=== PATIENT | female | born 1965 | race Caucasian/White ===

== ENCOUNTER 2016-07-25 08:54 | Inpatient (IN) | payer SELFPAY ==
[~2016-07-25] VITALS: Ht 167.6 cm; Wt 59.9 kg
--- NOTE | 2016-07-25 09:41 | PHYS DOC ---
Past Medical History Past Medical History: High Cholesterol, Hypertension, Hypothyroid, Renal Disease, Stroke (LLE weakness) Past Surgical History: , Other Additional Past Surgical Histo: L- CARPAL TUNNEL, L SHOULDER, LOWER BACK Alcohol Use: None Drug Use: None Adult General Chief Complaint Chief Complaint: OTHER COMPLAINTS [facility] HPI Patient is a 50 year old female who presents at request of Dr. Hartmann, nephrology, for abnormal renal function. She follows with chronic kidney disease. She states she has been taking Lasix for whole-body swelling for the past 6 weeks, and her swelling continues to get worse. She had a phone call for abnormal labs last night; she does not know exactly what the labs were other than renal function. She denies dyspnea, orthopnea, cough, fever or chills, nausea or vomiting, diarrhea, dysuria. Still making urine. No prior dialysis. Review of Systems Review of Systems Constitutional: Denies fever or chills [] Eyes: Denies change in visual acuity, redness, or eye pain [] HENT: Denies nasal congestion or sore throat [] Respiratory: Denies cough or shortness of breath [] Cardiovascular: No additional information not addressed in HPI [] GI: Denies abdominal pain, nausea, vomiting, bloody stools or diarrhea [] : Denies dysuria or hematuria [] Musculoskeletal: Denies back pain or joint pain [] Integument: Denies rash or skin lesions [] Neurologic: Denies headache, focal weakness or sensory changes [] Endocrine: Denies polyuria or polydipsia [] Allergies Allergies Allergies Coded Allergies Type Severity Reaction Last Updated Verified Sulfa (Sulfonamide Antibiotics) Allergy Intermediate 07/25/16 Yes bupropion Allergy Intermediate 07/25/16 Yes meperidine Allergy Intermediate 07/25/16 Yes Physical Exam Physical Exam Constitutional: Well developed, well nourished, no acute distress, non-toxic appearance. [] HENT: Normocephalic, atraumatic, bilateral external ears normal, oropharynx moist, nose normal. [] Eyes: PERRLA, EOMI. [] Neck: Normal range of motion, supple. [] Cardiovascular:Heart rate regular rhythm [] Lungs & Thorax: Bilateral breath sounds clear to auscultation [] Abdomen: Bowel sounds normal, soft, no tenderness. [] Skin: Warm, dry, no erythema, no rash. [] Back: No tenderness, no CVA tenderness. [] Extremities: No tenderness, ROM intact, bilateral 2+ upper and lower extremity edema. [] Neurologic: Alert and oriented X 3, normal motor function, normal sensory function, no focal deficits noted. [] Psychologic: Affect normal, judgement normal, mood normal. [] Current Patient Data Vital Signs Vital Signs Date Time Temp Pulse Resp B/P (MAP) Pulse Ox O2 Delivery O2 Flow Rate FiO2 07/25/16 09:00 97.9 75 20 195/98 (130) 99 Room Air 97.9 Lab Values Laboratory Tests Test 07/25/16 09:45 07/25/16 10:05 White Blood Count 6.2 x10^3/uL (4.0-11.0) Red Blood Count 3.40 x10^6/uL (3.50-5.40) L Hemoglobin 10.4 g/dL (12.0-15.5) L Hematocrit 29.1 % (36.0-47.0) L Mean Corpuscular Volume 86 fL (79-100) Mean Corpuscular Hemoglobin 31 pg (25-35) Mean Corpuscular Hemoglobin Concent 36 g/dL (31-37) Red Cell Distribution Width 13.9 % (11.5-14.5) Platelet Count 300 x10^3/uL (140-400) Neutrophils (%) (Auto) 66 % (31-73) Lymphocytes (%) (Auto) 21 % (24-48) L Monocytes (%) (Auto) 9 % (0-9) Eosinophils (%) (Auto) 3 % (0-3) Basophils (%) (Auto) 1 % (0-3) Neutrophils # (Auto) 4.1 x10^3uL (1.8-7.7) Lymphocytes # (Auto) 1.3 x10^3/uL (1.0-4.8) Monocytes # (Auto) 0.5 x10^3/uL (0.0-1.1) Eosinophils # (Auto) 0.2 x10^3/uL (0.0-0.7) Basophils # (Auto) 0.0 x10^3/uL (0.0-0.2) Sodium Level 145 mmol/L (136-145) Potassium Level 3.4 mmol/L (3.5-5.1) L Chloride Level 110 mmol/L (98-107) H Carbon Dioxide Level 23 mmol/L (21-32) Anion Gap 12 (6-14) Blood Urea Nitrogen 52 mg/dL (7-20) H Creatinine 2.9 mg/dL (0.6-1.0) H Estimated GFR (Cockcroft-Gault) 17.2 BUN/Creatinine Ratio 18 (6-20) Glucose Level 73 mg/dL (70-99) Calcium Level 8.2 mg/dL (8.5-10.1) L Total Bilirubin 0.3 mg/dL (0.2-1.0) Aspartate Amino Transferase (AST) 27 U/L (15-37) Alanine Aminotransferase (ALT) 17 U/L (14-59) Alkaline Phosphatase 62 U/L (46-116) Total Protein 5.6 g/dL (6.4-8.2) L Albumin 2.0 g/dL (3.4-5.0) L Albumin/Globulin Ratio 0.6 (1.0-1.7) L Glucose (Fingerstick) 53 mg/dL (70-99) L Laboratory Tests 07/25/16 09:45 Laboratory Tests 07/25/16 09:45 Course & Med Decision Making Course & Med Decision Making Pertinent Labs and Imaging studies reviewed. (See chart for details) Has renal failure with unknown baseline, but has whole-body edema failing outpatient diuresis. Discussed case with Dr. Okeefe, nephrology, who recommends admission for further workup and no immediate intervention. Discussed case with Dr. Da Silva, who will admit. Dragon Disclaimer Dragon Disclaimer This electronic medical record was generated, in whole or in part, using a voice recognition dictation system. Departure Departure Impression: Primary Impression: Acute on chronic renal failure Additional Impression: Edema Disposition: ADMITTED INPATIENT Condition: STABLE Problem Qualifiers Primary Impression: Acute on chronic renal failure Acute renal failure type: unspecified Chronic kidney disease stage: unspecified stage Qualified Codes: N17.9 - Acute kidney failure, unspecified; N18.9 - Chronic kidney disease, unspecified Additional Impression: Edema Edema type: generalized Qualified Codes: R60.1 - Generalized edema Margarita BUTLER MD July 25, 2016 09:41
[2016-07-25 10:01] LABS: CALCIUM 8.2 mg/dL (8.5-10.1); CREATININE 2.9 mg/dL (0.6-1.0); GFR 17.2; POTASSIUM 3.4 mmol/L (3.5-5.1)
[2016-07-25 10:07] LABS: ALBUMIN/GLOBULIN RATIO 0.6 (1.0-1.7); BASO % 1 % (0-3); EOS % 3 % (0-3); HEMATOCRIT 29.1 % (36.0-47.0); HEMOGLOBIN 10.4 g/dL (12.0-15.5); LYMPH # 1.3 x10^3/uL (1.0-4.8); LYMPH % 21 % (24-48); MEAN CORPUSCULAR HEMOGLOBIN 31 pg (25-35); MEAN CORPUSCULAR HGB CONC 36 g/dL (31-37); MEAN CORPUSCULAR VOLUME 86 fL (79-100); MONO % 9 % (0-9); NEUT % 66 % (31-73); PLATELET COUNT 300 x10^3/uL (140-400); RED CELL DISTRIBUTION WIDTH 13.9 % (11.5-14.5); TOTAL BILIRUBIN 0.3 mg/dL (0.2-1.0); TOTAL PROTEIN 5.6 g/dL (6.4-8.2); WHITE BLOOD COUNT 6.2 x10^3/uL (4.0-11.0)
[2016-07-25] MEDS ORDERED: ONDANSETRON PF 4 MG/2 ML VIAL. IV PRN (10:30)
[2016-07-25] MEDS ORDERED: ACETAMINOPHEN 325 MG TABLET. PO PRN (10:30)
--- NOTE | 2016-07-25 11:08 | ACF ---
Admission Forms Criteria RENAL FAILURE, CHRONIC Clinical Indications for Admission to Inpatient Care (Place 'X' for any and all applicable criteria): Admission is indicated for ANY ONE of the following (1)(2)(3)(4)(5): [X]I. Inpatient admission required rather than observation care (Use Renal Failure, Chronic: Observation Care Criteria as appropriate) because of ANY ONE of the following: [ ]a) Volume overload or uremic symptoms (eg, clinically significant pulmonary edema, hypertension, pericarditis, acidosis) too severe for, or not responsive (eg, for over 24 hours) to emergency department or observation care dialysis or treatment regimen (11) [ ]b) Hemodynamic instability that is severe or persistent [ ]c) Respiratory distress that is severe or persistent (11) [ ]d) Clinically significant electrolyte abnormality that requires inpatient care (eg,hyperkalemia with severe ECG findings)[B] [ ]e) Supplement O2 or respiratory therapy for over 24hrs that is performable only in acute inpatient setting [ ]f) Continuous IV infusion of anticoagulation, platelet inhibitor, vasoactive, or Antiarrhythmic medication (15), [ ]g) Pulmonary artery catheter monitoring [ ]h) Temporary pacemaker placement [ ]i) Emergent pericardiocentesis [X]j) Other condition, treatment or monitoring requiring inpatient admission [ ]II. Unexplained syncope [A] [ ]III. Recurrent seizures [ ]IV. Severe infections not treatable in outpatient setting (eg, peritonitis)(9 ) [ ]V. Cardiac arrhythmias of immediate concern [ ]. Encephalopathy [ ]VII.Bleeding abnormalities (eg, platelet dysfunction) with active (eg, gastrointestinal) bleeding Extended stay beyond goal length of stay may be needed for (3)(4)(35)(36): [ ]a) Continuing uremic complications [ ]b) Comorbidities or complications The original [employer] content created by [employer] has been revised. The portions of the content which have been revised are identified through the use of italic text or in bold, and [employer] has neither reviewed nor approved the modified material. All other unmodified content is copyright [employer]. Please see references footnoted in the original [employer] edition 2016 Admission Criteria Met?: Yes ANNAMARIE REYES July 25, 2016 11:08
[2016-07-25] MEDS ORDERED: RANI150C PO (11:40)
[2016-07-25] MEDS ORDERED: CLOP75TA PO (11:40)
[2016-07-25] MEDS ORDERED: CHOL10003 PO (11:40)
[2016-07-25] MEDS ORDERED: AMLO1TAB6 PO (11:41)
[2016-07-25] MEDS ORDERED: FURO-68 PO (11:41)
[2016-07-25] MEDS ORDERED: CLON0.1T PO (11:41)
[2016-07-25] MEDS ORDERED: PANT40TA3 PO (11:41)
[2016-07-25 11:42] VITALS: BP 154/95
[2016-07-25] MEDS: FUROSEMIDE 40 MG/4 ML VIAL. IVP SCH (13:52)
[2016-07-25] MEDS ORDERED: FUROSEMIDE 40 MG TABLET. PO SCH (14:00)
[2016-07-25 14:38] VITALS: BP 143/83
[2016-07-25] MEDS ORDERED: INSU100I13 SQ (15:16)
[2016-07-25] MEDS ORDERED: INSU100I17 SQ (15:16)
[2016-07-25] MEDS ORDERED: DEXTROSE 50% 25 GM / 50ML DISP.SYRIN. IV PRN (15:30)
--- NOTE | 2016-07-25 16:37 | HP ---
ADMIT DATE: 07/25/2016 CHIEF COMPLAINT: Elevated creatinine. HISTORY OF PRESENT ILLNESS: The patient is a pleasant 50-year-old female who has chronic renal insufficiency. She is also edematous. Her rehab tech, Dr. Hartmann, said she needed to come to the hospital for evaluation to consider the possibility of ____ dialysis. I have discussed the case with the ER physician. We are going to admit the patient and consult Nephrology. PAST MEDICAL HISTORY: Chronic renal insufficiency, hyperlipidemia, hypertension, hypothyroidism, , left carpal tunnel surgery, left shoulder surgery, lower back surgery, and stroke with left lower extremity weakness. ALLERGIES: None. FAMILY HISTORY: Hypertension. SOCIAL HISTORY: She does not drink, smoke, or take drugs. MEDICATIONS: Reviewed. Please refer to the MRAD. REVIEW OF SYSTEMS: GENERAL: The patient complains of severe edema. SKIN: No bruising, hair changes, or rashes. EYES: No blurred, double, or loss of vision. NOSE AND THROAT: No history of nosebleeds, hoarseness, or sore throat. HEART: No history of palpitations, chest pain, or shortness of breath on exertion. LUNGS: Denies cough, hemoptysis, wheezing, or shortness of breath. GASTROINTESTINAL: Denies changes in appetite, nausea, vomiting, diarrhea, or constipation. GENITOURINARY: No history of frequency, urgency, hesitancy, or nocturia. NEUROLOGIC: Denies history of numbness, tingling, tremor, or weakness. PSYCHIATRIC: No history of panic, anxiety, or depression. ENDOCRINE: No history of heat or cold intolerance, polyuria, or polydipsia. EXTREMITIES: Denies muscle weakness, joint pain, pain on walking, or stiffness. PHYSICAL EXAMINATION: VITAL SIGNS: Temperature afebrile, pulse 68, respirations 18, and blood pressure 117/92. GENERAL: She is alert, cooperative, and pleasant. HEART: Normal S1, S2. LUNGS: Clear with slight crackles. ABDOMEN: Soft. There is some ascites. EXTREMITIES: She has 2 to 3+ edema. SKIN: No rashes, but she has got some excoriations on her face. She states she picks at it sometimes. ENDOCRINE: No thyromegaly. LYMPHATICS: No cervical nodes. HEMATOPOIETIC: No bruising. LABORATORY DATA: Potassium is 3.4, sodium is 145, creatinine 2.9, glucose 73, and BUN 32. ASSESSMENT AND PLAN: Acute on chronic renal failure with severe edema and hypokalemia. The patient has been admitted. We will replace her potassium. Consult Nephrology. Suspect she might need dialysis. Continued her home medicines, frequent labs, PT, and OT. PROGNOSIS: Guarded. ANGEL JONES DO DR: LINDA/sunitha JOB#: [id number] / [id number]
[2016-07-25] MEDS: INSULIN ASPART 300 UNITS/3 ML INSULN.PEN SQ SCH (16:51)
--- NOTE | 2016-07-25 17:13 | HP ---
ADMIT DATE: 07/25/2016 CHIEF COMPLAINT: Abdominal pain. HISTORY OF PRESENT ILLNESS: The patient is a pleasant middle-aged white female who presents with abdominal pain. She rates it 7/10. She has associated nausea. It has been occurring off and on for a few months. She thinks she has gallstones; in fact, there was an imaging done back a few months ago that she was told may have had gallstones. I have discussed the case with the ER physician. We are going to admit the patient and consult GI and General Surgery. PAST MEDICAL HISTORY: Hyperlipidemia, possible gallstones, hypertension, hypothyroidism, renal disease, previous stroke, C-sections, left carpal tunnel, left shoulder surgery, low back surgery. ALLERGIES: SULFA, BUPROPION, AND MEPERIDINE. FAMILY HISTORY: Coronary artery disease. SOCIAL HISTORY: She does not drink or take drugs. She does smoke. 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 MEDICATIONS: Reviewed, please refer to the MRAD. REVIEW OF SYSTEMS: GENERAL: No history of weight change, weakness or fevers. SKIN: No bruising, hair changes or rashes. EYES: No blurred, double or loss of vision. NOSE AND THROAT: No history of nosebleeds, hoarseness or sore throat. HEART: No history of palpitations, chest pain or shortness of breath on exertion. LUNGS: Denies cough, hemoptysis, wheezing or shortness of breath. GASTROINTESTINAL: The patient complains of abdominal pain. GENITOURINARY: No history of frequency, urgency, hesitancy or nocturia. NEUROLOGIC: Denies history of numbness, tingling, tremor or weakness. PSYCHIATRIC: No history of panic, anxiety or depression. ENDOCRINE: No history of heat or cold intolerance, polyuria or polydipsia. EXTREMITIES: Denies muscle weakness, joint pain, pain on walking or stiffness. PHYSICAL EXAMINATION: VITAL SIGNS: Temperature afebrile, pulse 68, respirations 18, blood pressure 117/62. GENERAL: She is alert, cooperative. HEART: Normal S1, S2. LUNGS: Clear. ABDOMEN: Soft. Decreased bowel sounds, tender in the epigastrium. EXTREMITIES: No edema. SKIN: No rashes. PSYCHIATRIC: She is stable. VASCULAR: Good capillary refill. ENDOCRINE: No thyromegaly. LYMPHATICS: No cervical nodes. HEMATOPOIETIC: No bruising. LABORATORY DATA: White count , hemoglobin 10, platelets 300. Electrolytes: Sodium 145, potassium 3.4, chloride 110, bicarbonate 23, BUN 52, creatinine . ANGEL JONES DO DR: LINDA/sunitha JOB#: [id number] / [id number]
[2016-07-25 19:00] VITALS: BP 148/86
[2016-07-25] MEDS: cloNIDine HCL 0.1 MG TABLET PO SCH (20:25)
[2016-07-25] MEDS: ATORVASTATIN CALCIUM 40 MG TABLET. PO SCH (20:26)
[2016-07-25] MEDS: INSULIN DETEMIR 300 UNITS/3 ML INSULN.PEN. SQ SCH (21:40)
[2016-07-25 23:06] VITALS: BP 119/64
[2016-07-26] VITALS (11 sets, daily range): BP systolic 114–165; BP diastolic 59–86
[2016-07-26 05:10] LABS: ALBUMIN 1.6 g/dL (3.4-5.0); CALCIUM 7.7 mg/dL (8.5-10.1); GFR 16.5; PHOSPHORUS 4.5 mg/dL (2.6-4.7); POTASSIUM 3.5 mmol/L (3.5-5.1)
[2016-07-26] MEDS: CHOLECALCIFEROL (VITAMIN D3) 1,000 UNIT TABLET PO SCH (08:30)
[2016-07-26] MEDS: PANTOPRAZOLE 40 MG TABLET.DR. PO SCH (08:30)
[2016-07-26] MEDS: CLOPIDOGREL BISULFATE 75 MG TABLET PO SCH (08:30)
[2016-07-26] MEDS: amLODIPine BESYLATE 10 MG TABLET PO SCH (08:31)
[2016-07-26] MEDS: cloNIDine HCL 0.1 MG TABLET PO SCH (08:31)
[2016-07-26] MEDS: FAMOTIDINE 20 MG TABLET. PO SCH (08:31)
[2016-07-26] MEDS: FUROSEMIDE 40 MG/4 ML VIAL. IVP SCH ×2 (08:32→14:44)
[2016-07-26] MEDS: INSULIN ASPART 300 UNITS/3 ML INSULN.PEN SQ SCH ×4 (08:43→17:12)
--- NOTE | 2016-07-26 12:12 | PDOC2 ---
CONSULT Date of Consult Date of Consult DATE: 07/26/16 TIME: 12:02 Reason for Consult Reason for Consult: RENAL FAILURE Referring Physician Referring Physician: KAREN Identification/Chief Complaint Chief Complaint SWELLING Source Source: Chart review, Patient History of Present Illness Reason for Visit: THIS IS A 50 YR OLD ADMITTED WITH SWELLING ALL OVER. SHE HAS HAS PROGRESSIVE ANASARCA RECENTLY. HX NOTABLE FOR DM AND SEVERE NEPHROTIC RANGE PROTEINURIA. SHE IS NOTED TO HAVE ABOUT 12GM A DAY PROTEINURIA. SHE IS ALSO HYPERTENSIVE AND HAS HAD PROGRESSIVE CKD OVER THE COURSE OF THIS YEAR. HER CR WAS ABOUT 2.1 IN MAY THIS YEAR WITH A CRCL OF 26CC/MIN. CURRENTLY CR IS 3.0 AND WE CANNOT ADEQUATELY DIURESE HER AND SHE APPARENTLY HAS NOT TOLERATED AN NATALIIA-I IN THE PAST Past Medical History Cardiovascular: HTN, Hyperlipidemia CENTRAL NERVOUS SYSTEM: CVA Renal/: Chronic renal failure, Other (PROTEINURIA) Endocrine: Diabetes Past Surgical History Past Surgical History LEFT CARPAL TUNNEL RELEASE, LEFT SHOULDER, LOW BACK SURGERY Past Surgical History: Family History Family History: Diabetes, Hypertension Social History No ALCOHOL: none Drugs: None Current Problem List Problem List Problems Medical Problems: (1) Acute on chronic renal failure Status: Acute (2) Edema Status: Acute Current Medications Current Medications Current Medications Ondansetron HCl (Zofran) 4 mg PRN Q8HRS PRN IV NAUSEA/VOMITING; Start 07/25/16 at 10:30; Stop 07/26/16 at 10:29; Status DC Acetaminophen (Tylenol) 650 mg PRN Q4HRS PRN PO FEVER; Start 07/25/16 at 10:30 ; Stop 07/26/16 at 10:29; Status DC Vitamin D (Vitamin D3) 1,000 unit DAILY PO Last administered on 07/26/16 08:30 ; Start 07/26/16 at 09:00 Clonidine HCl (Catapres) 0.1 mg BID PO Last administered on 07/26/16 08:31; Start 07/25/16 at 21:00 Clopidogrel Bisulfate (Plavix) 75 mg DAILYWBKFT PO Last administered on 08:30; Start 07/26/16 at 08:00 Furosemide (Lasix) 40 mg BID92 PO ; Start 07/25/16 at 14:00; Stop 07/25/16 at 14 :00; Status DC Pantoprazole Sodium (Protonix) 40 mg DAILYAC PO Last administered on 07/26/16 08:30; Start 07/26/16 at 07:30 Amlodipine Besylate (Norvasc) 10 mg DAILY PO Last administered on 07/26/16 08: 31; Start 07/26/16 at 09:00 Famotidine (Pepcid) 20 mg DAILY PO Last administered on 07/26/16 08:31; Start 07/26/16 at 09:00 Atorvastatin Calcium (Lipitor) 40 mg QHS PO ; Start 07/25/16 at 21:00 Furosemide (Lasix) 40 mg BID92 IVP Last administered on 07/26/16 08:32; Start 07/25/16 at 14:00 Insulin Detemir (Levemir) 8 units QHS SQ Last administered on 07/25/16 21:40; Start 07/25/16 at 21:00 Insulin Aspart (NovoLOG) 0-7 UNITS TIDWMEALS SQ Last administered on 07/26/16 08:43; Start 07/25/16 at 17:00 Dextrose (Dextrose 50%-Water Syringe) 12.5 gm PRN Q15MIN PRN IV SEE COMMENTS; Start 07/25/16 at 15:30 Active Scripts Active Reported Novolog Flexpen (Insulin Aspart) 100 Unit/1 Ml Insuln.pen 5 Unit SQ TIDAC Lantus Solostar (Insulin Glargine,Hum.rec.anlog) 100 Unit/1 Ml Insuln.pen 8 Unit SQ QHS Clonidine Hcl 0.1 Mg Tablet 0.1 Mg PO BID Lasix (Furosemide) 40 Mg Tablet 40 Mg PO BID Caduet 10 Mg-40 Mg Tablet (Amlodipine/Atorvastatin) 1 Each Tablet 1 Each PO DAILY Protonix (Pantoprazole Sodium) 40 Mg Tablet.dr 1 Tab PO DAILY Clopidogrel (Clopidogrel Bisulfate) 75 Mg Tablet 1 Tab PO DAILY Ranitidine Hcl 150 Mg Capsule 150 Mg PO DAILY Vitamin D3 (Cholecalciferol (Vitamin D3)) 1,000 Unit Tablet 1 Tab PO DAILY Allergies Allergies: Coded Allergies: Sulfa (Sulfonamide Antibiotics) (Verified Allergy, Intermediate, 07/25/16) bupropion (Verified Allergy, Intermediate, 07/25/16) meperidine (Verified Allergy, Intermediate, 5/24/17) ROS General: YES: Fatigue, Malaise, Appetite PSYCHOLOGICAL ROS: YES: Depression Eyes: Yes Decreased vision HEENT: YES: Heacaches Respiratory: YES: Cough, Shortness of breath Cardiovascular: yes Edema Gastrointestinal: Yes Constipation Genitourinary: YES Other (NOCTURIA) Neurological: Yes Weakness Physical Exam General: Alert, Oriented X3, Cooperative, No acute distress HEENT: Atraumatic, PERRLA Lungs: Clear to auscultation Heart: Regular rate, Normal S2, No murmurs Abdomen: Normal bowel sounds, No tenderness Extremities: No clubbing, Other (3+ EDEMA) Neuro: Normal speech, Other (L LE WEAKNESS AFTER CVA-NEEDS A WALKER) Psych/Mental Status: Mood NL MUSCULOSKELETAL: No deformity, No swelling Vitals VITALS Vital Signs Date Time Temp Pulse Resp B/P (MAP) Pulse Ox O2 Delivery O2 Flow Rate FiO2 07/26/16 11:00 99.5 73 22 115/63 (80) 98 Room Air 99.5 Labs Labs Laboratory Tests Test 07/25/16 09:45 07/25/16 10:05 07/25/16 11:00 07/25/16 11:26 White Blood Count 6.2 x10^3/uL (4.0-11.0) Red Blood Count 3.40 x10^6/uL (3.50-5.40) Hemoglobin 10.4 g/dL (12.0-15.5) Hematocrit 29.1 % (36.0-47.0) Mean Corpuscular Volume 86 fL (79-100) Mean Corpuscular Hemoglobin 31 pg (25-35) Mean Corpuscular Hemoglobin Concent 36 g/dL (31-37) Red Cell Distribution Width 13.9 % (11.5-14.5) Platelet Count 300 x10^3/uL (140-400) Neutrophils (%) (Auto) 66 % (31-73) Lymphocytes (%) (Auto) 21 % (24-48) Monocytes (%) (Auto) 9 % (0-9) Eosinophils (%) (Auto) 3 % (0-3) Basophils (%) (Auto) 1 % (0-3) Neutrophils # (Auto) 4.1 x10^3uL (1.8-7.7) Lymphocytes # (Auto) 1.3 x10^3/uL (1.0-4.8) Monocytes # (Auto) 0.5 x10^3/uL (0.0-1.1) Eosinophils # (Auto) 0.2 x10^3/uL (0.0-0.7) Basophils # (Auto) 0.0 x10^3/uL (0.0-0.2) Sodium Level 145 mmol/L (136-145) Potassium Level 3.4 mmol/L (3.5-5.1) Chloride Level 110 mmol/L (98-107) Carbon Dioxide Level 23 mmol/L (21-32) Anion Gap 12 (6-14) Blood Urea Nitrogen 52 mg/dL (7-20) Creatinine 2.9 mg/dL (0.6-1.0) Estimated GFR (Cockcroft-Gault) 17.2 BUN/Creatinine Ratio 18 (6-20) Glucose Level 73 mg/dL (70-99) Calcium Level 8.2 mg/dL (8.5-10.1) Total Bilirubin 0.3 mg/dL (0.2-1.0) Aspartate Amino Transf (AST/SGOT) 27 U/L (15-37) Alanine Aminotransferase (ALT/SGPT) 17 U/L (14-59) Alkaline Phosphatase 62 U/L (46-116) Total Protein 5.6 g/dL (6.4-8.2) Albumin 2.0 g/dL (3.4-5.0) Albumin/Globulin Ratio 0.6 (1.0-1.7) Glucose (Fingerstick) 53 mg/dL (70-99) 65 mg/dL (70-99) Urine Creatinine 24 Hour 61.9 mg/dL (Not Estab.) Urine Creatinine mg/24 hr 669 mg/24 hr (800-1800) Test 07/25/16 16:42 07/25/16 20:48 07/26/16 04:15 07/26/16 10:47 Glucose (Fingerstick) 160 mg/dL (70-99) 216 mg/dL (70-99) 160 mg/dL (70-99) Sodium Level 144 mmol/L (136-145) Potassium Level 3.5 mmol/L (3.5-5.1) Chloride Level 111 mmol/L (98-107) Carbon Dioxide Level 25 mmol/L (21-32) Anion Gap 8 (6-14) Blood Urea Nitrogen 52 mg/dL (7-20) Creatinine 3.0 mg/dL (0.6-1.0) Estimated GFR (Cockcroft-Gault) 16.5 Glucose Level 215 mg/dL (70-99) Calcium Level 7.7 mg/dL (8.5-10.1) Phosphorus Level 4.5 mg/dL (2.6-4.7) FK-[id number]-Type Natriuretic Peptide 1972 pg/mL (0-124) Albumin 1.6 g/dL (3.4-5.0) Laboratory Tests Test 07/25/16 16:42 07/25/16 20:48 07/26/16 04:15 07/26/16 10:47 Glucose (Fingerstick) 160 mg/dL (70-99) 216 mg/dL (70-99) 160 mg/dL (70-99) Sodium Level 144 mmol/L (136-145) Potassium Level 3.5 mmol/L (3.5-5.1) Chloride Level 111 mmol/L (98-107) Carbon Dioxide Level 25 mmol/L (21-32) Anion Gap 8 (6-14) Blood Urea Nitrogen 52 mg/dL (7-20) Creatinine 3.0 mg/dL (0.6-1.0) Estimated GFR (Cockcroft-Gault) 16.5 Glucose Level 215 mg/dL (70-99) Calcium Level 7.7 mg/dL (8.5-10.1) Phosphorus Level 4.5 mg/dL (2.6-4.7) MH-Yml-F-Type Natriuretic Peptide 1972 pg/mL (0-124) Albumin 1.6 g/dL (3.4-5.0) Assessment/Plan Assessment/Plan IMP ANASARCA NEW ESRD WITH PROGRESSION IN THE LAST SEVERAL MONTHS CRCL WAS 25 WITH CR OF 2.0 IN MAY-CURRENT CR IS 3.0 SEVERE NEPHROTIC SYNDROME WITH NEARLY 12 GM PER/DAY DM II HTN ANEMIA HYPOALBUMINEMIA PLAN WILL START HD WILL HAVE IR PLACE TUNNELED HD CATHETER HAVE ASKED SW TO SET UP OP HD HAD LONG D/W PT ABOUT PD AND HD OPTIONS AND SHE MAY BE INTERESTED IN PD AT LATER DATE IV LASIX FOR NOW ALSO START NATALIIA-I STOP CLONIDINE TIM MCGRATH MD July 26, 2016 12:11
[2016-07-26] MEDS: LISINOPRIL 20 MG TABLET PO SCH (13:00)
--- NOTE | 2016-07-26 13:13 | PDOC ---
PROGRESS NOTES Chief Complaint Chief Complaint ANASARCA ESRD with ckd 3-4 baseline Cr 2 DM II HTN ANEMIA HYPOALBUMINEMIA 2/2 ESRD plan: fu with renal on lasix 40mg iv bid HD set up today cont home meds, on lisinopril. dc clonidine as per renal on levemir 8u qhs, add aspart 5u tid, SSI dvt ppx History of Present Illness History of Present Illness decent urine output bl upper and lower ext severe edema, anasarca, distended abd moderate Vitals Vitals Vital Signs Date Time Temp Pulse Resp B/P (MAP) Pulse Ox O2 Delivery O2 Flow Rate FiO2 07/26/16 11:00 99.5 73 22 115/63 (80) 98 Room Air 99.5 Physical Exam General: Alert, Oriented X3, Cooperative, No acute distress Heart: Regular rate, Normal S2, No murmurs Abdomen: Normal bowel sounds, No tenderness, Other (moderate distended abd) Extremities: No clubbing, Other (bl ext 3+ pitting EDEMA) Labs LABS Laboratory Tests Test 07/25/16 16:42 07/25/16 20:48 07/26/16 04:15 07/26/16 10:47 Glucose (Fingerstick) 160 mg/dL (70-99) 216 mg/dL (70-99) 160 mg/dL (70-99) Sodium Level 144 mmol/L (136-145) Potassium Level 3.5 mmol/L (3.5-5.1) Chloride Level 111 mmol/L (98-107) Carbon Dioxide Level 25 mmol/L (21-32) Anion Gap 8 (6-14) Blood Urea Nitrogen 52 mg/dL (7-20) Creatinine 3.0 mg/dL (0.6-1.0) Estimated GFR (Cockcroft-Gault) 16.5 Glucose Level 215 mg/dL (70-99) Calcium Level 7.7 mg/dL (8.5-10.1) Phosphorus Level 4.5 mg/dL (2.6-4.7) CU-Pis-E-Type Natriuretic Peptide 1972 pg/mL (0-124) Albumin 1.6 g/dL (3.4-5.0) Review of Systems Review of Systems no fever, chills, sob or chest pain Assessment and Plan Assessmemt and Plan Problems Medical Problems: (1) Acute on chronic renal failure Status: Acute (2) Edema Status: Acute Problems: Comment Review of Relevant I have reviewed the following items ruiz (where applicable) has been applied. Labs Laboratory Tests Test 07/25/16 09:45 07/25/16 10:05 07/25/16 11:00 07/25/16 11:26 White Blood Count 6.2 x10^3/uL (4.0-11.0) Red Blood Count 3.40 x10^6/uL (3.50-5.40) Hemoglobin 10.4 g/dL (12.0-15.5) Hematocrit 29.1 % (36.0-47.0) Mean Corpuscular Volume 86 fL (79-100) Mean Corpuscular Hemoglobin 31 pg (25-35) Mean Corpuscular Hemoglobin Concent 36 g/dL (31-37) Red Cell Distribution Width 13.9 % (11.5-14.5) Platelet Count 300 x10^3/uL (140-400) Neutrophils (%) (Auto) 66 % (31-73) Lymphocytes (%) (Auto) 21 % (24-48) Monocytes (%) (Auto) 9 % (0-9) Eosinophils (%) (Auto) 3 % (0-3) Basophils (%) (Auto) 1 % (0-3) Neutrophils # (Auto) 4.1 x10^3uL (1.8-7.7) Lymphocytes # (Auto) 1.3 x10^3/uL (1.0-4.8) Monocytes # (Auto) 0.5 x10^3/uL (0.0-1.1) Eosinophils # (Auto) 0.2 x10^3/uL (0.0-0.7) Basophils # (Auto) 0.0 x10^3/uL (0.0-0.2) Sodium Level 145 mmol/L (136-145) Potassium Level 3.4 mmol/L (3.5-5.1) Chloride Level 110 mmol/L (98-107) Carbon Dioxide Level 23 mmol/L (21-32) Anion Gap 12 (6-14) Blood Urea Nitrogen 52 mg/dL (7-20) Creatinine 2.9 mg/dL (0.6-1.0) Estimated GFR (Cockcroft-Gault) 17.2 BUN/Creatinine Ratio 18 (6-20) Glucose Level 73 mg/dL (70-99) Calcium Level 8.2 mg/dL (8.5-10.1) Total Bilirubin 0.3 mg/dL (0.2-1.0) Aspartate Amino Transf (AST/SGOT) 27 U/L (15-37) Alanine Aminotransferase (ALT/SGPT) 17 U/L (14-59) Alkaline Phosphatase 62 U/L (46-116) Total Protein 5.6 g/dL (6.4-8.2) Albumin 2.0 g/dL (3.4-5.0) Albumin/Globulin Ratio 0.6 (1.0-1.7) Glucose (Fingerstick) 53 mg/dL (70-99) 65 mg/dL (70-99) Urine Creatinine 24 Hour 61.9 mg/dL (Not Estab.) Urine Creatinine mg/24 hr 669 mg/24 hr (800-1800) Test 07/25/16 16:42 07/25/16 20:48 07/26/16 04:15 07/26/16 10:47 Glucose (Fingerstick) 160 mg/dL (70-99) 216 mg/dL (70-99) 160 mg/dL (70-99) Sodium Level 144 mmol/L (136-145) Potassium Level 3.5 mmol/L (3.5-5.1) Chloride Level 111 mmol/L (98-107) Carbon Dioxide Level 25 mmol/L (21-32) Anion Gap 8 (6-14) Blood Urea Nitrogen 52 mg/dL (7-20) Creatinine 3.0 mg/dL (0.6-1.0) Estimated GFR (Cockcroft-Gault) 16.5 Glucose Level 215 mg/dL (70-99) Calcium Level 7.7 mg/dL (8.5-10.1) Phosphorus Level 4.5 mg/dL (2.6-4.7) LR-Tut-M-Type Natriuretic Peptide 1972 pg/mL (0-124) Albumin 1.6 g/dL (3.4-5.0) Laboratory Tests Test 07/25/16 16:42 07/25/16 20:48 07/26/16 04:15 07/26/16 10:47 Glucose (Fingerstick) 160 mg/dL (70-99) 216 mg/dL (70-99) 160 mg/dL (70-99) Sodium Level 144 mmol/L (136-145) Potassium Level 3.5 mmol/L (3.5-5.1) Chloride Level 111 mmol/L (98-107) Carbon Dioxide Level 25 mmol/L (21-32) Anion Gap 8 (6-14) Blood Urea Nitrogen 52 mg/dL (7-20) Creatinine 3.0 mg/dL (0.6-1.0) Estimated GFR (Cockcroft-Gault) 16.5 Glucose Level 215 mg/dL (70-99) Calcium Level 7.7 mg/dL (8.5-10.1) Phosphorus Level 4.5 mg/dL (2.6-4.7) RY-Odf-T-Type Natriuretic Peptide 1972 pg/mL (0-124) Albumin 1.6 g/dL (3.4-5.0) Medications Current Medications Ondansetron HCl (Zofran) 4 mg PRN Q8HRS PRN IV NAUSEA/VOMITING; Start 07/25/16 at 10:30; Stop 07/26/16 at 10:29; Status DC Acetaminophen (Tylenol) 650 mg PRN Q4HRS PRN PO FEVER; Start 07/25/16 at 10:30 ; Stop 07/26/16 at 10:29; Status DC Vitamin D (Vitamin D3) 1,000 unit DAILY PO Last administered on 07/26/16 08:30 ; Start 07/26/16 at 09:00 Clonidine HCl (Catapres) 0.1 mg BID PO Last administered on 07/26/16 08:31; Start 07/25/16 at 21:00; Stop 07/26/16 at 12:13; Status DC Clopidogrel Bisulfate (Plavix) 75 mg DAILYWBKFT PO Last administered on 08:30; Start 07/26/16 at 08:00 Furosemide (Lasix) 40 mg BID92 PO ; Start 07/25/16 at 14:00; Stop 07/25/16 at 14 :00; Status DC Pantoprazole Sodium (Protonix) 40 mg DAILYAC PO Last administered on 07/26/16 08:30; Start 07/26/16 at 07:30 Amlodipine Besylate (Norvasc) 10 mg DAILY PO Last administered on 07/26/16 08: 31; Start 07/26/16 at 09:00 Famotidine (Pepcid) 20 mg DAILY PO Last administered on 07/26/16 08:31; Start 07/26/16 at 09:00 Atorvastatin Calcium (Lipitor) 40 mg QHS PO ; Start 07/25/16 at 21:00 Furosemide (Lasix) 40 mg BID92 IVP Last administered on 07/26/16 08:32; Start 07/25/16 at 14:00 Insulin Detemir (Levemir) 8 units QHS SQ Last administered on 07/25/16 21:40; Start 07/25/16 at 21:00 Insulin Aspart (NovoLOG) 0-7 UNITS TIDWMEALS SQ Last administered on 07/26/16 08:43; Start 07/25/16 at 17:00 Dextrose (Dextrose 50%-Water Syringe) 12.5 gm PRN Q15MIN PRN IV SEE COMMENTS; Start 07/25/16 at 15:30 Lisinopril (Prinivil) 20 mg DAILY PO ; Start 07/26/16 at 13:00 Active Scripts Active Reported Novolog Flexpen (Insulin Aspart) 100 Unit/1 Ml Insuln.pen 5 Unit SQ TIDAC Lantus Solostar (Insulin Glargine,Hum.rec.anlog) 100 Unit/1 Ml Insuln.pen 8 Unit SQ QHS Clonidine Hcl 0.1 Mg Tablet 0.1 Mg PO BID Lasix (Furosemide) 40 Mg Tablet 40 Mg PO BID Caduet 10 Mg-40 Mg Tablet (Amlodipine/Atorvastatin) 1 Each Tablet 1 Each PO DAILY Protonix (Pantoprazole Sodium) 40 Mg Tablet.dr 1 Tab PO DAILY Clopidogrel (Clopidogrel Bisulfate) 75 Mg Tablet 1 Tab PO DAILY Ranitidine Hcl 150 Mg Capsule 150 Mg PO DAILY Vitamin D3 (Cholecalciferol (Vitamin D3)) 1,000 Unit Tablet 1 Tab PO DAILY Vitals/I & O Vital Sign - Last 24 Hours 07/25/16 07/25/16 07/25/16 07/25/16 14:38 19:00 20:00 20:25 Temp 97.5 97.9 97.5 97.9 Pulse 76 76 79 Resp 16 18 B/P (MAP) 143/83 (103) 148/86 (106) 148/87 Pulse Ox 96 97 O2 Delivery Room Air Room Air Room Air 07/25/16 07/26/16 07/26/16 07/26/16 23:06 02:39 07:00 08:31 Temp 98.2 99.5 98.2 99.5 Pulse 79 73 73 Resp 18 20 B/P (MAP) 119/64 (82) 165/83 (110) 165/83 Pulse Ox 95 98 O2 Delivery Room Air Room Air Room Air 07/26/16 07/26/16 08:31 11:00 Temp 99.5 99.5 Pulse 73 73 Resp 22 B/P (MAP) 165/83 115/63 (80) Pulse Ox 98 O2 Delivery Room Air Intake and Output 07/25/16 07/25/16 07/26/16 15:00 23:00 07:00 Intake Total 240 ml 120 ml Output Total 300 ml Balance 240 ml -180 ml KARYNA NAGEL MD July 26, 2016 13:13
[2016-07-26] MEDS ORDERED: DOCUSATE SODIUM 100 MG CAPSULE. PO PRN (13:15)
[2016-07-26] MEDS ORDERED: MORPHINE SULFATE 2 MG/ML DISP.SYRIN. IV PRN (13:15)
[2016-07-26] MEDS: HEPARIN PF for SUB-Q USE 5,000 UNIT/0.5 ML VIAL. SQ SCH ×2 (14:00→20:25)
[2016-07-26 14:33] LABS: ALBUMIN 1.8 g/dL (3.4-5.0); DIRECT BILIRUBIN 0.1 mg/dL (0.0-0.2); TOTAL BILIRUBIN 0.3 mg/dL (0.2-1.0); TOTAL PROTEIN 4.6 g/dL (6.4-8.2)
[2016-07-26] MEDS ORDERED: LIDOCAINE 1%/EPI 1:100,000 20 ML VIAL. ONE (15:25)
[2016-07-26] MEDS ORDERED: HEPARIN for IV BOLUS 10,000 UNIT/10 ML VIAL. ONE (15:25)
[2016-07-26] MEDS ORDERED: fentaNYL PF VIAL 250 MCG/5 ML VIAL ONE (15:38)
[2016-07-26] MEDS ORDERED: MIDAZOLAM HCL/PF 5 MG/5 ML VIAL. ONE (15:38)
[2016-07-26] MEDS ORDERED: GELATIN SPONGE SIZE 12-7MM SPONGE. ONE (16:07)
[2016-07-26] MEDS ORDERED: HEPARIN for IV BOLUS 10,000 UNIT/10 ML VIAL. IV ONE (16:15)
[2016-07-26] MEDS ORDERED: LIDOCAINE 1%/EPI 1:100,000 20 ML VIAL. IJ ONE (16:15)
[2016-07-26] MEDS ORDERED: fentaNYL PF VIAL 250 MCG/5 ML VIAL IV ONE (16:15)
[2016-07-26] MEDS ORDERED: MIDAZOLAM HCL/PF 5 MG/5 ML VIAL. IV ONE (16:15)
--- NOTE | 2016-07-26 16:18 | PDOC ---
MODERATE SEDATION ASSESSMENT RISKS/ALTERNATIVES Risks/Alternatives Risks and alternatives of this type of sedation and procedure discussed with: RISK/ALTERNATIVES: Patient H & P ON CHART H & P H & P on chart and reviewed for co-morbid conditions and appropriate labs. H&P ON CHART: Yes STATUS PREG STATUS ASSESSED: Yes MEDS/ALLERGIES REVIEWED Meds/Allergies Reviewed Medications and Allergies including time and route of recently administered narcotics and sedatives. MEDS/ALLERGIES REVIEWED: Yes ASA RATING ASA RATING: II AIRWAY ASSESSMENT Airway Assessment Airway patency, oral function limitations, presence of caps, crowns, dentures, partials, and ability to extend neck assessed. AIRWAY ASSESSMENT: Yes MALLAMPATI SCORE MALLAMPATI SCORE: II PRE-SEDATION ASSESSMENT PRE-SEDATION ASSESSMENT: Yes ARNOL JONES MD July 26, 2016 16:18
--- NOTE | 2016-07-26 16:23 | PDOC ---
Exam Soil Engineer Soil Engineer Levi Software Verification Engineer Software Verification Engineer Tavon Rust Pre-Procedure Diagnosis Pre-Procedure Diagnosis 50 YO diabetic hypertensive female with acute on chronic kidney disease. Now with nephrotic syndrome, hypoalbuminemia, and anasarca. Needs HD. Tunneled HDC insertion requested by Renal. Post-Procedure Diagnosis Post-Procedure Diagnosis Same Procedure Performed Procedure Performed Sono/fluoro guided tunneled HDC insertion Type of Anesthesia Type of Anesthesia Local + Mod sedation Estimated Blood Loss EBL: Minimal Drain/Tubes Drains/Tubes Rt IJ 15.5F 24cm DuraMax tunneled HDC Condition of Patient Condition of Patient Stable. No apparent complication. Disposition Disposition From IR return to [facility]. F/u with HIMS and Renal. OK to use tunneled HDC. Full report to follow. ARNOL JONES MD July 26, 2016 16:23
[2016-07-26] MEDS: ATORVASTATIN CALCIUM 40 MG TABLET. PO SCH (20:11)
[2016-07-26] MEDS: traMADol 50 MG TABLET PO PRN (20:12)
[2016-07-26] MEDS: INSULIN DETEMIR 300 UNITS/3 ML INSULN.PEN. SQ SCH (20:25)
[2016-07-26 23:11] LABS: HEP B SURFACE ABDY Reactive (.)
[2016-07-27 05:56] LABS: RED BLOOD COUNT 2.99 x10^6/uL (3.50-5.40); RED CELL DISTRIBUTION WIDTH 14.2 % (11.5-14.5); WHITE BLOOD COUNT 6.6 x10^3/uL (4.0-11.0)
[2016-07-27] MEDS: HEPARIN PF for SUB-Q USE 5,000 UNIT/0.5 ML VIAL. SQ SCH ×3 (05:59→21:03)
[2016-07-27 06:15] LABS: CALCIUM 7.7 mg/dL (8.5-10.1); CREATININE 3.4 mg/dL (0.6-1.0); GFR 14.3; POTASSIUM 3.8 mmol/L (3.5-5.1)
--- NOTE | 2016-07-27 06:52 | RAD ---
Ultrasound and fluoro guided placement of right IJ tunneled hemodialysis catheter Indication: 50-year-old hypertensive diabetic female with acute on chronic renal failure, nephrotic syndrome, hypoalbuminemia, and anasarca. Hemodialysis is needed. Tunneled dialysis catheter insertion has been requested by renal. Fluoro time: 0.3 minutes Kerma-Area Product: 1 Gycm2 Moderate sedation: 27 minutes moderate sedation was provided utilizing a total of 2.5 mg Versed and 125 mcg fentanyl, IV. The patient was appropriately monitored by a qualified independent observer throughout the time of moderate sedation. Antibiotic: A single dose of Ancef was administered within 1 hour of the procedure start time. Sterility: All elements of maximal sterile barrier technique, hand hygiene, skin preparation, and, if ultrasound was used, sterile ultrasound technique were followed. Consent: The procedure was explained in its entirety to the patient and/or the patient's designated guest service representative by a member of the treatment team. This included a discussion of risks and benefits and commonly accepted alternatives to the procedure, as well as expected consequences of no treatment at all. Discussion of risks included, but was not limited to, those that are most frequent and those that are rare, but possibly severe or life-threatening, as well as the possibility of unforeseen complications. Procedure: Informed consent was obtained from the patient. She was placed supine on the angiography table. Preliminary ultrasound examination of right neck revealed wide patency of right internal jugular vein, which was documented with a hard copy ultrasound image. Right neck and upper chest were then prepped and draped in the usual sterile fashion, utilizing all elements of maximal sterile barrier technique, as described above. Moderate sedation was provided with IV Versed and Fentanyl. 1 gram Ancef was given IV, prophylactically. Using aseptic technique and local anesthesia, a small skin incision was made lateral to right internal jugular vein, just above clavicle. Using aseptic technique, local anesthesia, and direct ultrasound guidance, a micropuncture needle was successfully introduced into right internal jugular vein. The micropuncture needle was then exchanged over a microguidewire for a micropuncture sheath, through which an Amplatz wire was advanced into IVC, under fluoroscopic control. A second small skin incision was then made along upper anterior aspect of right chest. A subcutaneous tunnel was then fashioned between the right chest and supraclavicular incisions. A 15.5 F 24 cm Dura Max dialysis catheter was pulled through the subcutaneous tunnel from inferior to superior, utilizing the tunneling device provided. The right IJ venostomy tract was then sequentially dilated and the 15.5 Stateless dialysis catheter was easily advanced centrally through a 16 Stateless peel-away sheath, and was positioned with its tip at the level of upper right atrium utilizing fluoroscopic guidance. This catheter was demonstrated to flush and aspirate normally, was packed, and was secured at the right chest exit site utilizing 2-0 Prolene and sterile dressing. The small supraclavicular incision was closed with 4-0 Vicryl, Steri-Strips, and sterile dressing. Patient tolerated the procedure well without apparent complication. Satisfactory position of the dialysis catheter was confirmed with a single fluoroscopic spot image. Impression: Successful, uneventful ultrasound and fluoro guided placement of right IJ 15.5 F 24 cm Dura Max tunneled hemodialysis catheter, as described.
[2016-07-27 07:00] VITALS: BP 167/94
[2016-07-27] MEDS ORDERED: LEVO200T PO (07:49)
[2016-07-27] MEDS: INSULIN ASPART 300 UNITS/3 ML INSULN.PEN SQ SCH ×6 (08:00→17:00)
[2016-07-27] MEDS: CLOPIDOGREL BISULFATE 75 MG TABLET PO SCH (08:52)
[2016-07-27] MEDS: CHOLECALCIFEROL (VITAMIN D3) 1,000 UNIT TABLET PO SCH (08:52)
[2016-07-27] MEDS: FAMOTIDINE 20 MG TABLET. PO SCH (08:52)
[2016-07-27] MEDS: amLODIPine BESYLATE 10 MG TABLET PO SCH (08:53)
[2016-07-27] MEDS: FUROSEMIDE 40 MG/4 ML VIAL. IVP SCH ×2 (08:54→17:03)
[2016-07-27] MEDS: LISINOPRIL 20 MG TABLET PO SCH (08:54)
[2016-07-27] MEDS: PANTOPRAZOLE 40 MG TABLET.DR. PO SCH (08:54)
[2016-07-27 10:51] VITALS: BP 160/93
--- NOTE | 2016-07-27 11:46 | PDOC ---
Renal-Progress Notes Subjective Notes Notes FEELING OK History of Present Illness Hx of present illness STABLE Vitals Vitals Vital Signs Date Time Temp Pulse Resp B/P (MAP) Pulse Ox O2 Delivery O2 Flow Rate FiO2 07/27/16 10:51 97.7 84 18 160/93 (115) 97 Room Air 97.7 Weight Weight [ ] I.O. Intake and Output Intake and Output 07/27/16 06:59 Intake Total 1700 ml Output Total 400 ml Balance 1300 ml Intake Oral 1700 ml Output Urine Total 400 ml # Voids 4 Labs Labs Laboratory Tests Test 07/26/16 14:10 07/26/16 16:49 07/26/16 20:12 07/27/16 05:25 Prothrombin Time 13.0 SEC (11.7-14.0) Prothromb Time International Ratio 1.0 (0.8-1.1) Total Bilirubin 0.3 mg/dL (0.2-1.0) Direct Bilirubin 0.1 mg/dL (0.0-0.2) Aspartate Amino Transf (AST/SGOT) 22 U/L (15-37) Alanine Aminotransferase (ALT/SGPT) 16 U/L (14-59) Alkaline Phosphatase 58 U/L (46-116) Total Protein 4.6 g/dL (6.4-8.2) Albumin 1.8 g/dL (3.4-5.0) Hepatitis B Surface Antigen Negative (Negative) Hepatitis B Surface Antibody Reactive (.) Hepatitis B Core Total Antibody Negative (Negative) Hepatitis B Core IgM Antibody Negative (Negative) Glucose (Fingerstick) 229 mg/dL (70-99) 238 mg/dL (70-99) White Blood Count 6.6 x10^3/uL (4.0-11.0) Red Blood Count 2.99 x10^6/uL (3.50-5.40) Hemoglobin 9.0 g/dL (12.0-15.5) Hematocrit 26.0 % (36.0-47.0) Mean Corpuscular Volume 87 fL (79-100) Mean Corpuscular Hemoglobin 30 pg (25-35) Mean Corpuscular Hemoglobin Concent 35 g/dL (31-37) Red Cell Distribution Width 14.2 % (11.5-14.5) Platelet Count 247 x10^3/uL (140-400) Sodium Level 144 mmol/L (136-145) Potassium Level 3.8 mmol/L (3.5-5.1) Chloride Level 110 mmol/L (98-107) Carbon Dioxide Level 25 mmol/L (21-32) Anion Gap 9 (6-14) Blood Urea Nitrogen 57 mg/dL (7-20) Creatinine 3.4 mg/dL (0.6-1.0) Estimated GFR (Cockcroft-Gault) 14.3 Glucose Level 118 mg/dL (70-99) Calcium Level 7.7 mg/dL (8.5-10.1) Test 07/27/16 07:06 07/27/16 10:02 Glucose (Fingerstick) 138 mg/dL (70-99) 219 mg/dL (70-99) Review of Systems Constitutional: yes: weakness, alert, oriented Ears/Nose/Throat: Yes: no symptom reported Pulmonary: Yes dyspnea Cardiovascular: Yes edema Gastrointestional: Yes: constipation Genitourinary: Yes: other (NOCTURIA) Musculoskeletal: Yes: muscle stiffness Skin: Yes no symptom reported Endocrine: Yes: no symptom reported Physical Exam General Appearance: no apparent distress Skin: warm Respiratory: bilateral CTA Heart: S1S2 Abdomen: soft, bowel sounds present Extremities: pulses present, edema Neurology: alert, oriented Assessment Assessment IMP NEPHROTIC RANGE PROTEINURIA DM II HTN ANASARCA PLAN INCREASE NATALIIA-I HD TODAY UF ABOUT 2 LITERS SW SETTING UP OP HD PT WANTS TO DO PD WILL HAVE PD NURSE EDUCATE PT OP START ARANESP CONT LASIX CHECK PO4-MAY NEED BINDERS TIM MCGRATH MD July 27, 2016 11:46
--- NOTE | 2016-07-27 12:25 | PDOC ---
PROGRESS NOTES Chief Complaint Chief Complaint ANASARCA ESRD with ckd 3-4 baseline Cr 2 NEW HD DM II HTN ANEMIA HYPOALBUMINEMIA 2/2 ESRD History of Present Illness History of Present Illness decent urine output bl upper and lower ext severe edema, anasarca, distended abd moderate - stable but no signif improvment Crea 3 plus No SOA, feels like breast swelling has improved from taking out fluid Out pt HD temporarily set up with [facility] But pt will stay over the holiday weekend since due HD today and lacy - and given holidays K ok PLAn: Renal panel lacy Elevate legs Replace K prn - do judiciously since renal failure pt Still on IV lasix BID 40 mgs NEW HD patient Vitals Vitals Vital Signs Date Time Temp Pulse Resp B/P (MAP) Pulse Ox O2 Delivery O2 Flow Rate FiO2 07/27/16 10:51 97.7 84 18 160/93 (115) 97 Room Air 97.7 Physical Exam General: Alert, Oriented X3, Cooperative, No acute distress Heart: Regular rate, Normal S2, No murmurs Abdomen: Normal bowel sounds, No tenderness, Other (moderate distended abd) Extremities: No clubbing, Other (bl ext 3+ pitting EDEMA) Labs LABS Laboratory Tests Test 07/26/16 14:10 07/26/16 16:49 07/26/16 20:12 07/27/16 05:25 Prothrombin Time 13.0 SEC (11.7-14.0) Prothromb Time International Ratio 1.0 (0.8-1.1) Total Bilirubin 0.3 mg/dL (0.2-1.0) Direct Bilirubin 0.1 mg/dL (0.0-0.2) Aspartate Amino Transf (AST/SGOT) 22 U/L (15-37) Alanine Aminotransferase (ALT/SGPT) 16 U/L (14-59) Alkaline Phosphatase 58 U/L (46-116) Total Protein 4.6 g/dL (6.4-8.2) Albumin 1.8 g/dL (3.4-5.0) Hepatitis B Surface Antigen Negative (Negative) Hepatitis B Surface Antibody Reactive (.) Hepatitis B Core Total Antibody Negative (Negative) Hepatitis B Core IgM Antibody Negative (Negative) Glucose (Fingerstick) 229 mg/dL (70-99) 238 mg/dL (70-99) White Blood Count 6.6 x10^3/uL (4.0-11.0) Red Blood Count 2.99 x10^6/uL (3.50-5.40) Hemoglobin 9.0 g/dL (12.0-15.5) Hematocrit 26.0 % (36.0-47.0) Mean Corpuscular Volume 87 fL (79-100) Mean Corpuscular Hemoglobin 30 pg (25-35) Mean Corpuscular Hemoglobin Concent 35 g/dL (31-37) Red Cell Distribution Width 14.2 % (11.5-14.5) Platelet Count 247 x10^3/uL (140-400) Sodium Level 144 mmol/L (136-145) Potassium Level 3.8 mmol/L (3.5-5.1) Chloride Level 110 mmol/L (98-107) Carbon Dioxide Level 25 mmol/L (21-32) Anion Gap 9 (6-14) Blood Urea Nitrogen 57 mg/dL (7-20) Creatinine 3.4 mg/dL (0.6-1.0) Estimated GFR (Cockcroft-Gault) 14.3 Glucose Level 118 mg/dL (70-99) Calcium Level 7.7 mg/dL (8.5-10.1) Test 07/27/16 07:06 07/27/16 10:02 Glucose (Fingerstick) 138 mg/dL (70-99) 219 mg/dL (70-99) Review of Systems Review of Systems no soa, legs swelling, no cp, n,v,d Assessment and Plan Assessmemt and Plan Problems Medical Problems: (1) Acute on chronic renal failure Status: Acute (2) Edema Status: Acute Problems: Comment Review of Relevant I have reviewed the following items ruiz (where applicable) has been applied. Labs Laboratory Tests Test 07/25/16 16:42 07/25/16 20:48 07/26/16 04:15 07/26/16 10:47 Glucose (Fingerstick) 160 mg/dL (70-99) 216 mg/dL (70-99) 160 mg/dL (70-99) Sodium Level 144 mmol/L (136-145) Potassium Level 3.5 mmol/L (3.5-5.1) Chloride Level 111 mmol/L (98-107) Carbon Dioxide Level 25 mmol/L (21-32) Anion Gap 8 (6-14) Blood Urea Nitrogen 52 mg/dL (7-20) Creatinine 3.0 mg/dL (0.6-1.0) Estimated GFR (Cockcroft-Gault) 16.5 Glucose Level 215 mg/dL (70-99) Calcium Level 7.7 mg/dL (8.5-10.1) Phosphorus Level 4.5 mg/dL (2.6-4.7) AR-Hqs-I-Type Natriuretic Peptide 1972 pg/mL (0-124) Albumin 1.6 g/dL (3.4-5.0) Test 07/26/16 14:10 07/26/16 16:49 07/26/16 20:12 07/27/16 05:25 Prothrombin Time 13.0 SEC (11.7-14.0) Prothromb Time International Ratio 1.0 (0.8-1.1) Total Bilirubin 0.3 mg/dL (0.2-1.0) Direct Bilirubin 0.1 mg/dL (0.0-0.2) Aspartate Amino Transf (AST/SGOT) 22 U/L (15-37) Alanine Aminotransferase (ALT/SGPT) 16 U/L (14-59) Alkaline Phosphatase 58 U/L (46-116) Total Protein 4.6 g/dL (6.4-8.2) Albumin 1.8 g/dL (3.4-5.0) Hepatitis B Surface Antigen Negative (Negative) Hepatitis B Surface Antibody Reactive (.) Hepatitis B Core Total Antibody Negative (Negative) Hepatitis B Core IgM Antibody Negative (Negative) Glucose (Fingerstick) 229 mg/dL (70-99) 238 mg/dL (70-99) White Blood Count 6.6 x10^3/uL (4.0-11.0) Red Blood Count 2.99 x10^6/uL (3.50-5.40) Hemoglobin 9.0 g/dL (12.0-15.5) Hematocrit 26.0 % (36.0-47.0) Mean Corpuscular Volume 87 fL (79-100) Mean Corpuscular Hemoglobin 30 pg (25-35) Mean Corpuscular Hemoglobin Concent 35 g/dL (31-37) Red Cell Distribution Width 14.2 % (11.5-14.5) Platelet Count 247 x10^3/uL (140-400) Sodium Level 144 mmol/L (136-145) Potassium Level 3.8 mmol/L (3.5-5.1) Chloride Level 110 mmol/L (98-107) Carbon Dioxide Level 25 mmol/L (21-32) Anion Gap 9 (6-14) Blood Urea Nitrogen 57 mg/dL (7-20) Creatinine 3.4 mg/dL (0.6-1.0) Estimated GFR (Cockcroft-Gault) 14.3 Glucose Level 118 mg/dL (70-99) Calcium Level 7.7 mg/dL (8.5-10.1) Test 07/27/16 07:06 07/27/16 10:02 Glucose (Fingerstick) 138 mg/dL (70-99) 219 mg/dL (70-99) Laboratory Tests Test 07/26/16 14:10 07/26/16 16:49 07/26/16 20:12 07/27/16 05:25 Prothrombin Time 13.0 SEC (11.7-14.0) Prothromb Time International Ratio 1.0 (0.8-1.1) Total Bilirubin 0.3 mg/dL (0.2-1.0) Direct Bilirubin 0.1 mg/dL (0.0-0.2) Aspartate Amino Transf (AST/SGOT) 22 U/L (15-37) Alanine Aminotransferase (ALT/SGPT) 16 U/L (14-59) Alkaline Phosphatase 58 U/L (46-116) Total Protein 4.6 g/dL (6.4-8.2) Albumin 1.8 g/dL (3.4-5.0) Hepatitis B Surface Antigen Negative (Negative) Hepatitis B Surface Antibody Reactive (.) Hepatitis B Core Total Antibody Negative (Negative) Hepatitis B Core IgM Antibody Negative (Negative) Glucose (Fingerstick) 229 mg/dL (70-99) 238 mg/dL (70-99) White Blood Count 6.6 x10^3/uL (4.0-11.0) Red Blood Count 2.99 x10^6/uL (3.50-5.40) Hemoglobin 9.0 g/dL (12.0-15.5) Hematocrit 26.0 % (36.0-47.0) Mean Corpuscular Volume 87 fL (79-100) Mean Corpuscular Hemoglobin 30 pg (25-35) Mean Corpuscular Hemoglobin Concent 35 g/dL (31-37) Red Cell Distribution Width 14.2 % (11.5-14.5) Platelet Count 247 x10^3/uL (140-400) Sodium Level 144 mmol/L (136-145) Potassium Level 3.8 mmol/L (3.5-5.1) Chloride Level 110 mmol/L (98-107) Carbon Dioxide Level 25 mmol/L (21-32) Anion Gap 9 (6-14) Blood Urea Nitrogen 57 mg/dL (7-20) Creatinine 3.4 mg/dL (0.6-1.0) Estimated GFR (Cockcroft-Gault) 14.3 Glucose Level 118 mg/dL (70-99) Calcium Level 7.7 mg/dL (8.5-10.1) Test 07/27/16 07:06 07/27/16 10:02 Glucose (Fingerstick) 138 mg/dL (70-99) 219 mg/dL (70-99) Medications Current Medications Ondansetron HCl (Zofran) 4 mg PRN Q8HRS PRN IV NAUSEA/VOMITING; Start 07/25/16 at 10:30; Stop 07/26/16 at 10:29; Status DC Acetaminophen (Tylenol) 650 mg PRN Q4HRS PRN PO FEVER; Start 07/25/16 at 10:30 ; Stop 07/26/16 at 10:29; Status DC Vitamin D (Vitamin D3) 1,000 unit DAILY PO Last administered on 07/27/16 08:52 ; Start 07/26/16 at 09:00 Clonidine HCl (Catapres) 0.1 mg BID PO Last administered on 07/26/16 08:31; Start 07/25/16 at 21:00; Stop 07/26/16 at 12:13; Status DC Clopidogrel Bisulfate (Plavix) 75 mg DAILYWBKFT PO Last administered on 08:52; Start 07/26/16 at 08:00 Furosemide (Lasix) 40 mg BID92 PO ; Start 07/25/16 at 14:00; Stop 07/25/16 at 14 :00; Status DC Pantoprazole Sodium (Protonix) 40 mg DAILYAC PO Last administered on 07/27/16 08:54; Start 07/26/16 at 07:30 Amlodipine Besylate (Norvasc) 10 mg DAILY PO Last administered on 07/27/16 08: 53; Start 07/26/16 at 09:00 Famotidine (Pepcid) 20 mg DAILY PO Last administered on 07/27/16 08:52; Start 07/26/16 at 09:00 Atorvastatin Calcium (Lipitor) 40 mg QHS PO Last administered on 07/26/16 20: 11; Start 07/25/16 at 21:00 Furosemide (Lasix) 40 mg BID92 IVP Last administered on 07/27/16 08:54; Start 07/25/16 at 14:00 Insulin Detemir (Levemir) 8 units QHS SQ Last administered on 07/26/16 20:25; Start 07/25/16 at 21:00 Insulin Aspart (NovoLOG) 0-7 UNITS TIDWMEALS SQ Last administered on 07/26/16 17:12; Start 07/25/16 at 17:00 Dextrose (Dextrose 50%-Water Syringe) 12.5 gm PRN Q15MIN PRN IV SEE COMMENTS; Start 07/25/16 at 15:30 Lisinopril (Prinivil) 20 mg DAILY PO Last administered on 07/27/16 08:54; Start 07/26/16 at 13:00 Acetaminophen (Tylenol) 650 mg PRN Q6HRS PRN PO FEVER; Start 07/26/16 at 13:15 Ondansetron HCl (Zofran) 4 mg PRN Q6HRS PRN IV NAUSEA/VOMITING; Start 07/26/16 at 13:15 Morphine Sulfate 2 mg PRN Q2HR PRN IV PAIN; Start 07/26/16 at 13:15 Tramadol HCl (Ultram) 50 mg PRN Q6HRS PRN PO PAIN Last administered on 20:12; Start 07/26/16 at 13:15 Hydralazine HCl (Apresoline) 10 mg PRN Q4HRS PRN IVP ELEVATED BP, SEE COMMENTS ; Start 07/26/16 at 13:15 Docusate Sodium (Colace) 100 mg PRN DAILY PRN PO CONSTIPATION; Start 07/26/16 at 13:15 Insulin Aspart (NovoLOG) 5 units TIDAC SQ Last administered on 07/27/16 09:03 ; Start 07/26/16 at 16:30 Heparin Sodium (Porcine) (Heparin Sq) 5,000 unit Q8HRS SQ ; Start 07/26/16 at 14 :00 Heparin Sodium (Porcine) (Heparin Sodium) 10,000 unit STK-MED ONCE .ROUTE ; Start 07/26/16 at 15:25; Stop 07/26/16 at 15:26; Status DC Lidocaine/ Epinephrine (Xylocaine 1%-Epi 1:100,000) 20 ml STK-MED ONCE .ROUTE ; Start 07/26/16 at 15:25; Stop 07/26/16 at 15:26; Status DC Heparin Sodium/ Sodium Chloride 500 ml @ As Directed STK-MED ONCE .ROUTE ; Start 07/26/16 at 15:25; Stop 07/26/16 at 15:26; Status DC Midazolam HCl (Versed) 5 mg STK-MED ONCE .ROUTE ; Start 07/26/16 at 15:38; Stop 07/26/16 at 15:39; Status DC Fentanyl Citrate (Fentanyl 5ml Vial) 250 mcg STK-MED ONCE .ROUTE ; Start at 15:38; Stop 07/26/16 at 15:39; Status DC Cefazolin Sodium 50 ml @ As Directed STK-MED ONCE IV ; Start 07/26/16 at 15:39; Stop 07/26/16 at 15:40; Status DC Gelatin (Gelfoam Size 12-7mm) 1 each STK-MED ONCE .ROUTE ; Start 07/26/16 at 16 :07; Stop 07/26/16 at 16:08; Status DC Heparin Sodium/ Sodium Chloride 1,000 unit 1X ONCE IART Last administered on 16:13; Start 07/26/16 at 16:15; Stop 07/26/16 at 16:16; Status DC Midazolam HCl (Versed) 5 mg 1X ONCE IV Last administered on 07/26/16 16:13; Start 07/26/16 at 16:15; Stop 07/26/16 at 16:16; Status DC Fentanyl Citrate (Fentanyl 5ml Vial) 125 mcg 1X ONCE IV Last administered on 16:14; Start 07/26/16 at 16:15; Stop 07/26/16 at 16:16; Status DC Heparin Sodium (Porcine) (Heparin Sodium) 4,000 unit 1X ONCE IV Last administered on 07/26/16 16:15; Start 07/26/16 at 16:15; Stop 07/26/16 at 16:16 ; Status DC Lidocaine/ Epinephrine (Xylocaine 1%-Epi 1:100,000) 9 ml 1X ONCE IJ Last administered on 07/26/16 16:13; Start 07/26/16 at 16:15; Stop 07/26/16 at 16:16 ; Status DC Darbepoetin Antonio (Aranesp) 60 mcg WEEKLYHS SQ ; Start 07/27/16 at 21:00 Active Scripts Active Reported Synthroid (Levothyroxine Sodium) 200 Mcg Tablet 1 Tab PO DAILY Novolog Flexpen (Insulin Aspart) 100 Unit/1 Ml Insuln.pen 5 Unit SQ TIDAC Lantus Solostar (Insulin Glargine,Hum.rec.anlog) 100 Unit/1 Ml Insuln.pen 8 Unit SQ QHS Clonidine Hcl 0.1 Mg Tablet 0.1 Mg PO BID Lasix (Furosemide) 40 Mg Tablet 40 Mg PO BID Caduet 10 Mg-40 Mg Tablet (Amlodipine/Atorvastatin) 1 Each Tablet 1 Each PO DAILY Protonix (Pantoprazole Sodium) 40 Mg Tablet.dr 1 Tab PO DAILY Clopidogrel (Clopidogrel Bisulfate) 75 Mg Tablet 1 Tab PO DAILY Ranitidine Hcl 150 Mg Capsule 150 Mg PO DAILY Vitamin D3 (Cholecalciferol (Vitamin D3)) 1,000 Unit Tablet 1 Tab PO DAILY Vitals/I & O Vital Sign - Last 24 Hours 07/26/16 07/26/16 07/26/16 07/26/16 15:00 16:14 16:45 17:00 Temp 97.8 97.9 97.8 97.9 Pulse 80 77 70 Resp 22 16 22 20 B/P (MAP) 148/80 (102) 121/59 (79) 122/77 (92) Pulse Ox 98 97 98 97 O2 Delivery Room Air Room Air Room Air 07/26/16 07/26/16 07/26/16 07/26/16 17:15 17:30 18:00 18:23 Temp 98.4 98.4 Pulse 72 66 78 60 Resp 20 20 20 18 B/P (MAP) 120/60 (80) 117/78 (91) 120/68 (85) 114/76 (89) Pulse Ox 97 96 96 97 O2 Delivery Room Air Room Air 07/26/16 07/26/16 07/26/16 07/26/16 19:00 20:00 20:12 22:59 Temp 98.0 98.4 98.0 98.4 Pulse 72 77 Resp 18 17 B/P (MAP) 136/77 (96) 124/86 (99) Pulse Ox 92 93 O2 Delivery Room Air Room Air Room Air Room Air 07/27/16 07/27/16 07/27/16 07/27/16 07:00 08:53 08:54 10:51 Temp 97.7 97.7 97.7 97.7 Pulse 81 81 81 84 Resp 18 18 B/P (MAP) 167/94 (118) 167/94 167/94 160/93 (115) Pulse Ox 95 97 O2 Delivery Room Air Room Air Intake and Output 07/26/16 07/26/16 07/27/16 15:00 23:00 07:00 Intake Total 600 ml 600 ml 500 ml Output Total 400 ml Balance 200 ml 600 ml 500 ml SARAH CABRERA MD July 27, 2016 12:25
[2016-07-27] MEDS ORDERED: 0.9 % SODIUM CHLORIDE 10 ML DISP.SYRIN. IV PRN ×2 (13:45)
[2016-07-27] MEDS ORDERED: DIALYSIS PATIENT. MC PRN (13:45)
[2016-07-27] MEDS ORDERED: IV NORMAL SALINE 1000ML BAG 1,000 ML IV PRN ×2 (13:45)
[2016-07-27] MEDS: ACETAMINOPHEN 325 MG TABLET. PO PRN (17:01)
[2016-07-27 19:59] VITALS: BP 160/83
[2016-07-27] MEDS: ATORVASTATIN CALCIUM 40 MG TABLET. PO SCH (20:46)
[2016-07-27] MEDS: traMADol 50 MG TABLET PO PRN (20:47)
[2016-07-27] MEDS: DARBEPOETIN ALFA 60 MCG/0.3 ML DISP.SYRIN. SQ SCH (20:47)
[2016-07-27] MEDS: INSULIN DETEMIR 300 UNITS/3 ML INSULN.PEN. SQ SCH (21:02)
[2016-07-27 23:59] VITALS: BP 158/76
[2016-07-28 03:59] VITALS: BP 152/94
[2016-07-28] MEDS: HEPARIN PF for SUB-Q USE 5,000 UNIT/0.5 ML VIAL. SQ SCH ×3 (06:42→21:37)
[2016-07-28 07:50] VITALS: BP 167/100
[2016-07-28] MEDS: PANTOPRAZOLE 40 MG TABLET.DR. PO SCH (08:05)
[2016-07-28] MEDS: CLOPIDOGREL BISULFATE 75 MG TABLET PO SCH (08:05)
[2016-07-28] MEDS: INSULIN ASPART 300 UNITS/3 ML INSULN.PEN SQ SCH ×6 (08:13→16:50)
[2016-07-28] MEDS: LISINOPRIL 20 MG TABLET PO SCH ×2 (09:06→20:46)
[2016-07-28] MEDS: CHOLECALCIFEROL (VITAMIN D3) 1,000 UNIT TABLET PO SCH (09:06)
[2016-07-28] MEDS: FAMOTIDINE 20 MG TABLET. PO SCH (09:06)
[2016-07-28] MEDS: FUROSEMIDE 40 MG/4 ML VIAL. IVP SCH ×2 (09:06→14:30)
[2016-07-28] MEDS: amLODIPine BESYLATE 10 MG TABLET PO SCH (09:07)
[2016-07-28] MEDS: LEVOTHYROXINE 100 MCG TABLET PO SCH (10:51)
[2016-07-28 11:05] VITALS: BP 133/84
--- NOTE | 2016-07-28 13:24 | PDOC ---
PROGRESS NOTES Chief Complaint Chief Complaint ANASARCA ESRD with ckd 3-4 baseline Cr 2 NEW HD DM II HTN normacytic ANEMIA 2/2 ESRD HYPOALBUMINEMIA 2/2 ESRD plan: new onset HD, waiting for SW to have HD set up cont HD daily , today is 2nd day fu with renal on amlodipine , lisinopril for HTN, increase lisinopril to 40mg since still high bp decrease aspart to 3u tid, levemir 8u qhs, ssi dvt ppx History of Present Illness History of Present Illness decent urine output bl upper and lower ext severe edema, anasarca, distended abd moderate - stable but no signif improvment Crea 3 plus No SOA, feels like breast swelling has improved from taking out fluid Out pt HD temporarily set up with [facility] But pt will stay over the holiday weekend since due HD today and lacy - and given holidays K ok Vitals Vitals Vital Signs Date Time Temp Pulse Resp B/P (MAP) Pulse Ox O2 Delivery O2 Flow Rate FiO2 07/28/16 11:05 99.1 94 16 133/84 (100) 96 Room Air 99.1 Physical Exam General: Alert, Oriented X3, Cooperative, No acute distress Heart: Regular rate, Normal S2, No murmurs Abdomen: Normal bowel sounds, No tenderness, Other (moderate distended abd) Extremities: No clubbing, Other (bl ext 3+ pitting EDEMA) Labs LABS Laboratory Tests Test 07/27/16 16:55 07/27/16 20:52 07/28/16 08:12 07/28/16 11:19 Glucose (Fingerstick) 69 mg/dL (70-99) 201 mg/dL (70-99) 159 mg/dL (70-99) 264 mg/dL (70-99) Review of Systems Review of Systems no fever, chills, sob or chest pain Assessment and Plan Assessmemt and Plan Problems Medical Problems: (1) Acute on chronic renal failure Status: Acute (2) Edema Status: Acute Problems: Comment Review of Relevant I have reviewed the following items ruiz (where applicable) has been applied. Labs Laboratory Tests Test 07/26/16 14:10 07/26/16 16:49 07/26/16 20:12 07/27/16 05:25 Prothrombin Time 13.0 SEC (11.7-14.0) Prothromb Time International Ratio 1.0 (0.8-1.1) Total Bilirubin 0.3 mg/dL (0.2-1.0) Direct Bilirubin 0.1 mg/dL (0.0-0.2) Aspartate Amino Transf (AST/SGOT) 22 U/L (15-37) Alanine Aminotransferase (ALT/SGPT) 16 U/L (14-59) Alkaline Phosphatase 58 U/L (46-116) Total Protein 4.6 g/dL (6.4-8.2) Albumin 1.8 g/dL (3.4-5.0) Hepatitis B Surface Antigen Negative (Negative) Hepatitis B Surface Antibody Reactive (.) Hepatitis B Core Total Antibody Negative (Negative) Hepatitis B Core IgM Antibody Negative (Negative) Glucose (Fingerstick) 229 mg/dL (70-99) 238 mg/dL (70-99) White Blood Count 6.6 x10^3/uL (4.0-11.0) Red Blood Count 2.99 x10^6/uL (3.50-5.40) Hemoglobin 9.0 g/dL (12.0-15.5) Hematocrit 26.0 % (36.0-47.0) Mean Corpuscular Volume 87 fL (79-100) Mean Corpuscular Hemoglobin 30 pg (25-35) Mean Corpuscular Hemoglobin Concent 35 g/dL (31-37) Red Cell Distribution Width 14.2 % (11.5-14.5) Platelet Count 247 x10^3/uL (140-400) Sodium Level 144 mmol/L (136-145) Potassium Level 3.8 mmol/L (3.5-5.1) Chloride Level 110 mmol/L (98-107) Carbon Dioxide Level 25 mmol/L (21-32) Anion Gap 9 (6-14) Blood Urea Nitrogen 57 mg/dL (7-20) Creatinine 3.4 mg/dL (0.6-1.0) Estimated GFR (Cockcroft-Gault) 14.3 Glucose Level 118 mg/dL (70-99) Calcium Level 7.7 mg/dL (8.5-10.1) Test 07/27/16 07:06 07/27/16 10:02 07/27/16 16:55 07/27/16 20:52 Glucose (Fingerstick) 138 mg/dL (70-99) 219 mg/dL (70-99) 69 mg/dL (70-99) 201 mg/dL (70-99) Test 07/28/16 08:12 07/28/16 11:19 Glucose (Fingerstick) 159 mg/dL (70-99) 264 mg/dL (70-99) Laboratory Tests Test 07/27/16 16:55 07/27/16 20:52 07/28/16 08:12 07/28/16 11:19 Glucose (Fingerstick) 69 mg/dL (70-99) 201 mg/dL (70-99) 159 mg/dL (70-99) 264 mg/dL (70-99) Medications Current Medications Ondansetron HCl (Zofran) 4 mg PRN Q8HRS PRN IV NAUSEA/VOMITING; Start 07/25/16 at 10:30; Stop 07/26/16 at 10:29; Status DC Acetaminophen (Tylenol) 650 mg PRN Q4HRS PRN PO FEVER; Start 07/25/16 at 10:30 ; Stop 07/26/16 at 10:29; Status DC Vitamin D (Vitamin D3) 1,000 unit DAILY PO Last administered on 07/28/16 09:06 ; Start 07/26/16 at 09:00 Clonidine HCl (Catapres) 0.1 mg BID PO Last administered on 07/26/16 08:31; Start 07/25/16 at 21:00; Stop 07/26/16 at 12:13; Status DC Clopidogrel Bisulfate (Plavix) 75 mg DAILYWBKFT PO Last administered on 08:05; Start 07/26/16 at 08:00 Furosemide (Lasix) 40 mg BID92 PO ; Start 07/25/16 at 14:00; Stop 07/25/16 at 14 :00; Status DC Pantoprazole Sodium (Protonix) 40 mg DAILYAC PO Last administered on 07/28/16 08:05; Start 07/26/16 at 07:30 Amlodipine Besylate (Norvasc) 10 mg DAILY PO Last administered on 07/28/16 09: 07; Start 07/26/16 at 09:00 Famotidine (Pepcid) 20 mg DAILY PO Last administered on 07/28/16 09:06; Start 07/26/16 at 09:00 Atorvastatin Calcium (Lipitor) 40 mg QHS PO Last administered on 07/27/16 20: 46; Start 07/25/16 at 21:00 Furosemide (Lasix) 40 mg BID92 IVP Last administered on 07/28/16 09:06; Start 07/25/16 at 14:00 Insulin Detemir (Levemir) 8 units QHS SQ Last administered on 07/27/16 21:02; Start 07/25/16 at 21:00 Insulin Aspart (NovoLOG) 0-7 UNITS TIDWMEALS SQ Last administered on 07/28/16 11:58; Start 07/25/16 at 17:00 Dextrose (Dextrose 50%-Water Syringe) 12.5 gm PRN Q15MIN PRN IV SEE COMMENTS; Start 07/25/16 at 15:30 Lisinopril (Prinivil) 20 mg DAILY PO Last administered on 07/28/16 09:06; Start 07/26/16 at 13:00; Stop 07/28/16 at 10:13; Status DC Acetaminophen (Tylenol) 650 mg PRN Q6HRS PRN PO FEVER Last administered on 07/27 17:01; Start 07/26/16 at 13:15 Ondansetron HCl (Zofran) 4 mg PRN Q6HRS PRN IV NAUSEA/VOMITING; Start 07/26/16 at 13:15 Morphine Sulfate 2 mg PRN Q2HR PRN IV PAIN; Start 07/26/16 at 13:15 Tramadol HCl (Ultram) 50 mg PRN Q6HRS PRN PO PAIN Last administered on 20:47; Start 07/26/16 at 13:15 Hydralazine HCl (Apresoline) 10 mg PRN Q4HRS PRN IVP ELEVATED BP, SEE COMMENTS ; Start 07/26/16 at 13:15 Docusate Sodium (Colace) 100 mg PRN DAILY PRN PO CONSTIPATION; Start 07/26/16 at 13:15 Insulin Aspart (NovoLOG) 5 units TIDAC SQ Last administered on 07/27/16 12:46 ; Start 07/26/16 at 16:30; Stop 07/28/16 at 10:13; Status DC Heparin Sodium (Porcine) (Heparin Sq) 5,000 unit Q8HRS SQ Last administered on 07/28/16 06:42; Start 07/26/16 at 14:00 Heparin Sodium (Porcine) (Heparin Sodium) 10,000 unit STK-MED ONCE .ROUTE ; Start 07/26/16 at 15:25; Stop 07/26/16 at 15:26; Status DC Lidocaine/ Epinephrine (Xylocaine 1%-Epi 1:100,000) 20 ml STK-MED ONCE .ROUTE ; Start 07/26/16 at 15:25; Stop 07/26/16 at 15:26; Status DC Heparin Sodium/ Sodium Chloride 500 ml @ As Directed STK-MED ONCE .ROUTE ; Start 07/26/16 at 15:25; Stop 07/26/16 at 15:26; Status DC Midazolam HCl (Versed) 5 mg STK-MED ONCE .ROUTE ; Start 07/26/16 at 15:38; Stop 07/26/16 at 15:39; Status DC Fentanyl Citrate (Fentanyl 5ml Vial) 250 mcg STK-MED ONCE .ROUTE ; Start at 15:38; Stop 07/26/16 at 15:39; Status DC Cefazolin Sodium 50 ml @ As Directed STK-MED ONCE IV ; Start 07/26/16 at 15:39; Stop 07/26/16 at 15:40; Status DC Gelatin (Gelfoam Size 12-7mm) 1 each STK-MED ONCE .ROUTE ; Start 07/26/16 at 16 :07; Stop 07/26/16 at 16:08; Status DC Heparin Sodium/ Sodium Chloride 1,000 unit 1X ONCE IART Last administered on 16:13; Start 07/26/16 at 16:15; Stop 07/26/16 at 16:16; Status DC Midazolam HCl (Versed) 5 mg 1X ONCE IV Last administered on 07/26/16 16:13; Start 07/26/16 at 16:15; Stop 07/26/16 at 16:16; Status DC Fentanyl Citrate (Fentanyl 5ml Vial) 125 mcg 1X ONCE IV Last administered on 16:14; Start 07/26/16 at 16:15; Stop 07/26/16 at 16:16; Status DC Heparin Sodium (Porcine) (Heparin Sodium) 4,000 unit 1X ONCE IV Last administered on 07/26/16 16:15; Start 07/26/16 at 16:15; Stop 07/26/16 at 16:16 ; Status DC Lidocaine/ Epinephrine (Xylocaine 1%-Epi 1:100,000) 9 ml 1X ONCE IJ Last administered on 07/26/16 16:13; Start 07/26/16 at 16:15; Stop 07/26/16 at 16:16 ; Status DC Darbepoetin Antonio (Aranesp) 60 mcg WEEKLYHS SQ Last administered on 07/27/16 20 :47; Start 07/27/16 at 21:00 Sodium Chloride 1,000 ml @ 1,000 mls/hr Q1H PRN IV hypotension; Start 07/27/16 at 13:45; Stop 07/27/16 at 19:44; Status DC Sodium Chloride (Normal Saline Flush) 10 ml 1X PRN PRN IV AP catheter pack; Start 07/27/16 at 13:45; Stop 07/27/16 at 19:00; Status DC Sodium Chloride (Normal Saline Flush) 10 ml 1X PRN PRN IV [employer] catheter pack; Start 07/27/16 at 13:45; Stop 07/27/16 at 19:00; Status DC Sodium Chloride 1,000 ml @ 400 mls/hr Q2H30M PRN IV PATENCY; Start 07/27/16 at 13:45; Stop 07/27/16 at 20:00; Status DC Info (PHARMACY MONITORING -- do not chart) 1 each PRN DAILY PRN MC SEE COMMENTS ; Start 07/27/16 at 13:45 Insulin Aspart (NovoLOG) 3 units TIDAC SQ Last administered on 07/28/16 11:59 ; Start 07/28/16 at 11:30 Lisinopril (Prinivil) 40 mg DAILY PO ; Start 07/29/16 at 09:00 Levothyroxine Sodium (Synthroid) 200 mcg DAILY07 PO Last administered on 10:51; Start 07/28/16 at 10:30 Active Scripts Active Reported Synthroid (Levothyroxine Sodium) 200 Mcg Tablet 1 Tab PO DAILY Novolog Flexpen (Insulin Aspart) 100 Unit/1 Ml Insuln.pen 5 Unit SQ TIDAC Lantus Solostar (Insulin Glargine,Hum.rec.anlog) 100 Unit/1 Ml Insuln.pen 8 Unit SQ QHS Clonidine Hcl 0.1 Mg Tablet 0.1 Mg PO BID Lasix (Furosemide) 40 Mg Tablet 40 Mg PO BID [place] 10 Mg-40 Mg Tablet (Amlodipine/Atorvastatin) 1 Each Tablet 1 Each PO DAILY Protonix (Pantoprazole Sodium) 40 Mg Tablet.dr 1 Tab PO DAILY Clopidogrel (Clopidogrel Bisulfate) 75 Mg Tablet 1 Tab PO DAILY Ranitidine Hcl 150 Mg Capsule 150 Mg PO DAILY Vitamin D3 (Cholecalciferol (Vitamin D3)) 1,000 Unit Tablet 1 Tab PO DAILY Vitals/I & O Vital Sign - Last 24 Hours 07/27/16 07/27/16 07/27/16 07/28/16 19:59 20:47 23:59 03:59 Temp 98.2 98.4 98.7 98.2 98.4 98.7 Pulse 83 81 92 Resp 18 18 18 B/P (MAP) 160/83 (108) 158/76 (103) 152/94 (113) Pulse Ox 96 95 96 O2 Delivery Room Air Room Air Room Air Room Air 07/28/16 07/28/16 07/28/16 07/28/16 07:50 07:50 09:06 09:07 Temp 98.7 98.7 Pulse 96 96 96 Resp 20 B/P (MAP) 167/100 (122) 167/100 167/100 Pulse Ox 96 O2 Delivery Room Air Room Air 07/28/16 11:05 Temp 99.1 99.1 Pulse 94 Resp 16 B/P (MAP) 133/84 (100) Pulse Ox 96 O2 Delivery Room Air Intake and Output 07/27/16 07/27/16 07/28/16 15:00 23:00 07:00 Intake Total 500 ml 1200 ml Balance 500 ml 1200 ml KARYNA NAGEL MD July 28, 2016 13:24
[2016-07-28 14:12] LABS: CALCIUM 7.8 mg/dL (8.5-10.1); CREATININE 2.3 mg/dL (0.6-1.0); GFR 22.4; MAGNESIUM 1.7 mg/dL (1.8-2.4); PHOSPHORUS 3.4 mg/dL (2.6-4.7); POTASSIUM 3.3 mmol/L (3.5-5.1)
--- NOTE | 2016-07-28 14:13 | PDOC ---
SUBJECTIVE ROS ESRD doign and feeling well today OBJECTIVE Vital Signs Vital Signs Date Time Temp Pulse Resp B/P (MAP) Pulse Ox O2 Delivery O2 Flow Rate FiO2 07/28/16 11:05 99.1 94 16 133/84 (100) 96 Room Air 99.1 I & 0 Intake and Output 07/28/16 07:00 Intake Total 1700 ml Balance 1700 ml Intake Oral 1700 ml # Voids 4 # Bowel Movements 1 PHYSICAL EXAM Physical Exam General Appearance: Awake: Alert Oriented x 3 Neck: No JVD or JVP Chest: CTA Tan Heart: S1 S2 Abdomen - Soft NTND Extremities - +2 Edema DIAGNOSIS/ASSESSMENT Assessment & Plan ESRD: Dialysis as below F 180 NR 3.0 Hrs 3 K 2.5 Ca 140 Na 35 HC03 Qb 350 + Qd 500+ Heparin 0 Units Uf 3 Kgs or to dry weight as tolerated May give 25-50 gms of 25% Albumin if needed to maintain Hemodynamic stability Treatment plan reviewed and discussed with sfdc solution architect Orderes subject to change pending todays labs May skip HD today and do early lacy am Problems: COMMENT/RELEVANT DATA Meds Current Medications Medications (Trade) Dose Ordered Sig/Harper Start Time Stop Time Status Last Admin Dose Admin Acetaminophen (Tylenol) 650 mg PRN Q6HRS PRN 07/26/16 13:15 07/27/16 17:01 650 MG Amlodipine Besylate (Norvasc) 10 mg DAILY 07/26/16 09:00 07/28/16 09:07 10 MG Atorvastatin Calcium (Lipitor) 40 mg QHS 07/25/16 21:00 07/27/16 20:46 40 MG Cefazolin Sodium 50 ml @ As Directed STK-MED ONCE 07/26/16 15:39 07/26/16 15:40 DC Clonidine HCl (Catapres) 0.1 mg BID 07/25/16 21:00 07/26/16 12:13 DC 07/26/16 08:31 0.1 MG Clopidogrel Bisulfate (Plavix) 75 mg DAILYWBKFT 07/26/16 08:00 07/28/16 08:05 75 MG Darbepoetin Antonio (Aranesp) 60 mcg WEEKLYHS 07/27/16 21:00 07/27/16 20:47 60 MCG Dextrose (Dextrose 50%-Water Syringe) 12.5 gm PRN Q15MIN PRN 07/25/16 15:30 Docusate Sodium (Colace) 100 mg PRN DAILY PRN 07/26/16 13:15 Famotidine (Pepcid) 20 mg DAILY 07/26/16 09:00 07/28/16 09:06 20 MG Fentanyl Citrate (Fentanyl 5ml Vial) 125 mcg 1X ONCE 07/26/16 16:15 07/26/16 16:16 DC 07/26/16 16:14 125 MCG Furosemide (Lasix) 40 mg BID92 07/25/16 14:00 07/28/16 09:06 40 MG Gelatin (Gelfoam Size 12-7mm) 1 each STK-MED ONCE 07/26/16 16:07 07/26/16 16:08 DC Heparin Sodium (Porcine) (Heparin Sodium) 4,000 unit 1X ONCE 07/26/16 16:15 07/26/16 16:16 DC 07/26/16 16:15 4,000 UNIT Heparin Sodium (Porcine) (Heparin Sq) 5,000 unit Q8HRS 07/26/16 14:00 07/28/16 06:42 5,000 UNIT Heparin Sodium/ Sodium Chloride 1,000 unit 1X ONCE 07/26/16 16:15 07/26/16 16:16 DC 07/26/16 16:13 1,000 UNIT Hydralazine HCl (Apresoline) 10 mg PRN Q4HRS PRN 07/26/16 13:15 Info (PHARMACY MONITORING -- do not chart) 1 each PRN DAILY PRN 07/27/16 13:45 Insulin Aspart (NovoLOG) 3 units TIDAC 07/28/16 11:30 07/28/16 11:59 3 UNITS Insulin Detemir (Levemir) 8 units QHS 07/25/16 21:00 07/27/16 21:02 8 UNITS Levothyroxine Sodium (Synthroid) 200 mcg DAILY07 07/28/16 10:30 07/28/16 10:51 200 MCG Lidocaine/ Epinephrine (Xylocaine 1%-Epi 1:100,000) 9 ml 1X ONCE 07/26/16 16:15 07/26/16 16:16 DC 07/26/16 16:13 9 ML Lisinopril (Prinivil) 40 mg DAILY 07/29/16 09:00 Midazolam HCl (Versed) 5 mg 1X ONCE 07/26/16 16:15 07/26/16 16:16 DC 07/26/16 16:13 3.5 MG Morphine Sulfate 2 mg PRN Q2HR PRN 07/26/16 13:15 Ondansetron HCl (Zofran) 4 mg PRN Q6HRS PRN 07/26/16 13:15 Pantoprazole Sodium (Protonix) 40 mg DAILYAC 07/26/16 07:30 07/28/16 08:05 40 MG Sodium Chloride 1,000 ml @ 400 mls/hr Q2H30M PRN 07/27/16 13:45 07/27/16 20:00 DC Sodium Chloride (Normal Saline Flush) 10 ml 1X PRN PRN 07/27/16 13:45 07/27/16 19:00 DC Tramadol HCl (Ultram) 50 mg PRN Q6HRS PRN 07/26/16 13:15 07/27/16 20:47 50 MG Vitamin D (Vitamin D3) 1,000 unit DAILY 07/26/16 09:00 07/28/16 09:06 1,000 UNIT Lab Laboratory Tests Test 07/27/16 16:55 07/27/16 20:52 07/28/16 08:12 07/28/16 11:19 Glucose (Fingerstick) 69 mg/dL (70-99) 201 mg/dL (70-99) 159 mg/dL (70-99) 264 mg/dL (70-99) SPARKLE HAMMER MD July 28, 2016 14:13
[2016-07-28 15:00] VITALS: BP 186/98
[2016-07-28 19:00] VITALS: BP 166/92
[2016-07-28] MEDS: ATORVASTATIN CALCIUM 40 MG TABLET. PO SCH (20:45)
[2016-07-28] MEDS: INSULIN DETEMIR 300 UNITS/3 ML INSULN.PEN. SQ SCH (21:38)
[2016-07-28] MEDS ORDERED: IV NORMAL SALINE 1000ML BAG 250 ML IV PRN (22:23)
[2016-07-28] MEDS ORDERED: NORMAL SALINE IV PRN (22:23)
[2016-07-28] MEDS ORDERED: 0.9 % SODIUM CHLORIDE 10 ML DISP.SYRIN. IV PRN ×2 (22:30)
[2016-07-28] MEDS ORDERED: ALBUMIN HUMAN 25% 200 ML IV PRN (22:30)
[2016-07-28] MEDS ORDERED: DIALYSIS PATIENT. MC PRN (22:30)
[2016-07-28] MEDS: ONDANSETRON PF 4 MG/2 ML VIAL. IV PRN (23:55)
[2016-07-29] VITALS (7 sets, daily range): BP systolic 140–171; BP diastolic 77–92
[2016-07-29] MEDS: LEVOTHYROXINE 100 MCG TABLET PO SCH (05:45)
[2016-07-29] MEDS: HEPARIN PF for SUB-Q USE 5,000 UNIT/0.5 ML VIAL. SQ SCH ×3 (05:47→21:17)
[2016-07-29] MEDS: INSULIN ASPART 300 UNITS/3 ML INSULN.PEN SQ SCH ×6 (07:27→16:35)
[2016-07-29] MEDS: PANTOPRAZOLE 40 MG TABLET.DR. PO SCH (07:31)
[2016-07-29] MEDS: CLOPIDOGREL BISULFATE 75 MG TABLET PO SCH (07:31)
[2016-07-29] MEDS: traMADol 50 MG TABLET PO PRN (07:34)
[2016-07-29] MEDS: FUROSEMIDE 40 MG/4 ML VIAL. IVP SCH ×2 (08:56→13:22)
[2016-07-29] MEDS: amLODIPine BESYLATE 5 MG TABLET PO SCH (08:57)
[2016-07-29] MEDS: CHOLECALCIFEROL (VITAMIN D3) 1,000 UNIT TABLET PO SCH (08:57)
[2016-07-29] MEDS: LISINOPRIL 20 MG TABLET PO SCH ×2 (08:57→21:03)
[2016-07-29] MEDS: FAMOTIDINE 20 MG TABLET. PO SCH (08:57)
[2016-07-29] MEDS ORDERED: LISINOPRIL 20 MG TABLET PO SCH (09:00)
[2016-07-29 12:22] LABS: ALBUMIN 1.9 g/dL (3.4-5.0); ALBUMIN/GLOBULIN RATIO 0.6 (1.0-1.7); CREATININE 2.1 mg/dL (0.6-1.0); GFR 24.9; MAGNESIUM 1.6 mg/dL (1.8-2.4); POTASSIUM 3.8 mmol/L (3.5-5.1); TOTAL BILIRUBIN 0.3 mg/dL (0.2-1.0); TOTAL PROTEIN 4.9 g/dL (6.4-8.2)
[2016-07-29] MEDS ORDERED: MAGNESIUM SULFATE 2GM 50 ML IV ONE (13:00)
--- NOTE | 2016-07-29 13:11 | PDOC ---
PROGRESS NOTES Chief Complaint Chief Complaint ANASARCA ESRD with ckd 3-4 baseline Cr 2 NEW HD DM II HTN normacytic ANEMIA 2/2 ESRD hypomagnesemia HYPOALBUMINEMIA 2/2 ESRD plan: new onset HD, waiting for SW to have HD set up cont HD daily x2 so far fu with renal on amlodipine , lisinopril for HTN, increase lisinopril to 40mg since still high bp decrease aspart to 3u tid, levemir 8u qhs, ssi replete Mag dvt ppx History of Present Illness History of Present Illness decent urine output bl upper and lower ext severe edema, anasarca, distended abd moderate - stable but no signif improvment Crea 3 plus down to 2s now with HD No SOA, feels like breast swelling has improved from taking out fluid Out pt HD temporarily set up with [facility] But pt will stay over the holiday weekend since due HD today and lacy - and given holidays K ok, Mag low Vitals Vitals Vital Signs Date Time Temp Pulse Resp B/P (MAP) Pulse Ox O2 Delivery O2 Flow Rate FiO2 07/29/16 08:57 66 163/84 07/29/16 08:34 18 96 Room Air 07/29/16 07:00 97.4 97.4 Physical Exam General: Alert, Oriented X3, Cooperative, No acute distress Heart: Regular rate, Normal S2, No murmurs Abdomen: Normal bowel sounds, No tenderness, Other (moderate distended abd) Extremities: No clubbing, Other (bl ext 3+ pitting EDEMA) Labs LABS Laboratory Tests Test 07/28/16 13:45 07/28/16 15:28 07/28/16 16:00 07/28/16 21:05 Sodium Level 140 mmol/L (136-145) Potassium Level 3.3 mmol/L (3.5-5.1) Chloride Level 104 mmol/L (98-107) Carbon Dioxide Level 28 mmol/L (21-32) Anion Gap 8 (6-14) Blood Urea Nitrogen 30 mg/dL (7-20) Creatinine 2.3 mg/dL (0.6-1.0) Estimated GFR (Cockcroft-Gault) 22.4 Glucose Level 235 mg/dL (70-99) Calcium Level 7.8 mg/dL (8.5-10.1) Phosphorus Level 3.4 mg/dL (2.6-4.7) Magnesium Level 1.7 mg/dL (1.8-2.4) Glucose (Fingerstick) 196 mg/dL (70-99) 195 mg/dL (70-99) 184 mg/dL (70-99) Test 07/29/16 11:16 07/29/16 11:55 Glucose (Fingerstick) 162 mg/dL (70-99) Sodium Level 142 mmol/L (136-145) Potassium Level 3.8 mmol/L (3.5-5.1) Chloride Level 104 mmol/L (98-107) Carbon Dioxide Level 29 mmol/L (21-32) Anion Gap 9 (6-14) Blood Urea Nitrogen 22 mg/dL (7-20) Creatinine 2.1 mg/dL (0.6-1.0) Estimated GFR (Cockcroft-Gault) 24.9 BUN/Creatinine Ratio 10 (6-20) Glucose Level 185 mg/dL (70-99) Calcium Level 8.0 mg/dL (8.5-10.1) Magnesium Level 1.6 mg/dL (1.8-2.4) Total Bilirubin 0.3 mg/dL (0.2-1.0) Aspartate Amino Transf (AST/SGOT) 22 U/L (15-37) Alanine Aminotransferase (ALT/SGPT) 12 U/L (14-59) Alkaline Phosphatase 61 U/L (46-116) Total Protein 4.9 g/dL (6.4-8.2) Albumin 1.9 g/dL (3.4-5.0) Albumin/Globulin Ratio 0.6 (1.0-1.7) Review of Systems Review of Systems no fever, chills, sob or chest pain Assessment and Plan Assessmemt and Plan Problems Medical Problems: (1) Acute on chronic renal failure Status: Acute (2) Edema Status: Acute Problems: Comment Review of Relevant I have reviewed the following items ruiz (where applicable) has been applied. Labs Laboratory Tests Test 07/27/16 16:55 07/27/16 20:52 07/28/16 08:12 07/28/16 11:19 Glucose (Fingerstick) 69 mg/dL (70-99) 201 mg/dL (70-99) 159 mg/dL (70-99) 264 mg/dL (70-99) Test 07/28/16 13:45 07/28/16 15:28 07/28/16 16:00 07/28/16 21:05 Sodium Level 140 mmol/L (136-145) Potassium Level 3.3 mmol/L (3.5-5.1) Chloride Level 104 mmol/L (98-107) Carbon Dioxide Level 28 mmol/L (21-32) Anion Gap 8 (6-14) Blood Urea Nitrogen 30 mg/dL (7-20) Creatinine 2.3 mg/dL (0.6-1.0) Estimated GFR (Cockcroft-Gault) 22.4 Glucose Level 235 mg/dL (70-99) Calcium Level 7.8 mg/dL (8.5-10.1) Phosphorus Level 3.4 mg/dL (2.6-4.7) Magnesium Level 1.7 mg/dL (1.8-2.4) Glucose (Fingerstick) 196 mg/dL (70-99) 195 mg/dL (70-99) 184 mg/dL (70-99) Test 07/29/16 11:16 07/29/16 11:55 Glucose (Fingerstick) 162 mg/dL (70-99) Sodium Level 142 mmol/L (136-145) Potassium Level 3.8 mmol/L (3.5-5.1) Chloride Level 104 mmol/L (98-107) Carbon Dioxide Level 29 mmol/L (21-32) Anion Gap 9 (6-14) Blood Urea Nitrogen 22 mg/dL (7-20) Creatinine 2.1 mg/dL (0.6-1.0) Estimated GFR (Cockcroft-Gault) 24.9 BUN/Creatinine Ratio 10 (6-20) Glucose Level 185 mg/dL (70-99) Calcium Level 8.0 mg/dL (8.5-10.1) Magnesium Level 1.6 mg/dL (1.8-2.4) Total Bilirubin 0.3 mg/dL (0.2-1.0) Aspartate Amino Transf (AST/SGOT) 22 U/L (15-37) Alanine Aminotransferase (ALT/SGPT) 12 U/L (14-59) Alkaline Phosphatase 61 U/L (46-116) Total Protein 4.9 g/dL (6.4-8.2) Albumin 1.9 g/dL (3.4-5.0) Albumin/Globulin Ratio 0.6 (1.0-1.7) Laboratory Tests Test 07/28/16 13:45 07/28/16 15:28 07/28/16 16:00 07/28/16 21:05 Sodium Level 140 mmol/L (136-145) Potassium Level 3.3 mmol/L (3.5-5.1) Chloride Level 104 mmol/L (98-107) Carbon Dioxide Level 28 mmol/L (21-32) Anion Gap 8 (6-14) Blood Urea Nitrogen 30 mg/dL (7-20) Creatinine 2.3 mg/dL (0.6-1.0) Estimated GFR (Cockcroft-Gault) 22.4 Glucose Level 235 mg/dL (70-99) Calcium Level 7.8 mg/dL (8.5-10.1) Phosphorus Level 3.4 mg/dL (2.6-4.7) Magnesium Level 1.7 mg/dL (1.8-2.4) Glucose (Fingerstick) 196 mg/dL (70-99) 195 mg/dL (70-99) 184 mg/dL (70-99) Test 07/29/16 11:16 07/29/16 11:55 Glucose (Fingerstick) 162 mg/dL (70-99) Sodium Level 142 mmol/L (136-145) Potassium Level 3.8 mmol/L (3.5-5.1) Chloride Level 104 mmol/L (98-107) Carbon Dioxide Level 29 mmol/L (21-32) Anion Gap 9 (6-14) Blood Urea Nitrogen 22 mg/dL (7-20) Creatinine 2.1 mg/dL (0.6-1.0) Estimated GFR (Cockcroft-Gault) 24.9 BUN/Creatinine Ratio 10 (6-20) Glucose Level 185 mg/dL (70-99) Calcium Level 8.0 mg/dL (8.5-10.1) Magnesium Level 1.6 mg/dL (1.8-2.4) Total Bilirubin 0.3 mg/dL (0.2-1.0) Aspartate Amino Transf (AST/SGOT) 22 U/L (15-37) Alanine Aminotransferase (ALT/SGPT) 12 U/L (14-59) Alkaline Phosphatase 61 U/L (46-116) Total Protein 4.9 g/dL (6.4-8.2) Albumin 1.9 g/dL (3.4-5.0) Albumin/Globulin Ratio 0.6 (1.0-1.7) Medications Current Medications Ondansetron HCl (Zofran) 4 mg PRN Q8HRS PRN IV NAUSEA/VOMITING; Start 07/25/16 at 10:30; Stop 07/26/16 at 10:29; Status DC Acetaminophen (Tylenol) 650 mg PRN Q4HRS PRN PO FEVER; Start 07/25/16 at 10:30 ; Stop 07/26/16 at 10:29; Status DC Vitamin D (Vitamin D3) 1,000 unit DAILY PO Last administered on 07/29/16 08:57 ; Start 07/26/16 at 09:00 Clonidine HCl (Catapres) 0.1 mg BID PO Last administered on 07/26/16 08:31; Start 07/25/16 at 21:00; Stop 07/26/16 at 12:13; Status DC Clopidogrel Bisulfate (Plavix) 75 mg DAILYWBKFT PO Last administered on 07:31; Start 07/26/16 at 08:00 Furosemide (Lasix) 40 mg BID92 PO ; Start 07/25/16 at 14:00; Stop 07/25/16 at 14 :00; Status DC Pantoprazole Sodium (Protonix) 40 mg DAILYAC PO Last administered on 07/29/16 07:31; Start 07/26/16 at 07:30 Amlodipine Besylate (Norvasc) 10 mg DAILY PO Last administered on 07/28/16 09: 07; Start 07/26/16 at 09:00; Stop 07/28/16 at 14:15; Status DC Famotidine (Pepcid) 20 mg DAILY PO Last administered on 07/29/16 08:57; Start 07/26/16 at 09:00 Atorvastatin Calcium (Lipitor) 40 mg QHS PO Last administered on 07/28/16 20: 45; Start 07/25/16 at 21:00 Furosemide (Lasix) 40 mg BID92 IVP Last administered on 07/29/16 08:56; Start 07/25/16 at 14:00 Insulin Detemir (Levemir) 8 units QHS SQ Last administered on 07/28/16 21:38; Start 07/25/16 at 21:00 Insulin Aspart (NovoLOG) 0-7 UNITS TIDWMEALS SQ Last administered on 07/29/16 11:33; Start 07/25/16 at 17:00 Dextrose (Dextrose 50%-Water Syringe) 12.5 gm PRN Q15MIN PRN IV SEE COMMENTS; Start 07/25/16 at 15:30 Lisinopril (Prinivil) 20 mg DAILY PO Last administered on 07/28/16 09:06; Start 07/26/16 at 13:00; Stop 07/28/16 at 10:13; Status DC Acetaminophen (Tylenol) 650 mg PRN Q6HRS PRN PO FEVER Last administered on 07/27 17:01; Start 07/26/16 at 13:15 Ondansetron HCl (Zofran) 4 mg PRN Q6HRS PRN IV NAUSEA/VOMITING Last administered on 07/28/16 23:55; Start 07/26/16 at 13:15 Morphine Sulfate 2 mg PRN Q2HR PRN IV PAIN; Start 07/26/16 at 13:15 Tramadol HCl (Ultram) 50 mg PRN Q6HRS PRN PO PAIN Last administered on 07:34; Start 07/26/16 at 13:15 Hydralazine HCl (Apresoline) 10 mg PRN Q4HRS PRN IVP ELEVATED BP, SEE COMMENTS ; Start 07/26/16 at 13:15 Docusate Sodium (Colace) 100 mg PRN DAILY PRN PO CONSTIPATION; Start 07/26/16 at 13:15 Insulin Aspart (NovoLOG) 5 units TIDAC SQ Last administered on 07/27/16 12:46 ; Start 07/26/16 at 16:30; Stop 07/28/16 at 10:13; Status DC Heparin Sodium (Porcine) (Heparin Sq) 5,000 unit Q8HRS SQ Last administered on 07/29/16 05:47; Start 07/26/16 at 14:00 Heparin Sodium (Porcine) (Heparin Sodium) 10,000 unit STK-MED ONCE .ROUTE ; Start 07/26/16 at 15:25; Stop 07/26/16 at 15:26; Status DC Lidocaine/ Epinephrine (Xylocaine 1%-Epi 1:100,000) 20 ml STK-MED ONCE .ROUTE ; Start 07/26/16 at 15:25; Stop 07/26/16 at 15:26; Status DC Heparin Sodium/ Sodium Chloride 500 ml @ As Directed STK-MED ONCE .ROUTE ; Start 07/26/16 at 15:25; Stop 07/26/16 at 15:26; Status DC Midazolam HCl (Versed) 5 mg STK-MED ONCE .ROUTE ; Start 07/26/16 at 15:38; Stop 07/26/16 at 15:39; Status DC Fentanyl Citrate (Fentanyl 5ml Vial) 250 mcg STK-MED ONCE .ROUTE ; Start at 15:38; Stop 07/26/16 at 15:39; Status DC Cefazolin Sodium 50 ml @ As Directed STK-MED ONCE IV ; Start 07/26/16 at 15:39; Stop 07/26/16 at 15:40; Status DC Gelatin (Gelfoam Size 12-7mm) 1 each STK-MED ONCE .ROUTE ; Start 07/26/16 at 16 :07; Stop 07/26/16 at 16:08; Status DC Heparin Sodium/ Sodium Chloride 1,000 unit 1X ONCE IART Last administered on 16:13; Start 07/26/16 at 16:15; Stop 07/26/16 at 16:16; Status DC Midazolam HCl (Versed) 5 mg 1X ONCE IV Last administered on 07/26/16 16:13; Start 07/26/16 at 16:15; Stop 07/26/16 at 16:16; Status DC Fentanyl Citrate (Fentanyl 5ml Vial) 125 mcg 1X ONCE IV Last administered on 16:14; Start 07/26/16 at 16:15; Stop 07/26/16 at 16:16; Status DC Heparin Sodium (Porcine) (Heparin Sodium) 4,000 unit 1X ONCE IV Last administered on 07/26/16 16:15; Start 07/26/16 at 16:15; Stop 07/26/16 at 16:16 ; Status DC Lidocaine/ Epinephrine (Xylocaine 1%-Epi 1:100,000) 9 ml 1X ONCE IJ Last administered on 07/26/16 16:13; Start 07/26/16 at 16:15; Stop 07/26/16 at 16:16 ; Status DC Darbepoetin Antonio (Aranesp) 60 mcg WEEKLYHS SQ Last administered on 07/27/16 20 :47; Start 07/27/16 at 21:00 Sodium Chloride 1,000 ml @ 1,000 mls/hr Q1H PRN IV hypotension; Start 07/27/16 at 13:45; Stop 07/27/16 at 19:44; Status DC Sodium Chloride (Normal Saline Flush) 10 ml 1X PRN PRN IV AP catheter pack; Start 07/27/16 at 13:45; Stop 07/27/16 at 19:00; Status DC Sodium Chloride (Normal Saline Flush) 10 ml 1X PRN PRN IV PULP COOKER catheter pack; Start 07/27/16 at 13:45; Stop 07/27/16 at 19:00; Status DC Sodium Chloride 1,000 ml @ 400 mls/hr Q2H30M PRN IV PATENCY; Start 07/27/16 at 13:45; Stop 07/27/16 at 20:00; Status DC Info (PHARMACY MONITORING -- do not chart) 1 each PRN DAILY PRN MC SEE COMMENTS ; Start 07/27/16 at 13:45 Insulin Aspart (NovoLOG) 3 units TIDAC SQ Last administered on 07/29/16 11:33 ; Start 07/28/16 at 11:30 Lisinopril (Prinivil) 40 mg DAILY PO ; Start 07/29/16 at 09:00; Stop 07/29/16 at 09:00; Status DC Levothyroxine Sodium (Synthroid) 200 mcg DAILY07 PO Last administered on 05:45; Start 07/28/16 at 10:30 Amlodipine Besylate (Norvasc) 5 mg DAILY PO Last administered on 07/29/16 08: 57; Start 07/29/16 at 09:00 Lisinopril (Prinivil) 40 mg BID PO Last administered on 07/29/16 08:57; Start 07/28/16 at 21:00 Sodium Chloride 250 ml @ 250 mls/hr Q1H PRN IV hypotension; Start 07/28/16 at 22:23; Stop 07/29/16 at 04:22; Status DC Albumin Human 200 ml @ 200 mls/hr 1X PRN PRN IV Hypotension; Start 07/28/16 at 22:30; Stop 07/29/16 at 04:29; Status DC Sodium Chloride (Normal Saline Flush) 10 ml 1X PRN PRN IV AP catheter pack; Start 07/28/16 at 22:30; Stop 07/29/16 at 22:29 Sodium Chloride (Normal Saline Flush) 10 ml 1X PRN PRN IV PULP COOKER catheter pack; Start 07/28/16 at 22:30; Stop 07/29/16 at 22:29 Sodium Chloride 200 ml @ 400 mls/hr Q30M PRN IV PATENCY; Start 07/28/16 at 22: 23; Stop 07/29/16 at 10:22; Status DC Info (PHARMACY MONITORING -- do not chart) 1 each PRN DAILY PRN MC SEE COMMENTS ; Start 07/28/16 at 22:30 Magnesium Sulfate/ Dextrose 50 ml @ 25 mls/hr 1X ONCE IV ; Start 07/29/16 at 13 :00; Stop 07/29/16 at 14:59 Active Scripts Active Reported Synthroid (Levothyroxine Sodium) 200 Mcg Tablet 1 Tab PO DAILY Novolog Flexpen (Insulin Aspart) 100 Unit/1 Ml Insuln.pen 5 Unit SQ TIDAC Lantus Solostar (Insulin Glargine,Hum.rec.anlog) 100 Unit/1 Ml Insuln.pen 8 Unit SQ QHS Clonidine Hcl 0.1 Mg Tablet 0.1 Mg PO BID Lasix (Furosemide) 40 Mg Tablet 40 Mg PO BID [place] 10 Mg-40 Mg Tablet (Amlodipine/Atorvastatin) 1 Each Tablet 1 Each PO DAILY Protonix (Pantoprazole Sodium) 40 Mg Tablet.dr 1 Tab PO DAILY Clopidogrel (Clopidogrel Bisulfate) 75 Mg Tablet 1 Tab PO DAILY Ranitidine Hcl 150 Mg Capsule 150 Mg PO DAILY Vitamin D3 (Cholecalciferol (Vitamin D3)) 1,000 Unit Tablet 1 Tab PO DAILY Vitals/I & O Vital Sign - Last 24 Hours 07/28/16 07/28/16 07/28/16 07/29/16 15:00 19:00 20:46 00:29 Temp 99.0 98.7 98.1 99.0 98.7 98.1 Pulse 96 83 83 81 Resp 16 18 B/P (MAP) 186/98 (127) 166/92 (116) 166/97 171/89 (116) Pulse Ox 96 97 O2 Delivery Room Air 07/29/16 07/29/16 07/29/16 07/29/16 03:00 07:00 07:34 07:35 Temp 98.8 97.4 98.8 97.4 Pulse 80 66 Resp 16 20 18 B/P (MAP) 150/85 (106) 163/84 (110) Pulse Ox 96 97 96 O2 Delivery Room Air Room Air Room Air 07/29/16 07/29/16 07/29/16 08:34 08:57 08:57 Pulse 66 66 Resp 18 B/P (MAP) 163/84 163/84 Pulse Ox 96 O2 Delivery Room Air Intake and Output 07/28/16 07/28/16 07/29/16 15:00 23:00 07:00 Intake Total 650 ml 100 ml Balance 650 ml 100 ml KARYNA NAGEL MD July 29, 2016 13:11
[2016-07-29] MEDS: ATORVASTATIN CALCIUM 40 MG TABLET. PO SCH (21:02)
[2016-07-29] MEDS: INSULIN DETEMIR 300 UNITS/3 ML INSULN.PEN. SQ SCH (21:17)
[2016-07-30 05:20] LABS: BASO % 1 % (0-3); EOS % 5 % (0-3); HEMATOCRIT 25.5 % (36.0-47.0); HEMOGLOBIN 9.3 g/dL (12.0-15.5); LYMPH # 1.4 x10^3/uL (1.0-4.8); LYMPH % 26 % (24-48); MEAN CORPUSCULAR HEMOGLOBIN 31 pg (25-35); MEAN CORPUSCULAR HGB CONC 36 g/dL (31-37); MEAN CORPUSCULAR VOLUME 85 fL (79-100); MONO % 9 % (0-9); NEUT % 60 % (31-73); PLATELET COUNT 237 x10^3/uL (140-400); WHITE BLOOD COUNT 5.3 x10^3/uL (4.0-11.0)
[2016-07-30 05:45] LABS: CALCIUM 8.1 mg/dL (8.5-10.1); CREATININE 2.6 mg/dL (0.6-1.0); GFR 19.5; POTASSIUM 3.2 mmol/L (3.5-5.1)
[2016-07-30] MEDS: LEVOTHYROXINE 100 MCG TABLET PO SCH (06:22)
[2016-07-30] MEDS: HEPARIN PF for SUB-Q USE 5,000 UNIT/0.5 ML VIAL. SQ SCH ×3 (06:31→22:20)
[2016-07-30 07:00] VITALS: BP 178/101
[2016-07-30] MEDS: INSULIN ASPART 300 UNITS/3 ML INSULN.PEN SQ SCH ×6 (07:30→17:36)
[2016-07-30] MEDS ORDERED: IV NORMAL SALINE 1000ML BAG 1,000 ML IV PRN ×2 (07:58)
[2016-07-30] MEDS ORDERED: DIALYSIS PATIENT. MC PRN (08:00)
[2016-07-30] MEDS ORDERED: 0.9 % SODIUM CHLORIDE 10 ML DISP.SYRIN. IV PRN ×2 (08:00)
--- NOTE | 2016-07-30 09:28 | PDOC ---
Dialysis Progress Note Dialysis Note Dialysis Note Seen on Hemodialysis, tolerating treatment Well Vitals on Hemodialysis: 173/104 89 afeb General Appearance: Awake: Alert Oriented x 3 Neck: No JVD or JVP Chest: CTA Tan Heart: S1 S2 Abdomen - Soft NTND Extremities - + Edema ESRD: Dialysis as below F 180 NR 3.0 Hrs 4 K 2.5 Ca 140 Na 35 HC03 Qb 350 + Qd 500+ Heparin 0 Units Uf 3 Kgs or to dry weight as tolerated [ ] Transfuse [ ] Units PRCBC's on HD May give 25-50 gms of 25% Albumin if needed to maintain Hemodynamic stability Treatment plan reviewed and discussed with packaging assembler [ ] Vitals Vital Signs Vital Signs Date Time Temp Pulse Resp B/P (MAP) Pulse Ox O2 Delivery O2 Flow Rate FiO2 07/30/16 07:00 97.7 89 18 178/101 (126) 98 Room Air 97.7 Labs Last Labs Laboratory Tests Test 07/28/16 11:19 07/28/16 13:45 07/28/16 15:28 07/28/16 16:00 Glucose (Fingerstick) 264 mg/dL (70-99) 196 mg/dL (70-99) 195 mg/dL (70-99) Sodium Level 140 mmol/L (136-145) Potassium Level 3.3 mmol/L (3.5-5.1) Chloride Level 104 mmol/L (98-107) Carbon Dioxide Level 28 mmol/L (21-32) Anion Gap 8 (6-14) Blood Urea Nitrogen 30 mg/dL (7-20) Creatinine 2.3 mg/dL (0.6-1.0) Estimated GFR (Cockcroft-Gault) 22.4 Glucose Level 235 mg/dL (70-99) Calcium Level 7.8 mg/dL (8.5-10.1) Phosphorus Level 3.4 mg/dL (2.6-4.7) Magnesium Level 1.7 mg/dL (1.8-2.4) Test 07/28/16 21:05 07/29/16 07:20 07/29/16 11:16 07/29/16 11:55 Glucose (Fingerstick) 184 mg/dL (70-99) 132 mg/dL (70-99) 162 mg/dL (70-99) Sodium Level 142 mmol/L (136-145) Potassium Level 3.8 mmol/L (3.5-5.1) Chloride Level 104 mmol/L (98-107) Carbon Dioxide Level 29 mmol/L (21-32) Anion Gap 9 (6-14) Blood Urea Nitrogen 22 mg/dL (7-20) Creatinine 2.1 mg/dL (0.6-1.0) Estimated GFR (Cockcroft-Gault) 24.9 BUN/Creatinine Ratio 10 (6-20) Glucose Level 185 mg/dL (70-99) Calcium Level 8.0 mg/dL (8.5-10.1) Magnesium Level 1.6 mg/dL (1.8-2.4) Total Bilirubin 0.3 mg/dL (0.2-1.0) Aspartate Amino Transf (AST/SGOT) 22 U/L (15-37) Alanine Aminotransferase (ALT/SGPT) 12 U/L (14-59) Alkaline Phosphatase 61 U/L (46-116) Total Protein 4.9 g/dL (6.4-8.2) Albumin 1.9 g/dL (3.4-5.0) Albumin/Globulin Ratio 0.6 (1.0-1.7) Test 07/29/16 15:57 07/29/16 20:30 07/30/16 03:54 07/30/16 07:17 Glucose (Fingerstick) 179 mg/dL (70-99) 202 mg/dL (70-99) 183 mg/dL (70-99) White Blood Count 5.3 x10^3/uL (4.0-11.0) Red Blood Count 3.00 x10^6/uL (3.50-5.40) Hemoglobin 9.3 g/dL (12.0-15.5) Hematocrit 25.5 % (36.0-47.0) Mean Corpuscular Volume 85 fL (79-100) Mean Corpuscular Hemoglobin 31 pg (25-35) Mean Corpuscular Hemoglobin Concent 36 g/dL (31-37) Red Cell Distribution Width 14.0 % (11.5-14.5) Platelet Count 237 x10^3/uL (140-400) Neutrophils (%) (Auto) 60 % (31-73) Lymphocytes (%) (Auto) 26 % (24-48) Monocytes (%) (Auto) 9 % (0-9) Eosinophils (%) (Auto) 5 % (0-3) Basophils (%) (Auto) 1 % (0-3) Neutrophils # (Auto) 3.2 x10^3uL (1.8-7.7) Lymphocytes # (Auto) 1.4 x10^3/uL (1.0-4.8) Monocytes # (Auto) 0.5 x10^3/uL (0.0-1.1) Eosinophils # (Auto) 0.2 x10^3/uL (0.0-0.7) Basophils # (Auto) 0.0 x10^3/uL (0.0-0.2) Sodium Level 142 mmol/L (136-145) Potassium Level 3.2 mmol/L (3.5-5.1) Chloride Level 105 mmol/L (98-107) Carbon Dioxide Level 30 mmol/L (21-32) Anion Gap 7 (6-14) Blood Urea Nitrogen 28 mg/dL (7-20) Creatinine 2.6 mg/dL (0.6-1.0) Estimated GFR (Cockcroft-Gault) 19.5 Glucose Level 151 mg/dL (70-99) Calcium Level 8.1 mg/dL (8.5-10.1) Test 07/30/16 09:13 Glucose (Fingerstick) 190 mg/dL (70-99) Laboratory Tests Test 07/29/16 11:16 07/29/16 11:55 07/29/16 15:57 07/29/16 20:30 Glucose (Fingerstick) 162 mg/dL (70-99) 179 mg/dL (70-99) 202 mg/dL (70-99) Sodium Level 142 mmol/L (136-145) Potassium Level 3.8 mmol/L (3.5-5.1) Chloride Level 104 mmol/L (98-107) Carbon Dioxide Level 29 mmol/L (21-32) Anion Gap 9 (6-14) Blood Urea Nitrogen 22 mg/dL (7-20) Creatinine 2.1 mg/dL (0.6-1.0) Estimated GFR (Cockcroft-Gault) 24.9 BUN/Creatinine Ratio 10 (6-20) Glucose Level 185 mg/dL (70-99) Calcium Level 8.0 mg/dL (8.5-10.1) Magnesium Level 1.6 mg/dL (1.8-2.4) Total Bilirubin 0.3 mg/dL (0.2-1.0) Aspartate Amino Transf (AST/SGOT) 22 U/L (15-37) Alanine Aminotransferase (ALT/SGPT) 12 U/L (14-59) Alkaline Phosphatase 61 U/L (46-116) Total Protein 4.9 g/dL (6.4-8.2) Albumin 1.9 g/dL (3.4-5.0) Albumin/Globulin Ratio 0.6 (1.0-1.7) Test 07/30/16 03:54 07/30/16 07:17 07/30/16 09:13 White Blood Count 5.3 x10^3/uL (4.0-11.0) Red Blood Count 3.00 x10^6/uL (3.50-5.40) Hemoglobin 9.3 g/dL (12.0-15.5) Hematocrit 25.5 % (36.0-47.0) Mean Corpuscular Volume 85 fL (79-100) Mean Corpuscular Hemoglobin 31 pg (25-35) Mean Corpuscular Hemoglobin Concent 36 g/dL (31-37) Red Cell Distribution Width 14.0 % (11.5-14.5) Platelet Count 237 x10^3/uL (140-400) Neutrophils (%) (Auto) 60 % (31-73) Lymphocytes (%) (Auto) 26 % (24-48) Monocytes (%) (Auto) 9 % (0-9) Eosinophils (%) (Auto) 5 % (0-3) Basophils (%) (Auto) 1 % (0-3) Neutrophils # (Auto) 3.2 x10^3uL (1.8-7.7) Lymphocytes # (Auto) 1.4 x10^3/uL (1.0-4.8) Monocytes # (Auto) 0.5 x10^3/uL (0.0-1.1) Eosinophils # (Auto) 0.2 x10^3/uL (0.0-0.7) Basophils # (Auto) 0.0 x10^3/uL (0.0-0.2) Sodium Level 142 mmol/L (136-145) Potassium Level 3.2 mmol/L (3.5-5.1) Chloride Level 105 mmol/L (98-107) Carbon Dioxide Level 30 mmol/L (21-32) Anion Gap 7 (6-14) Blood Urea Nitrogen 28 mg/dL (7-20) Creatinine 2.6 mg/dL (0.6-1.0) Estimated GFR (Cockcroft-Gault) 19.5 Glucose Level 151 mg/dL (70-99) Calcium Level 8.1 mg/dL (8.5-10.1) Glucose (Fingerstick) 183 mg/dL (70-99) 190 mg/dL (70-99) Assessment Assessment Problems Medical Problems: (1) Acute on chronic renal failure Status: Acute (2) Edema Status: Acute Problems: Plan Plan of Care Problems Medical Problems: (1) Acute on chronic renal failure Status: Acute (2) Edema Status: Acute SPARKLE HAMMER MD July 30, 2016 09:28
[2016-07-30 10:41] VITALS: BP 128/87
--- NOTE | 2016-07-30 11:33 | PDOC ---
PROGRESS NOTES Chief Complaint Chief Complaint ANASARCA ESRD with ckd 3-4 baseline Cr 2 NEW HD DM II HTN normacytic ANEMIA 2/2 ESRD hypomagnesemia HYPOALBUMINEMIA 2/2 ESRD plan: new onset HD, waiting for SW to have HD set up cont HD daily x3 so far fu with renal on amlodipine , lisinopril for HTN, increase lisinopril to 40mg bid decrease aspart to 3u tid, levemir 8u qhs, ssi replete Mag dvt ppx hope dc tmr when HD is set up History of Present Illness History of Present Illness decent urine output bl upper and lower ext severe edema, anasarca, distended abd moderate - stable but no signif improvment Crea 3 plus down to 2s now with HD No SOA, feels like breast swelling has improved from taking out fluid Out pt HD temporarily set up with [facility] K ok, Mag low Vitals Vitals Vital Signs Date Time Temp Pulse Resp B/P (MAP) Pulse Ox O2 Delivery O2 Flow Rate FiO2 07/30/16 07:00 97.7 89 18 178/101 (126) 98 Room Air 97.7 Physical Exam General: Alert, Oriented X3, Cooperative, No acute distress Heart: Regular rate, Normal S2, No murmurs Abdomen: Normal bowel sounds, No tenderness, Other (moderate distended abd) Extremities: No clubbing, Other (bl ext 2+ pitting EDEMA) Labs LABS Laboratory Tests Test 07/29/16 11:55 07/29/16 15:57 07/29/16 20:30 07/30/16 03:54 Sodium Level 142 mmol/L (136-145) 142 mmol/L (136-145) Potassium Level 3.8 mmol/L (3.5-5.1) 3.2 mmol/L (3.5-5.1) Chloride Level 104 mmol/L (98-107) 105 mmol/L (98-107) Carbon Dioxide Level 29 mmol/L (21-32) 30 mmol/L (21-32) Anion Gap 9 (6-14) 7 (6-14) Blood Urea Nitrogen 22 mg/dL (7-20) 28 mg/dL (7-20) Creatinine 2.1 mg/dL (0.6-1.0) 2.6 mg/dL (0.6-1.0) Estimated GFR (Cockcroft-Gault) 24.9 19.5 BUN/Creatinine Ratio 10 (6-20) Glucose Level 185 mg/dL (70-99) 151 mg/dL (70-99) Calcium Level 8.0 mg/dL (8.5-10.1) 8.1 mg/dL (8.5-10.1) Magnesium Level 1.6 mg/dL (1.8-2.4) Total Bilirubin 0.3 mg/dL (0.2-1.0) Aspartate Amino Transf (AST/SGOT) 22 U/L (15-37) Alanine Aminotransferase (ALT/SGPT) 12 U/L (14-59) Alkaline Phosphatase 61 U/L (46-116) Total Protein 4.9 g/dL (6.4-8.2) Albumin 1.9 g/dL (3.4-5.0) Albumin/Globulin Ratio 0.6 (1.0-1.7) Glucose (Fingerstick) 179 mg/dL (70-99) 202 mg/dL (70-99) White Blood Count 5.3 x10^3/uL (4.0-11.0) Red Blood Count 3.00 x10^6/uL (3.50-5.40) Hemoglobin 9.3 g/dL (12.0-15.5) Hematocrit 25.5 % (36.0-47.0) Mean Corpuscular Volume 85 fL (79-100) Mean Corpuscular Hemoglobin 31 pg (25-35) Mean Corpuscular Hemoglobin Concent 36 g/dL (31-37) Red Cell Distribution Width 14.0 % (11.5-14.5) Platelet Count 237 x10^3/uL (140-400) Neutrophils (%) (Auto) 60 % (31-73) Lymphocytes (%) (Auto) 26 % (24-48) Monocytes (%) (Auto) 9 % (0-9) Eosinophils (%) (Auto) 5 % (0-3) Basophils (%) (Auto) 1 % (0-3) Neutrophils # (Auto) 3.2 x10^3uL (1.8-7.7) Lymphocytes # (Auto) 1.4 x10^3/uL (1.0-4.8) Monocytes # (Auto) 0.5 x10^3/uL (0.0-1.1) Eosinophils # (Auto) 0.2 x10^3/uL (0.0-0.7) Basophils # (Auto) 0.0 x10^3/uL (0.0-0.2) Test 07/30/16 07:17 07/30/16 09:13 Glucose (Fingerstick) 183 mg/dL (70-99) 190 mg/dL (70-99) Review of Systems Review of Systems no fever, chills, sob or chest pain Assessment and Plan Assessmemt and Plan Problems Medical Problems: (1) Acute on chronic renal failure Status: Acute (2) Edema Status: Acute Problems: Comment Review of Relevant I have reviewed the following items ruiz (where applicable) has been applied. Labs Laboratory Tests Test 07/28/16 13:45 07/28/16 15:28 07/28/16 16:00 07/28/16 21:05 Sodium Level 140 mmol/L (136-145) Potassium Level 3.3 mmol/L (3.5-5.1) Chloride Level 104 mmol/L (98-107) Carbon Dioxide Level 28 mmol/L (21-32) Anion Gap 8 (6-14) Blood Urea Nitrogen 30 mg/dL (7-20) Creatinine 2.3 mg/dL (0.6-1.0) Estimated GFR (Cockcroft-Gault) 22.4 Glucose Level 235 mg/dL (70-99) Calcium Level 7.8 mg/dL (8.5-10.1) Phosphorus Level 3.4 mg/dL (2.6-4.7) Magnesium Level 1.7 mg/dL (1.8-2.4) Glucose (Fingerstick) 196 mg/dL (70-99) 195 mg/dL (70-99) 184 mg/dL (70-99) Test 07/29/16 07:20 07/29/16 11:16 07/29/16 11:55 07/29/16 15:57 Glucose (Fingerstick) 132 mg/dL (70-99) 162 mg/dL (70-99) 179 mg/dL (70-99) Sodium Level 142 mmol/L (136-145) Potassium Level 3.8 mmol/L (3.5-5.1) Chloride Level 104 mmol/L (98-107) Carbon Dioxide Level 29 mmol/L (21-32) Anion Gap 9 (6-14) Blood Urea Nitrogen 22 mg/dL (7-20) Creatinine 2.1 mg/dL (0.6-1.0) Estimated GFR (Cockcroft-Gault) 24.9 BUN/Creatinine Ratio 10 (6-20) Glucose Level 185 mg/dL (70-99) Calcium Level 8.0 mg/dL (8.5-10.1) Magnesium Level 1.6 mg/dL (1.8-2.4) Total Bilirubin 0.3 mg/dL (0.2-1.0) Aspartate Amino Transf (AST/SGOT) 22 U/L (15-37) Alanine Aminotransferase (ALT/SGPT) 12 U/L (14-59) Alkaline Phosphatase 61 U/L (46-116) Total Protein 4.9 g/dL (6.4-8.2) Albumin 1.9 g/dL (3.4-5.0) Albumin/Globulin Ratio 0.6 (1.0-1.7) Test 07/29/16 20:30 07/30/16 03:54 07/30/16 07:17 07/30/16 09:13 Glucose (Fingerstick) 202 mg/dL (70-99) 183 mg/dL (70-99) 190 mg/dL (70-99) White Blood Count 5.3 x10^3/uL (4.0-11.0) Red Blood Count 3.00 x10^6/uL (3.50-5.40) Hemoglobin 9.3 g/dL (12.0-15.5) Hematocrit 25.5 % (36.0-47.0) Mean Corpuscular Volume 85 fL (79-100) Mean Corpuscular Hemoglobin 31 pg (25-35) Mean Corpuscular Hemoglobin Concent 36 g/dL (31-37) Red Cell Distribution Width 14.0 % (11.5-14.5) Platelet Count 237 x10^3/uL (140-400) Neutrophils (%) (Auto) 60 % (31-73) Lymphocytes (%) (Auto) 26 % (24-48) Monocytes (%) (Auto) 9 % (0-9) Eosinophils (%) (Auto) 5 % (0-3) Basophils (%) (Auto) 1 % (0-3) Neutrophils # (Auto) 3.2 x10^3uL (1.8-7.7) Lymphocytes # (Auto) 1.4 x10^3/uL (1.0-4.8) Monocytes # (Auto) 0.5 x10^3/uL (0.0-1.1) Eosinophils # (Auto) 0.2 x10^3/uL (0.0-0.7) Basophils # (Auto) 0.0 x10^3/uL (0.0-0.2) Sodium Level 142 mmol/L (136-145) Potassium Level 3.2 mmol/L (3.5-5.1) Chloride Level 105 mmol/L (98-107) Carbon Dioxide Level 30 mmol/L (21-32) Anion Gap 7 (6-14) Blood Urea Nitrogen 28 mg/dL (7-20) Creatinine 2.6 mg/dL (0.6-1.0) Estimated GFR (Cockcroft-Gault) 19.5 Glucose Level 151 mg/dL (70-99) Calcium Level 8.1 mg/dL (8.5-10.1) Laboratory Tests Test 07/29/16 11:55 07/29/16 15:57 07/29/16 20:30 07/30/16 03:54 Sodium Level 142 mmol/L (136-145) 142 mmol/L (136-145) Potassium Level 3.8 mmol/L (3.5-5.1) 3.2 mmol/L (3.5-5.1) Chloride Level 104 mmol/L (98-107) 105 mmol/L (98-107) Carbon Dioxide Level 29 mmol/L (21-32) 30 mmol/L (21-32) Anion Gap 9 (6-14) 7 (6-14) Blood Urea Nitrogen 22 mg/dL (7-20) 28 mg/dL (7-20) Creatinine 2.1 mg/dL (0.6-1.0) 2.6 mg/dL (0.6-1.0) Estimated GFR (Cockcroft-Gault) 24.9 19.5 BUN/Creatinine Ratio 10 (6-20) Glucose Level 185 mg/dL (70-99) 151 mg/dL (70-99) Calcium Level 8.0 mg/dL (8.5-10.1) 8.1 mg/dL (8.5-10.1) Magnesium Level 1.6 mg/dL (1.8-2.4) Total Bilirubin 0.3 mg/dL (0.2-1.0) Aspartate Amino Transf (AST/SGOT) 22 U/L (15-37) Alanine Aminotransferase (ALT/SGPT) 12 U/L (14-59) Alkaline Phosphatase 61 U/L (46-116) Total Protein 4.9 g/dL (6.4-8.2) Albumin 1.9 g/dL (3.4-5.0) Albumin/Globulin Ratio 0.6 (1.0-1.7) Glucose (Fingerstick) 179 mg/dL (70-99) 202 mg/dL (70-99) White Blood Count 5.3 x10^3/uL (4.0-11.0) Red Blood Count 3.00 x10^6/uL (3.50-5.40) Hemoglobin 9.3 g/dL (12.0-15.5) Hematocrit 25.5 % (36.0-47.0) Mean Corpuscular Volume 85 fL (79-100) Mean Corpuscular Hemoglobin 31 pg (25-35) Mean Corpuscular Hemoglobin Concent 36 g/dL (31-37) Red Cell Distribution Width 14.0 % (11.5-14.5) Platelet Count 237 x10^3/uL (140-400) Neutrophils (%) (Auto) 60 % (31-73) Lymphocytes (%) (Auto) 26 % (24-48) Monocytes (%) (Auto) 9 % (0-9) Eosinophils (%) (Auto) 5 % (0-3) Basophils (%) (Auto) 1 % (0-3) Neutrophils # (Auto) 3.2 x10^3uL (1.8-7.7) Lymphocytes # (Auto) 1.4 x10^3/uL (1.0-4.8) Monocytes # (Auto) 0.5 x10^3/uL (0.0-1.1) Eosinophils # (Auto) 0.2 x10^3/uL (0.0-0.7) Basophils # (Auto) 0.0 x10^3/uL (0.0-0.2) Test 07/30/16 07:17 07/30/16 09:13 Glucose (Fingerstick) 183 mg/dL (70-99) 190 mg/dL (70-99) Medications Current Medications Ondansetron HCl (Zofran) 4 mg PRN Q8HRS PRN IV NAUSEA/VOMITING; Start 07/25/16 at 10:30; Stop 07/26/16 at 10:29; Status DC Acetaminophen (Tylenol) 650 mg PRN Q4HRS PRN PO FEVER; Start 07/25/16 at 10:30 ; Stop 07/26/16 at 10:29; Status DC Vitamin D (Vitamin D3) 1,000 unit DAILY PO Last administered on 07/29/16 08:57 ; Start 07/26/16 at 09:00 Clonidine HCl (Catapres) 0.1 mg BID PO Last administered on 07/26/16 08:31; Start 07/25/16 at 21:00; Stop 07/26/16 at 12:13; Status DC Clopidogrel Bisulfate (Plavix) 75 mg DAILYWBKFT PO Last administered on 07:31; Start 07/26/16 at 08:00 Furosemide (Lasix) 40 mg BID92 PO ; Start 07/25/16 at 14:00; Stop 07/25/16 at 14 :00; Status DC Pantoprazole Sodium (Protonix) 40 mg DAILYAC PO Last administered on 07/29/16 07:31; Start 07/26/16 at 07:30 Amlodipine Besylate (Norvasc) 10 mg DAILY PO Last administered on 07/28/16 09: 07; Start 07/26/16 at 09:00; Stop 07/28/16 at 14:15; Status DC Famotidine (Pepcid) 20 mg DAILY PO Last administered on 07/29/16 08:57; Start 07/26/16 at 09:00 Atorvastatin Calcium (Lipitor) 40 mg QHS PO Last administered on 07/29/16 21: 02; Start 07/25/16 at 21:00 Furosemide (Lasix) 40 mg BID92 IVP Last administered on 07/29/16 13:22; Start 07/25/16 at 14:00 Insulin Detemir (Levemir) 8 units QHS SQ Last administered on 07/29/16 21:17; Start 07/25/16 at 21:00 Insulin Aspart (NovoLOG) 0-7 UNITS TIDWMEALS SQ Last administered on 07/29/16 16:34; Start 07/25/16 at 17:00 Dextrose (Dextrose 50%-Water Syringe) 12.5 gm PRN Q15MIN PRN IV SEE COMMENTS; Start 07/25/16 at 15:30 Lisinopril (Prinivil) 20 mg DAILY PO Last administered on 07/28/16 09:06; Start 07/26/16 at 13:00; Stop 07/28/16 at 10:13; Status DC Acetaminophen (Tylenol) 650 mg PRN Q6HRS PRN PO FEVER Last administered on 07/27 17:01; Start 07/26/16 at 13:15 Ondansetron HCl (Zofran) 4 mg PRN Q6HRS PRN IV NAUSEA/VOMITING Last administered on 07/28/16 23:55; Start 07/26/16 at 13:15 Morphine Sulfate 2 mg PRN Q2HR PRN IV PAIN; Start 07/26/16 at 13:15 Tramadol HCl (Ultram) 50 mg PRN Q6HRS PRN PO PAIN Last administered on 07:34; Start 07/26/16 at 13:15 Hydralazine HCl (Apresoline) 10 mg PRN Q4HRS PRN IVP ELEVATED BP, SEE COMMENTS ; Start 07/26/16 at 13:15 Docusate Sodium (Colace) 100 mg PRN DAILY PRN PO CONSTIPATION; Start 07/26/16 at 13:15 Insulin Aspart (NovoLOG) 5 units TIDAC SQ Last administered on 07/27/16 12:46 ; Start 07/26/16 at 16:30; Stop 07/28/16 at 10:13; Status DC Heparin Sodium (Porcine) (Heparin Sq) 5,000 unit Q8HRS SQ Last administered on 07/30/16 06:31; Start 07/26/16 at 14:00 Heparin Sodium (Porcine) (Heparin Sodium) 10,000 unit STK-MED ONCE .ROUTE ; Start 07/26/16 at 15:25; Stop 07/26/16 at 15:26; Status DC Lidocaine/ Epinephrine (Xylocaine 1%-Epi 1:100,000) 20 ml STK-MED ONCE .ROUTE ; Start 07/26/16 at 15:25; Stop 07/26/16 at 15:26; Status DC Heparin Sodium/ Sodium Chloride 500 ml @ As Directed STK-MED ONCE .ROUTE ; Start 07/26/16 at 15:25; Stop 07/26/16 at 15:26; Status DC Midazolam HCl (Versed) 5 mg STK-MED ONCE .ROUTE ; Start 07/26/16 at 15:38; Stop 07/26/16 at 15:39; Status DC Fentanyl Citrate (Fentanyl 5ml Vial) 250 mcg STK-MED ONCE .ROUTE ; Start at 15:38; Stop 07/26/16 at 15:39; Status DC Cefazolin Sodium 50 ml @ As Directed STK-MED ONCE IV ; Start 07/26/16 at 15:39; Stop 07/26/16 at 15:40; Status DC Gelatin (Gelfoam Size 12-7mm) 1 each STK-MED ONCE .ROUTE ; Start 07/26/16 at 16 :07; Stop 07/26/16 at 16:08; Status DC Heparin Sodium/ Sodium Chloride 1,000 unit 1X ONCE IART Last administered on 16:13; Start 07/26/16 at 16:15; Stop 07/26/16 at 16:16; Status DC Midazolam HCl (Versed) 5 mg 1X ONCE IV Last administered on 07/26/16 16:13; Start 07/26/16 at 16:15; Stop 07/26/16 at 16:16; Status DC Fentanyl Citrate (Fentanyl 5ml Vial) 125 mcg 1X ONCE IV Last administered on 16:14; Start 07/26/16 at 16:15; Stop 07/26/16 at 16:16; Status DC Heparin Sodium (Porcine) (Heparin Sodium) 4,000 unit 1X ONCE IV Last administered on 07/26/16 16:15; Start 07/26/16 at 16:15; Stop 07/26/16 at 16:16 ; Status DC Lidocaine/ Epinephrine (Xylocaine 1%-Epi 1:100,000) 9 ml 1X ONCE IJ Last administered on 07/26/16 16:13; Start 07/26/16 at 16:15; Stop 07/26/16 at 16:16 ; Status DC Darbepoetin Antonio (Aranesp) 60 mcg WEEKLYHS SQ Last administered on 07/27/16 20 :47; Start 07/27/16 at 21:00 Sodium Chloride 1,000 ml @ 1,000 mls/hr Q1H PRN IV hypotension; Start 07/27/16 at 13:45; Stop 07/27/16 at 19:44; Status DC Sodium Chloride (Normal Saline Flush) 10 ml 1X PRN PRN IV AP catheter pack; Start 07/27/16 at 13:45; Stop 07/27/16 at 19:00; Status DC Sodium Chloride (Normal Saline Flush) 10 ml 1X PRN PRN IV LUMBER TRIPPER catheter pack; Start 07/27/16 at 13:45; Stop 07/27/16 at 19:00; Status DC Sodium Chloride 1,000 ml @ 400 mls/hr Q2H30M PRN IV PATENCY; Start 07/27/16 at 13:45; Stop 07/27/16 at 20:00; Status DC Info (PHARMACY MONITORING -- do not chart) 1 each PRN DAILY PRN MC SEE COMMENTS ; Start 07/27/16 at 13:45 Insulin Aspart (NovoLOG) 3 units TIDAC SQ Last administered on 07/29/16 16:35 ; Start 07/28/16 at 11:30 Lisinopril (Prinivil) 40 mg DAILY PO ; Start 07/29/16 at 09:00; Stop 07/29/16 at 09:00; Status DC Levothyroxine Sodium (Synthroid) 200 mcg DAILY07 PO Last administered on 06:22; Start 07/28/16 at 10:30 Amlodipine Besylate (Norvasc) 5 mg DAILY PO Last administered on 07/29/16 08: 57; Start 07/29/16 at 09:00 Lisinopril (Prinivil) 40 mg BID PO Last administered on 07/29/16 21:03; Start 07/28/16 at 21:00 Sodium Chloride 250 ml @ 250 mls/hr Q1H PRN IV hypotension; Start 07/28/16 at 22:23; Stop 07/29/16 at 04:22; Status DC Albumin Human 200 ml @ 200 mls/hr 1X PRN PRN IV Hypotension; Start 07/28/16 at 22:30; Stop 07/29/16 at 04:29; Status DC Sodium Chloride (Normal Saline Flush) 10 ml 1X PRN PRN IV AP catheter pack; Start 07/28/16 at 22:30; Stop 07/29/16 at 22:29; Status DC Sodium Chloride (Normal Saline Flush) 10 ml 1X PRN PRN IV LUMBER TRIPPER catheter pack; Start 07/28/16 at 22:30; Stop 07/29/16 at 22:29; Status DC Sodium Chloride 200 ml @ 400 mls/hr Q30M PRN IV PATENCY; Start 07/28/16 at 22: 23; Stop 07/29/16 at 10:22; Status DC Info (PHARMACY MONITORING -- do not chart) 1 each PRN DAILY PRN MC SEE COMMENTS ; Start 07/28/16 at 22:30 Magnesium Sulfate/ Dextrose 50 ml @ 25 mls/hr 1X ONCE IV Last administered on 07/29/16t 13:21; Start 07/29/16 at 13:00; Stop 07/29/16 at 14:59; Status DC Sodium Chloride 1,000 ml @ 1,000 mls/hr Q1H PRN IV hypotension; Start 07/30/16 at 07:58; Stop 07/30/16 at 13:57 Sodium Chloride (Normal Saline Flush) 10 ml 1X PRN PRN IV AP catheter pack; Start 07/30/16 at 08:00; Stop 07/31/16 at 07:59 Sodium Chloride (Normal Saline Flush) 10 ml 1X PRN PRN IV LUMBER TRIPPER catheter pack; Start 07/30/16 at 08:00; Stop 07/31/16 at 07:59 Sodium Chloride 1,000 ml @ 400 mls/hr Q2H30M PRN IV PATENCY; Start 07/30/16 at 07:58; Stop 07/30/16 at 19:57 Info (PHARMACY MONITORING -- do not chart) 1 each PRN DAILY PRN MC SEE COMMENTS ; Start 07/30/16 at 08:00 Active Scripts Active Reported Synthroid (Levothyroxine Sodium) 200 Mcg Tablet 1 Tab PO DAILY Novolog Flexpen (Insulin Aspart) 100 Unit/1 Ml Insuln.pen 5 Unit SQ TIDAC Lantus Solostar (Insulin Glargine,Hum.rec.anlog) 100 Unit/1 Ml Insuln.pen 8 Unit SQ QHS Clonidine Hcl 0.1 Mg Tablet 0.1 Mg PO BID Lasix (Furosemide) 40 Mg Tablet 40 Mg PO BID [place] 10 Mg-40 Mg Tablet (Amlodipine/Atorvastatin) 1 Each Tablet 1 Each PO DAILY Protonix (Pantoprazole Sodium) 40 Mg Tablet.dr 1 Tab PO DAILY Clopidogrel (Clopidogrel Bisulfate) 75 Mg Tablet 1 Tab PO DAILY Ranitidine Hcl 150 Mg Capsule 150 Mg PO DAILY Vitamin D3 (Cholecalciferol (Vitamin D3)) 1,000 Unit Tablet 1 Tab PO DAILY Vitals/I & O Vital Sign - Last 24 Hours 07/29/16 07/29/16 07/29/16 07/29/16 15:00 19:00 20:00 21:03 Temp 98.7 98.6 98.7 98.6 Pulse 85 84 81 Resp 20 18 B/P (MAP) 164/91 (115) 144/77 (99) 163/92 Pulse Ox 98 95 O2 Delivery Room Air Room Air 07/29/16 07/30/16 23:00 07:00 Temp 98.8 97.7 98.8 97.7 Pulse 84 89 Resp 18 18 B/P (MAP) 160/92 (114) 178/101 (126) Pulse Ox 93 98 O2 Delivery Room Air Room Air Intake and Output 07/29/16 07/29/16 07/30/16 15:00 23:00 07:00 Intake Total 600 ml 700 ml 500 ml Output Total 600 ml Balance 600 ml 100 ml 500 ml KARYNA NAGEL MD July 30, 2016 11:33
[2016-07-30] MEDS: CHOLECALCIFEROL (VITAMIN D3) 1,000 UNIT TABLET PO SCH (12:23)
[2016-07-30] MEDS: FAMOTIDINE 20 MG TABLET. PO SCH (12:23)
[2016-07-30] MEDS: PANTOPRAZOLE 40 MG TABLET.DR. PO SCH (12:23)
[2016-07-30] MEDS: CLOPIDOGREL BISULFATE 75 MG TABLET PO SCH (12:23)
[2016-07-30] MEDS: LISINOPRIL 20 MG TABLET PO SCH ×2 (12:24→22:08)
[2016-07-30] MEDS: amLODIPine BESYLATE 5 MG TABLET PO SCH (12:24)
[2016-07-30] MEDS: FUROSEMIDE 40 MG/4 ML VIAL. IVP SCH ×2 (12:24→17:20)
[2016-07-30 15:12] VITALS: BP 178/101
[2016-07-30 19:00] VITALS: BP 167/104
[2016-07-30] MEDS: ATORVASTATIN CALCIUM 40 MG TABLET. PO SCH (22:08)
[2016-07-30] MEDS: INSULIN DETEMIR 300 UNITS/3 ML INSULN.PEN. SQ SCH (22:20)
[2016-07-30 23:11] VITALS: BP 170/102
[2016-07-31 03:00] VITALS: BP 177/103
[2016-07-31 04:30] LABS: BASO % 1 % (0-3); EOS % 3 % (0-3); HEMATOCRIT 26.1 % (36.0-47.0); HEMOGLOBIN 9.1 g/dL (12.0-15.5); LYMPH # 1.5 x10^3/uL (1.0-4.8); LYMPH % 26 % (24-48); MEAN CORPUSCULAR HEMOGLOBIN 30 pg (25-35); MEAN CORPUSCULAR HGB CONC 35 g/dL (31-37); MEAN CORPUSCULAR VOLUME 87 fL (79-100); MONO % 8 % (0-9); NEUT % 63 % (31-73); PLATELET COUNT 221 x10^3/uL (140-400); RED BLOOD COUNT 2.99 x10^6/uL (3.50-5.40); WHITE BLOOD COUNT 6.1 x10^3/uL (4.0-11.0)
[2016-07-31 04:53] LABS: CALCIUM 7.9 mg/dL (8.5-10.1); GFR 26.4; POTASSIUM 3.6 mmol/L (3.5-5.1)
[2016-07-31] MEDS: ONDANSETRON PF 4 MG/2 ML VIAL. IV PRN ×3 (06:26→15:54)
[2016-07-31] MEDS: LEVOTHYROXINE 100 MCG TABLET PO SCH (06:27)
[2016-07-31] MEDS: HEPARIN PF for SUB-Q USE 5,000 UNIT/0.5 ML VIAL. SQ SCH ×3 (06:34→22:54)
[2016-07-31 07:00] VITALS: BP 188/101
[2016-07-31] MEDS: hydrALAZINE 20 MG/ML VIAL. IVP PRN ×3 (07:49→22:45)
[2016-07-31] MEDS: PANTOPRAZOLE 40 MG TABLET.DR. PO SCH (07:49)
[2016-07-31] MEDS: ACETAMINOPHEN 325 MG TABLET. PO PRN (07:51)
[2016-07-31] MEDS: INSULIN ASPART 300 UNITS/3 ML INSULN.PEN SQ SCH ×6 (08:00→17:00)
[2016-07-31] MEDS: FAMOTIDINE 20 MG TABLET. PO SCH (09:05)
[2016-07-31] MEDS: amLODIPine BESYLATE 5 MG TABLET PO SCH (09:06)
[2016-07-31] MEDS: LISINOPRIL 20 MG TABLET PO SCH ×2 (09:06→21:00)
[2016-07-31] MEDS: CLOPIDOGREL BISULFATE 75 MG TABLET PO SCH (09:06)
[2016-07-31] MEDS: CHOLECALCIFEROL (VITAMIN D3) 1,000 UNIT TABLET PO SCH (09:06)
[2016-07-31] MEDS: FUROSEMIDE 40 MG/4 ML VIAL. IVP SCH ×2 (09:07→14:00)
--- NOTE | 2016-07-31 10:35 | RAD ---
Exam: AP portable chest. History: Fever. Comparison: None. Findings: Cardiac silhouette appears within normal limits for size. Right internal jugular dialysis catheter is present with tip projecting at the atriocaval junction. No pneumothorax or large pleural effusion is seen. Mild retrocardiac density is seen. Pulmonary vascularity is without evidence of failure. Impression: 1. Mild retrocardiac density, probably representing atelectasis, although cannot exclude developing airspace disease.
[2016-07-31 10:40] LABS: BILIRUBIN,URINE NEGATIVE (NEG); GLUCOSE,URINE >=1000 mg/dL (NEG); NITRITE,URINE NEGATIVE (NEG); PROTEIN,URINE >=300 mg/dL (NEG-TRACE); UROBILINOGEN,URINE 0.2 mg/dL (0.2 mg/dL)
[2016-07-31 10:50] VITALS: BP 168/91
[2016-07-31 10:58] LABS: SQUAMOUS EPITHELIAL CELL,UR MOD /LPF; WBC,URINE OCC /HPF (0-4)
[2016-07-31 10:59] LABS: BACTERIA,URINE FEW /HPF (0-FEW)
--- NOTE | 2016-07-31 11:12 | PDOC ---
PROGRESS NOTES Chief Complaint Chief Complaint ANASARCA ESRD with ckd 3-4 baseline Cr 2 NEW HD DM II HTN normacytic ANEMIA 2/2 ESRD hypomagnesemia HYPOALBUMINEMIA 2/2 ESRD Fever, not clear etiology plan: new onset HD, waiting for SW to have HD set up cont HD daily x3 so far fu with renal on amlodipine , lisinopril for HTN, increase lisinopril to 40mg bid , resume amlodipine 10mg dialy increase aspart to 5u tid, levemir 8u qhs, ssi replete Mag dvt ppx nicolas cx for fever, ua, ucx, bcx, cxr History of Present Illness History of Present Illness decent urine output bl upper and lower ext severe edema, anasarca, distended abd moderate , better with HD Crea 3 plus down to 2 now with HD fever 07/31, feels bad, with vomiting, mild lower abd tenderness, denies cough, sob, dysuria Out pt HD temporarily set up with [facility] BP high Vitals Vitals Vital Signs Date Time Temp Pulse Resp B/P (MAP) Pulse Ox O2 Delivery O2 Flow Rate FiO2 07/31/16 10:50 100.0 88 18 168/91 (116) 96 Room Air 100.0 Physical Exam General: Alert, Oriented X3, Cooperative, No acute distress Heart: Regular rate, Normal S2, No murmurs Abdomen: Normal bowel sounds, Other (mild distended abd, lower middle abd mild tenderness) Extremities: No clubbing, Other (bl ext 2+ pitting EDEMA) Labs LABS Laboratory Tests Test 07/30/16 11:34 07/30/16 16:05 07/30/16 20:44 07/31/16 02:55 Glucose (Fingerstick) 172 mg/dL (70-99) 193 mg/dL (70-99) 272 mg/dL (70-99) White Blood Count 6.1 x10^3/uL (4.0-11.0) Red Blood Count 2.99 x10^6/uL (3.50-5.40) Hemoglobin 9.1 g/dL (12.0-15.5) Hematocrit 26.1 % (36.0-47.0) Mean Corpuscular Volume 87 fL (79-100) Mean Corpuscular Hemoglobin 30 pg (25-35) Mean Corpuscular Hemoglobin Concent 35 g/dL (31-37) Red Cell Distribution Width 14.0 % (11.5-14.5) Platelet Count 221 x10^3/uL (140-400) Neutrophils (%) (Auto) 63 % (31-73) Lymphocytes (%) (Auto) 26 % (24-48) Monocytes (%) (Auto) 8 % (0-9) Eosinophils (%) (Auto) 3 % (0-3) Basophils (%) (Auto) 1 % (0-3) Neutrophils # (Auto) 3.8 x10^3uL (1.8-7.7) Lymphocytes # (Auto) 1.5 x10^3/uL (1.0-4.8) Monocytes # (Auto) 0.5 x10^3/uL (0.0-1.1) Eosinophils # (Auto) 0.2 x10^3/uL (0.0-0.7) Basophils # (Auto) 0.0 x10^3/uL (0.0-0.2) Sodium Level 142 mmol/L (136-145) Potassium Level 3.6 mmol/L (3.5-5.1) Chloride Level 105 mmol/L (98-107) Carbon Dioxide Level 30 mmol/L (21-32) Anion Gap 7 (6-14) Blood Urea Nitrogen 19 mg/dL (7-20) Creatinine 2.0 mg/dL (0.6-1.0) Estimated GFR (Cockcroft-Gault) 26.4 Glucose Level 411 mg/dL (70-99) Calcium Level 7.9 mg/dL (8.5-10.1) Test 07/31/16 07:20 07/31/16 10:13 07/31/16 10:25 Glucose (Fingerstick) 421 mg/dL (70-99) 339 mg/dL (70-99) Urine Collection Type Unknown Urine Color Yellow Urine Clarity Clear Urine pH 7.0 Urine Specific [place] 1.020 Urine Protein >=300 mg/dL (NEG-TRACE) Urine Glucose (UA) >=1000 mg/dL (NEG) Urine Ketones (Stick) Trace mg/dL (NEG) Urine Blood Small (NEG) Urine Nitrite Negative (NEG) Urine Bilirubin Negative (NEG) Urine Urobilinogen Dipstick 0.2 mg/dL (0.2 mg/dL) Urine Leukocyte Esterase Negative (NEG) Urine RBC 3-5 /HPF (0-2) Urine WBC Occ /HPF (0-4) Urine Squamous Epithelial Cells Mod /LPF Urine Bacteria Few /HPF (0-FEW) Urine Mucus Slight /LPF Review of Systems Review of Systems no chills, sob , cough, or chest pain Assessment and Plan Assessmemt and Plan Problems Medical Problems: (1) Acute on chronic renal failure Status: Acute (2) Edema Status: Acute Problems: Comment Review of Relevant I have reviewed the following items ruiz (where applicable) has been applied. Labs Laboratory Tests Test 07/29/16 11:16 07/29/16 11:55 07/29/16 15:57 07/29/16 20:30 Glucose (Fingerstick) 162 mg/dL (70-99) 179 mg/dL (70-99) 202 mg/dL (70-99) Sodium Level 142 mmol/L (136-145) Potassium Level 3.8 mmol/L (3.5-5.1) Chloride Level 104 mmol/L (98-107) Carbon Dioxide Level 29 mmol/L (21-32) Anion Gap 9 (6-14) Blood Urea Nitrogen 22 mg/dL (7-20) Creatinine 2.1 mg/dL (0.6-1.0) Estimated GFR (Cockcroft-Gault) 24.9 BUN/Creatinine Ratio 10 (6-20) Glucose Level 185 mg/dL (70-99) Calcium Level 8.0 mg/dL (8.5-10.1) Magnesium Level 1.6 mg/dL (1.8-2.4) Total Bilirubin 0.3 mg/dL (0.2-1.0) Aspartate Amino Transf (AST/SGOT) 22 U/L (15-37) Alanine Aminotransferase (ALT/SGPT) 12 U/L (14-59) Alkaline Phosphatase 61 U/L (46-116) Total Protein 4.9 g/dL (6.4-8.2) Albumin 1.9 g/dL (3.4-5.0) Albumin/Globulin Ratio 0.6 (1.0-1.7) Test 07/30/16 03:54 07/30/16 07:17 07/30/16 09:13 07/30/16 11:34 White Blood Count 5.3 x10^3/uL (4.0-11.0) Red Blood Count 3.00 x10^6/uL (3.50-5.40) Hemoglobin 9.3 g/dL (12.0-15.5) Hematocrit 25.5 % (36.0-47.0) Mean Corpuscular Volume 85 fL (79-100) Mean Corpuscular Hemoglobin 31 pg (25-35) Mean Corpuscular Hemoglobin Concent 36 g/dL (31-37) Red Cell Distribution Width 14.0 % (11.5-14.5) Platelet Count 237 x10^3/uL (140-400) Neutrophils (%) (Auto) 60 % (31-73) Lymphocytes (%) (Auto) 26 % (24-48) Monocytes (%) (Auto) 9 % (0-9) Eosinophils (%) (Auto) 5 % (0-3) Basophils (%) (Auto) 1 % (0-3) Neutrophils # (Auto) 3.2 x10^3uL (1.8-7.7) Lymphocytes # (Auto) 1.4 x10^3/uL (1.0-4.8) Monocytes # (Auto) 0.5 x10^3/uL (0.0-1.1) Eosinophils # (Auto) 0.2 x10^3/uL (0.0-0.7) Basophils # (Auto) 0.0 x10^3/uL (0.0-0.2) Sodium Level 142 mmol/L (136-145) Potassium Level 3.2 mmol/L (3.5-5.1) Chloride Level 105 mmol/L (98-107) Carbon Dioxide Level 30 mmol/L (21-32) Anion Gap 7 (6-14) Blood Urea Nitrogen 28 mg/dL (7-20) Creatinine 2.6 mg/dL (0.6-1.0) Estimated GFR (Cockcroft-Gault) 19.5 Glucose Level 151 mg/dL (70-99) Calcium Level 8.1 mg/dL (8.5-10.1) Glucose (Fingerstick) 183 mg/dL (70-99) 190 mg/dL (70-99) 172 mg/dL (70-99) Test 07/30/16 16:05 07/30/16 20:44 07/31/16 02:55 07/31/16 07:20 Glucose (Fingerstick) 193 mg/dL (70-99) 272 mg/dL (70-99) 421 mg/dL (70-99) White Blood Count 6.1 x10^3/uL (4.0-11.0) Red Blood Count 2.99 x10^6/uL (3.50-5.40) Hemoglobin 9.1 g/dL (12.0-15.5) Hematocrit 26.1 % (36.0-47.0) Mean Corpuscular Volume 87 fL (79-100) Mean Corpuscular Hemoglobin 30 pg (25-35) Mean Corpuscular Hemoglobin Concent 35 g/dL (31-37) Red Cell Distribution Width 14.0 % (11.5-14.5) Platelet Count 221 x10^3/uL (140-400) Neutrophils (%) (Auto) 63 % (31-73) Lymphocytes (%) (Auto) 26 % (24-48) Monocytes (%) (Auto) 8 % (0-9) Eosinophils (%) (Auto) 3 % (0-3) Basophils (%) (Auto) 1 % (0-3) Neutrophils # (Auto) 3.8 x10^3uL (1.8-7.7) Lymphocytes # (Auto) 1.5 x10^3/uL (1.0-4.8) Monocytes # (Auto) 0.5 x10^3/uL (0.0-1.1) Eosinophils # (Auto) 0.2 x10^3/uL (0.0-0.7) Basophils # (Auto) 0.0 x10^3/uL (0.0-0.2) Sodium Level 142 mmol/L (136-145) Potassium Level 3.6 mmol/L (3.5-5.1) Chloride Level 105 mmol/L (98-107) Carbon Dioxide Level 30 mmol/L (21-32) Anion Gap 7 (6-14) Blood Urea Nitrogen 19 mg/dL (7-20) Creatinine 2.0 mg/dL (0.6-1.0) Estimated GFR (Cockcroft-Gault) 26.4 Glucose Level 411 mg/dL (70-99) Calcium Level 7.9 mg/dL (8.5-10.1) Test 07/31/16 10:13 07/31/16 10:25 Glucose (Fingerstick) 339 mg/dL (70-99) Urine Collection Type Unknown Urine Color Yellow Urine Clarity Clear Urine pH 7.0 Urine Specific [place] 1.020 Urine Protein >=300 mg/dL (NEG-TRACE) Urine Glucose (UA) >=1000 mg/dL (NEG) Urine Ketones (Stick) Trace mg/dL (NEG) Urine Blood Small (NEG) Urine Nitrite Negative (NEG) Urine Bilirubin Negative (NEG) Urine Urobilinogen Dipstick 0.2 mg/dL (0.2 mg/dL) Urine Leukocyte Esterase Negative (NEG) Urine RBC 3-5 /HPF (0-2) Urine WBC Occ /HPF (0-4) Urine Squamous Epithelial Cells Mod /LPF Urine Bacteria Few /HPF (0-FEW) Urine Mucus Slight /LPF Laboratory Tests Test 07/30/16 11:34 07/30/16 16:05 07/30/16 20:44 07/31/16 02:55 Glucose (Fingerstick) 172 mg/dL (70-99) 193 mg/dL (70-99) 272 mg/dL (70-99) White Blood Count 6.1 x10^3/uL (4.0-11.0) Red Blood Count 2.99 x10^6/uL (3.50-5.40) Hemoglobin 9.1 g/dL (12.0-15.5) Hematocrit 26.1 % (36.0-47.0) Mean Corpuscular Volume 87 fL (79-100) Mean Corpuscular Hemoglobin 30 pg (25-35) Mean Corpuscular Hemoglobin Concent 35 g/dL (31-37) Red Cell Distribution Width 14.0 % (11.5-14.5) Platelet Count 221 x10^3/uL (140-400) Neutrophils (%) (Auto) 63 % (31-73) Lymphocytes (%) (Auto) 26 % (24-48) Monocytes (%) (Auto) 8 % (0-9) Eosinophils (%) (Auto) 3 % (0-3) Basophils (%) (Auto) 1 % (0-3) Neutrophils # (Auto) 3.8 x10^3uL (1.8-7.7) Lymphocytes # (Auto) 1.5 x10^3/uL (1.0-4.8) Monocytes # (Auto) 0.5 x10^3/uL (0.0-1.1) Eosinophils # (Auto) 0.2 x10^3/uL (0.0-0.7) Basophils # (Auto) 0.0 x10^3/uL (0.0-0.2) Sodium Level 142 mmol/L (136-145) Potassium Level 3.6 mmol/L (3.5-5.1) Chloride Level 105 mmol/L (98-107) Carbon Dioxide Level 30 mmol/L (21-32) Anion Gap 7 (6-14) Blood Urea Nitrogen 19 mg/dL (7-20) Creatinine 2.0 mg/dL (0.6-1.0) Estimated GFR (Cockcroft-Gault) 26.4 Glucose Level 411 mg/dL (70-99) Calcium Level 7.9 mg/dL (8.5-10.1) Test 07/31/16 07:20 07/31/16 10:13 07/31/16 10:25 Glucose (Fingerstick) 421 mg/dL (70-99) 339 mg/dL (70-99) Urine Collection Type Unknown Urine Color Yellow Urine Clarity Clear Urine pH 7.0 Urine Specific [place] 1.020 Urine Protein >=300 mg/dL (NEG-TRACE) Urine Glucose (UA) >=1000 mg/dL (NEG) Urine Ketones (Stick) Trace mg/dL (NEG) Urine Blood Small (NEG) Urine Nitrite Negative (NEG) Urine Bilirubin Negative (NEG) Urine Urobilinogen Dipstick 0.2 mg/dL (0.2 mg/dL) Urine Leukocyte Esterase Negative (NEG) Urine RBC 3-5 /HPF (0-2) Urine WBC Occ /HPF (0-4) Urine Squamous Epithelial Cells Mod /LPF Urine Bacteria Few /HPF (0-FEW) Urine Mucus Slight /LPF Medications Current Medications Ondansetron HCl (Zofran) 4 mg PRN Q8HRS PRN IV NAUSEA/VOMITING; Start 07/25/16 at 10:30; Stop 07/26/16 at 10:29; Status DC Acetaminophen (Tylenol) 650 mg PRN Q4HRS PRN PO FEVER; Start 07/25/16 at 10:30 ; Stop 07/26/16 at 10:29; Status DC Vitamin D (Vitamin D3) 1,000 unit DAILY PO Last administered on 07/31/16 09:06 ; Start 07/26/16 at 09:00 Clonidine HCl (Catapres) 0.1 mg BID PO Last administered on 07/26/16 08:31; Start 07/25/16 at 21:00; Stop 07/26/16 at 12:13; Status DC Clopidogrel Bisulfate (Plavix) 75 mg DAILYWBKFT PO Last administered on 09:06; Start 07/26/16 at 08:00 Furosemide (Lasix) 40 mg BID92 PO ; Start 07/25/16 at 14:00; Stop 07/25/16 at 14 :00; Status DC Pantoprazole Sodium (Protonix) 40 mg DAILYAC PO Last administered on 07/31/16 07:49; Start 07/26/16 at 07:30 Amlodipine Besylate (Norvasc) 10 mg DAILY PO Last administered on 07/28/16 09: 07; Start 07/26/16 at 09:00; Stop 07/28/16 at 14:15; Status DC Famotidine (Pepcid) 20 mg DAILY PO Last administered on 07/31/16 09:05; Start 07/26/16 at 09:00 Atorvastatin Calcium (Lipitor) 40 mg QHS PO Last administered on 07/30/16 22: 08; Start 07/25/16 at 21:00 Furosemide (Lasix) 40 mg BID92 IVP Last administered on 07/31/16 09:07; Start 07/25/16 at 14:00 Insulin Detemir (Levemir) 8 units QHS SQ Last administered on 07/30/16 22:20; Start 07/25/16 at 21:00 Insulin Aspart (NovoLOG) 0-7 UNITS TIDWMEALS SQ Last administered on 07/31/16 08:01; Start 07/25/16 at 17:00 Dextrose (Dextrose 50%-Water Syringe) 12.5 gm PRN Q15MIN PRN IV SEE COMMENTS; Start 07/25/16 at 15:30 Lisinopril (Prinivil) 20 mg DAILY PO Last administered on 07/28/16 09:06; Start 07/26/16 at 13:00; Stop 07/28/16 at 10:13; Status DC Acetaminophen (Tylenol) 650 mg PRN Q6HRS PRN PO FEVER Last administered on 07/31 07:51; Start 07/26/16 at 13:15 Ondansetron HCl (Zofran) 4 mg PRN Q6HRS PRN IV NAUSEA/VOMITING Last administered on 07/31/16 10:50; Start 07/26/16 at 13:15 Morphine Sulfate 2 mg PRN Q2HR PRN IV PAIN; Start 07/26/16 at 13:15 Tramadol HCl (Ultram) 50 mg PRN Q6HRS PRN PO PAIN Last administered on 07:34; Start 07/26/16 at 13:15 Hydralazine HCl (Apresoline) 10 mg PRN Q4HRS PRN IVP ELEVATED BP, SEE COMMENTS Last administered on 07/31/16 07:49; Start 07/26/16 at 13:15 Docusate Sodium (Colace) 100 mg PRN DAILY PRN PO CONSTIPATION; Start 07/26/16 at 13:15 Insulin Aspart (NovoLOG) 5 units TIDAC SQ Last administered on 07/27/16 12:46 ; Start 07/26/16 at 16:30; Stop 07/28/16 at 10:13; Status DC Heparin Sodium (Porcine) (Heparin Sq) 5,000 unit Q8HRS SQ Last administered on 07/31/16 06:34; Start 07/26/16 at 14:00 Heparin Sodium (Porcine) (Heparin Sodium) 10,000 unit STK-MED ONCE .ROUTE ; Start 07/26/16 at 15:25; Stop 07/26/16 at 15:26; Status DC Lidocaine/ Epinephrine (Xylocaine 1%-Epi 1:100,000) 20 ml STK-MED ONCE .ROUTE ; Start 07/26/16 at 15:25; Stop 07/26/16 at 15:26; Status DC Heparin Sodium/ Sodium Chloride 500 ml @ As Directed STK-MED ONCE .ROUTE ; Start 07/26/16 at 15:25; Stop 07/26/16 at 15:26; Status DC Midazolam HCl (Versed) 5 mg STK-MED ONCE .ROUTE ; Start 07/26/16 at 15:38; Stop 07/26/16 at 15:39; Status DC Fentanyl Citrate (Fentanyl 5ml Vial) 250 mcg STK-MED ONCE .ROUTE ; Start at 15:38; Stop 07/26/16 at 15:39; Status DC Cefazolin Sodium 50 ml @ As Directed STK-MED ONCE IV ; Start 07/26/16 at 15:39; Stop 07/26/16 at 15:40; Status DC Gelatin (Gelfoam Size 12-7mm) 1 each STK-MED ONCE .ROUTE ; Start 07/26/16 at 16 :07; Stop 07/26/16 at 16:08; Status DC Heparin Sodium/ Sodium Chloride 1,000 unit 1X ONCE IART Last administered on 16:13; Start 07/26/16 at 16:15; Stop 07/26/16 at 16:16; Status DC Midazolam HCl (Versed) 5 mg 1X ONCE IV Last administered on 07/26/16 16:13; Start 07/26/16 at 16:15; Stop 07/26/16 at 16:16; Status DC Fentanyl Citrate (Fentanyl 5ml Vial) 125 mcg 1X ONCE IV Last administered on 16:14; Start 07/26/16 at 16:15; Stop 07/26/16 at 16:16; Status DC Heparin Sodium (Porcine) (Heparin Sodium) 4,000 unit 1X ONCE IV Last administered on 07/26/16 16:15; Start 07/26/16 at 16:15; Stop 07/26/16 at 16:16 ; Status DC Lidocaine/ Epinephrine (Xylocaine 1%-Epi 1:100,000) 9 ml 1X ONCE IJ Last administered on 07/26/16 16:13; Start 07/26/16 at 16:15; Stop 07/26/16 at 16:16 ; Status DC Darbepoetin Antonio (Aranesp) 60 mcg WEEKLYHS SQ Last administered on 07/27/16 20 :47; Start 07/27/16 at 21:00 Sodium Chloride 1,000 ml @ 1,000 mls/hr Q1H PRN IV hypotension; Start 07/27/16 at 13:45; Stop 07/27/16 at 19:44; Status DC Sodium Chloride (Normal Saline Flush) 10 ml 1X PRN PRN IV AP catheter pack; Start 07/27/16 at 13:45; Stop 07/27/16 at 19:00; Status DC Sodium Chloride (Normal Saline Flush) 10 ml 1X PRN PRN IV [employer] catheter pack; Start 07/27/16 at 13:45; Stop 07/27/16 at 19:00; Status DC Sodium Chloride 1,000 ml @ 400 mls/hr Q2H30M PRN IV PATENCY; Start 07/27/16 at 13:45; Stop 07/27/16 at 20:00; Status DC Info (PHARMACY MONITORING -- do not chart) 1 each PRN DAILY PRN MC SEE COMMENTS ; Start 07/27/16 at 13:45 Insulin Aspart (NovoLOG) 3 units TIDAC SQ Last administered on 07/31/16 08:00 ; Start 07/28/16 at 11:30; Stop 07/31/16 at 09:30; Status DC Lisinopril (Prinivil) 40 mg DAILY PO ; Start 07/29/16 at 09:00; Stop 07/29/16 at 09:00; Status DC Levothyroxine Sodium (Synthroid) 200 mcg DAILY07 PO Last administered on 06:27; Start 07/28/16 at 10:30 Amlodipine Besylate (Norvasc) 5 mg DAILY PO Last administered on 07/31/16 09: 06; Start 07/29/16 at 09:00; Stop 07/31/16 at 10:13; Status DC Lisinopril (Prinivil) 40 mg BID PO Last administered on 07/31/16 09:06; Start 07/28/16 at 21:00 Sodium Chloride 250 ml @ 250 mls/hr Q1H PRN IV hypotension; Start 07/28/16 at 22:23; Stop 07/29/16 at 04:22; Status DC Albumin Human 200 ml @ 200 mls/hr 1X PRN PRN IV Hypotension; Start 07/28/16 at 22:30; Stop 07/29/16 at 04:29; Status DC Sodium Chloride (Normal Saline Flush) 10 ml 1X PRN PRN IV AP catheter pack; Start 07/28/16 at 22:30; Stop 07/29/16 at 22:29; Status DC Sodium Chloride (Normal Saline Flush) 10 ml 1X PRN PRN IV [employer] catheter pack; Start 07/28/16 at 22:30; Stop 07/29/16 at 22:29; Status DC Sodium Chloride 200 ml @ 400 mls/hr Q30M PRN IV PATENCY; Start 07/28/16 at 22: 23; Stop 07/29/16 at 10:22; Status DC Info (PHARMACY MONITORING -- do not chart) 1 each PRN DAILY PRN MC SEE COMMENTS ; Start 07/28/16 at 22:30 Magnesium Sulfate/ Dextrose 50 ml @ 25 mls/hr 1X ONCE IV Last administered on 07/29/16t 13:21; Start 07/29/16 at 13:00; Stop 07/29/16 at 14:59; Status DC Sodium Chloride 1,000 ml @ 1,000 mls/hr Q1H PRN IV hypotension; Start 07/30/16 at 07:58; Stop 07/30/16 at 13:57; Status DC Sodium Chloride (Normal Saline Flush) 10 ml 1X PRN PRN IV AP catheter pack; Start 07/30/16 at 08:00; Stop 07/31/16 at 07:59; Status DC Sodium Chloride (Normal Saline Flush) 10 ml 1X PRN PRN IV [employer] catheter pack; Start 07/30/16 at 08:00; Stop 07/31/16 at 07:59; Status DC Sodium Chloride 1,000 ml @ 400 mls/hr Q2H30M PRN IV PATENCY; Start 07/30/16 at 07:58; Stop 07/30/16 at 19:57; Status DC Info (PHARMACY MONITORING -- do not chart) 1 each PRN DAILY PRN MC SEE COMMENTS ; Start 07/30/16 at 08:00 Insulin Aspart (NovoLOG) 5 units TIDAC SQ ; Start 07/31/16 at 11:30 Amlodipine Besylate (Norvasc) 10 mg DAILY PO ; Start 08/01/16 at 09:00 Active Scripts Active Reported Synthroid (Levothyroxine Sodium) 200 Mcg Tablet 1 Tab PO DAILY Novolog Flexpen (Insulin Aspart) 100 Unit/1 Ml Insuln.pen 5 Unit SQ TIDAC Lantus Solostar (Insulin Glargine,Hum.rec.anlog) 100 Unit/1 Ml Insuln.pen 8 Unit SQ QHS Clonidine Hcl 0.1 Mg Tablet 0.1 Mg PO BID Lasix (Furosemide) 40 Mg Tablet 40 Mg PO BID [place] 10 Mg-40 Mg Tablet (Amlodipine/Atorvastatin) 1 Each Tablet 1 Each PO DAILY Protonix (Pantoprazole Sodium) 40 Mg Tablet.dr 1 Tab PO DAILY Clopidogrel (Clopidogrel Bisulfate) 75 Mg Tablet 1 Tab PO DAILY Ranitidine Hcl 150 Mg Capsule 150 Mg PO DAILY Vitamin D3 (Cholecalciferol (Vitamin D3)) 1,000 Unit Tablet 1 Tab PO DAILY Vitals/I & O Vital Sign - Last 24 Hours 07/30/16 07/30/16 07/30/16 07/30/16 11:47 12:24 12:24 15:12 Temp 97.7 97.7 Pulse 101 101 88 Resp 18 B/P (MAP) 178/101 178/101 178/101 (126) Pulse Ox 98 O2 Delivery Room Air Room Air 07/30/16 07/30/16 07/30/16 07/30/16 19:00 20:00 22:08 23:11 Temp 99.0 99.2 99.0 99.2 Pulse 91 91 89 Resp 18 18 B/P (MAP) 167/104 (125) 167/104 170/102 (124) Pulse Ox 98 97 O2 Delivery Room Air Room Air Room Air 07/31/16 07/31/16 07/31/16 07/31/16 03:00 07:00 07:49 09:06 Temp 99.2 100.2 99.2 100.2 Pulse 89 91 89 89 Resp 18 18 B/P (MAP) 177/103 (127) 188/101 (130) 188/103 168/78 Pulse Ox 95 94 O2 Delivery Room Air Room Air 07/31/16 07/31/16 09:06 10:50 Temp 100.0 100.0 Pulse 88 Resp 18 B/P (MAP) 168/78 168/91 (116) Pulse Ox 96 O2 Delivery Room Air Intake and Output 07/30/16 07/30/16 07/31/16 14:59 22:59 06:59 Intake Total 500 ml 970 ml 350 ml Balance 500 ml 970 ml 350 ml KARYNA NAGEL MD July 31, 2016 11:12
[2016-07-31] MEDS: METOCLOPRAMIDE HCL 10 MG/2 ML VIAL. IV PRN ×2 (11:56→20:38)
[2016-07-31] MEDS: PROMETHAZINE IM 25 MG/ML VIAL IM PRN ×2 (12:43→22:45)
[2016-07-31 15:31] VITALS: BP 182/88
[2016-07-31] MEDS ORDERED: IV NORMAL SALINE 1000ML BAG 1,000 ML IV PRN (15:59)
[2016-07-31] MEDS ORDERED: 0.9 % SODIUM CHLORIDE 10 ML DISP.SYRIN. IV PRN ×2 (16:00)
[2016-07-31] MEDS ORDERED: DIALYSIS PATIENT. MC PRN ×2 (16:00)
--- NOTE | 2016-07-31 17:08 | PDOC ---
Dialysis Progress Note Dialysis Note Dialysis Note Seen on Hemodialysis, tolerating treatment Well Vitals on Hemodialysis: 169/92 89 afeb General Appearance: Awake: Alert Oriented x 3 Neck: No JVD or JVP Chest: CTA Tan Heart: S1 S2 Abdomen - Soft NTND Extremities - + Edema ESRD: Dialysis as below F 180 NR 3.0 Hrs 4 K 2.5 Ca 140 Na 30 HC03 Qb 350 + Qd 500+ Heparin 0 Units Uf 3 Kgs or to dry weight as tolerated May give 25-50 gms of 25% Albumin if needed to maintain Hemodynamic stability Treatment plan reviewed and discussed with hogshead hand Vitals Vital Signs Vital Signs Date Time Temp Pulse Resp B/P (MAP) Pulse Ox O2 Delivery O2 Flow Rate FiO2 07/31/16 15:52 90 182/88 07/31/16 15:31 99.5 18 97 Room Air 99.5 Labs Last Labs Laboratory Tests Test 07/29/16 20:30 07/30/16 03:54 07/30/16 07:17 07/30/16 09:13 Glucose (Fingerstick) 202 mg/dL (70-99) 183 mg/dL (70-99) 190 mg/dL (70-99) White Blood Count 5.3 x10^3/uL (4.0-11.0) Red Blood Count 3.00 x10^6/uL (3.50-5.40) Hemoglobin 9.3 g/dL (12.0-15.5) Hematocrit 25.5 % (36.0-47.0) Mean Corpuscular Volume 85 fL (79-100) Mean Corpuscular Hemoglobin 31 pg (25-35) Mean Corpuscular Hemoglobin Concent 36 g/dL (31-37) Red Cell Distribution Width 14.0 % (11.5-14.5) Platelet Count 237 x10^3/uL (140-400) Neutrophils (%) (Auto) 60 % (31-73) Lymphocytes (%) (Auto) 26 % (24-48) Monocytes (%) (Auto) 9 % (0-9) Eosinophils (%) (Auto) 5 % (0-3) Basophils (%) (Auto) 1 % (0-3) Neutrophils # (Auto) 3.2 x10^3uL (1.8-7.7) Lymphocytes # (Auto) 1.4 x10^3/uL (1.0-4.8) Monocytes # (Auto) 0.5 x10^3/uL (0.0-1.1) Eosinophils # (Auto) 0.2 x10^3/uL (0.0-0.7) Basophils # (Auto) 0.0 x10^3/uL (0.0-0.2) Sodium Level 142 mmol/L (136-145) Potassium Level 3.2 mmol/L (3.5-5.1) Chloride Level 105 mmol/L (98-107) Carbon Dioxide Level 30 mmol/L (21-32) Anion Gap 7 (6-14) Blood Urea Nitrogen 28 mg/dL (7-20) Creatinine 2.6 mg/dL (0.6-1.0) Estimated GFR (Cockcroft-Gault) 19.5 Glucose Level 151 mg/dL (70-99) Calcium Level 8.1 mg/dL (8.5-10.1) Test 07/30/16 11:34 07/30/16 16:05 07/30/16 20:44 07/31/16 02:55 Glucose (Fingerstick) 172 mg/dL (70-99) 193 mg/dL (70-99) 272 mg/dL (70-99) White Blood Count 6.1 x10^3/uL (4.0-11.0) Red Blood Count 2.99 x10^6/uL (3.50-5.40) Hemoglobin 9.1 g/dL (12.0-15.5) Hematocrit 26.1 % (36.0-47.0) Mean Corpuscular Volume 87 fL (79-100) Mean Corpuscular Hemoglobin 30 pg (25-35) Mean Corpuscular Hemoglobin Concent 35 g/dL (31-37) Red Cell Distribution Width 14.0 % (11.5-14.5) Platelet Count 221 x10^3/uL (140-400) Neutrophils (%) (Auto) 63 % (31-73) Lymphocytes (%) (Auto) 26 % (24-48) Monocytes (%) (Auto) 8 % (0-9) Eosinophils (%) (Auto) 3 % (0-3) Basophils (%) (Auto) 1 % (0-3) Neutrophils # (Auto) 3.8 x10^3uL (1.8-7.7) Lymphocytes # (Auto) 1.5 x10^3/uL (1.0-4.8) Monocytes # (Auto) 0.5 x10^3/uL (0.0-1.1) Eosinophils # (Auto) 0.2 x10^3/uL (0.0-0.7) Basophils # (Auto) 0.0 x10^3/uL (0.0-0.2) Sodium Level 142 mmol/L (136-145) Potassium Level 3.6 mmol/L (3.5-5.1) Chloride Level 105 mmol/L (98-107) Carbon Dioxide Level 30 mmol/L (21-32) Anion Gap 7 (6-14) Blood Urea Nitrogen 19 mg/dL (7-20) Creatinine 2.0 mg/dL (0.6-1.0) Estimated GFR (Cockcroft-Gault) 26.4 Glucose Level 411 mg/dL (70-99) Calcium Level 7.9 mg/dL (8.5-10.1) Test 07/31/16 07:20 07/31/16 10:13 07/31/16 10:25 Glucose (Fingerstick) 421 mg/dL (70-99) 339 mg/dL (70-99) Urine Collection Type Unknown Urine Color Yellow Urine Clarity Clear Urine pH 7.0 Urine Specific [place] 1.020 Urine Protein >=300 mg/dL (NEG-TRACE) Urine Glucose (UA) >=1000 mg/dL (NEG) Urine Ketones (Stick) Trace mg/dL (NEG) Urine Blood Small (NEG) Urine Nitrite Negative (NEG) Urine Bilirubin Negative (NEG) Urine Urobilinogen Dipstick 0.2 mg/dL (0.2 mg/dL) Urine Leukocyte Esterase Negative (NEG) Urine RBC 3-5 /HPF (0-2) Urine WBC Occ /HPF (0-4) Urine Squamous Epithelial Cells Mod /LPF Urine Bacteria Few /HPF (0-FEW) Urine Mucus Slight /LPF Laboratory Tests Test 07/30/16 20:44 07/31/16 02:55 07/31/16 07:20 07/31/16 10:13 Glucose (Fingerstick) 272 mg/dL (70-99) 421 mg/dL (70-99) 339 mg/dL (70-99) White Blood Count 6.1 x10^3/uL (4.0-11.0) Red Blood Count 2.99 x10^6/uL (3.50-5.40) Hemoglobin 9.1 g/dL (12.0-15.5) Hematocrit 26.1 % (36.0-47.0) Mean Corpuscular Volume 87 fL (79-100) Mean Corpuscular Hemoglobin 30 pg (25-35) Mean Corpuscular Hemoglobin Concent 35 g/dL (31-37) Red Cell Distribution Width 14.0 % (11.5-14.5) Platelet Count 221 x10^3/uL (140-400) Neutrophils (%) (Auto) 63 % (31-73) Lymphocytes (%) (Auto) 26 % (24-48) Monocytes (%) (Auto) 8 % (0-9) Eosinophils (%) (Auto) 3 % (0-3) Basophils (%) (Auto) 1 % (0-3) Neutrophils # (Auto) 3.8 x10^3uL (1.8-7.7) Lymphocytes # (Auto) 1.5 x10^3/uL (1.0-4.8) Monocytes # (Auto) 0.5 x10^3/uL (0.0-1.1) Eosinophils # (Auto) 0.2 x10^3/uL (0.0-0.7) Basophils # (Auto) 0.0 x10^3/uL (0.0-0.2) Sodium Level 142 mmol/L (136-145) Potassium Level 3.6 mmol/L (3.5-5.1) Chloride Level 105 mmol/L (98-107) Carbon Dioxide Level 30 mmol/L (21-32) Anion Gap 7 (6-14) Blood Urea Nitrogen 19 mg/dL (7-20) Creatinine 2.0 mg/dL (0.6-1.0) Estimated GFR (Cockcroft-Gault) 26.4 Glucose Level 411 mg/dL (70-99) Calcium Level 7.9 mg/dL (8.5-10.1) Test 07/31/16 10:25 Urine Collection Type Unknown Urine Color Yellow Urine Clarity Clear Urine pH 7.0 Urine Specific [place] 1.020 Urine Protein >=300 mg/dL (NEG-TRACE) Urine Glucose (UA) >=1000 mg/dL (NEG) Urine Ketones (Stick) Trace mg/dL (NEG) Urine Blood Small (NEG) Urine Nitrite Negative (NEG) Urine Bilirubin Negative (NEG) Urine Urobilinogen Dipstick 0.2 mg/dL (0.2 mg/dL) Urine Leukocyte Esterase Negative (NEG) Urine RBC 3-5 /HPF (0-2) Urine WBC Occ /HPF (0-4) Urine Squamous Epithelial Cells Mod /LPF Urine Bacteria Few /HPF (0-FEW) Urine Mucus Slight /LPF Assessment Assessment Problems Medical Problems: (1) Acute on chronic renal failure Status: Acute (2) Edema Status: Acute Problems: Plan Plan of Care Problems Medical Problems: (1) Acute on chronic renal failure Status: Acute (2) Edema Status: Acute SPARKLE HAMMER MD July 31, 2016 17:08
[2016-07-31 19:00] VITALS: BP 182/99
[2016-07-31] MEDS: INSULIN DETEMIR 300 UNITS/3 ML INSULN.PEN. SQ SCH (20:51)
[2016-07-31] MEDS: ATORVASTATIN CALCIUM 40 MG TABLET. PO SCH (21:00)
[2016-07-31 23:00] VITALS: BP 196/106
[2016-08-01 03:00] VITALS: BP 184/106
[2016-08-01 05:42] LABS: BASO % 0 % (0-3); EOS % 0 % (0-3); HEMATOCRIT 27.8 % (36.0-47.0); HEMOGLOBIN 9.7 g/dL (12.0-15.5); LYMPH # 0.9 x10^3/uL (1.0-4.8); LYMPH % 8 % (24-48); MEAN CORPUSCULAR HEMOGLOBIN 30 pg (25-35); MEAN CORPUSCULAR HGB CONC 35 g/dL (31-37); MEAN CORPUSCULAR VOLUME 87 fL (79-100); MONO % 3 % (0-9); NEUT % 89 % (31-73); PLATELET COUNT 258 x10^3/uL (140-400); RED BLOOD COUNT 3.21 x10^6/uL (3.50-5.40); RED CELL DISTRIBUTION WIDTH 14.2 % (11.5-14.5); WHITE BLOOD COUNT 11.3 x10^3/uL (4.0-11.0)
[2016-08-01 05:49] LABS: CALCIUM 8.7 mg/dL (8.5-10.1); CREATININE 1.7 mg/dL (0.6-1.0); GFR 31.8; POTASSIUM 4.1 mmol/L (3.5-5.1)
[2016-08-01 07:00] VITALS: BP 186/107
[2016-08-01] MEDS: LEVOTHYROXINE 100 MCG TABLET PO SCH (07:00)
[2016-08-01 07:25] LABS: PLT ESTIMATE ADEQUATE (ADEQUATE)
[2016-08-01] MEDS: PANTOPRAZOLE 40 MG TABLET.DR. PO SCH (07:30)
[2016-08-01] MEDS: CLOPIDOGREL BISULFATE 75 MG TABLET PO SCH (08:00)
[2016-08-01] MEDS: INSULIN ASPART 300 UNITS/3 ML INSULN.PEN SQ SCH ×6 (08:00→17:30)
[2016-08-01] MEDS: METOCLOPRAMIDE HCL 10 MG/2 ML VIAL. IV PRN (08:41)
[2016-08-01] MEDS: hydrALAZINE 20 MG/ML VIAL. IVP PRN ×2 (08:43→22:03)
[2016-08-01] MEDS: FUROSEMIDE 40 MG/4 ML VIAL. IVP SCH ×2 (08:45→14:51)
[2016-08-01] MEDS: HEPARIN PF for SUB-Q USE 5,000 UNIT/0.5 ML VIAL. SQ SCH ×3 (08:55→22:01)
[2016-08-01] MEDS: CHOLECALCIFEROL (VITAMIN D3) 1,000 UNIT TABLET PO SCH (09:00)
[2016-08-01] MEDS: amLODIPine BESYLATE 10 MG TABLET PO SCH (09:00)
[2016-08-01] MEDS: LISINOPRIL 20 MG TABLET PO SCH ×2 (09:00→21:47)
[2016-08-01 11:00] VITALS: BP 164/95
[2016-08-01] MEDS ORDERED: PIP/TAZO PER PHARMACY MC PRN (11:00)
[2016-08-01] MEDS ORDERED: VANCOMYCIN 1.5 GM in IV NORMAL SALINE 500ML BAG 500 ML IV ONE (11:00)
--- NOTE | 2016-08-01 11:48 | PDOC ---
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 bcx pending. add augustine monae for now, ID consult History of Present Illness History of Present Illness decent urine output bl upper and lower ext severe edema, anasarca, distended abd moderate , better with HD fever /30, feels bad, with vomiting, mild lower abd tenderness, denies cough, no sob or dysuria. still severe N/V, T better but high wbc Out pt HD temporarily set up with [facility] BP high SINCE cannot take po meds Vitals Vitals Vital Signs Date Time Temp Pulse Resp B/P (MAP) Pulse Ox O2 Delivery O2 Flow Rate FiO2 08/01/16 11:00 98.8 102 18 164/95 (118) 97 Room Air 98.8 Physical Exam General: Alert, Oriented X3, Cooperative, No acute distress Heart: Regular rate, Normal S2, No murmurs Lungs: Clear Abdomen: Normal bowel sounds, Other (mild distended abd, lower middle abd mild tenderness) Extremities: No clubbing, Other (bl ext 2+ pitting EDEMA) Labs LABS Laboratory Tests Test 07/31/16 20:41 08/01/16 04:30 Glucose (Fingerstick) 303 mg/dL (70-99) White Blood Count 11.3 x10^3/uL (4.0-11.0) Red Blood Count 3.21 x10^6/uL (3.50-5.40) Hemoglobin 9.7 g/dL (12.0-15.5) Hematocrit 27.8 % (36.0-47.0) Mean Corpuscular Volume 87 fL (79-100) Mean Corpuscular Hemoglobin 30 pg (25-35) Mean Corpuscular Hemoglobin Concent 35 g/dL (31-37) Red Cell Distribution Width 14.2 % (11.5-14.5) Platelet Count 258 x10^3/uL (140-400) Neutrophils (%) (Auto) 89 % (31-73) Lymphocytes (%) (Auto) 8 % (24-48) Monocytes (%) (Auto) 3 % (0-9) Eosinophils (%) (Auto) 0 % (0-3) Basophils (%) (Auto) 0 % (0-3) Neutrophils # (Auto) 10.0 x10^3uL (1.8-7.7) Lymphocytes # (Auto) 0.9 x10^3/uL (1.0-4.8) Monocytes # (Auto) 0.4 x10^3/uL (0.0-1.1) Eosinophils # (Auto) 0.0 x10^3/uL (0.0-0.7) Basophils # (Auto) 0.0 x10^3/uL (0.0-0.2) Segmented Neutrophils % 87 % (35-66) Band Neutrophils % 3 % (0-9) Lymphocytes % 6 % (24-48) Monocytes % 4 % (0-10) Platelet Estimate Adequate (ADEQUATE) Sodium Level 141 mmol/L (136-145) Potassium Level 4.1 mmol/L (3.5-5.1) Chloride Level 103 mmol/L (98-107) Carbon Dioxide Level 26 mmol/L (21-32) Anion Gap 12 (6-14) Blood Urea Nitrogen 15 mg/dL (7-20) Creatinine 1.7 mg/dL (0.6-1.0) Estimated GFR (Cockcroft-Gault) 31.8 Glucose Level 272 mg/dL (70-99) Calcium Level 8.7 mg/dL (8.5-10.1) Review of Systems Review of Systems no chills, sob or chest pain Assessment and Plan Assessmemt and Plan Problems Medical Problems: (1) Acute on chronic renal failure Status: Acute (2) Edema Status: Acute Problems: Comment Review of Relevant I have reviewed the following items ruiz (where applicable) has been applied. Labs Laboratory Tests Test 07/30/16 16:05 07/30/16 20:44 07/31/16 02:55 07/31/16 07:20 Glucose (Fingerstick) 193 mg/dL (70-99) 272 mg/dL (70-99) 421 mg/dL (70-99) White Blood Count 6.1 x10^3/uL (4.0-11.0) Red Blood Count 2.99 x10^6/uL (3.50-5.40) Hemoglobin 9.1 g/dL (12.0-15.5) Hematocrit 26.1 % (36.0-47.0) Mean Corpuscular Volume 87 fL (79-100) Mean Corpuscular Hemoglobin 30 pg (25-35) Mean Corpuscular Hemoglobin Concent 35 g/dL (31-37) Red Cell Distribution Width 14.0 % (11.5-14.5) Platelet Count 221 x10^3/uL (140-400) Neutrophils (%) (Auto) 63 % (31-73) Lymphocytes (%) (Auto) 26 % (24-48) Monocytes (%) (Auto) 8 % (0-9) Eosinophils (%) (Auto) 3 % (0-3) Basophils (%) (Auto) 1 % (0-3) Neutrophils # (Auto) 3.8 x10^3uL (1.8-7.7) Lymphocytes # (Auto) 1.5 x10^3/uL (1.0-4.8) Monocytes # (Auto) 0.5 x10^3/uL (0.0-1.1) Eosinophils # (Auto) 0.2 x10^3/uL (0.0-0.7) Basophils # (Auto) 0.0 x10^3/uL (0.0-0.2) Sodium Level 142 mmol/L (136-145) Potassium Level 3.6 mmol/L (3.5-5.1) Chloride Level 105 mmol/L (98-107) Carbon Dioxide Level 30 mmol/L (21-32) Anion Gap 7 (6-14) Blood Urea Nitrogen 19 mg/dL (7-20) Creatinine 2.0 mg/dL (0.6-1.0) Estimated GFR (Cockcroft-Gault) 26.4 Glucose Level 411 mg/dL (70-99) Calcium Level 7.9 mg/dL (8.5-10.1) Test 5/30/17 10:13 07/31/16 10:25 07/31/16 20:41 08/01/16 04:30 Glucose (Fingerstick) 339 mg/dL (70-99) 303 mg/dL (70-99) Urine Collection Type Unknown Urine Color Yellow Urine Clarity Clear Urine pH 7.0 Urine Specific [place] 1.020 Urine Protein >=300 mg/dL (NEG-TRACE) Urine Glucose (UA) >=1000 mg/dL (NEG) Urine Ketones (Stick) Trace mg/dL (NEG) Urine Blood Small (NEG) Urine Nitrite Negative (NEG) Urine Bilirubin Negative (NEG) Urine Urobilinogen Dipstick 0.2 mg/dL (0.2 mg/dL) Urine Leukocyte Esterase Negative (NEG) Urine RBC 3-5 /HPF (0-2) Urine WBC Occ /HPF (0-4) Urine Squamous Epithelial Cells Mod /LPF Urine Bacteria Few /HPF (0-FEW) Urine Mucus Slight /LPF White Blood Count 11.3 x10^3/uL (4.0-11.0) Red Blood Count 3.21 x10^6/uL (3.50-5.40) Hemoglobin 9.7 g/dL (12.0-15.5) Hematocrit 27.8 % (36.0-47.0) Mean Corpuscular Volume 87 fL (79-100) Mean Corpuscular Hemoglobin 30 pg (25-35) Mean Corpuscular Hemoglobin Concent 35 g/dL (31-37) Red Cell Distribution Width 14.2 % (11.5-14.5) Platelet Count 258 x10^3/uL (140-400) Neutrophils (%) (Auto) 89 % (31-73) Lymphocytes (%) (Auto) 8 % (24-48) Monocytes (%) (Auto) 3 % (0-9) Eosinophils (%) (Auto) 0 % (0-3) Basophils (%) (Auto) 0 % (0-3) Neutrophils # (Auto) 10.0 x10^3uL (1.8-7.7) Lymphocytes # (Auto) 0.9 x10^3/uL (1.0-4.8) Monocytes # (Auto) 0.4 x10^3/uL (0.0-1.1) Eosinophils # (Auto) 0.0 x10^3/uL (0.0-0.7) Basophils # (Auto) 0.0 x10^3/uL (0.0-0.2) Segmented Neutrophils % 87 % (35-66) Band Neutrophils % 3 % (0-9) Lymphocytes % 6 % (24-48) Monocytes % 4 % (0-10) Platelet Estimate Adequate (ADEQUATE) Sodium Level 141 mmol/L (136-145) Potassium Level 4.1 mmol/L (3.5-5.1) Chloride Level 103 mmol/L (98-107) Carbon Dioxide Level 26 mmol/L (21-32) Anion Gap 12 (6-14) Blood Urea Nitrogen 15 mg/dL (7-20) Creatinine 1.7 mg/dL (0.6-1.0) Estimated GFR (Cockcroft-Gault) 31.8 Glucose Level 272 mg/dL (70-99) Calcium Level 8.7 mg/dL (8.5-10.1) Laboratory Tests Test 07/31/16 20:41 08/01/16 04:30 Glucose (Fingerstick) 303 mg/dL (70-99) White Blood Count 11.3 x10^3/uL (4.0-11.0) Red Blood Count 3.21 x10^6/uL (3.50-5.40) Hemoglobin 9.7 g/dL (12.0-15.5) Hematocrit 27.8 % (36.0-47.0) Mean Corpuscular Volume 87 fL (79-100) Mean Corpuscular Hemoglobin 30 pg (25-35) Mean Corpuscular Hemoglobin Concent 35 g/dL (31-37) Red Cell Distribution Width 14.2 % (11.5-14.5) Platelet Count 258 x10^3/uL (140-400) Neutrophils (%) (Auto) 89 % (31-73) Lymphocytes (%) (Auto) 8 % (24-48) Monocytes (%) (Auto) 3 % (0-9) Eosinophils (%) (Auto) 0 % (0-3) Basophils (%) (Auto) 0 % (0-3) Neutrophils # (Auto) 10.0 x10^3uL (1.8-7.7) Lymphocytes # (Auto) 0.9 x10^3/uL (1.0-4.8) Monocytes # (Auto) 0.4 x10^3/uL (0.0-1.1) Eosinophils # (Auto) 0.0 x10^3/uL (0.0-0.7) Basophils # (Auto) 0.0 x10^3/uL (0.0-0.2) Segmented Neutrophils % 87 % (35-66) Band Neutrophils % 3 % (0-9) Lymphocytes % 6 % (24-48) Monocytes % 4 % (0-10) Platelet Estimate Adequate (ADEQUATE) Sodium Level 141 mmol/L (136-145) Potassium Level 4.1 mmol/L (3.5-5.1) Chloride Level 103 mmol/L (98-107) Carbon Dioxide Level 26 mmol/L (21-32) Anion Gap 12 (6-14) Blood Urea Nitrogen 15 mg/dL (7-20) Creatinine 1.7 mg/dL (0.6-1.0) Estimated GFR (Cockcroft-Gault) 31.8 Glucose Level 272 mg/dL (70-99) Calcium Level 8.7 mg/dL (8.5-10.1) Medications Current Medications Ondansetron HCl (Zofran) 4 mg PRN Q8HRS PRN IV NAUSEA/VOMITING; Start 07/25/16 at 10:30; Stop 07/26/16 at 10:29; Status DC Acetaminophen (Tylenol) 650 mg PRN Q4HRS PRN PO FEVER; Start 07/25/16 at 10:30 ; Stop 07/26/16 at 10:29; Status DC Vitamin D (Vitamin D3) 1,000 unit DAILY PO Last administered on 07/31/16 09:06 ; Start 07/26/16 at 09:00 Clonidine HCl (Catapres) 0.1 mg BID PO Last administered on 07/26/16 08:31; Start 07/25/16 at 21:00; Stop 07/26/16 at 12:13; Status DC Clopidogrel Bisulfate (Plavix) 75 mg DAILYWBKFT PO Last administered on 09:06; Start 07/26/16 at 08:00 Furosemide (Lasix) 40 mg BID92 PO ; Start 07/25/16 at 14:00; Stop 07/25/16 at 14 :00; Status DC Pantoprazole Sodium (Protonix) 40 mg DAILYAC PO Last administered on 07/31/16 07:49; Start 07/26/16 at 07:30 Amlodipine Besylate (Norvasc) 10 mg DAILY PO Last administered on 07/28/16 09: 07; Start 07/26/16 at 09:00; Stop 07/28/16 at 14:15; Status DC Famotidine (Pepcid) 20 mg DAILY PO Last administered on 07/31/16 09:05; Start 07/26/16 at 09:00; Stop 07/31/16 at 16:13; Status DC Atorvastatin Calcium (Lipitor) 40 mg QHS PO Last administered on 07/30/16 22: 08; Start 07/25/16 at 21:00 Furosemide (Lasix) 40 mg BID92 IVP Last administered on 08/01/16 08:45; Start 07/25/16 at 14:00 Insulin Detemir (Levemir) 8 units QHS SQ Last administered on 07/31/16 20:51; Start 07/25/16 at 21:00 Insulin Aspart (NovoLOG) 0-7 UNITS TIDWMEALS SQ Last administered on 07/31/16 12:04; Start 07/25/16 at 17:00 Dextrose (Dextrose 50%-Water Syringe) 12.5 gm PRN Q15MIN PRN IV SEE COMMENTS; Start 07/25/16 at 15:30 Lisinopril (Prinivil) 20 mg DAILY PO Last administered on 07/28/16 09:06; Start 07/26/16 at 13:00; Stop 07/28/16 at 10:13; Status DC Acetaminophen (Tylenol) 650 mg PRN Q6HRS PRN PO FEVER Last administered on 07/31 07:51; Start 07/26/16 at 13:15 Ondansetron HCl (Zofran) 4 mg PRN Q6HRS PRN IV NAUSEA/VOMITING Last administered on 07/31/16 15:54; Start 07/26/16 at 13:15 Morphine Sulfate 2 mg PRN Q2HR PRN IV PAIN; Start 07/26/16 at 13:15 Tramadol HCl (Ultram) 50 mg PRN Q6HRS PRN PO PAIN Last administered on 07:34; Start 07/26/16 at 13:15 Hydralazine HCl (Apresoline) 10 mg PRN Q4HRS PRN IVP ELEVATED BP, SEE COMMENTS Last administered on 08/01/16 08:43; Start 07/26/16 at 13:15 Docusate Sodium (Colace) 100 mg PRN DAILY PRN PO CONSTIPATION; Start 07/26/16 at 13:15 Insulin Aspart (NovoLOG) 5 units TIDAC SQ Last administered on 07/27/16 12:46 ; Start 07/26/16 at 16:30; Stop 07/28/16 at 10:13; Status DC Heparin Sodium (Porcine) (Heparin Sq) 5,000 unit Q8HRS SQ Last administered on 08/01/16 08:55; Start 07/26/16 at 14:00 Heparin Sodium (Porcine) (Heparin Sodium) 10,000 unit STK-MED ONCE .ROUTE ; Start 07/26/16 at 15:25; Stop 07/26/16 at 15:26; Status DC Lidocaine/ Epinephrine (Xylocaine 1%-Epi 1:100,000) 20 ml STK-MED ONCE .ROUTE ; Start 07/26/16 at 15:25; Stop 07/26/16 at 15:26; Status DC Heparin Sodium/ Sodium Chloride 500 ml @ As Directed STK-MED ONCE .ROUTE ; Start 07/26/16 at 15:25; Stop 07/26/16 at 15:26; Status DC Midazolam HCl (Versed) 5 mg STK-MED ONCE .ROUTE ; Start 07/26/16 at 15:38; Stop 07/26/16 at 15:39; Status DC Fentanyl Citrate (Fentanyl 5ml Vial) 250 mcg STK-MED ONCE .ROUTE ; Start at 15:38; Stop 07/26/16 at 15:39; Status DC Cefazolin Sodium 50 ml @ As Directed STK-MED ONCE IV ; Start 07/26/16 at 15:39; Stop 07/26/16 at 15:40; Status DC Gelatin (Gelfoam Size 12-7mm) 1 each STK-MED ONCE .ROUTE ; Start 07/26/16 at 16 :07; Stop 07/26/16 at 16:08; Status DC Heparin Sodium/ Sodium Chloride 1,000 unit 1X ONCE IART Last administered on 16:13; Start 07/26/16 at 16:15; Stop 07/26/16 at 16:16; Status DC Midazolam HCl (Versed) 5 mg 1X ONCE IV Last administered on 07/26/16 16:13; Start 07/26/16 at 16:15; Stop 07/26/16 at 16:16; Status DC Fentanyl Citrate (Fentanyl 5ml Vial) 125 mcg 1X ONCE IV Last administered on 16:14; Start 07/26/16 at 16:15; Stop 07/26/16 at 16:16; Status DC Heparin Sodium (Porcine) (Heparin Sodium) 4,000 unit 1X ONCE IV Last administered on 07/26/16 16:15; Start 07/26/16 at 16:15; Stop 07/26/16 at 16:16 ; Status DC Lidocaine/ Epinephrine (Xylocaine 1%-Epi 1:100,000) 9 ml 1X ONCE IJ Last administered on 07/26/16 16:13; Start 07/26/16 at 16:15; Stop 07/26/16 at 16:16 ; Status DC Darbepoetin Antonio (Aranesp) 60 mcg WEEKLYHS SQ Last administered on 07/27/16 20 :47; Start 07/27/16 at 21:00 Sodium Chloride 1,000 ml @ 1,000 mls/hr Q1H PRN IV hypotension; Start 07/27/16 at 13:45; Stop 07/27/16 at 19:44; Status DC Sodium Chloride (Normal Saline Flush) 10 ml 1X PRN PRN IV AP catheter pack; Start 07/27/16 at 13:45; Stop 07/27/16 at 19:00; Status DC Sodium Chloride (Normal Saline Flush) 10 ml 1X PRN PRN IV YARD WORKER catheter pack; Start 07/27/16 at 13:45; Stop 07/27/16 at 19:00; Status DC Sodium Chloride 1,000 ml @ 400 mls/hr Q2H30M PRN IV PATENCY; Start 07/27/16 at 13:45; Stop 07/27/16 at 20:00; Status DC Info (PHARMACY MONITORING -- do not chart) 1 each PRN DAILY PRN MC SEE COMMENTS ; Start 07/27/16 at 13:45; Stop 07/31/16 at 16:05; Status DC Insulin Aspart (NovoLOG) 3 units TIDAC SQ Last administered on 07/31/16 08:00 ; Start 07/28/16 at 11:30; Stop 07/31/16 at 09:30; Status DC Lisinopril (Prinivil) 40 mg DAILY PO ; Start 07/29/16 at 09:00; Stop 07/29/16 at 09:00; Status DC Levothyroxine Sodium (Synthroid) 200 mcg DAILY07 PO Last administered on 06:27; Start 07/28/16 at 10:30 Amlodipine Besylate (Norvasc) 5 mg DAILY PO Last administered on 07/31/16 09: 06; Start 07/29/16 at 09:00; Stop 07/31/16 at 10:13; Status DC Lisinopril (Prinivil) 40 mg BID PO Last administered on 07/31/16 09:06; Start 07/28/16 at 21:00 Sodium Chloride 250 ml @ 250 mls/hr Q1H PRN IV hypotension; Start 07/28/16 at 22:23; Stop 07/29/16 at 04:22; Status DC Albumin Human 200 ml @ 200 mls/hr 1X PRN PRN IV Hypotension; Start 07/28/16 at 22:30; Stop 07/29/16 at 04:29; Status DC Sodium Chloride (Normal Saline Flush) 10 ml 1X PRN PRN IV AP catheter pack; Start 07/28/16 at 22:30; Stop 07/29/16 at 22:29; Status DC Sodium Chloride (Normal Saline Flush) 10 ml 1X PRN PRN IV YARD WORKER catheter pack; Start 07/28/16 at 22:30; Stop 07/29/16 at 22:29; Status DC Sodium Chloride 200 ml @ 400 mls/hr Q30M PRN IV PATENCY; Start 07/28/16 at 22: 23; Stop 07/29/16 at 10:22; Status DC Info (PHARMACY MONITORING -- do not chart) 1 each PRN DAILY PRN MC SEE COMMENTS ; Start 07/28/16 at 22:30; Stop 07/31/16 at 16:05; Status DC Magnesium Sulfate/ Dextrose 50 ml @ 25 mls/hr 1X ONCE IV Last administered on 07/29/16 13:21; Start 07/29/16 at 13:00; Stop 07/29/16 at 14:59; Status DC Sodium Chloride 1,000 ml @ 1,000 mls/hr Q1H PRN IV hypotension; Start 07/30/16 at 07:58; Stop 07/30/16 at 13:57; Status DC Sodium Chloride (Normal Saline Flush) 10 ml 1X PRN PRN IV AP catheter pack; Start 07/30/16 at 08:00; Stop 07/31/16 at 07:59; Status DC Sodium Chloride (Normal Saline Flush) 10 ml 1X PRN PRN IV [employer] catheter pack; Start 07/30/16 at 08:00; Stop 07/31/16 at 07:59; Status DC Sodium Chloride 1,000 ml @ 400 mls/hr Q2H30M PRN IV PATENCY; Start 07/30/16 at 07:58; Stop 07/30/16 at 19:57; Status DC Info (PHARMACY MONITORING -- do not chart) 1 each PRN DAILY PRN MC SEE COMMENTS ; Start 07/30/16 at 08:00 Insulin Aspart (NovoLOG) 5 units TIDAC SQ Last administered on 08/01/16 08:57 ; Start 07/31/16 at 11:30 Amlodipine Besylate (Norvasc) 10 mg DAILY PO ; Start 08/01/16 at 09:00 Metoclopramide HCl (Reglan) 5 mg PRN Q6HRS PRN IV NAUSEA/VOMITING, 2ND CHOICE Last administered on 08/01/16 08:41; Start 07/31/16 at 11:45 Promethazine HCl (Phenergan Im) 25 mg PRN Q6HRS PRN IM NAUSEA/VOMITING Last administered on 07/31/16 22:45; Start 07/31/16 at 11:45 Sodium Chloride 1,000 ml @ 1,000 mls/hr Q1H PRN IV hypotension; Start 07/31/16 at 15:59; Stop 07/31/16 at 21:58; Status DC Sodium Chloride (Normal Saline Flush) 10 ml 1X PRN PRN IV AP catheter pack; Start 07/31/16 at 16:00; Stop 08/01/16 at 15:59 Sodium Chloride (Normal Saline Flush) 10 ml 1X PRN PRN IV [employer] WORK[employer] catheter pack; Start 07/31/16 at 16:00; Stop 08/01/16 at 15:59 Info (PHARMACY MONITORING -- do not chart) 1 each PRN DAILY PRN MC SEE COMMENTS ; Start 07/31/16 at 16:00; Status UNV Info (PHARMACY MONITORING -- do not chart) 1 each PRN DAILY PRN MC SEE COMMENTS ; Start 07/31/16 at 16:00; Status UNV Famotidine (Pepcid) 20 mg QODAY PO ; Start 08/02/16 at 09:00 Piperacillin Sod/ Tazobactam Sod 2.25 gm/Sodium Chloride 50 ml @ 100 mls/hr Q6HRS IV ; Start 08/01/16 at 12:00 Piperacillin Sod/ Tazobactam Sod (Zosyn Per Pharmacy) 1 each PRN DAILY PRN MC SEE COMMENTS; Start 08/01/16 at 11:00 Vancomycin HCl (Vanco Per Pharmacy) 1 each PRN DAILY PRN MC SEE COMMENTS; Start 08/01/16 at 11:00 Vancomycin HCl 1.5 gm/Sodium Chloride 500 ml @ 250 mls/hr 1X ONCE IV ; Start 08/01/16 at 11:00; Stop 08/01/16 at 12:59 Active Scripts Active Reported Synthroid (Levothyroxine Sodium) 200 Mcg Tablet 1 Tab PO DAILY Novolog Flexpen (Insulin Aspart) 100 Unit/1 Ml Insuln.pen 5 Unit SQ TIDAC Lantus Solostar (Insulin Glargine,Hum.rec.anlog) 100 Unit/1 Ml Insuln.pen 8 Unit SQ QHS Clonidine Hcl 0.1 Mg Tablet 0.1 Mg PO BID Lasix (Furosemide) 40 Mg Tablet 40 Mg PO BID [place] 10 Mg-40 Mg Tablet (Amlodipine/Atorvastatin) 1 Each Tablet 1 Each PO DAILY Protonix (Pantoprazole Sodium) 40 Mg Tablet.dr 1 Tab PO DAILY Clopidogrel (Clopidogrel Bisulfate) 75 Mg Tablet 1 Tab PO DAILY Ranitidine Hcl 150 Mg Capsule 150 Mg PO DAILY Vitamin D3 (Cholecalciferol (Vitamin D3)) 1,000 Unit Tablet 1 Tab PO DAILY Vitals/I & O Vital Sign - Last 24 Hours 07/31/16 07/31/16 07/31/16 07/31/16 15:31 15:52 19:00 20:00 Temp 99.5 97.2 99.5 97.2 Pulse 90 90 104 Resp 18 20 B/P (MAP) 182/88 (119) 182/88 182/99 (126) Pulse Ox 97 100 O2 Delivery Room Air Room Air Room Air 07/31/16 07/31/16 08/01/16 08/01/16 22:45 23:00 03:00 07:00 Temp 98.5 98.4 99.1 98.5 98.4 99.1 Pulse 104 106 106 105 Resp 20 18 B/P (MAP) 182/99 196/106 (136) 184/106 (132) 186/107 (133) Pulse Ox 99 96 97 O2 Delivery Room Air Room Air Room Air 08/01/16 08/01/16 08/01/16 08/01/16 08:43 09:00 09:00 11:00 Temp 98.8 98.8 Pulse 105 105 105 102 Resp 18 B/P (MAP) 186/107 186/107 186/107 164/95 (118) Pulse Ox 97 O2 Delivery Room Air Intake and Output 07/31/16 07/31/16 08/01/16 15:00 23:00 07:00 Intake Total 800 ml 300 ml 200 ml Output Total 450 ml Balance 350 ml 300 ml 200 ml KARYNA NAGEL MD August 01, 2016 11:48
[2016-08-01] MEDS ORDERED: PIPERACILLIN/TAZOBACTAM 2.25 GM in IV NORMAL SALINE 50ML 50 ML IV SCH (12:00)
[2016-08-01] MEDS: VANCOMYCIN PER PHARMACY MC PRN (14:46)
[2016-08-01 15:02] VITALS: BP 165/98
[2016-08-01 19:00] VITALS: BP 190/110
[2016-08-01] MEDS: ATORVASTATIN CALCIUM 40 MG TABLET. PO SCH (21:47)
[2016-08-01] MEDS: ONDANSETRON PF 4 MG/2 ML VIAL. IV PRN (21:48)
[2016-08-01] MEDS: INSULIN DETEMIR 300 UNITS/3 ML INSULN.PEN. SQ SCH (22:02)
[2016-08-01] MEDS: PIPERACILLIN/TAZOBACTAM 2.25 GM in IV NORMAL SALINE 50ML 50 ML IV SCH (22:16)
[2016-08-01 23:00] VITALS: BP 172/75
[2016-08-02 03:00] VITALS: BP 186/108
[2016-08-02] MEDS: METOCLOPRAMIDE HCL 10 MG/2 ML VIAL. IV PRN (03:29)
[2016-08-02] MEDS: hydrALAZINE 20 MG/ML VIAL. IVP PRN ×2 (04:07→10:31)
[2016-08-02 05:41] LABS: BASO % 0 % (0-3); EOS % 0 % (0-3); HEMOGLOBIN 9.6 g/dL (12.0-15.5); LYMPH # 1.3 x10^3/uL (1.0-4.8); LYMPH % 11 % (24-48); MEAN CORPUSCULAR HEMOGLOBIN 29 pg (25-35); MEAN CORPUSCULAR HGB CONC 33 g/dL (31-37); MEAN CORPUSCULAR VOLUME 89 fL (79-100); MONO % 6 % (0-9); NEUT % 83 % (31-73); PLATELET COUNT 278 x10^3/uL (140-400); RED BLOOD COUNT 3.26 x10^6/uL (3.50-5.40); RED CELL DISTRIBUTION WIDTH 14.5 % (11.5-14.5); WHITE BLOOD COUNT 12.2 x10^3/uL (4.0-11.0)
[2016-08-02] MEDS: PIPERACILLIN/TAZOBACTAM 2.25 GM in IV NORMAL SALINE 50ML 50 ML IV SCH ×3 (05:46→22:07)
[2016-08-02] MEDS: HEPARIN PF for SUB-Q USE 5,000 UNIT/0.5 ML VIAL. SQ SCH ×3 (05:51→22:19)
[2016-08-02] MEDS ORDERED: VANCOMYCIN RANDOM LEVEL. MC ONE (06:00)
[2016-08-02 06:07] LABS: CALCIUM 8.5 mg/dL (8.5-10.1); CREATININE 2.6 mg/dL (0.6-1.0); GFR 19.5; POTASSIUM 3.7 mmol/L (3.5-5.1)
[2016-08-02 07:00] VITALS: BP 197/107
[2016-08-02] MEDS: LEVOTHYROXINE 100 MCG TABLET PO SCH (07:00)
[2016-08-02] MEDS: INSULIN ASPART 300 UNITS/3 ML INSULN.PEN SQ SCH ×6 (07:30→17:00)
[2016-08-02] MEDS ORDERED: IV NORMAL SALINE 1000ML BAG 1,000 ML IV PRN ×2 (08:09)
[2016-08-02] MEDS ORDERED: DIALYSIS PATIENT. MC PRN (08:15)
--- NOTE | 2016-08-02 08:42 | PDOC ---
Dialysis Progress Note Dialysis Note Dialysis Note Seen on Hemodialysis, tolerating treatment Well Vitals on Hemodialysis: 147/90 98 99.2 General Appearance: Awake: Alert Oriented x 3 Neck: No JVD or JVP Chest: CTA Tan Heart: S1 S2 Abdomen - Soft NTND Extremities - + Edema ESRD: Dialysis as below F 180 NR 3.0 Hrs 4 K 2.5 Ca 140 Na 30 HC03 Qb 350 + Qd 500+ Heparin 0 Units Uf 2- 3 Kgs or to dry weight as tolerated May give 25-50 gms of 25% Albumin if needed to maintain Hemodynamic stability Treatment plan reviewed and discussed with film archivist Vitals Vital Signs Vital Signs Date Time Temp Pulse Resp B/P (MAP) Pulse Ox O2 Delivery O2 Flow Rate FiO2 08/02/16 07:00 98.0 99 18 197/107 (137) 99 Room Air 98.0 Labs Last Labs Laboratory Tests Test 07/31/16 10:13 07/31/16 10:25 07/31/16 20:41 08/01/16 04:30 Glucose (Fingerstick) 339 mg/dL (70-99) 303 mg/dL (70-99) Urine Collection Type Unknown Urine Color Yellow Urine Clarity Clear Urine pH 7.0 Urine Specific [place] 1.020 Urine Protein >=300 mg/dL (NEG-TRACE) Urine Glucose (UA) >=1000 mg/dL (NEG) Urine Ketones (Stick) Trace mg/dL (NEG) Urine Blood Small (NEG) Urine Nitrite Negative (NEG) Urine Bilirubin Negative (NEG) Urine Urobilinogen Dipstick 0.2 mg/dL (0.2 mg/dL) Urine Leukocyte Esterase Negative (NEG) Urine RBC 3-5 /HPF (0-2) Urine WBC Occ /HPF (0-4) Urine Squamous Epithelial Cells Mod /LPF Urine Bacteria Few /HPF (0-FEW) Urine Mucus Slight /LPF White Blood Count 11.3 x10^3/uL (4.0-11.0) Red Blood Count 3.21 x10^6/uL (3.50-5.40) Hemoglobin 9.7 g/dL (12.0-15.5) Hematocrit 27.8 % (36.0-47.0) Mean Corpuscular Volume 87 fL (79-100) Mean Corpuscular Hemoglobin 30 pg (25-35) Mean Corpuscular Hemoglobin Concent 35 g/dL (31-37) Red Cell Distribution Width 14.2 % (11.5-14.5) Platelet Count 258 x10^3/uL (140-400) Neutrophils (%) (Auto) 89 % (31-73) Lymphocytes (%) (Auto) 8 % (24-48) Monocytes (%) (Auto) 3 % (0-9) Eosinophils (%) (Auto) 0 % (0-3) Basophils (%) (Auto) 0 % (0-3) Neutrophils # (Auto) 10.0 x10^3uL (1.8-7.7) Lymphocytes # (Auto) 0.9 x10^3/uL (1.0-4.8) Monocytes # (Auto) 0.4 x10^3/uL (0.0-1.1) Eosinophils # (Auto) 0.0 x10^3/uL (0.0-0.7) Basophils # (Auto) 0.0 x10^3/uL (0.0-0.2) Segmented Neutrophils % 87 % (35-66) Band Neutrophils % 3 % (0-9) Lymphocytes % 6 % (24-48) Monocytes % 4 % (0-10) Platelet Estimate Adequate (ADEQUATE) Sodium Level 141 mmol/L (136-145) Potassium Level 4.1 mmol/L (3.5-5.1) Chloride Level 103 mmol/L (98-107) Carbon Dioxide Level 26 mmol/L (21-32) Anion Gap 12 (6-14) Blood Urea Nitrogen 15 mg/dL (7-20) Creatinine 1.7 mg/dL (0.6-1.0) Estimated GFR (Cockcroft-Gault) 31.8 Glucose Level 272 mg/dL (70-99) Calcium Level 8.7 mg/dL (8.5-10.1) Procalcitonin < 0.10 ng/mL (0.00-0.10) Test 08/01/16 07:14 08/01/16 10:19 08/01/16 16:19 08/01/16 21:11 Glucose (Fingerstick) 255 mg/dL (70-99) 234 mg/dL (70-99) 259 mg/dL (70-99) 235 mg/dL (70-99) Test 08/02/16 05:05 08/02/16 07:04 White Blood Count 12.2 x10^3/uL (4.0-11.0) Red Blood Count 3.26 x10^6/uL (3.50-5.40) Hemoglobin 9.6 g/dL (12.0-15.5) Hematocrit 29.0 % (36.0-47.0) Mean Corpuscular Volume 89 fL (79-100) Mean Corpuscular Hemoglobin 29 pg (25-35) Mean Corpuscular Hemoglobin Concent 33 g/dL (31-37) Red Cell Distribution Width 14.5 % (11.5-14.5) Platelet Count 278 x10^3/uL (140-400) Neutrophils (%) (Auto) 83 % (31-73) Lymphocytes (%) (Auto) 11 % (24-48) Monocytes (%) (Auto) 6 % (0-9) Eosinophils (%) (Auto) 0 % (0-3) Basophils (%) (Auto) 0 % (0-3) Neutrophils # (Auto) 10.1 x10^3uL (1.8-7.7) Lymphocytes # (Auto) 1.3 x10^3/uL (1.0-4.8) Monocytes # (Auto) 0.7 x10^3/uL (0.0-1.1) Eosinophils # (Auto) 0.0 x10^3/uL (0.0-0.7) Basophils # (Auto) 0.0 x10^3/uL (0.0-0.2) Sodium Level 142 mmol/L (136-145) Potassium Level 3.7 mmol/L (3.5-5.1) Chloride Level 106 mmol/L (98-107) Carbon Dioxide Level 27 mmol/L (21-32) Anion Gap 9 (6-14) Blood Urea Nitrogen 24 mg/dL (7-20) Creatinine 2.6 mg/dL (0.6-1.0) Estimated GFR (Cockcroft-Gault) 19.5 Glucose Level 197 mg/dL (70-99) Calcium Level 8.5 mg/dL (8.5-10.1) Random Vancomycin Level 22.4 mcg/mL Glucose (Fingerstick) 200 mg/dL (70-99) Laboratory Tests Test 08/01/16 10:19 08/01/16 16:19 08/01/16 21:11 08/02/16 05:05 Glucose (Fingerstick) 234 mg/dL (70-99) 259 mg/dL (70-99) 235 mg/dL (70-99) White Blood Count 12.2 x10^3/uL (4.0-11.0) Red Blood Count 3.26 x10^6/uL (3.50-5.40) Hemoglobin 9.6 g/dL (12.0-15.5) Hematocrit 29.0 % (36.0-47.0) Mean Corpuscular Volume 89 fL (79-100) Mean Corpuscular Hemoglobin 29 pg (25-35) Mean Corpuscular Hemoglobin Concent 33 g/dL (31-37) Red Cell Distribution Width 14.5 % (11.5-14.5) Platelet Count 278 x10^3/uL (140-400) Neutrophils (%) (Auto) 83 % (31-73) Lymphocytes (%) (Auto) 11 % (24-48) Monocytes (%) (Auto) 6 % (0-9) Eosinophils (%) (Auto) 0 % (0-3) Basophils (%) (Auto) 0 % (0-3) Neutrophils # (Auto) 10.1 x10^3uL (1.8-7.7) Lymphocytes # (Auto) 1.3 x10^3/uL (1.0-4.8) Monocytes # (Auto) 0.7 x10^3/uL (0.0-1.1) Eosinophils # (Auto) 0.0 x10^3/uL (0.0-0.7) Basophils # (Auto) 0.0 x10^3/uL (0.0-0.2) Sodium Level 142 mmol/L (136-145) Potassium Level 3.7 mmol/L (3.5-5.1) Chloride Level 106 mmol/L (98-107) Carbon Dioxide Level 27 mmol/L (21-32) Anion Gap 9 (6-14) Blood Urea Nitrogen 24 mg/dL (7-20) Creatinine 2.6 mg/dL (0.6-1.0) Estimated GFR (Cockcroft-Gault) 19.5 Glucose Level 197 mg/dL (70-99) Calcium Level 8.5 mg/dL (8.5-10.1) Random Vancomycin Level 22.4 mcg/mL Test 08/02/16 07:04 Glucose (Fingerstick) 200 mg/dL (70-99) Assessment Assessment Problems Medical Problems: (1) Acute on chronic renal failure Status: Acute (2) Edema Status: Acute Problems: Plan Plan of Care Problems Medical Problems: (1) Acute on chronic renal failure Status: Acute (2) Edema Status: Acute SPARKLE HAMMER MD Aug 02, 2016 08:42
[2016-08-02] MEDS ORDERED: FAMOTIDINE 20 MG TABLET. PO SCH (09:00)
[2016-08-02 11:00] VITALS: BP 178/102
[2016-08-02] MEDS: PANTOPRAZOLE 40 MG TABLET.DR. PO SCH (11:51)
[2016-08-02] MEDS: CHOLECALCIFEROL (VITAMIN D3) 1,000 UNIT TABLET PO SCH (11:51)
[2016-08-02] MEDS: LISINOPRIL 20 MG TABLET PO SCH ×2 (11:52→22:06)
[2016-08-02] MEDS: amLODIPine BESYLATE 10 MG TABLET PO SCH (11:52)
[2016-08-02] MEDS: CLOPIDOGREL BISULFATE 75 MG TABLET PO SCH (11:52)
[2016-08-02] MEDS: FUROSEMIDE 40 MG/4 ML VIAL. IVP SCH ×2 (11:53→17:11)
--- NOTE | 2016-08-02 12:38 | PDOC ---
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 bcx neg 24h. add augustine monae for now, ID consult pending History of Present Illness History of Present Illness decent urine output bl upper and lower ext severe edema, anasarca, distended abd moderate , better with HD fever 5/30, feels bad, with vomiting, mild lower abd tenderness, denies cough, no sob or dysuria. still severe N/V, T better but high wbc Out pt HD temporarily set up with [facility] BP high SINCE cannot take po meds Vitals Vitals Vital Signs Date Time Temp Pulse Resp B/P (MAP) Pulse Ox O2 Delivery O2 Flow Rate FiO2 08/02/16 11:52 95 160/93 08/02/16 11:00 98.0 18 99 Room Air 98.0 Physical Exam General: Alert, Oriented X3, Cooperative, No acute distress Heart: Regular rate, Normal S2, No murmurs Lungs: Clear Abdomen: Normal bowel sounds, Other (mild distended abd, lower middle abd mild tenderness) Extremities: No clubbing, Other (bl ext 2+ pitting EDEMA) Labs LABS Laboratory Tests Test 08/01/16 16:19 08/01/16 21:11 08/02/16 05:05 08/02/16 07:04 Glucose (Fingerstick) 259 mg/dL (70-99) 235 mg/dL (70-99) 200 mg/dL (70-99) White Blood Count 12.2 x10^3/uL (4.0-11.0) Red Blood Count 3.26 x10^6/uL (3.50-5.40) Hemoglobin 9.6 g/dL (12.0-15.5) Hematocrit 29.0 % (36.0-47.0) Mean Corpuscular Volume 89 fL (79-100) Mean Corpuscular Hemoglobin 29 pg (25-35) Mean Corpuscular Hemoglobin Concent 33 g/dL (31-37) Red Cell Distribution Width 14.5 % (11.5-14.5) Platelet Count 278 x10^3/uL (140-400) Neutrophils (%) (Auto) 83 % (31-73) Lymphocytes (%) (Auto) 11 % (24-48) Monocytes (%) (Auto) 6 % (0-9) Eosinophils (%) (Auto) 0 % (0-3) Basophils (%) (Auto) 0 % (0-3) Neutrophils # (Auto) 10.1 x10^3uL (1.8-7.7) Lymphocytes # (Auto) 1.3 x10^3/uL (1.0-4.8) Monocytes # (Auto) 0.7 x10^3/uL (0.0-1.1) Eosinophils # (Auto) 0.0 x10^3/uL (0.0-0.7) Basophils # (Auto) 0.0 x10^3/uL (0.0-0.2) Sodium Level 142 mmol/L (136-145) Potassium Level 3.7 mmol/L (3.5-5.1) Chloride Level 106 mmol/L (98-107) Carbon Dioxide Level 27 mmol/L (21-32) Anion Gap 9 (6-14) Blood Urea Nitrogen 24 mg/dL (7-20) Creatinine 2.6 mg/dL (0.6-1.0) Estimated GFR (Cockcroft-Gault) 19.5 Glucose Level 197 mg/dL (70-99) Calcium Level 8.5 mg/dL (8.5-10.1) Random Vancomycin Level 22.4 mcg/mL Test 08/02/16 11:30 Glucose (Fingerstick) 160 mg/dL (70-99) Review of Systems Review of Systems no chills, sob or chest pain Assessment and Plan Assessmemt and Plan Problems Medical Problems: (1) Acute on chronic renal failure Status: Acute (2) Edema Status: Acute Problems: Comment Review of Relevant I have reviewed the following items ruiz (where applicable) has been applied. Labs Laboratory Tests Test 07/31/16 20:41 08/01/16 04:30 08/01/16 07:14 08/01/16 10:19 Glucose (Fingerstick) 303 mg/dL (70-99) 255 mg/dL (70-99) 234 mg/dL (70-99) White Blood Count 11.3 x10^3/uL (4.0-11.0) Red Blood Count 3.21 x10^6/uL (3.50-5.40) Hemoglobin 9.7 g/dL (12.0-15.5) Hematocrit 27.8 % (36.0-47.0) Mean Corpuscular Volume 87 fL (79-100) Mean Corpuscular Hemoglobin 30 pg (25-35) Mean Corpuscular Hemoglobin Concent 35 g/dL (31-37) Red Cell Distribution Width 14.2 % (11.5-14.5) Platelet Count 258 x10^3/uL (140-400) Neutrophils (%) (Auto) 89 % (31-73) Lymphocytes (%) (Auto) 8 % (24-48) Monocytes (%) (Auto) 3 % (0-9) Eosinophils (%) (Auto) 0 % (0-3) Basophils (%) (Auto) 0 % (0-3) Neutrophils # (Auto) 10.0 x10^3uL (1.8-7.7) Lymphocytes # (Auto) 0.9 x10^3/uL (1.0-4.8) Monocytes # (Auto) 0.4 x10^3/uL (0.0-1.1) Eosinophils # (Auto) 0.0 x10^3/uL (0.0-0.7) Basophils # (Auto) 0.0 x10^3/uL (0.0-0.2) Segmented Neutrophils % 87 % (35-66) Band Neutrophils % 3 % (0-9) Lymphocytes % 6 % (24-48) Monocytes % 4 % (0-10) Platelet Estimate Adequate (ADEQUATE) Sodium Level 141 mmol/L (136-145) Potassium Level 4.1 mmol/L (3.5-5.1) Chloride Level 103 mmol/L (98-107) Carbon Dioxide Level 26 mmol/L (21-32) Anion Gap 12 (6-14) Blood Urea Nitrogen 15 mg/dL (7-20) Creatinine 1.7 mg/dL (0.6-1.0) Estimated GFR (Cockcroft-Gault) 31.8 Glucose Level 272 mg/dL (70-99) Calcium Level 8.7 mg/dL (8.5-10.1) Procalcitonin < 0.10 ng/mL (0.00-0.10) Test 08/01/16 16:19 08/01/16 21:11 08/02/16 05:05 08/02/16 07:04 Glucose (Fingerstick) 259 mg/dL (70-99) 235 mg/dL (70-99) 200 mg/dL (70-99) White Blood Count 12.2 x10^3/uL (4.0-11.0) Red Blood Count 3.26 x10^6/uL (3.50-5.40) Hemoglobin 9.6 g/dL (12.0-15.5) Hematocrit 29.0 % (36.0-47.0) Mean Corpuscular Volume 89 fL (79-100) Mean Corpuscular Hemoglobin 29 pg (25-35) Mean Corpuscular Hemoglobin Concent 33 g/dL (31-37) Red Cell Distribution Width 14.5 % (11.5-14.5) Platelet Count 278 x10^3/uL (140-400) Neutrophils (%) (Auto) 83 % (31-73) Lymphocytes (%) (Auto) 11 % (24-48) Monocytes (%) (Auto) 6 % (0-9) Eosinophils (%) (Auto) 0 % (0-3) Basophils (%) (Auto) 0 % (0-3) Neutrophils # (Auto) 10.1 x10^3uL (1.8-7.7) Lymphocytes # (Auto) 1.3 x10^3/uL (1.0-4.8) Monocytes # (Auto) 0.7 x10^3/uL (0.0-1.1) Eosinophils # (Auto) 0.0 x10^3/uL (0.0-0.7) Basophils # (Auto) 0.0 x10^3/uL (0.0-0.2) Sodium Level 142 mmol/L (136-145) Potassium Level 3.7 mmol/L (3.5-5.1) Chloride Level 106 mmol/L (98-107) Carbon Dioxide Level 27 mmol/L (21-32) Anion Gap 9 (6-14) Blood Urea Nitrogen 24 mg/dL (7-20) Creatinine 2.6 mg/dL (0.6-1.0) Estimated GFR (Cockcroft-Gault) 19.5 Glucose Level 197 mg/dL (70-99) Calcium Level 8.5 mg/dL (8.5-10.1) Random Vancomycin Level 22.4 mcg/mL Test 08/02/16 11:30 Glucose (Fingerstick) 160 mg/dL (70-99) Laboratory Tests Test 08/01/16 16:19 08/01/16 21:11 08/02/16 05:05 08/02/16 07:04 Glucose (Fingerstick) 259 mg/dL (70-99) 235 mg/dL (70-99) 200 mg/dL (70-99) White Blood Count 12.2 x10^3/uL (4.0-11.0) Red Blood Count 3.26 x10^6/uL (3.50-5.40) Hemoglobin 9.6 g/dL (12.0-15.5) Hematocrit 29.0 % (36.0-47.0) Mean Corpuscular Volume 89 fL (79-100) Mean Corpuscular Hemoglobin 29 pg (25-35) Mean Corpuscular Hemoglobin Concent 33 g/dL (31-37) Red Cell Distribution Width 14.5 % (11.5-14.5) Platelet Count 278 x10^3/uL (140-400) Neutrophils (%) (Auto) 83 % (31-73) Lymphocytes (%) (Auto) 11 % (24-48) Monocytes (%) (Auto) 6 % (0-9) Eosinophils (%) (Auto) 0 % (0-3) Basophils (%) (Auto) 0 % (0-3) Neutrophils # (Auto) 10.1 x10^3uL (1.8-7.7) Lymphocytes # (Auto) 1.3 x10^3/uL (1.0-4.8) Monocytes # (Auto) 0.7 x10^3/uL (0.0-1.1) Eosinophils # (Auto) 0.0 x10^3/uL (0.0-0.7) Basophils # (Auto) 0.0 x10^3/uL (0.0-0.2) Sodium Level 142 mmol/L (136-145) Potassium Level 3.7 mmol/L (3.5-5.1) Chloride Level 106 mmol/L (98-107) Carbon Dioxide Level 27 mmol/L (21-32) Anion Gap 9 (6-14) Blood Urea Nitrogen 24 mg/dL (7-20) Creatinine 2.6 mg/dL (0.6-1.0) Estimated GFR (Cockcroft-Gault) 19.5 Glucose Level 197 mg/dL (70-99) Calcium Level 8.5 mg/dL (8.5-10.1) Random Vancomycin Level 22.4 mcg/mL Test 08/02/16 11:30 Glucose (Fingerstick) 160 mg/dL (70-99) Microbiology 07/31/16 Blood Culture - Preliminary, Resulted NO GROWTH AFTER 1 DAY Medications Current Medications Ondansetron HCl (Zofran) 4 mg PRN Q8HRS PRN IV NAUSEA/VOMITING; Start 07/25/16 at 10:30; Stop 07/26/16 at 10:29; Status DC Acetaminophen (Tylenol) 650 mg PRN Q4HRS PRN PO FEVER; Start 07/25/16 at 10:30 ; Stop 07/26/16 at 10:29; Status DC Vitamin D (Vitamin D3) 1,000 unit DAILY PO Last administered on 08/02/16 11:51 ; Start 07/26/16 at 09:00 Clonidine HCl (Catapres) 0.1 mg BID PO Last administered on 07/26/16 08:31; Start 07/25/16 at 21:00; Stop 07/26/16 at 12:13; Status DC Clopidogrel Bisulfate (Plavix) 75 mg DAILYWBKFT PO Last administered on 11:52; Start 07/26/16 at 08:00 Furosemide (Lasix) 40 mg BID92 PO ; Start 07/25/16 at 14:00; Stop 07/25/16 at 14 :00; Status DC Pantoprazole Sodium (Protonix) 40 mg DAILYAC PO Last administered on 08/02/16 11:51; Start 07/26/16 at 07:30 Amlodipine Besylate (Norvasc) 10 mg DAILY PO Last administered on 07/28/16 09: 07; Start 07/26/16 at 09:00; Stop 07/28/16 at 14:15; Status DC Famotidine (Pepcid) 20 mg DAILY PO Last administered on 07/31/16 09:05; Start 07/26/16 at 09:00; Stop 07/31/16 at 16:13; Status DC Atorvastatin Calcium (Lipitor) 40 mg QHS PO Last administered on 07/30/16 22: 08; Start 07/25/16 at 21:00 Furosemide (Lasix) 40 mg BID92 IVP Last administered on 08/02/16 11:53; Start 07/25/16 at 14:00 Insulin Detemir (Levemir) 8 units QHS SQ Last administered on 08/01/16 22:02; Start 07/25/16 at 21:00 Insulin Aspart (NovoLOG) 0-7 UNITS TIDWMEALS SQ Last administered on 08/02/16 12:03; Start 07/25/16 at 17:00 Dextrose (Dextrose 50%-Water Syringe) 12.5 gm PRN Q15MIN PRN IV SEE COMMENTS; Start 07/25/16 at 15:30 Lisinopril (Prinivil) 20 mg DAILY PO Last administered on 07/28/16 09:06; Start 07/26/16 at 13:00; Stop 07/28/16 at 10:13; Status DC Acetaminophen (Tylenol) 650 mg PRN Q6HRS PRN PO FEVER Last administered on 07/31 07:51; Start 07/26/16 at 13:15 Ondansetron HCl (Zofran) 4 mg PRN Q6HRS PRN IV NAUSEA/VOMITING Last administered on 08/01/16 21:48; Start 07/26/16 at 13:15 Morphine Sulfate 2 mg PRN Q2HR PRN IV PAIN; Start 07/26/16 at 13:15 Tramadol HCl (Ultram) 50 mg PRN Q6HRS PRN PO PAIN Last administered on 07:34; Start 07/26/16 at 13:15 Hydralazine HCl (Apresoline) 10 mg PRN Q4HRS PRN IVP ELEVATED BP, SEE COMMENTS Last administered on 08/02/16 10:31; Start 07/26/16 at 13:15 Docusate Sodium (Colace) 100 mg PRN DAILY PRN PO CONSTIPATION; Start 07/26/16 at 13:15 Insulin Aspart (NovoLOG) 5 units TIDAC SQ Last administered on 07/27/16 12:46 ; Start 07/26/16 at 16:30; Stop 07/28/16 at 10:13; Status DC Heparin Sodium (Porcine) (Heparin Sq) 5,000 unit Q8HRS SQ Last administered on 08/02/16 05:51; Start 07/26/16 at 14:00 Heparin Sodium (Porcine) (Heparin Sodium) 10,000 unit STK-MED ONCE .ROUTE ; Start 07/26/16 at 15:25; Stop 07/26/16 at 15:26; Status DC Lidocaine/ Epinephrine (Xylocaine 1%-Epi 1:100,000) 20 ml STK-MED ONCE .ROUTE ; Start 07/26/16 at 15:25; Stop 07/26/16 at 15:26; Status DC Heparin Sodium/ Sodium Chloride 500 ml @ As Directed STK-MED ONCE .ROUTE ; Start 07/26/16 at 15:25; Stop 07/26/16 at 15:26; Status DC Midazolam HCl (Versed) 5 mg STK-MED ONCE .ROUTE ; Start 07/26/16 at 15:38; Stop 07/26/16 at 15:39; Status DC Fentanyl Citrate (Fentanyl 5ml Vial) 250 mcg STK-MED ONCE .ROUTE ; Start at 15:38; Stop 07/26/16 at 15:39; Status DC Cefazolin Sodium 50 ml @ As Directed STK-MED ONCE IV ; Start 07/26/16 at 15:39; Stop 07/26/16 at 15:40; Status DC Gelatin (Gelfoam Size 12-7mm) 1 each STK-MED ONCE .ROUTE ; Start 07/26/16 at 16 :07; Stop 07/26/16 at 16:08; Status DC Heparin Sodium/ Sodium Chloride 1,000 unit 1X ONCE IART Last administered on 16:13; Start 07/26/16 at 16:15; Stop 07/26/16 at 16:16; Status DC Midazolam HCl (Versed) 5 mg 1X ONCE IV Last administered on 07/26/16 16:13; Start 07/26/16 at 16:15; Stop 07/26/16 at 16:16; Status DC Fentanyl Citrate (Fentanyl 5ml Vial) 125 mcg 1X ONCE IV Last administered on 16:14; Start 07/26/16 at 16:15; Stop 07/26/16 at 16:16; Status DC Heparin Sodium (Porcine) (Heparin Sodium) 4,000 unit 1X ONCE IV Last administered on 07/26/16 16:15; Start 07/26/16 at 16:15; Stop 07/26/16 at 16:16 ; Status DC Lidocaine/ Epinephrine (Xylocaine 1%-Epi 1:100,000) 9 ml 1X ONCE IJ Last administered on 07/26/16 16:13; Start 07/26/16 at 16:15; Stop 07/26/16 at 16:16 ; Status DC Darbepoetin Antonio (Aranesp) 60 mcg WEEKLYHS SQ Last administered on 07/27/16 20 :47; Start 07/27/16 at 21:00 Sodium Chloride 1,000 ml @ 1,000 mls/hr Q1H PRN IV hypotension; Start 07/27/16 at 13:45; Stop 07/27/16 at 19:44; Status DC Sodium Chloride (Normal Saline Flush) 10 ml 1X PRN PRN IV AP catheter pack; Start 07/27/16 at 13:45; Stop 07/27/16 at 19:00; Status DC Sodium Chloride (Normal Saline Flush) 10 ml 1X PRN PRN IV VASCULAR ULTRASOUND TECHNICIAN catheter pack; Start 07/27/16 at 13:45; Stop 07/27/16 at 19:00; Status DC Sodium Chloride 1,000 ml @ 400 mls/hr Q2H30M PRN IV PATENCY; Start 07/27/16 at 13:45; Stop 07/27/16 at 20:00; Status DC Info (PHARMACY MONITORING -- do not chart) 1 each PRN DAILY PRN MC SEE COMMENTS ; Start 07/27/16 at 13:45; Stop 07/31/16 at 16:05; Status DC Insulin Aspart (NovoLOG) 3 units TIDAC SQ Last administered on 07/31/16 08:00 ; Start 07/28/16 at 11:30; Stop 07/31/16 at 09:30; Status DC Lisinopril (Prinivil) 40 mg DAILY PO ; Start 07/29/16 at 09:00; Stop 07/29/16 at 09:00; Status DC Levothyroxine Sodium (Synthroid) 200 mcg DAILY07 PO Last administered on 06:27; Start 07/28/16 at 10:30 Amlodipine Besylate (Norvasc) 5 mg DAILY PO Last administered on 07/31/16 09: 06; Start 07/29/16 at 09:00; Stop 07/31/16 at 10:13; Status DC Lisinopril (Prinivil) 40 mg BID PO Last administered on 08/02/16 11:52; Start 07/28/16 at 21:00 Sodium Chloride 250 ml @ 250 mls/hr Q1H PRN IV hypotension; Start 07/28/16 at 22:23; Stop 07/29/16 at 04:22; Status DC Albumin Human 200 ml @ 200 mls/hr 1X PRN PRN IV Hypotension; Start 07/28/16 at 22:30; Stop 07/29/16 at 04:29; Status DC Sodium Chloride (Normal Saline Flush) 10 ml 1X PRN PRN IV AP catheter pack; Start 07/28/16 at 22:30; Stop 07/29/16 at 22:29; Status DC Sodium Chloride (Normal Saline Flush) 10 ml 1X PRN PRN IV VASCULAR ULTRASOUND TECHNICIAN catheter pack; Start 07/28/16 at 22:30; Stop 07/29/16 at 22:29; Status DC Sodium Chloride 200 ml @ 400 mls/hr Q30M PRN IV PATENCY; Start 07/28/16 at 22: 23; Stop 07/29/16 at 10:22; Status DC Info (PHARMACY MONITORING -- do not chart) 1 each PRN DAILY PRN MC SEE COMMENTS ; Start 07/28/16 at 22:30; Stop 07/31/16 at 16:05; Status DC Magnesium Sulfate/ Dextrose 50 ml @ 25 mls/hr 1X ONCE IV Last administered on 07/29/16 13:21; Start 07/29/16 at 13:00; Stop 07/29/16 at 14:59; Status DC Sodium Chloride 1,000 ml @ 1,000 mls/hr Q1H PRN IV hypotension; Start 07/30/16 at 07:58; Stop 07/30/16 at 13:57; Status DC Sodium Chloride (Normal Saline Flush) 10 ml 1X PRN PRN IV AP catheter pack; Start 07/30/16 at 08:00; Stop 07/31/16 at 07:59; Status DC Sodium Chloride (Normal Saline Flush) 10 ml 1X PRN PRN IV VASCULAR ULTRASOUND TECHNICIAN catheter pack; Start 07/30/16 at 08:00; Stop 07/31/16 at 07:59; Status DC Sodium Chloride 1,000 ml @ 400 mls/hr Q2H30M PRN IV PATENCY; Start 07/30/16 at 07:58; Stop 07/30/16 at 19:57; Status DC Info (PHARMACY MONITORING -- do not chart) 1 each PRN DAILY PRN MC SEE COMMENTS ; Start 07/30/16 at 08:00 Insulin Aspart (NovoLOG) 5 units TIDAC SQ Last administered on 08/02/16 12:03; Start 07/31/16 at 11:30 Amlodipine Besylate (Norvasc) 10 mg DAILY PO Last administered on 08/02/16 11: 52; Start 08/01/16 at 09:00 Metoclopramide HCl (Reglan) 5 mg PRN Q6HRS PRN IV NAUSEA/VOMITING, 2ND CHOICE Last administered on 08/02/16 03:29; Start 07/31/16 at 11:45 Promethazine HCl (Phenergan Im) 25 mg PRN Q6HRS PRN IM NAUSEA/VOMITING Last administered on 07/31/16 22:45; Start 07/31/16 at 11:45 Sodium Chloride 1,000 ml @ 1,000 mls/hr Q1H PRN IV hypotension; Start 07/31/16 at 15:59; Stop 07/31/16 at 21:58; Status DC Sodium Chloride (Normal Saline Flush) 10 ml 1X PRN PRN IV AP catheter pack; Start 07/31/16 at 16:00; Stop 08/01/16 at 15:59; Status DC Sodium Chloride (Normal Saline Flush) 10 ml 1X PRN PRN IV VASCULAR ULTRASOUND TECHNICIAN catheter pack; Start 07/31/16 at 16:00; Stop 08/01/16 at 15:59; Status DC Info (PHARMACY MONITORING -- do not chart) 1 each PRN DAILY PRN MC SEE COMMENTS ; Start 07/31/16 at 16:00; Status UNV Info (PHARMACY MONITORING -- do not chart) 1 each PRN DAILY PRN MC SEE COMMENTS ; Start 07/31/16 at 16:00; Status UNV Famotidine (Pepcid) 20 mg QODAY PO Last administered on 08/02/16 11:53; Start 08/02/16 at 09:00 Piperacillin Sod/ Tazobactam Sod 2.25 gm/Sodium Chloride 50 ml @ 100 mls/hr Q6HRS IV Last administered on 08/01/16 11:50; Start 08/01/16 at 12:00; Stop at 14:34; Status DC Piperacillin Sod/ Tazobactam Sod (Zosyn Per Pharmacy) 1 each PRN DAILY PRN MC SEE COMMENTS; Start 08/01/16 at 11:00; Stop 08/01/16 at 14:34; Status DC Vancomycin HCl (Vanco Per Pharmacy) 1 each PRN DAILY PRN MC SEE COMMENTS Last administered on 08/01/16 14:46; Start 08/01/16 at 11:00 Vancomycin HCl 1.5 gm/Sodium Chloride 500 ml @ 250 mls/hr 1X ONCE IV Last administered on 08/01/16 13:49; Start 08/01/16 at 11:00; Stop 08/01/16 at 12:59 ; Status DC Piperacillin Sod/ Tazobactam Sod 2.25 gm/Sodium Chloride 50 ml @ 100 mls/hr Q8HRS IV Last administered on 08/02/16 05:46; Start 08/01/16 at 22:00 Vancomycin HCl 1 each 1X ONCE MC Last administered on 08/02/16 06:22; Start at 06:00; Stop 08/02/16 at 06:01; Status DC Sodium Chloride 1,000 ml @ 1,000 mls/hr Q1H PRN IV hypotension; Start 08/02/16 at 08:09; Stop 08/02/16 at 14:08 Sodium Chloride 1,000 ml @ 400 mls/hr Q2H30M PRN IV PATENCY; Start 08/02/16 at 08:09; Stop 08/02/16 at 20:08 Info (PHARMACY MONITORING -- do not chart) 1 each PRN DAILY PRN MC SEE COMMENTS ; Start 08/02/16 at 08:15 Active Scripts Active Reported Synthroid (Levothyroxine Sodium) 200 Mcg Tablet 1 Tab PO DAILY Novolog Flexpen (Insulin Aspart) 100 Unit/1 Ml Insuln.pen 5 Unit SQ TIDAC Lantus Solostar (Insulin Glargine,Hum.rec.anlog) 100 Unit/1 Ml Insuln.pen 8 Unit SQ QHS Clonidine Hcl 0.1 Mg Tablet 0.1 Mg PO BID Lasix (Furosemide) 40 Mg Tablet 40 Mg PO BID [place] 10 Mg-40 Mg Tablet (Amlodipine/Atorvastatin) 1 Each Tablet 1 Each PO DAILY Protonix (Pantoprazole Sodium) 40 Mg Tablet.dr 1 Tab PO DAILY Clopidogrel (Clopidogrel Bisulfate) 75 Mg Tablet 1 Tab PO DAILY Ranitidine Hcl 150 Mg Capsule 150 Mg PO DAILY Vitamin D3 (Cholecalciferol (Vitamin D3)) 1,000 Unit Tablet 1 Tab PO DAILY Vitals/I & O Vital Sign - Last 24 Hours 08/01/16 08/01/16 08/01/16 08/01/16 15:02 19:00 22:03 23:00 Temp 99.1 99.0 99.3 99.1 99.0 99.3 Pulse 102 101 100 102 Resp 18 18 18 B/P (MAP) 165/98 (120) 190/110 (136) 193/104 172/75 (107) Pulse Ox 97 95 93 O2 Delivery Room Air Room Air Room Air 08/02/16 08/02/16 08/02/16 08/02/16 03:00 04:07 07:00 10:31 Temp 99.7 98.0 99.7 98.0 Pulse 100 100 99 95 Resp 18 18 B/P (MAP) 186/108 (134) 186/108 197/107 (137) 160/93 Pulse Ox 96 99 O2 Delivery Room Air Room Air 08/02/16 08/02/16 08/02/16 11:00 11:52 11:52 Temp 98.0 98.0 Pulse 100 95 95 Resp 18 B/P (MAP) 178/102 (127) 160/93 160/93 Pulse Ox 99 O2 Delivery Room Air Intake and Output 08/01/16 08/01/16 08/02/16 15:00 23:00 07:00 Intake Total 120 ml 200 ml Balance 120 ml 200 ml KARYNA NAGEL MD Aug 02, 2016 12:38
[2016-08-02] MEDS: VANCOMYCIN PER PHARMACY MC PRN (13:09)
--- NOTE | 2016-08-02 13:15 | RAD ---
Indication nausea and vomiting. Supine films of the abdomen were obtained. The lung bases are clear. The abdominal gas pattern is normal. No organomegaly or abnormal calculi are seen. There are modest degenerative changes seen involving the hips. IMPRESSION: No acute or significant finding seen on plain films of the abdomen
[2016-08-02 15:00] VITALS: BP 182/93
[2016-08-02] MEDS: ONDANSETRON PF 4 MG/2 ML VIAL. IV PRN (15:59)
[2016-08-02] MEDS: VANCOMYCIN 500 MG in IV NORMAL SALINE 100ML 100 ML IV SCH (18:00)
[2016-08-02 19:00] VITALS: BP 159/91
[2016-08-02] MEDS: ATORVASTATIN CALCIUM 40 MG TABLET. PO SCH (22:06)
[2016-08-02] MEDS: INSULIN DETEMIR 300 UNITS/3 ML INSULN.PEN. SQ SCH (22:18)
[2016-08-02 23:00] VITALS: BP 170/104
[2016-08-03] MEDS: ONDANSETRON PF 4 MG/2 ML VIAL. IV PRN ×2 (02:21→12:35)
[2016-08-03 03:00] VITALS: BP 168/97
[2016-08-03] MEDS: PIPERACILLIN/TAZOBACTAM 2.25 GM in IV NORMAL SALINE 50ML 50 ML IV SCH ×3 (06:25→22:23)
[2016-08-03] MEDS: LEVOTHYROXINE 100 MCG TABLET PO SCH (06:26)
[2016-08-03] MEDS: HEPARIN PF for SUB-Q USE 5,000 UNIT/0.5 ML VIAL. SQ SCH ×3 (06:34→22:43)
[2016-08-03 07:00] VITALS: BP 182/108
[2016-08-03 07:09] LABS: BASO # 0.1 x10^3/uL (0.0-0.2); BASO % 1 % (0-3); EOS % 1 % (0-3); HEMATOCRIT 30.2 % (36.0-47.0); HEMOGLOBIN 10.2 g/dL (12.0-15.5); LYMPH # 1.4 x10^3/uL (1.0-4.8); LYMPH % 15 % (24-48); MEAN CORPUSCULAR HEMOGLOBIN 30 pg (25-35); MEAN CORPUSCULAR HGB CONC 34 g/dL (31-37); MEAN CORPUSCULAR VOLUME 88 fL (79-100); MONO % 8 % (0-9); NEUT % 76 % (31-73); PLATELET COUNT 269 x10^3/uL (140-400); RED BLOOD COUNT 3.42 x10^6/uL (3.50-5.40); RED CELL DISTRIBUTION WIDTH 14.6 % (11.5-14.5); WHITE BLOOD COUNT 9.5 x10^3/uL (4.0-11.0)
[2016-08-03 07:28] LABS: CALCIUM 8.2 mg/dL (8.5-10.1); CREATININE 2.3 mg/dL (0.6-1.0); GFR 22.4; POTASSIUM 3.5 mmol/L (3.5-5.1)
[2016-08-03] MEDS: INSULIN ASPART 300 UNITS/3 ML INSULN.PEN SQ SCH ×6 (08:00→17:00)
[2016-08-03] MEDS: CLOPIDOGREL BISULFATE 75 MG TABLET PO SCH (08:52)
[2016-08-03] MEDS: LISINOPRIL 20 MG TABLET PO SCH ×2 (08:52→22:23)
[2016-08-03] MEDS: CHOLECALCIFEROL (VITAMIN D3) 1,000 UNIT TABLET PO SCH (08:52)
[2016-08-03] MEDS: PANTOPRAZOLE 40 MG TABLET.DR. PO SCH ×2 (08:53→16:30)
[2016-08-03] MEDS: amLODIPine BESYLATE 10 MG TABLET PO SCH (08:53)
[2016-08-03] MEDS: FUROSEMIDE 40 MG/4 ML VIAL. IVP SCH ×2 (08:54→14:03)
[2016-08-03] MEDS: hydrALAZINE 20 MG/ML VIAL. IVP PRN (08:54)
[2016-08-03] MEDS: CARVEDILOL 6.25 MG TABLET. PO SCH ×2 (11:00→17:00)
[2016-08-03 11:04] VITALS: BP 170/99
--- NOTE | 2016-08-03 12:37 | PDOC ---
PROGRESS NOTES Chief Complaint Chief Complaint ANASARCA ESRD with ckd 3-4 baseline Cr 2 NEW HD DM II HTN urgency normacytic ANEMIA 2/2 ESRD hypomagnesemia HYPOALBUMINEMIA 2/2 ESRD Fever, not clear etiology plan: new onset HD, waiting for SW to have HD set up cont HD daily x3 so far fu with renal on amlodipine , lisinopril for HTN, increase lisinopril to 40mg bid , resume amlodipine 10mg daily increase aspart to 5u tid, levemir 8u qhs, ssi replete Mag dvt ppx nicolas cx for fever, ua, ucx, bcx, cxr HD cath looks clean, not sure if infected from it. bcx neg 24h. add augustine monae for now, will dc when cont afebrile and normal wbc add coreg for uncontrolled HTN ID consult not done waiting for SW to set up outpt HD History of Present Illness History of Present Illness decent urine output bl upper and lower ext severe edema, anasarca, distended abd moderate , better with HD fever 5/30, feels bad, with vomiting, mild lower abd tenderness, denies cough, no sob or dysuria. still severe N/V, T better but high wbc. first day afebrile and normal wbc 6/2 Out pt HD temporarily set up with [facility] BP still high Vitals Vitals Vital Signs Date Time Temp Pulse Resp B/P (MAP) Pulse Ox O2 Delivery O2 Flow Rate FiO2 08/03/16 11:04 98.8 91 16 170/99 (122) 96 Room Air 98.8 Physical Exam General: Alert, Oriented X3, Cooperative, No acute distress Heart: Regular rate, Normal S2, No murmurs Lungs: Clear Abdomen: Normal bowel sounds, Other (mild distended abd, lower middle abd mild tenderness) Extremities: No clubbing, Other (bl ext 2+ pitting EDEMA) Labs LABS Laboratory Tests Test 08/02/16 16:11 08/02/16 22:05 08/03/16 06:45 08/03/16 07:43 Glucose (Fingerstick) 122 mg/dL (70-99) 171 mg/dL (70-99) 120 mg/dL (70-99) White Blood Count 9.5 x10^3/uL (4.0-11.0) Red Blood Count 3.42 x10^6/uL (3.50-5.40) Hemoglobin 10.2 g/dL (12.0-15.5) Hematocrit 30.2 % (36.0-47.0) Mean Corpuscular Volume 88 fL (79-100) Mean Corpuscular Hemoglobin 30 pg (25-35) Mean Corpuscular Hemoglobin Concent 34 g/dL (31-37) Red Cell Distribution Width 14.6 % (11.5-14.5) Platelet Count 269 x10^3/uL (140-400) Neutrophils (%) (Auto) 76 % (31-73) Lymphocytes (%) (Auto) 15 % (24-48) Monocytes (%) (Auto) 8 % (0-9) Eosinophils (%) (Auto) 1 % (0-3) Basophils (%) (Auto) 1 % (0-3) Neutrophils # (Auto) 7.2 x10^3uL (1.8-7.7) Lymphocytes # (Auto) 1.4 x10^3/uL (1.0-4.8) Monocytes # (Auto) 0.8 x10^3/uL (0.0-1.1) Eosinophils # (Auto) 0.1 x10^3/uL (0.0-0.7) Basophils # (Auto) 0.1 x10^3/uL (0.0-0.2) Sodium Level 139 mmol/L (136-145) Potassium Level 3.5 mmol/L (3.5-5.1) Chloride Level 103 mmol/L (98-107) Carbon Dioxide Level 26 mmol/L (21-32) Anion Gap 10 (6-14) Blood Urea Nitrogen 16 mg/dL (7-20) Creatinine 2.3 mg/dL (0.6-1.0) Estimated GFR (Cockcroft-Gault) 22.4 Glucose Level 74 mg/dL (70-99) Calcium Level 8.2 mg/dL (8.5-10.1) Test 08/03/16 12:00 Glucose (Fingerstick) 151 mg/dL (70-99) Review of Systems Review of Systems no fever, chills, sob or chest pain Assessment and Plan Assessmemt and Plan Problems Medical Problems: (1) Acute on chronic renal failure Status: Acute (2) Edema Status: Acute Problems: Comment Review of Relevant I have reviewed the following items ruiz (where applicable) has been applied. Labs Laboratory Tests Test 08/01/16 16:19 08/01/16 21:11 08/02/16 05:05 08/02/16 07:04 Glucose (Fingerstick) 259 mg/dL (70-99) 235 mg/dL (70-99) 200 mg/dL (70-99) White Blood Count 12.2 x10^3/uL (4.0-11.0) Red Blood Count 3.26 x10^6/uL (3.50-5.40) Hemoglobin 9.6 g/dL (12.0-15.5) Hematocrit 29.0 % (36.0-47.0) Mean Corpuscular Volume 89 fL (79-100) Mean Corpuscular Hemoglobin 29 pg (25-35) Mean Corpuscular Hemoglobin Concent 33 g/dL (31-37) Red Cell Distribution Width 14.5 % (11.5-14.5) Platelet Count 278 x10^3/uL (140-400) Neutrophils (%) (Auto) 83 % (31-73) Lymphocytes (%) (Auto) 11 % (24-48) Monocytes (%) (Auto) 6 % (0-9) Eosinophils (%) (Auto) 0 % (0-3) Basophils (%) (Auto) 0 % (0-3) Neutrophils # (Auto) 10.1 x10^3uL (1.8-7.7) Lymphocytes # (Auto) 1.3 x10^3/uL (1.0-4.8) Monocytes # (Auto) 0.7 x10^3/uL (0.0-1.1) Eosinophils # (Auto) 0.0 x10^3/uL (0.0-0.7) Basophils # (Auto) 0.0 x10^3/uL (0.0-0.2) Sodium Level 142 mmol/L (136-145) Potassium Level 3.7 mmol/L (3.5-5.1) Chloride Level 106 mmol/L (98-107) Carbon Dioxide Level 27 mmol/L (21-32) Anion Gap 9 (6-14) Blood Urea Nitrogen 24 mg/dL (7-20) Creatinine 2.6 mg/dL (0.6-1.0) Estimated GFR (Cockcroft-Gault) 19.5 Glucose Level 197 mg/dL (70-99) Calcium Level 8.5 mg/dL (8.5-10.1) Random Vancomycin Level 22.4 mcg/mL Test 08/02/16 10:36 08/02/16 11:30 08/02/16 16:11 08/02/16 22:05 Glucose (Fingerstick) 140 mg/dL (70-99) 160 mg/dL (70-99) 122 mg/dL (70-99) 171 mg/dL (70-99) Test 08/03/16 06:45 08/03/16 07:43 08/03/16 12:00 White Blood Count 9.5 x10^3/uL (4.0-11.0) Red Blood Count 3.42 x10^6/uL (3.50-5.40) Hemoglobin 10.2 g/dL (12.0-15.5) Hematocrit 30.2 % (36.0-47.0) Mean Corpuscular Volume 88 fL (79-100) Mean Corpuscular Hemoglobin 30 pg (25-35) Mean Corpuscular Hemoglobin Concent 34 g/dL (31-37) Red Cell Distribution Width 14.6 % (11.5-14.5) Platelet Count 269 x10^3/uL (140-400) Neutrophils (%) (Auto) 76 % (31-73) Lymphocytes (%) (Auto) 15 % (24-48) Monocytes (%) (Auto) 8 % (0-9) Eosinophils (%) (Auto) 1 % (0-3) Basophils (%) (Auto) 1 % (0-3) Neutrophils # (Auto) 7.2 x10^3uL (1.8-7.7) Lymphocytes # (Auto) 1.4 x10^3/uL (1.0-4.8) Monocytes # (Auto) 0.8 x10^3/uL (0.0-1.1) Eosinophils # (Auto) 0.1 x10^3/uL (0.0-0.7) Basophils # (Auto) 0.1 x10^3/uL (0.0-0.2) Sodium Level 139 mmol/L (136-145) Potassium Level 3.5 mmol/L (3.5-5.1) Chloride Level 103 mmol/L (98-107) Carbon Dioxide Level 26 mmol/L (21-32) Anion Gap 10 (6-14) Blood Urea Nitrogen 16 mg/dL (7-20) Creatinine 2.3 mg/dL (0.6-1.0) Estimated GFR (Cockcroft-Gault) 22.4 Glucose Level 74 mg/dL (70-99) Calcium Level 8.2 mg/dL (8.5-10.1) Glucose (Fingerstick) 120 mg/dL (70-99) 151 mg/dL (70-99) Laboratory Tests Test 08/02/16 16:11 08/02/16 22:05 08/03/16 06:45 08/03/16 07:43 Glucose (Fingerstick) 122 mg/dL (70-99) 171 mg/dL (70-99) 120 mg/dL (70-99) White Blood Count 9.5 x10^3/uL (4.0-11.0) Red Blood Count 3.42 x10^6/uL (3.50-5.40) Hemoglobin 10.2 g/dL (12.0-15.5) Hematocrit 30.2 % (36.0-47.0) Mean Corpuscular Volume 88 fL (79-100) Mean Corpuscular Hemoglobin 30 pg (25-35) Mean Corpuscular Hemoglobin Concent 34 g/dL (31-37) Red Cell Distribution Width 14.6 % (11.5-14.5) Platelet Count 269 x10^3/uL (140-400) Neutrophils (%) (Auto) 76 % (31-73) Lymphocytes (%) (Auto) 15 % (24-48) Monocytes (%) (Auto) 8 % (0-9) Eosinophils (%) (Auto) 1 % (0-3) Basophils (%) (Auto) 1 % (0-3) Neutrophils # (Auto) 7.2 x10^3uL (1.8-7.7) Lymphocytes # (Auto) 1.4 x10^3/uL (1.0-4.8) Monocytes # (Auto) 0.8 x10^3/uL (0.0-1.1) Eosinophils # (Auto) 0.1 x10^3/uL (0.0-0.7) Basophils # (Auto) 0.1 x10^3/uL (0.0-0.2) Sodium Level 139 mmol/L (136-145) Potassium Level 3.5 mmol/L (3.5-5.1) Chloride Level 103 mmol/L (98-107) Carbon Dioxide Level 26 mmol/L (21-32) Anion Gap 10 (6-14) Blood Urea Nitrogen 16 mg/dL (7-20) Creatinine 2.3 mg/dL (0.6-1.0) Estimated GFR (Cockcroft-Gault) 22.4 Glucose Level 74 mg/dL (70-99) Calcium Level 8.2 mg/dL (8.5-10.1) Test 08/03/16 12:00 Glucose (Fingerstick) 151 mg/dL (70-99) Microbiology 07/31/16 Blood Culture - Preliminary, Resulted NO GROWTH AFTER 2 DAYS Medications Current Medications Ondansetron HCl (Zofran) 4 mg PRN Q8HRS PRN IV NAUSEA/VOMITING; Start 07/25/16 at 10:30; Stop 07/26/16 at 10:29; Status DC Acetaminophen (Tylenol) 650 mg PRN Q4HRS PRN PO FEVER; Start 07/25/16 at 10:30 ; Stop 07/26/16 at 10:29; Status DC Vitamin D (Vitamin D3) 1,000 unit DAILY PO Last administered on 08/03/16 08:52 ; Start 07/26/16 at 09:00 Clonidine HCl (Catapres) 0.1 mg BID PO Last administered on 07/26/16 08:31; Start 07/25/16 at 21:00; Stop 07/26/16 at 12:13; Status DC Clopidogrel Bisulfate (Plavix) 75 mg DAILYWBKFT PO Last administered on 08:52; Start 07/26/16 at 08:00 Furosemide (Lasix) 40 mg BID92 PO ; Start 07/25/16 at 14:00; Stop 07/25/16 at 14 :00; Status DC Pantoprazole Sodium (Protonix) 40 mg DAILYAC PO Last administered on 08/03/16 08:53; Start 07/26/16 at 07:30 Amlodipine Besylate (Norvasc) 10 mg DAILY PO Last administered on 07/28/16 09: 07; Start 07/26/16 at 09:00; Stop 07/28/16 at 14:15; Status DC Famotidine (Pepcid) 20 mg DAILY PO Last administered on 07/31/16 09:05; Start 07/26/16 at 09:00; Stop 07/31/16 at 16:13; Status DC Atorvastatin Calcium (Lipitor) 40 mg QHS PO Last administered on 08/02/16 22:06 ; Start 07/25/16 at 21:00 Furosemide (Lasix) 40 mg BID92 IVP Last administered on 08/03/16 08:54; Start 07/25/16 at 14:00 Insulin Detemir (Levemir) 8 units QHS SQ Last administered on 08/02/16 22:18; Start 07/25/16 at 21:00 Insulin Aspart (NovoLOG) 0-7 UNITS TIDWMEALS SQ Last administered on 08/02/16 12:03; Start 07/25/16 at 17:00 Dextrose (Dextrose 50%-Water Syringe) 12.5 gm PRN Q15MIN PRN IV SEE COMMENTS; Start 07/25/16 at 15:30 Lisinopril (Prinivil) 20 mg DAILY PO Last administered on 07/28/16 09:06; Start 07/26/16 at 13:00; Stop 07/28/16 at 10:13; Status DC Acetaminophen (Tylenol) 650 mg PRN Q6HRS PRN PO FEVER Last administered on 07/31 07:51; Start 07/26/16 at 13:15 Ondansetron HCl (Zofran) 4 mg PRN Q6HRS PRN IV NAUSEA/VOMITING Last administered on 08/03/16 02:21; Start 07/26/16 at 13:15 Morphine Sulfate 2 mg PRN Q2HR PRN IV PAIN; Start 07/26/16 at 13:15 Tramadol HCl (Ultram) 50 mg PRN Q6HRS PRN PO PAIN Last administered on 07:34; Start 07/26/16 at 13:15 Hydralazine HCl (Apresoline) 10 mg PRN Q4HRS PRN IVP ELEVATED BP, SEE COMMENTS Last administered on 08/03/16 08:54; Start 07/26/16 at 13:15 Docusate Sodium (Colace) 100 mg PRN DAILY PRN PO CONSTIPATION; Start 07/26/16 at 13:15 Insulin Aspart (NovoLOG) 5 units TIDAC SQ Last administered on 07/27/16 12:46 ; Start 07/26/16 at 16:30; Stop 07/28/16 at 10:13; Status DC Heparin Sodium (Porcine) (Heparin Sq) 5,000 unit Q8HRS SQ Last administered on 08/03/16 06:34; Start 07/26/16 at 14:00 Heparin Sodium (Porcine) (Heparin Sodium) 10,000 unit STK-MED ONCE .ROUTE ; Start 07/26/16 at 15:25; Stop 07/26/16 at 15:26; Status DC Lidocaine/ Epinephrine (Xylocaine 1%-Epi 1:100,000) 20 ml STK-MED ONCE .ROUTE ; Start 07/26/16 at 15:25; Stop 07/26/16 at 15:26; Status DC Heparin Sodium/ Sodium Chloride 500 ml @ As Directed STK-MED ONCE .ROUTE ; Start 07/26/16 at 15:25; Stop 07/26/16 at 15:26; Status DC Midazolam HCl (Versed) 5 mg STK-MED ONCE .ROUTE ; Start 07/26/16 at 15:38; Stop 07/26/16 at 15:39; Status DC Fentanyl Citrate (Fentanyl 5ml Vial) 250 mcg STK-MED ONCE .ROUTE ; Start at 15:38; Stop 07/26/16 at 15:39; Status DC Cefazolin Sodium 50 ml @ As Directed STK-MED ONCE IV ; Start 07/26/16 at 15:39; Stop 07/26/16 at 15:40; Status DC Gelatin (Gelfoam Size 12-7mm) 1 each STK-MED ONCE .ROUTE ; Start 07/26/16 at 16 :07; Stop 07/26/16 at 16:08; Status DC Heparin Sodium/ Sodium Chloride 1,000 unit 1X ONCE IART Last administered on 16:13; Start 07/26/16 at 16:15; Stop 07/26/16 at 16:16; Status DC Midazolam HCl (Versed) 5 mg 1X ONCE IV Last administered on 07/26/16 16:13; Start 07/26/16 at 16:15; Stop 07/26/16 at 16:16; Status DC Fentanyl Citrate (Fentanyl 5ml Vial) 125 mcg 1X ONCE IV Last administered on 16:14; Start 07/26/16 at 16:15; Stop 07/26/16 at 16:16; Status DC Heparin Sodium (Porcine) (Heparin Sodium) 4,000 unit 1X ONCE IV Last administered on 07/26/16 16:15; Start 07/26/16 at 16:15; Stop 07/26/16 at 16:16 ; Status DC Lidocaine/ Epinephrine (Xylocaine 1%-Epi 1:100,000) 9 ml 1X ONCE IJ Last administered on 07/26/16 16:13; Start 07/26/16 at 16:15; Stop 07/26/16 at 16:16 ; Status DC Darbepoetin Antonio (Aranesp) 60 mcg WEEKLYHS SQ Last administered on 07/27/16 20 :47; Start 07/27/16 at 21:00 Sodium Chloride 1,000 ml @ 1,000 mls/hr Q1H PRN IV hypotension; Start 07/27/16 at 13:45; Stop 07/27/16 at 19:44; Status DC Sodium Chloride (Normal Saline Flush) 10 ml 1X PRN PRN IV AP catheter pack; Start 07/27/16 at 13:45; Stop 07/27/16 at 19:00; Status DC Sodium Chloride (Normal Saline Flush) 10 ml 1X PRN PRN IV HOSTAGE NEGOTIATOR catheter pack; Start 07/27/16 at 13:45; Stop 07/27/16 at 19:00; Status DC Sodium Chloride 1,000 ml @ 400 mls/hr Q2H30M PRN IV PATENCY; Start 07/27/16 at 13:45; Stop 07/27/16 at 20:00; Status DC Info (PHARMACY MONITORING -- do not chart) 1 each PRN DAILY PRN MC SEE COMMENTS ; Start 07/27/16 at 13:45; Stop 07/31/16 at 16:05; Status DC Insulin Aspart (NovoLOG) 3 units TIDAC SQ Last administered on 07/31/16 08:00 ; Start 07/28/16 at 11:30; Stop 07/31/16 at 09:30; Status DC Lisinopril (Prinivil) 40 mg DAILY PO ; Start 07/29/16 at 09:00; Stop 07/29/16 at 09:00; Status DC Levothyroxine Sodium (Synthroid) 200 mcg DAILY07 PO Last administered on 06:26; Start 07/28/16 at 10:30 Amlodipine Besylate (Norvasc) 5 mg DAILY PO Last administered on 07/31/16 09: 06; Start 07/29/16 at 09:00; Stop 07/31/16 at 10:13; Status DC Lisinopril (Prinivil) 40 mg BID PO Last administered on 08/03/16 08:52; Start 07/28/16 at 21:00 Sodium Chloride 250 ml @ 250 mls/hr Q1H PRN IV hypotension; Start 07/28/16 at 22:23; Stop 07/29/16 at 04:22; Status DC Albumin Human 200 ml @ 200 mls/hr 1X PRN PRN IV Hypotension; Start 07/28/16 at 22:30; Stop 07/29/16 at 04:29; Status DC Sodium Chloride (Normal Saline Flush) 10 ml 1X PRN PRN IV AP catheter pack; Start 07/28/16 at 22:30; Stop 07/29/16 at 22:29; Status DC Sodium Chloride (Normal Saline Flush) 10 ml 1X PRN PRN IV HOSTAGE NEGOTIATOR catheter pack; Start 07/28/16 at 22:30; Stop 07/29/16 at 22:29; Status DC Sodium Chloride 200 ml @ 400 mls/hr Q30M PRN IV PATENCY; Start 07/28/16 at 22: 23; Stop 07/29/16 at 10:22; Status DC Info (PHARMACY MONITORING -- do not chart) 1 each PRN DAILY PRN MC SEE COMMENTS ; Start 07/28/16 at 22:30; Stop 07/31/16 at 16:05; Status DC Magnesium Sulfate/ Dextrose 50 ml @ 25 mls/hr 1X ONCE IV Last administered on 07/29/16 13:21; Start 07/29/16 at 13:00; Stop 07/29/16 at 14:59; Status DC Sodium Chloride 1,000 ml @ 1,000 mls/hr Q1H PRN IV hypotension; Start 07/30/16 at 07:58; Stop 07/30/16 at 13:57; Status DC Sodium Chloride (Normal Saline Flush) 10 ml 1X PRN PRN IV AP catheter pack; Start 07/30/16 at 08:00; Stop 07/31/16 at 07:59; Status DC Sodium Chloride (Normal Saline Flush) 10 ml 1X PRN PRN IV HOSTAGE NEGOTIATOR catheter pack; Start 07/30/16 at 08:00; Stop 07/31/16 at 07:59; Status DC Sodium Chloride 1,000 ml @ 400 mls/hr Q2H30M PRN IV PATENCY; Start 07/30/16 at 07:58; Stop 07/30/16 at 19:57; Status DC Info (PHARMACY MONITORING -- do not chart) 1 each PRN DAILY PRN MC SEE COMMENTS ; Start 07/30/16 at 08:00 Insulin Aspart (NovoLOG) 5 units TIDAC SQ Last administered on 08/03/16 09:05; Start 07/31/16 at 11:30 Amlodipine Besylate (Norvasc) 10 mg DAILY PO Last administered on 08/03/16 08: 53; Start 08/01/16 at 09:00 Metoclopramide HCl (Reglan) 5 mg PRN Q6HRS PRN IV NAUSEA/VOMITING, 2ND CHOICE Last administered on 08/02/16 03:29; Start 07/31/16 at 11:45 Promethazine HCl (Phenergan Im) 25 mg PRN Q6HRS PRN IM NAUSEA/VOMITING Last administered on 07/31/16 22:45; Start 07/31/16 at 11:45 Sodium Chloride 1,000 ml @ 1,000 mls/hr Q1H PRN IV hypotension; Start 07/31/16 at 15:59; Stop 07/31/16 at 21:58; Status DC Sodium Chloride (Normal Saline Flush) 10 ml 1X PRN PRN IV AP catheter pack; Start 07/31/16 at 16:00; Stop 08/01/16 at 15:59; Status DC Sodium Chloride (Normal Saline Flush) 10 ml 1X PRN PRN IV HOSTAGE NEGOTIATOR catheter pack; Start 07/31/16 at 16:00; Stop 08/01/16 at 15:59; Status DC Info (PHARMACY MONITORING -- do not chart) 1 each PRN DAILY PRN MC SEE COMMENTS ; Start 07/31/16 at 16:00; Status UNV Info (PHARMACY MONITORING -- do not chart) 1 each PRN DAILY PRN MC SEE COMMENTS ; Start 07/31/16 at 16:00; Status UNV Famotidine (Pepcid) 20 mg QODAY PO Last administered on 08/02/16 11:53; Start 08/02/16 at 09:00 Piperacillin Sod/ Tazobactam Sod 2.25 gm/Sodium Chloride 50 ml @ 100 mls/hr Q6HRS IV Last administered on 08/01/16 11:50; Start 08/01/16 at 12:00; Stop at 14:34; Status DC Piperacillin Sod/ Tazobactam Sod (Zosyn Per Pharmacy) 1 each PRN DAILY PRN MC SEE COMMENTS; Start 08/01/16 at 11:00; Stop 08/01/16 at 14:34; Status DC Vancomycin HCl (Vanco Per Pharmacy) 1 each PRN DAILY PRN MC SEE COMMENTS Last administered on 08/02/16 13:09; Start 08/01/16 at 11:00 Vancomycin HCl 1.5 gm/Sodium Chloride 500 ml @ 250 mls/hr 1X ONCE IV Last administered on 08/01/16 13:49; Start 08/01/16 at 11:00; Stop 08/01/16 at 12:59 ; Status DC Piperacillin Sod/ Tazobactam Sod 2.25 gm/Sodium Chloride 50 ml @ 100 mls/hr Q8HRS IV Last administered on 08/03/16 06:25; Start 08/01/16 at 22:00 Vancomycin HCl 1 each 1X ONCE MC Last administered on 08/02/16 06:22; Start at 06:00; Stop 08/02/16 at 06:01; Status DC Sodium Chloride 1,000 ml @ 1,000 mls/hr Q1H PRN IV hypotension; Start 08/02/16 at 08:09; Stop 08/02/16 at 14:08; Status DC Sodium Chloride 1,000 ml @ 400 mls/hr Q2H30M PRN IV PATENCY; Start 08/02/16 at 08:09; Stop 08/02/16 at 20:08; Status DC Info (PHARMACY MONITORING -- do not chart) 1 each PRN DAILY PRN MC SEE COMMENTS ; Start 08/02/16 at 08:15; Status Cancel Vancomycin HCl 500 mg/Sodium Chloride 100 ml @ 100 mls/hr QTUTHSA IV Last administered on 08/02/16t 18:00; Start 08/02/16 at 16:00 Carvedilol (Coreg) 6.25 mg BIDWMEALS PO ; Start 08/03/16 at 11:00 Active Scripts Active Reported Synthroid (Levothyroxine Sodium) 200 Mcg Tablet 1 Tab PO DAILY Novolog Flexpen (Insulin Aspart) 100 Unit/1 Ml Insuln.pen 5 Unit SQ TIDAC Lantus Solostar (Insulin Glargine,Hum.rec.anlog) 100 Unit/1 Ml Insuln.pen 8 Unit SQ QHS Clonidine Hcl 0.1 Mg Tablet 0.1 Mg PO BID Lasix (Furosemide) 40 Mg Tablet 40 Mg PO BID [place] 10 Mg-40 Mg Tablet (Amlodipine/Atorvastatin) 1 Each Tablet 1 Each PO DAILY Protonix (Pantoprazole Sodium) 40 Mg Tablet.dr 1 Tab PO DAILY Clopidogrel (Clopidogrel Bisulfate) 75 Mg Tablet 1 Tab PO DAILY Ranitidine Hcl 150 Mg Capsule 150 Mg PO DAILY Vitamin D3 (Cholecalciferol (Vitamin D3)) 1,000 Unit Tablet 1 Tab PO DAILY Vitals/I & O Vital Sign - Last 24 Hours 08/02/16 08/02/16 08/02/16 08/02/16 15:00 19:00 20:00 22:06 Temp 97.9 99.1 97.9 99.1 Pulse 97 97 97 Resp 18 19 B/P (MAP) 182/93 (122) 159/91 (113) 182/93 Pulse Ox 98 99 O2 Delivery Room Air Room Air Room Air 08/02/16 08/03/16 08/03/16 08/03/16 23:00 03:00 07:00 08:00 Temp 98.7 98.1 98.7 98.7 98.1 98.7 Pulse 96 92 91 Resp 16 18 16 B/P (MAP) 170/104 (126) 168/97 (120) 182/108 (132) Pulse Ox 98 97 98 O2 Delivery Room Air Room Air Room Air Room Air 08/03/16 08/03/16 08/03/16 08/03/16 08:52 08:53 08:54 11:04 Temp 98.8 98.8 Pulse 91 91 91 91 Resp 16 B/P (MAP) 182/108 182/108 182/108 170/99 (122) Pulse Ox 96 O2 Delivery Room Air Intake and Output 08/02/16 08/02/16 08/03/16 15:00 23:00 07:00 Intake Total 300 ml 850 ml Balance 300 ml 850 ml KARYNA NAGEL MD Aug 03, 2016 12:37
[2016-08-03] MEDS: VANCOMYCIN PER PHARMACY MC PRN (13:03)
[2016-08-03] MEDS ORDERED: ALPRAZolam 0.25 MG TABLET PO PRN (13:45)
--- NOTE | 2016-08-03 14:33 | PDOC2 ---
GI CONSULT Reason For Consult: N/v HPI: HPI: 50 y/o female admitted 07/25/16 w/ anasarca, has since been started on HD for ESRD. GI consulted today re: 2-3 days of n/v/retching, unable to take much PO. Also had a fever a couple days ago, has been on IV atbx. Says about 1 year ago was started on ranitidine BID for nausea and decreased appetite. Has also been taking Protonix QD for a few months. Denies reflux but has had heartburn for a couple days while here in the hospital. Also some globus but no dysphagia. Had EGD, colonoscopy, and GES at [facility] (says about 1 year ago). Recalls normal EGD and colonoscopy, but was told had gastroparesis. She did well w/ Reglan for awhile and was actually able to stop taking it w/o recurrence of symptoms. Has orders for PRN IV Reglan here, last received 08/02. Also on Protonix. H/o IDDM diagnosed in the ; says was noncompliant for a long time but now does better, thinks last A1c around 7.1. No diarrhea, constipation, hematochezia, melena, hematemesis. Swelling is better. PMH: PMH: ESRD on HD, CVA on Plavix, IDDM, HTN< HLD, hypothyroidism, GERD, gastroparesis, , left CTR, left shoulder surgery, back surgery FH: Family History: No pertinent hx Social History: Smoke: No ALCOHOL: none Drugs: None ROS: GEN: Denies fevers, chills, sweats HEENT: Denies blurred vision, sore throat CV: Denies chest pain RESP: Denies shortness of air, cough GI: Per HPI : Denies hematuria, dysuria ENDO: Denies weight changes NEURO: Denies confusion, dizziness MSK: +swelling (improved) SKIN: Denies jaundice, pruritus Vitals: Vitals: Vital Signs Date Time Temp Pulse Resp B/P (MAP) Pulse Ox O2 Delivery O2 Flow Rate FiO2 08/03/16 11:04 98.8 91 16 170/99 (122) 96 Room Air 98.8 Labs: Labs: Laboratory Tests Test 08/02/16 16:11 08/02/16 22:05 08/03/16 06:45 08/03/16 07:43 Glucose (Fingerstick) 122 mg/dL (70-99) 171 mg/dL (70-99) 120 mg/dL (70-99) White Blood Count 9.5 x10^3/uL (4.0-11.0) Red Blood Count 3.42 x10^6/uL (3.50-5.40) Hemoglobin 10.2 g/dL (12.0-15.5) Hematocrit 30.2 % (36.0-47.0) Mean Corpuscular Volume 88 fL (79-100) Mean Corpuscular Hemoglobin 30 pg (25-35) Mean Corpuscular Hemoglobin Concent 34 g/dL (31-37) Red Cell Distribution Width 14.6 % (11.5-14.5) Platelet Count 269 x10^3/uL (140-400) Neutrophils (%) (Auto) 76 % (31-73) Lymphocytes (%) (Auto) 15 % (24-48) Monocytes (%) (Auto) 8 % (0-9) Eosinophils (%) (Auto) 1 % (0-3) Basophils (%) (Auto) 1 % (0-3) Neutrophils # (Auto) 7.2 x10^3uL (1.8-7.7) Lymphocytes # (Auto) 1.4 x10^3/uL (1.0-4.8) Monocytes # (Auto) 0.8 x10^3/uL (0.0-1.1) Eosinophils # (Auto) 0.1 x10^3/uL (0.0-0.7) Basophils # (Auto) 0.1 x10^3/uL (0.0-0.2) Sodium Level 139 mmol/L (136-145) Potassium Level 3.5 mmol/L (3.5-5.1) Chloride Level 103 mmol/L (98-107) Carbon Dioxide Level 26 mmol/L (21-32) Anion Gap 10 (6-14) Blood Urea Nitrogen 16 mg/dL (7-20) Creatinine 2.3 mg/dL (0.6-1.0) Estimated GFR (Cockcroft-Gault) 22.4 Glucose Level 74 mg/dL (70-99) Calcium Level 8.2 mg/dL (8.5-10.1) Test 6/2/17 12:00 Glucose (Fingerstick) 151 mg/dL (70-99) Allergies: Coded Allergies: Sulfa (Sulfonamide Antibiotics) (Verified Allergy, Intermediate, 07/25/16) bupropion (Verified Allergy, Intermediate, 07/25/16) meperidine (Verified Allergy, Intermediate, 07/25/16) prochlorperazine (Verified Allergy, Intermediate, 07/29/16) Medications: Current Medications Medications (Trade) Dose Ordered Sig/Harper Route PRN Reason Start Time Stop Time Status Last Admin Dose Admin Vancomycin HCl 500 mg/Sodium Chloride 100 ml @ 100 mls/hr QTUTHSA IV 08/02/16 16:00 08/02/16 18:00 Imaging: Imaging: KUB 08/02/16 IMPRESSION: No acute or significant finding seen on plain films of the abdomen. PE: GEN: NAD HEENT: Atraumatic, PERRL LUNGS: clear anteriorly HEART: mildly tachycardic ABD: NABS, S/ND/NT EXTREMITY: No edema SKIN: No rashes, no jaundice NEURO/PSYCH: A & O 3 A/P: A/P: N/v -onset 2-3 days ago, unable to take much PO Gastroparesis -says GES abnormal at [facility], did well w/ Reglan for awhile, was able to stop taking Heartburn, globus -bothersome today -has been on ranitidine BID x 1 years + Protonix QD x 6 months -reports normals EGD @ [facility] ~1 year ago ESRD, new HD pt CRC screen -reports normal colonoscopy @ [facility] ~1 year ago Fever, leukocytosis - resolved -on IV atbx -- Will review w/ Dr. Mclaughlin, attempt to review records from [facility]. ?repeat GES or retry scheduled Reglan Continue PPI. VALENTIN SALAZAR Aug 03, 2016 14:33
[2016-08-03 15:00] VITALS: BP 161/87
[2016-08-03 19:59] VITALS: BP 174/103
[2016-08-03] MEDS: ATORVASTATIN CALCIUM 40 MG TABLET. PO SCH (22:22)
[2016-08-03] MEDS: DARBEPOETIN ALFA 60 MCG/0.3 ML DISP.SYRIN. SQ SCH (22:23)
[2016-08-03] MEDS: INSULIN DETEMIR 300 UNITS/3 ML INSULN.PEN. SQ SCH (22:42)
[2016-08-03 23:59] VITALS: BP 162/87
[2016-08-04] VITALS (7 sets, daily range): BP systolic 109–204; BP diastolic 69–100
[2016-08-04] MEDS: PIPERACILLIN/TAZOBACTAM 2.25 GM in IV NORMAL SALINE 50ML 50 ML IV SCH ×3 (06:15→21:16)
[2016-08-04] MEDS: LEVOTHYROXINE 100 MCG TABLET PO SCH (06:16)
[2016-08-04] MEDS: HEPARIN PF for SUB-Q USE 5,000 UNIT/0.5 ML VIAL. SQ SCH ×3 (06:30→21:26)
[2016-08-04] MEDS: INSULIN ASPART 300 UNITS/3 ML INSULN.PEN SQ SCH ×6 (07:30→18:13)
[2016-08-04] MEDS: PANTOPRAZOLE 40 MG TABLET.DR. PO SCH ×2 (07:54→18:03)
[2016-08-04] MEDS: amLODIPine BESYLATE 10 MG TABLET PO SCH (08:54)
[2016-08-04] MEDS: CARVEDILOL 6.25 MG TABLET. PO SCH ×2 (08:55→18:03)
[2016-08-04] MEDS: FUROSEMIDE 40 MG/4 ML VIAL. IVP SCH ×3 (09:00→14:27)
--- NOTE | 2016-08-04 11:30 | PDOC ---
PROGRESS NOTES Chief Complaint Chief Complaint ANASARCA ESRD with ckd 3-4 baseline Cr 2 NEW HD DM II HTN urgency normacytic ANEMIA 2/2 ESRD hypomagnesemia HYPOALBUMINEMIA 2/2 ESRD Fever, not clear etiology History of Present Illness History of Present Illness Seen in HD VSS Talkitive DW RN Vitals Vitals Vital Signs Date Time Temp Pulse Resp B/P (MAP) Pulse Ox O2 Delivery O2 Flow Rate FiO2 08/04/16 08:55 89 198/113 08/04/16 07:00 99.9 96 Room Air 99.9 08/04/16 03:59 18 Physical Exam General: Alert, Oriented X3, Cooperative, No acute distress Heart: Regular rate, Normal S2, No murmurs Lungs: Clear Abdomen: Normal bowel sounds, Other (mild distended abd, lower middle abd mild tenderness) Extremities: No clubbing, Other (bl ext 2+ pitting EDEMA) Labs LABS Laboratory Tests Test 08/03/16 12:00 08/03/16 16:43 08/03/16 22:21 08/04/16 02:50 Glucose (Fingerstick) 151 mg/dL (70-99) 152 mg/dL (70-99) 207 mg/dL (70-99) 214 mg/dL (70-99) Test 08/04/16 07:42 Glucose (Fingerstick) 145 mg/dL (70-99) Review of Systems Review of Systems co weakness co pain Assessment and Plan Assessmemt and Plan Problems Medical Problems: (1) Acute on chronic renal failure Status: Acute (2) Edema Status: Acute ANASARCA ESRD with ckd 3-4 baseline Cr 2 NEW HD DM II HTN urgency normacytic ANEMIA 2/2 ESRD hypomagnesemia HYPOALBUMINEMIA 2/2 ESRD Fever, not clear etiology plan: new onset HD, waiting for to have HD set up cont HD daily x3 so far fu with renal on amlodipine , lisinopril for HTN, increase lisinopril to 40mg bid , resume amlodipine 10mg daily increase aspart to 5u tid, levemir 8u qhs, ssi replete Mag dvt ppx nicolas cx for fever, ua, ucx, bcx, cxr HD cath looks clean, not sure if infected from it. bcx neg 24h. add vanco, zosyn for now, will dc when cont afebrile and normal wbc add coreg for uncontrolled HTN ID consult not done waiting for SW to set up outpt HD Cont HD for now as inpt Problems: Comment Review of Relevant I have reviewed the following items ruiz (where applicable) has been applied. Labs Laboratory Tests Test 08/02/16 11:30 08/02/16 16:11 08/02/16 22:05 08/03/16 06:45 Glucose (Fingerstick) 160 mg/dL (70-99) 122 mg/dL (70-99) 171 mg/dL (70-99) White Blood Count 9.5 x10^3/uL (4.0-11.0) Red Blood Count 3.42 x10^6/uL (3.50-5.40) Hemoglobin 10.2 g/dL (12.0-15.5) Hematocrit 30.2 % (36.0-47.0) Mean Corpuscular Volume 88 fL (79-100) Mean Corpuscular Hemoglobin 30 pg (25-35) Mean Corpuscular Hemoglobin Concent 34 g/dL (31-37) Red Cell Distribution Width 14.6 % (11.5-14.5) Platelet Count 269 x10^3/uL (140-400) Neutrophils (%) (Auto) 76 % (31-73) Lymphocytes (%) (Auto) 15 % (24-48) Monocytes (%) (Auto) 8 % (0-9) Eosinophils (%) (Auto) 1 % (0-3) Basophils (%) (Auto) 1 % (0-3) Neutrophils # (Auto) 7.2 x10^3uL (1.8-7.7) Lymphocytes # (Auto) 1.4 x10^3/uL (1.0-4.8) Monocytes # (Auto) 0.8 x10^3/uL (0.0-1.1) Eosinophils # (Auto) 0.1 x10^3/uL (0.0-0.7) Basophils # (Auto) 0.1 x10^3/uL (0.0-0.2) Sodium Level 139 mmol/L (136-145) Potassium Level 3.5 mmol/L (3.5-5.1) Chloride Level 103 mmol/L (98-107) Carbon Dioxide Level 26 mmol/L (21-32) Anion Gap 10 (6-14) Blood Urea Nitrogen 16 mg/dL (7-20) Creatinine 2.3 mg/dL (0.6-1.0) Estimated GFR (Cockcroft-Gault) 22.4 Glucose Level 74 mg/dL (70-99) Calcium Level 8.2 mg/dL (8.5-10.1) Test 08/03/16 07:43 08/03/16 12:00 08/03/16 16:43 08/03/16 22:21 Glucose (Fingerstick) 120 mg/dL (70-99) 151 mg/dL (70-99) 152 mg/dL (70-99) 207 mg/dL (70-99) Test 08/04/16 02:50 08/04/16 07:42 Glucose (Fingerstick) 214 mg/dL (70-99) 145 mg/dL (70-99) Laboratory Tests Test 08/03/16 12:00 08/03/16 16:43 08/03/16 22:21 08/04/16 02:50 Glucose (Fingerstick) 151 mg/dL (70-99) 152 mg/dL (70-99) 207 mg/dL (70-99) 214 mg/dL (70-99) Test 08/04/16 07:42 Glucose (Fingerstick) 145 mg/dL (70-99) Microbiology 07/31/16 Blood Culture - Preliminary, Resulted NO GROWTH AFTER 3 DAYS Medications Current Medications Ondansetron HCl (Zofran) 4 mg PRN Q8HRS PRN IV NAUSEA/VOMITING; Start 07/25/16 at 10:30; Stop 07/26/16 at 10:29; Status DC Acetaminophen (Tylenol) 650 mg PRN Q4HRS PRN PO FEVER; Start 07/25/16 at 10:30 ; Stop 07/26/16 at 10:29; Status DC Vitamin D (Vitamin D3) 1,000 unit DAILY PO Last administered on 08/03/16 08:52 ; Start 07/26/16 at 09:00 Clonidine HCl (Catapres) 0.1 mg BID PO Last administered on 07/26/16 08:31; Start 07/25/16 at 21:00; Stop 07/26/16 at 12:13; Status DC Clopidogrel Bisulfate (Plavix) 75 mg DAILYWBKFT PO Last administered on 08:52; Start 07/26/16 at 08:00 Furosemide (Lasix) 40 mg BID92 PO ; Start 07/25/16 at 14:00; Stop 07/25/16 at 14 :00; Status DC Pantoprazole Sodium (Protonix) 40 mg DAILYAC PO Last administered on 08/03/16 08:53; Start 07/26/16 at 07:30; Stop 08/03/16 at 16:10; Status DC Amlodipine Besylate (Norvasc) 10 mg DAILY PO Last administered on 07/28/16 09: 07; Start 07/26/16 at 09:00; Stop 07/28/16 at 14:15; Status DC Famotidine (Pepcid) 20 mg DAILY PO Last administered on 07/31/16 09:05; Start 07/26/16 at 09:00; Stop 07/31/16 at 16:13; Status DC Atorvastatin Calcium (Lipitor) 40 mg QHS PO Last administered on 08/03/16 22:22 ; Start 07/25/16 at 21:00 Furosemide (Lasix) 40 mg BID92 IVP Last administered on 08/03/16 14:03; Start 07/25/16 at 14:00 Insulin Detemir (Levemir) 8 units QHS SQ Last administered on 08/03/16 22:42; Start 07/25/16 at 21:00 Insulin Aspart (NovoLOG) 0-7 UNITS TIDWMEALS SQ Last administered on 08/02/16 12:03; Start 07/25/16 at 17:00 Dextrose (Dextrose 50%-Water Syringe) 12.5 gm PRN Q15MIN PRN IV SEE COMMENTS; Start 07/25/16 at 15:30 Lisinopril (Prinivil) 20 mg DAILY PO Last administered on 07/28/16 09:06; Start 07/26/16 at 13:00; Stop 07/28/16 at 10:13; Status DC Acetaminophen (Tylenol) 650 mg PRN Q6HRS PRN PO FEVER Last administered on 07/31 07:51; Start 07/26/16 at 13:15 Ondansetron HCl (Zofran) 4 mg PRN Q6HRS PRN IV NAUSEA/VOMITING, 1ST CHOICE Last administered on 08/03/16 12:35; Start 07/26/16 at 13:15 Morphine Sulfate 2 mg PRN Q2HR PRN IV PAIN; Start 07/26/16 at 13:15 Tramadol HCl (Ultram) 50 mg PRN Q6HRS PRN PO PAIN Last administered on 07:34; Start 07/26/16 at 13:15 Hydralazine HCl (Apresoline) 10 mg PRN Q4HRS PRN IVP ELEVATED BP, SEE COMMENTS Last administered on 08/03/16 08:54; Start 07/26/16 at 13:15 Docusate Sodium (Colace) 100 mg PRN DAILY PRN PO CONSTIPATION; Start 07/26/16 at 13:15 Insulin Aspart (NovoLOG) 5 units TIDAC SQ Last administered on 07/27/16 12:46 ; Start 07/26/16 at 16:30; Stop 07/28/16 at 10:13; Status DC Heparin Sodium (Porcine) (Heparin Sq) 5,000 unit Q8HRS SQ Last administered on 08/04/16 06:30; Start 07/26/16 at 14:00 Heparin Sodium (Porcine) (Heparin Sodium) 10,000 unit STK-MED ONCE .ROUTE ; Start 07/26/16 at 15:25; Stop 07/26/16 at 15:26; Status DC Lidocaine/ Epinephrine (Xylocaine 1%-Epi 1:100,000) 20 ml STK-MED ONCE .ROUTE ; Start 07/26/16 at 15:25; Stop 07/26/16 at 15:26; Status DC Heparin Sodium/ Sodium Chloride 500 ml @ As Directed STK-MED ONCE .ROUTE ; Start 07/26/16 at 15:25; Stop 07/26/16 at 15:26; Status DC Midazolam HCl (Versed) 5 mg STK-MED ONCE .ROUTE ; Start 07/26/16 at 15:38; Stop 07/26/16 at 15:39; Status DC Fentanyl Citrate (Fentanyl 5ml Vial) 250 mcg STK-MED ONCE .ROUTE ; Start at 15:38; Stop 07/26/16 at 15:39; Status DC Cefazolin Sodium 50 ml @ As Directed STK-MED ONCE IV ; Start 07/26/16 at 15:39; Stop 07/26/16 at 15:40; Status DC Gelatin (Gelfoam Size 12-7mm) 1 each STK-MED ONCE .ROUTE ; Start 07/26/16 at 16 :07; Stop 07/26/16 at 16:08; Status DC Heparin Sodium/ Sodium Chloride 1,000 unit 1X ONCE IART Last administered on 16:13; Start 07/26/16 at 16:15; Stop 07/26/16 at 16:16; Status DC Midazolam HCl (Versed) 5 mg 1X ONCE IV Last administered on 07/26/16 16:13; Start 07/26/16 at 16:15; Stop 07/26/16 at 16:16; Status DC Fentanyl Citrate (Fentanyl 5ml Vial) 125 mcg 1X ONCE IV Last administered on 16:14; Start 07/26/16 at 16:15; Stop 07/26/16 at 16:16; Status DC Heparin Sodium (Porcine) (Heparin Sodium) 4,000 unit 1X ONCE IV Last administered on 07/26/16 16:15; Start 07/26/16 at 16:15; Stop 07/26/16 at 16:16 ; Status DC Lidocaine/ Epinephrine (Xylocaine 1%-Epi 1:100,000) 9 ml 1X ONCE IJ Last administered on 07/26/16 16:13; Start 07/26/16 at 16:15; Stop 07/26/16 at 16:16 ; Status DC Darbepoetin Antonio (Aranesp) 60 mcg WEEKLYHS SQ Last administered on 08/03/16 22: 23; Start 07/27/16 at 21:00 Sodium Chloride 1,000 ml @ 1,000 mls/hr Q1H PRN IV hypotension; Start 07/27/16 at 13:45; Stop 07/27/16 at 19:44; Status DC Sodium Chloride (Normal Saline Flush) 10 ml 1X PRN PRN IV AP catheter pack; Start 07/27/16 at 13:45; Stop 07/27/16 at 19:00; Status DC Sodium Chloride (Normal Saline Flush) 10 ml 1X PRN PRN IV PRECISION FILER HAND catheter pack; Start 07/27/16 at 13:45; Stop 07/27/16 at 19:00; Status DC Sodium Chloride 1,000 ml @ 400 mls/hr Q2H30M PRN IV PATENCY; Start 07/27/16 at 13:45; Stop 07/27/16 at 20:00; Status DC Info (PHARMACY MONITORING -- do not chart) 1 each PRN DAILY PRN MC SEE COMMENTS ; Start 07/27/16 at 13:45; Stop 07/31/16 at 16:05; Status DC Insulin Aspart (NovoLOG) 3 units TIDAC SQ Last administered on 07/31/16 08:00 ; Start 07/28/16 at 11:30; Stop 07/31/16 at 09:30; Status DC Lisinopril (Prinivil) 40 mg DAILY PO ; Start 07/29/16 at 09:00; Stop 07/29/16 at 09:00; Status DC Levothyroxine Sodium (Synthroid) 200 mcg DAILY07 PO Last administered on 06:16; Start 07/28/16 at 10:30 Amlodipine Besylate (Norvasc) 5 mg DAILY PO Last administered on 07/31/16 09: 06; Start 07/29/16 at 09:00; Stop 07/31/16 at 10:13; Status DC Lisinopril (Prinivil) 40 mg BID PO Last administered on 08/03/16 22:23; Start 07/28/16 at 21:00 Sodium Chloride 250 ml @ 250 mls/hr Q1H PRN IV hypotension; Start 07/28/16 at 22:23; Stop 07/29/16 at 04:22; Status DC Albumin Human 200 ml @ 200 mls/hr 1X PRN PRN IV Hypotension; Start 07/28/16 at 22:30; Stop 07/29/16 at 04:29; Status DC Sodium Chloride (Normal Saline Flush) 10 ml 1X PRN PRN IV AP catheter pack; Start 07/28/16 at 22:30; Stop 07/29/16 at 22:29; Status DC Sodium Chloride (Normal Saline Flush) 10 ml 1X PRN PRN IV PRECISION FILER HAND catheter pack; Start 07/28/16 at 22:30; Stop 07/29/16 at 22:29; Status DC Sodium Chloride 200 ml @ 400 mls/hr Q30M PRN IV PATENCY; Start 07/28/16 at 22: 23; Stop 07/29/16 at 10:22; Status DC Info (PHARMACY MONITORING -- do not chart) 1 each PRN DAILY PRN MC SEE COMMENTS ; Start 07/28/16 at 22:30; Stop 07/31/16 at 16:05; Status DC Magnesium Sulfate/ Dextrose 50 ml @ 25 mls/hr 1X ONCE IV Last administered on 07/29/16 13:21; Start 07/29/16 at 13:00; Stop 07/29/16 at 14:59; Status DC Sodium Chloride 1,000 ml @ 1,000 mls/hr Q1H PRN IV hypotension; Start 07/30/16 at 07:58; Stop 07/30/16 at 13:57; Status DC Sodium Chloride (Normal Saline Flush) 10 ml 1X PRN PRN IV AP catheter pack; Start 07/30/16 at 08:00; Stop 07/31/16 at 07:59; Status DC Sodium Chloride (Normal Saline Flush) 10 ml 1X PRN PRN IV PRECISION FILER HAND catheter pack; Start 07/30/16 at 08:00; Stop 07/31/16 at 07:59; Status DC Sodium Chloride 1,000 ml @ 400 mls/hr Q2H30M PRN IV PATENCY; Start 07/30/16 at 07:58; Stop 07/30/16 at 19:57; Status DC Info (PHARMACY MONITORING -- do not chart) 1 each PRN DAILY PRN MC SEE COMMENTS ; Start 07/30/16 at 08:00 Insulin Aspart (NovoLOG) 5 units TIDAC SQ Last administered on 08/03/16 09:05; Start 07/31/16 at 11:30 Amlodipine Besylate (Norvasc) 10 mg DAILY PO Last administered on 08/04/16 08: 54; Start 08/01/16 at 09:00 Metoclopramide HCl (Reglan) 5 mg PRN Q6HRS PRN IV NAUSEA/VOMITING, 2ND CHOICE Last administered on 08/02/16 03:29; Start 07/31/16 at 11:45 Promethazine HCl (Phenergan Im) 25 mg PRN Q6HRS PRN IM NAUSEA/VOMITING Last administered on 07/31/16 22:45; Start 07/31/16 at 11:45 Sodium Chloride 1,000 ml @ 1,000 mls/hr Q1H PRN IV hypotension; Start 07/31/16 at 15:59; Stop 07/31/16 at 21:58; Status DC Sodium Chloride (Normal Saline Flush) 10 ml 1X PRN PRN IV AP catheter pack; Start 07/31/16 at 16:00; Stop 08/01/16 at 15:59; Status DC Sodium Chloride (Normal Saline Flush) 10 ml 1X PRN PRN IV PRECISION FILER HAND catheter pack; Start 07/31/16 at 16:00; Stop 08/01/16 at 15:59; Status DC Info (PHARMACY MONITORING -- do not chart) 1 each PRN DAILY PRN MC SEE COMMENTS ; Start 07/31/16 at 16:00; Status UNV Info (PHARMACY MONITORING -- do not chart) 1 each PRN DAILY PRN MC SEE COMMENTS ; Start 07/31/16 at 16:00; Status UNV Famotidine (Pepcid) 20 mg QODAY PO Last administered on 08/02/16 11:53; Start 08/02/16 at 09:00; Stop 08/03/16 at 16:10; Status DC Piperacillin Sod/ Tazobactam Sod 2.25 gm/Sodium Chloride 50 ml @ 100 mls/hr Q6HRS IV Last administered on 08/01/16 11:50; Start 08/01/16 at 12:00; Stop at 14:34; Status DC Piperacillin Sod/ Tazobactam Sod (Zosyn Per Pharmacy) 1 each PRN DAILY PRN MC SEE COMMENTS; Start 08/01/16 at 11:00; Stop 08/01/16 at 14:34; Status DC Vancomycin HCl (Vanco Per Pharmacy) 1 each PRN DAILY PRN MC SEE COMMENTS Last administered on 08/03/16 13:03; Start 08/01/16 at 11:00 Vancomycin HCl 1.5 gm/Sodium Chloride 500 ml @ 250 mls/hr 1X ONCE IV Last administered on 08/01/16 13:49; Start 08/01/16 at 11:00; Stop 08/01/16 at 12:59 ; Status DC Piperacillin Sod/ Tazobactam Sod 2.25 gm/Sodium Chloride 50 ml @ 100 mls/hr Q8HRS IV Last administered on 08/04/16 06:15; Start 08/01/16 at 22:00 Vancomycin HCl 1 each 1X ONCE MC Last administered on 08/02/16 06:22; Start at 06:00; Stop 08/02/16 at 06:01; Status DC Sodium Chloride 1,000 ml @ 1,000 mls/hr Q1H PRN IV hypotension; Start 08/02/16 at 08:09; Stop 08/02/16 at 14:08; Status DC Sodium Chloride 1,000 ml @ 400 mls/hr Q2H30M PRN IV PATENCY; Start 08/02/16 at 08:09; Stop 08/02/16 at 20:08; Status DC Info (PHARMACY MONITORING -- do not chart) 1 each PRN DAILY PRN MC SEE COMMENTS ; Start 08/02/16 at 08:15; Status Cancel Vancomycin HCl 500 mg/Sodium Chloride 100 ml @ 100 mls/hr QTUTHSA IV Last administered on 08/02/16 18:00; Start 08/02/16 at 16:00 Carvedilol (Coreg) 6.25 mg BIDWMEALS PO Last administered on 08/04/16 08:55; Start 08/03/16 at 11:00 Alprazolam (Xanax) 0.25 mg PRN Q8HRS PRN PO ANXIETY / AGITATION; Start 08/03/16 at 13:45; Stop 08/03/16 at 13:45; Status DC Lorazepam (Ativan) 0.5 mg PRN TID PRN IV ANXIETY / AGITATION Last administered on 08/03/16 14:03; Start 08/03/16 at 13:45 Pantoprazole Sodium (Protonix) 40 mg BIDAC PO Last administered on 08/04/16 07: 54; Start 08/03/16 at 16:30 Active Scripts Active Reported Synthroid (Levothyroxine Sodium) 200 Mcg Tablet 1 Tab PO DAILY Novolog Flexpen (Insulin Aspart) 100 Unit/1 Ml Insuln.pen 5 Unit SQ TIDAC Lantus Solostar (Insulin Glargine,Hum.rec.anlog) 100 Unit/1 Ml Insuln.pen 8 Unit SQ QHS Clonidine Hcl 0.1 Mg Tablet 0.1 Mg PO BID Lasix (Furosemide) 40 Mg Tablet 40 Mg PO BID [place] 10 Mg-40 Mg Tablet (Amlodipine/Atorvastatin) 1 Each Tablet 1 Each PO DAILY Protonix (Pantoprazole Sodium) 40 Mg Tablet.dr 1 Tab PO DAILY Clopidogrel (Clopidogrel Bisulfate) 75 Mg Tablet 1 Tab PO DAILY Ranitidine Hcl 150 Mg Capsule 150 Mg PO DAILY Vitamin D3 (Cholecalciferol (Vitamin D3)) 1,000 Unit Tablet 1 Tab PO DAILY Vitals/I & O Vital Sign - Last 24 Hours 08/03/16 08/03/16 08/03/16 08/03/16 15:00 17:00 19:59 20:00 Temp 98.2 98.7 98.2 98.7 Pulse 97 97 93 Resp 16 18 B/P (MAP) 161/87 (111) 161/87 174/103 (126) Pulse Ox 96 96 O2 Delivery Room Air Room Air Room Air 08/03/16 08/03/16 08/04/16 08/04/16 22:23 23:59 03:59 07:00 Temp 98.8 99.7 99.9 98.8 99.7 99.9 Pulse 93 93 84 86 Resp 18 18 B/P (MAP) 174/103 162/87 (112) 143/78 (99) 204/96 (132) Pulse Ox 94 97 96 O2 Delivery Room Air Room Air Room Air 08/04/16 08/04/16 08:54 08:55 Pulse 89 89 B/P (MAP) 198/113 198/113 Intake and Output 08/03/16 08/03/16 08/04/16 15:00 23:00 07:00 Intake Total 960 ml 1200 ml Output Total 200 ml Balance 760 ml 1200 ml ANGEL JONES III DO Aug 04, 2016 11:30
[2016-08-04] MEDS ORDERED: DIALYSIS PATIENT. MC PRN ×2 (11:45)
[2016-08-04] MEDS: CLOPIDOGREL BISULFATE 75 MG TABLET PO SCH (12:24)
[2016-08-04] MEDS: LISINOPRIL 20 MG TABLET PO SCH ×2 (12:24→21:16)
[2016-08-04] MEDS: CHOLECALCIFEROL (VITAMIN D3) 1,000 UNIT TABLET PO SCH (12:24)
[2016-08-04] MEDS: METOCLOPRAMIDE HCL 10 MG/2 ML VIAL. IV PRN ×2 (13:55→21:20)
[2016-08-04] MEDS: VANCOMYCIN 500 MG in IV NORMAL SALINE 100ML 100 ML IV SCH (17:24)
[2016-08-04] MEDS: ATORVASTATIN CALCIUM 40 MG TABLET. PO SCH (21:16)
[2016-08-04] MEDS: INSULIN DETEMIR 300 UNITS/3 ML INSULN.PEN. SQ SCH (21:27)
[2016-08-05 03:59] VITALS: BP 152/89
[2016-08-05] MEDS: METOCLOPRAMIDE HCL 10 MG/2 ML VIAL. IV PRN ×3 (05:08→22:04)
[2016-08-05] MEDS: LEVOTHYROXINE 100 MCG TABLET PO SCH (05:08)
[2016-08-05] MEDS: PIPERACILLIN/TAZOBACTAM 2.25 GM in IV NORMAL SALINE 50ML 50 ML IV SCH ×2 (05:08→14:45)
[2016-08-05] MEDS: HEPARIN PF for SUB-Q USE 5,000 UNIT/0.5 ML VIAL. SQ SCH ×3 (05:10→22:09)
[2016-08-05 07:00] VITALS: BP 129/93
[2016-08-05] MEDS: INSULIN ASPART 300 UNITS/3 ML INSULN.PEN SQ SCH ×6 (07:12→17:20)
[2016-08-05] MEDS: PANTOPRAZOLE 40 MG TABLET.DR. PO SCH ×2 (07:32→16:30)
[2016-08-05] MEDS: CLOPIDOGREL BISULFATE 75 MG TABLET PO SCH ×2 (08:00→08:51)
[2016-08-05] MEDS: CARVEDILOL 6.25 MG TABLET. PO SCH ×3 (08:00→17:00)
[2016-08-05] MEDS: FUROSEMIDE 40 MG/4 ML VIAL. IVP SCH ×2 (08:46→14:45)
[2016-08-05] MEDS: amLODIPine BESYLATE 10 MG TABLET PO SCH ×2 (08:50→09:00)
[2016-08-05] MEDS: CHOLECALCIFEROL (VITAMIN D3) 1,000 UNIT TABLET PO SCH ×2 (08:51→09:00)
[2016-08-05] MEDS: LISINOPRIL 20 MG TABLET PO SCH ×3 (08:51→22:03)
[2016-08-05] MEDS: ONDANSETRON PF 4 MG/2 ML VIAL. IV PRN (08:51)
[2016-08-05 11:00] VITALS: BP 111/62
--- NOTE | 2016-08-05 14:38 | PDOC ---
PROGRESS NOTES Chief Complaint Chief Complaint Anasarca ESRD with ckd 3-4 baseline Cr 2 NEW HD DM II HTN urgency normacytic ANEMIA 2/2 ESRD hypomagnesemia HYPOALBUMINEMIA 2/2 ESRD Fever, not clear etiology History of Present Illness History of Present Illness Seen and examined Pt with nausea and diarrhea Looks ill VERO RN Vitals Vitals Vital Signs Date Time Temp Pulse Resp B/P (MAP) Pulse Ox O2 Delivery O2 Flow Rate FiO2 08/05/16 11:00 100.0 68 22 111/62 (78) 98 Room Air 100.0 Physical Exam General: Alert, Oriented X3, Cooperative, No acute distress Heart: Regular rate, Normal S2, No murmurs Lungs: Clear Abdomen: Normal bowel sounds, Other (mild distended abd, lower middle abd mild tenderness) Extremities: No clubbing, Other (bl ext 2+ pitting EDEMA) Labs LABS Laboratory Tests Test 08/04/16 16:58 08/04/16 21:15 08/05/16 04:56 08/05/16 05:24 Glucose (Fingerstick) 237 mg/dL (70-99) 283 mg/dL (70-99) 69 mg/dL (70-99) 99 mg/dL (70-99) Test 08/05/16 07:41 08/05/16 11:37 Glucose (Fingerstick) 206 mg/dL (70-99) 202 mg/dL (70-99) Review of Systems Review of Systems co weakness co new diarrhea and extreme nausea Assessment and Plan Assessmemt and Plan Problems Medical Problems: (1) Acute on chronic renal failure Status: Acute (2) Edema Status: Acute Anasarca ESRD with ckd 3-4 baseline Cr 2 NEW HD DM II HTN urgency normacytic ANEMIA 2/2 ESRD hypomagnesemia HYPOALBUMINEMIA 2/2 ESRD Fever, not clear etiology Plan IV Zofran Consult GI Check stool for Cdiff DW RN recheck labs HD MWF Prog guarded Problems: Comment Review of Relevant I have reviewed the following items ruiz (where applicable) has been applied. Labs Laboratory Tests Test 08/03/16 16:43 08/03/16 22:21 08/04/16 02:50 08/04/16 07:42 Glucose (Fingerstick) 152 mg/dL (70-99) 207 mg/dL (70-99) 214 mg/dL (70-99) 145 mg/dL (70-99) Test 08/04/16 12:22 08/04/16 16:58 08/04/16 21:15 08/05/16 04:56 Glucose (Fingerstick) 147 mg/dL (70-99) 237 mg/dL (70-99) 283 mg/dL (70-99) 69 mg/dL (70-99) Test 08/05/16 05:24 08/05/16 07:41 08/05/16 11:37 Glucose (Fingerstick) 99 mg/dL (70-99) 206 mg/dL (70-99) 202 mg/dL (70-99) Laboratory Tests Test 08/04/16 16:58 08/04/16 21:15 08/05/16 04:56 08/05/16 05:24 Glucose (Fingerstick) 237 mg/dL (70-99) 283 mg/dL (70-99) 69 mg/dL (70-99) 99 mg/dL (70-99) Test 08/05/16 07:41 08/05/16 11:37 Glucose (Fingerstick) 206 mg/dL (70-99) 202 mg/dL (70-99) Microbiology 07/31/16 Blood Culture - Final, Complete NO GROWTH AFTER 5 DAYS Medications Current Medications Ondansetron HCl (Zofran) 4 mg PRN Q8HRS PRN IV NAUSEA/VOMITING; Start 07/25/16 at 10:30; Stop 07/26/16 at 10:29; Status DC Acetaminophen (Tylenol) 650 mg PRN Q4HRS PRN PO FEVER; Start 07/25/16 at 10:30 ; Stop 07/26/16 at 10:29; Status DC Vitamin D (Vitamin D3) 1,000 unit DAILY PO Last administered on 08/05/16 08:51 ; Start 07/26/16 at 09:00 Clonidine HCl (Catapres) 0.1 mg BID PO Last administered on 07/26/16 08:31; Start 07/25/16 at 21:00; Stop 07/26/16 at 12:13; Status DC Clopidogrel Bisulfate (Plavix) 75 mg DAILYWBKFT PO Last administered on 08:51; Start 07/26/16 at 08:00 Furosemide (Lasix) 40 mg BID92 PO ; Start 07/25/16 at 14:00; Stop 07/25/16 at 14 :00; Status DC Pantoprazole Sodium (Protonix) 40 mg DAILYAC PO Last administered on 08/03/16 08:53; Start 07/26/16 at 07:30; Stop 08/03/16 at 16:10; Status DC Amlodipine Besylate (Norvasc) 10 mg DAILY PO Last administered on 07/28/16 09: 07; Start 07/26/16 at 09:00; Stop 07/28/16 at 14:15; Status DC Famotidine (Pepcid) 20 mg DAILY PO Last administered on 07/31/16 09:05; Start 07/26/16 at 09:00; Stop 07/31/16 at 16:13; Status DC Atorvastatin Calcium (Lipitor) 40 mg QHS PO Last administered on 08/04/16 21:16 ; Start 07/25/16 at 21:00 Furosemide (Lasix) 40 mg BID92 IVP Last administered on 08/05/16 08:46; Start 07/25/16 at 14:00 Insulin Detemir (Levemir) 8 units QHS SQ Last administered on 08/04/16 21:27; Start 07/25/16 at 21:00 Insulin Aspart (NovoLOG) 0-7 UNITS TIDWMEALS SQ Last administered on 08/04/16 18:13; Start 07/25/16 at 17:00 Dextrose (Dextrose 50%-Water Syringe) 12.5 gm PRN Q15MIN PRN IV SEE COMMENTS; Start 07/25/16 at 15:30 Lisinopril (Prinivil) 20 mg DAILY PO Last administered on 07/28/16 09:06; Start 07/26/16 at 13:00; Stop 07/28/16 at 10:13; Status DC Acetaminophen (Tylenol) 650 mg PRN Q6HRS PRN PO FEVER Last administered on 07/31 07:51; Start 07/26/16 at 13:15 Ondansetron HCl (Zofran) 4 mg PRN Q6HRS PRN IV NAUSEA/VOMITING, 1ST CHOICE Last administered on 08/05/16 08:51; Start 07/26/16 at 13:15 Morphine Sulfate 2 mg PRN Q2HR PRN IV PAIN; Start 07/26/16 at 13:15 Tramadol HCl (Ultram) 50 mg PRN Q6HRS PRN PO PAIN Last administered on 07:34; Start 07/26/16 at 13:15 Hydralazine HCl (Apresoline) 10 mg PRN Q4HRS PRN IVP ELEVATED BP, SEE COMMENTS Last administered on 08/03/16 08:54; Start 07/26/16 at 13:15 Docusate Sodium (Colace) 100 mg PRN DAILY PRN PO CONSTIPATION; Start 07/26/16 at 13:15 Insulin Aspart (NovoLOG) 5 units TIDAC SQ Last administered on 07/27/16 12:46 ; Start 07/26/16 at 16:30; Stop 07/28/16 at 10:13; Status DC Heparin Sodium (Porcine) (Heparin Sq) 5,000 unit Q8HRS SQ Last administered on 08/05/16 05:10; Start 07/26/16 at 14:00 Heparin Sodium (Porcine) (Heparin Sodium) 10,000 unit STK-MED ONCE .ROUTE ; Start 07/26/16 at 15:25; Stop 07/26/16 at 15:26; Status DC Lidocaine/ Epinephrine (Xylocaine 1%-Epi 1:100,000) 20 ml STK-MED ONCE .ROUTE ; Start 07/26/16 at 15:25; Stop 07/26/16 at 15:26; Status DC Heparin Sodium/ Sodium Chloride 500 ml @ As Directed STK-MED ONCE .ROUTE ; Start 07/26/16 at 15:25; Stop 07/26/16 at 15:26; Status DC Midazolam HCl (Versed) 5 mg STK-MED ONCE .ROUTE ; Start 07/26/16 at 15:38; Stop 07/26/16 at 15:39; Status DC Fentanyl Citrate (Fentanyl 5ml Vial) 250 mcg STK-MED ONCE .ROUTE ; Start at 15:38; Stop 07/26/16 at 15:39; Status DC Cefazolin Sodium 50 ml @ As Directed STK-MED ONCE IV ; Start 07/26/16 at 15:39; Stop 07/26/16 at 15:40; Status DC Gelatin (Gelfoam Size 12-7mm) 1 each STK-MED ONCE .ROUTE ; Start 07/26/16 at 16 :07; Stop 07/26/16 at 16:08; Status DC Heparin Sodium/ Sodium Chloride 1,000 unit 1X ONCE IART Last administered on 16:13; Start 07/26/16 at 16:15; Stop 07/26/16 at 16:16; Status DC Midazolam HCl (Versed) 5 mg 1X ONCE IV Last administered on 07/26/16 16:13; Start 07/26/16 at 16:15; Stop 07/26/16 at 16:16; Status DC Fentanyl Citrate (Fentanyl 5ml Vial) 125 mcg 1X ONCE IV Last administered on 16:14; Start 07/26/16 at 16:15; Stop 07/26/16 at 16:16; Status DC Heparin Sodium (Porcine) (Heparin Sodium) 4,000 unit 1X ONCE IV Last administered on 07/26/16 16:15; Start 07/26/16 at 16:15; Stop 07/26/16 at 16:16 ; Status DC Lidocaine/ Epinephrine (Xylocaine 1%-Epi 1:100,000) 9 ml 1X ONCE IJ Last administered on 07/26/16 16:13; Start 07/26/16 at 16:15; Stop 07/26/16 at 16:16 ; Status DC Darbepoetin Antonio (Aranesp) 60 mcg WEEKLYHS SQ Last administered on 08/03/16 22: 23; Start 07/27/16 at 21:00 Sodium Chloride 1,000 ml @ 1,000 mls/hr Q1H PRN IV hypotension; Start 07/27/16 at 13:45; Stop 07/27/16 at 19:44; Status DC Sodium Chloride (Normal Saline Flush) 10 ml 1X PRN PRN IV AP catheter pack; Start 07/27/16 at 13:45; Stop 07/27/16 at 19:00; Status DC Sodium Chloride (Normal Saline Flush) 10 ml 1X PRN PRN IV [employer] catheter pack; Start 07/27/16 at 13:45; Stop 07/27/16 at 19:00; Status DC Sodium Chloride 1,000 ml @ 400 mls/hr Q2H30M PRN IV PATENCY; Start 07/27/16 at 13:45; Stop 07/27/16 at 20:00; Status DC Info (PHARMACY MONITORING -- do not chart) 1 each PRN DAILY PRN MC SEE COMMENTS ; Start 07/27/16 at 13:45; Stop 07/31/16 at 16:05; Status DC Insulin Aspart (NovoLOG) 3 units TIDAC SQ Last administered on 07/31/16 08:00 ; Start 07/28/16 at 11:30; Stop 07/31/16 at 09:30; Status DC Lisinopril (Prinivil) 40 mg DAILY PO ; Start 07/29/16 at 09:00; Stop 07/29/16 at 09:00; Status DC Levothyroxine Sodium (Synthroid) 200 mcg DAILY07 PO Last administered on 05:08; Start 07/28/16 at 10:30 Amlodipine Besylate (Norvasc) 5 mg DAILY PO Last administered on 07/31/16 09: 06; Start 07/29/16 at 09:00; Stop 07/31/16 at 10:13; Status DC Lisinopril (Prinivil) 40 mg BID PO Last administered on 08/05/16 08:51; Start 07/28/16 at 21:00 Sodium Chloride 250 ml @ 250 mls/hr Q1H PRN IV hypotension; Start 07/28/16 at 22:23; Stop 07/29/16 at 04:22; Status DC Albumin Human 200 ml @ 200 mls/hr 1X PRN PRN IV Hypotension; Start 07/28/16 at 22:30; Stop 07/29/16 at 04:29; Status DC Sodium Chloride (Normal Saline Flush) 10 ml 1X PRN PRN IV AP catheter pack; Start 07/28/16 at 22:30; Stop 07/29/16 at 22:29; Status DC Sodium Chloride (Normal Saline Flush) 10 ml 1X PRN PRN IV [employer] catheter pack; Start 07/28/16 at 22:30; Stop 07/29/16 at 22:29; Status DC Sodium Chloride 200 ml @ 400 mls/hr Q30M PRN IV PATENCY; Start 07/28/16 at 22: 23; Stop 07/29/16 at 10:22; Status DC Info (PHARMACY MONITORING -- do not chart) 1 each PRN DAILY PRN MC SEE COMMENTS ; Start 07/28/16 at 22:30; Stop 07/31/16 at 16:05; Status DC Magnesium Sulfate/ Dextrose 50 ml @ 25 mls/hr 1X ONCE IV Last administered on 07/29/16 13:21; Start 07/29/16 at 13:00; Stop 07/29/16 at 14:59; Status DC Sodium Chloride 1,000 ml @ 1,000 mls/hr Q1H PRN IV hypotension; Start 07/30/16 at 07:58; Stop 07/30/16 at 13:57; Status DC Sodium Chloride (Normal Saline Flush) 10 ml 1X PRN PRN IV AP catheter pack; Start 07/30/16 at 08:00; Stop 07/31/16 at 07:59; Status DC Sodium Chloride (Normal Saline Flush) 10 ml 1X PRN PRN IV [employer] catheter pack; Start 07/30/16 at 08:00; Stop 07/31/16 at 07:59; Status DC Sodium Chloride 1,000 ml @ 400 mls/hr Q2H30M PRN IV PATENCY; Start 07/30/16 at 07:58; Stop 07/30/16 at 19:57; Status DC Info (PHARMACY MONITORING -- do not chart) 1 each PRN DAILY PRN MC SEE COMMENTS ; Start 07/30/16 at 08:00 Insulin Aspart (NovoLOG) 5 units TIDAC SQ Last administered on 08/05/16 09:01; Start 07/31/16 at 11:30 Amlodipine Besylate (Norvasc) 10 mg DAILY PO Last administered on 08/05/16 08: 50; Start 08/01/16 at 09:00 Metoclopramide HCl (Reglan) 5 mg PRN Q6HRS PRN IV NAUSEA/VOMITING, 2ND CHOICE Last administered on 08/05/16 10:57; Start 07/31/16 at 11:45 Promethazine HCl (Phenergan Im) 25 mg PRN Q6HRS PRN IM NAUSEA/VOMITING Last administered on 07/31/16 22:45; Start 07/31/16 at 11:45 Sodium Chloride 1,000 ml @ 1,000 mls/hr Q1H PRN IV hypotension; Start 07/31/16 at 15:59; Stop 07/31/16 at 21:58; Status DC Sodium Chloride (Normal Saline Flush) 10 ml 1X PRN PRN IV AP catheter pack; Start 07/31/16 at 16:00; Stop 08/01/16 at 15:59; Status DC Sodium Chloride (Normal Saline Flush) 10 ml 1X PRN PRN IV [employer] catheter pack; Start 07/31/16 at 16:00; Stop 08/01/16 at 15:59; Status DC Info (PHARMACY MONITORING -- do not chart) 1 each PRN DAILY PRN MC SEE COMMENTS ; Start 07/31/16 at 16:00; Status UNV Info (PHARMACY MONITORING -- do not chart) 1 each PRN DAILY PRN MC SEE COMMENTS ; Start 07/31/16 at 16:00; Status UNV Famotidine (Pepcid) 20 mg QODAY PO Last administered on 08/02/16 11:53; Start 08/02/16 at 09:00; Stop 08/03/16 at 16:10; Status DC Piperacillin Sod/ Tazobactam Sod 2.25 gm/Sodium Chloride 50 ml @ 100 mls/hr Q6HRS IV Last administered on 08/01/16 11:50; Start 08/01/16 at 12:00; Stop at 14:34; Status DC Piperacillin Sod/ Tazobactam Sod (Zosyn Per Pharmacy) 1 each PRN DAILY PRN MC SEE COMMENTS; Start 08/01/16 at 11:00; Stop 08/01/16 at 14:34; Status DC Vancomycin HCl (Vanco Per Pharmacy) 1 each PRN DAILY PRN MC SEE COMMENTS Last administered on 08/03/16 13:03; Start 08/01/16 at 11:00 Vancomycin HCl 1.5 gm/Sodium Chloride 500 ml @ 250 mls/hr 1X ONCE IV Last administered on 08/01/16 13:49; Start 08/01/16 at 11:00; Stop 08/01/16 at 12:59 ; Status DC Piperacillin Sod/ Tazobactam Sod 2.25 gm/Sodium Chloride 50 ml @ 100 mls/hr Q8HRS IV Last administered on 08/05/16 05:08; Start 08/01/16 at 22:00 Vancomycin HCl 1 each 1X ONCE MC Last administered on 08/02/16 06:22; Start at 06:00; Stop 08/02/16 at 06:01; Status DC Sodium Chloride 1,000 ml @ 1,000 mls/hr Q1H PRN IV hypotension; Start 08/02/16 at 08:09; Stop 08/02/16 at 14:08; Status DC Sodium Chloride 1,000 ml @ 400 mls/hr Q2H30M PRN IV PATENCY; Start 08/02/16 at 08:09; Stop 08/02/16 at 20:08; Status DC Info (PHARMACY MONITORING -- do not chart) 1 each PRN DAILY PRN MC SEE COMMENTS ; Start 08/02/16 at 08:15; Status Cancel Vancomycin HCl 500 mg/Sodium Chloride 100 ml @ 100 mls/hr QTUTHSA IV Last administered on 08/04/16 17:24; Start 08/02/16 at 16:00 Carvedilol (Coreg) 6.25 mg BIDWMEALS PO Last administered on 08/05/16 08:51; Start 08/03/16 at 11:00 Alprazolam (Xanax) 0.25 mg PRN Q8HRS PRN PO ANXIETY / AGITATION; Start 08/03/16 at 13:45; Stop 08/03/16 at 13:45; Status DC Lorazepam (Ativan) 0.5 mg PRN TID PRN IV ANXIETY / AGITATION Last administered on 08/05/16 10:57; Start 08/03/16 at 13:45 Pantoprazole Sodium (Protonix) 40 mg BIDAC PO Last administered on 08/05/16 07: 32; Start 08/03/16 at 16:30 Info (PHARMACY MONITORING -- do not chart) 1 each PRN DAILY PRN MC SEE COMMENTS ; Start 08/04/16 at 11:45; Status UNV Info (PHARMACY MONITORING -- do not chart) 1 each PRN DAILY PRN MC SEE COMMENTS ; Start 08/04/16 at 11:45; Status UNV Active Scripts Active Reported Synthroid (Levothyroxine Sodium) 200 Mcg Tablet 1 Tab PO DAILY Novolog Flexpen (Insulin Aspart) 100 Unit/1 Ml Insuln.pen 5 Unit SQ TIDAC Lantus Solostar (Insulin Glargine,Hum.rec.anlog) 100 Unit/1 Ml Insuln.pen 8 Unit SQ QHS Clonidine Hcl 0.1 Mg Tablet 0.1 Mg PO BID Lasix (Furosemide) 40 Mg Tablet 40 Mg PO BID [place] 10 Mg-40 Mg Tablet (Amlodipine/Atorvastatin) 1 Each Tablet 1 Each PO DAILY Protonix (Pantoprazole Sodium) 40 Mg Tablet.dr 1 Tab PO DAILY Clopidogrel (Clopidogrel Bisulfate) 75 Mg Tablet 1 Tab PO DAILY Ranitidine Hcl 150 Mg Capsule 150 Mg PO DAILY Vitamin D3 (Cholecalciferol (Vitamin D3)) 1,000 Unit Tablet 1 Tab PO DAILY Vitals/I & O Vital Sign - Last 24 Hours 08/04/16 08/04/16 08/04/16 08/04/16 15:00 18:03 18:46 19:59 Temp 100.7 97.8 100.7 97.8 Pulse 102 89 84 84 Resp 24 20 B/P (MAP) 120/100 (107) 198/113 109/72 (84) 132/84 (100) Pulse Ox 97 99 O2 Delivery Room Air Room Air 08/04/16 08/04/16 08/04/16 08/04/16 20:00 21:12 21:16 21:45 Temp 97.4 97.4 Pulse 78 B/P (MAP) 145/92 (109) 145/92 O2 Delivery Room Air 08/04/16 08/05/16 08/05/16 08/05/16 23:44 03:59 07:00 08:50 Temp 98.3 98.9 98.7 98.3 98.9 98.7 Pulse 73 68 68 68 Resp 18 18 20 B/P (MAP) 120/69 (86) 152/89 (110) 129/93 (105) 152/89 Pulse Ox 97 98 96 O2 Delivery Room Air Room Air Room Air 08/05/16 08/05/16 08/05/16 08:51 08:51 11:00 Temp 100.0 100.0 Pulse 68 68 68 Resp 22 B/P (MAP) 152/89 152/89 111/62 (78) Pulse Ox 98 O2 Delivery Room Air Intake and Output 08/04/16 08/04/16 08/05/16 15:00 23:00 07:00 Intake Total 480 ml 720 ml 550 ml Output Total 300 ml Balance 480 ml 720 ml 250 ml ANGEL JONES III DO Aug 05, 2016 14:38
--- NOTE | 2016-08-05 14:47 | PDOC ---
GI PROGRESS NOTES Date Date/Time DATE: 08/05/16 TIME: 14:45 Subjective Subjective sleeping after ativan eating yesterday but today more nauseated - not responding to reglan and zofran Objective Vitals Vital Signs Date Time Temp Pulse Resp B/P (MAP) Pulse Ox O2 Delivery O2 Flow Rate FiO2 08/05/16 11:00 100.0 68 22 111/62 (78) 98 Room Air 100.0 08/05/16 08:51 68 152/89 08/05/16 08:51 68 152/89 08/05/16 08:50 68 152/89 08/05/16 07:00 98.7 68 20 129/93 (105) 96 Room Air 98.7 08/05/16 03:59 98.9 68 18 152/89 (110) 98 Room Air 98.9 08/04/16 23:44 98.3 73 18 120/69 (86) 97 Room Air 98.3 08/04/16 21:45 97.4 97.4 08/04/16 21:16 78 145/92 08/04/16 21:12 145/92 (109) 08/04/16 20:00 Room Air 08/04/16 19:59 97.8 84 20 132/84 (100) 99 Room Air 97.8 08/04/16 18:46 84 109/72 (84) 08/04/16 18:03 89 198/113 08/04/16 15:00 100.7 102 24 120/100 (107) 97 Room Air 100.7 Labs Labs Laboratory Tests Test 08/04/16 16:58 08/04/16 21:15 08/05/16 04:56 08/05/16 05:24 Glucose (Fingerstick) 237 mg/dL (70-99) 283 mg/dL (70-99) 69 mg/dL (70-99) 99 mg/dL (70-99) Test 08/05/16 07:41 08/05/16 11:37 Glucose (Fingerstick) 206 mg/dL (70-99) 202 mg/dL (70-99) Assessment Assessment N/v hx of gastroparesis Problems: Plan Plan continue reglan- may move to scheduled dosing if further refractory n/v Dr. Mclaughlin will see tomorrow CHUN SHANE MD Aug 05, 2016 14:47
--- NOTE | 2016-08-05 15:04 | PDOC ---
Infectious Disease Note ROS ROS Vital Sign Vital Signs Vital Signs Date Time Temp Pulse Resp B/P (MAP) Pulse Ox O2 Delivery O2 Flow Rate FiO2 08/05/16 11:00 100.0 68 22 111/62 (78) 98 Room Air 100.0 Labs Lab Laboratory Tests Test 08/04/16 16:58 08/04/16 21:15 08/05/16 04:56 08/05/16 05:24 Glucose (Fingerstick) 237 mg/dL (70-99) 283 mg/dL (70-99) 69 mg/dL (70-99) 99 mg/dL (70-99) Test 08/05/16 07:41 08/05/16 11:37 Glucose (Fingerstick) 206 mg/dL (70-99) 202 mg/dL (70-99) Objective Assessment Fever, possible drug fever ESRD now on HD Diarrhea DM II HTN Plan Plan of Care Stop vanc and Zosyn check stool for C. diff Monitor temp and WBC Thank you Attending Co-Sign The patient was seen and interviewed as well as examined at the bedside. The chart was reviewed. The case was discussed. Agree with the plan of care. JHONATAN DOWELL APRN Aug 05, 2016 15:04 PETRA HAMMER MD Aug 05, 2016 15:04
--- NOTE | 2016-08-05 15:16 | PDOC ---
Provider Note Provider Note Provider Note RENAL F/U : EVAN DOS : 08/04/16 S: No new issues. O : Doing OK VSS Afebrile. Neck ; Supple Lungs : Non labored. CVS : RRR Abd: Benign appearing. No new edema. A/P: ESRD HTN w CKD ANEMIA. Supportive care. HD per schedule. Out pt arrangements underway. CPM. David Gordon M.D. DAVID GORDON MD Aug 05, 2016 15:16
[2016-08-05 15:39] VITALS: BP 133/89
[2016-08-05 19:00] VITALS: BP 167/92
[2016-08-05] MEDS: ATORVASTATIN CALCIUM 40 MG TABLET. PO SCH (22:03)
[2016-08-05] MEDS: INSULIN DETEMIR 300 UNITS/3 ML INSULN.PEN. SQ SCH (22:10)
[2016-08-05 23:00] VITALS: BP 164/105
--- NOTE | 2016-08-06 02:40 | CONS ---
DATE OF CONSULTATION: REFERRING PHYSICIAN: Dr. Rodríguez. REASON FOR CONSULTATION: Fever. HISTORY OF PRESENT ILLNESS: This patient is a 50-year-old female with a past medical history of diabetes mellitus type 2, hypertension and chronic kidney disease who was admitted with worsening renal function and edema. She was started on hemodialysis via new tunneled hemodialysis catheter. She has been running a low grade temperature and was started on vancomycin and Zosyn. Her white count was elevated, that has since improved. She continues on low-grade temperature. She has developed diarrhea with abdominal cramping and nausea. Her blood cultures are negative. Urinalysis is unremarkable for infection. Most recent chest x-ray showed a mild retrocardiac density probably representing atelectasis. PAST MEDICAL HISTORY: Diabetes mellitus type 2, hypertension, chronic kidney disease, cerebrovascular accident, hyperlipidemia and hypothyroidism. PAST SURGICAL HISTORY: , carpal tunnel release, shoulder surgery, section. SOCIAL HISTORY: The patient is . Nonsmoker. FAMILY HISTORY: Positive for diabetes and hypertension. ALLERGIES: SULFA, MEPERIDINE, PROCHLORPERAZINE AND BUPROPION. MEDICATIONS: Vancomycin and Zosyn. Other medications are available and have been reviewed on MAY. REVIEW OF SYSTEMS: The patient continues to complain of diarrhea, abdominal cramping and nausea. Denies headache, nasal/sinus congestion or sore throat. Denies chest pain, shortness of air or wheezing. Denies cough. Denies dysuria, frequency or urgency. Denies rash. Denies muscle aches or joint pains. Denies chills or sweats. PHYSICAL EXAMINATION: GENERAL: female lying in bed, grimacing. VITAL SIGNS: Temperature 100.0, blood pressure 111/62, heart rate 68, respiratory rate 22, pulse oximetry is 98% on room air, weight 132 pounds with a BMI of 21.3. HEENT: Pupils equally round, reactive. Normal conjunctivae. Oral mucosa is pink and dry. LUNGS: Clear to auscultation. HEART: Normal S1 and S2. ABDOMEN: Nondistended. Bowel sounds are present, soft, mildly tender. EXTREMITIES: No gross edema or cyanosis. SKIN: Without rash. Warm to touch. NEUROLOGIC: Alert and oriented x 3. Moves all extremities. LINES: HDC. Clean. LABORATORY DATA: Recent from 08/03, WBC 9.5, hemoglobin 10.2, platelet count 269,000. Electrolytes were unremarkable. Creatinine 2.3, BUN 16, glucose 74. Procalcitonin on the 31st less than 0.10. Random vancomycin trough 22.4. Urinalysis unremarkable for infection. Blood culture is negative. Chest x-ray per HPI. IMPRESSION: 1. Fever, possibly drug related. 2. End-stage renal disease now on hemodialysis. 3. Diarrhea. 4. Diabetes mellitus type 2. 5. Hypertension. PLAN: I would stop the antibiotics. Check stool for Clostridium difficile, PCR, monitor temperature and repeat CBC in the morning. Thank you Dr. Rodríguez for asking me to participate in this patient's care. Should you have further questions or concerns, please call. The patient is seen and examined and plan of care implemented by Dr. Tremayne Hammer. TREMAYNE HAMMRE MD DR: RICARDO/sunitha JOB#: [id number] / [id number]
[2016-08-06 03:00] VITALS: BP 171/97
[2016-08-06 04:37] LABS: BASO # 0.1 x10^3/uL (0.0-0.2); BASO % 1 % (0-3); EOS % 4 % (0-3); HEMATOCRIT 28.9 % (36.0-47.0); HEMOGLOBIN 9.9 g/dL (12.0-15.5); LYMPH # 1.5 x10^3/uL (1.0-4.8); LYMPH % 24 % (24-48); MEAN CORPUSCULAR HEMOGLOBIN 30 pg (25-35); MEAN CORPUSCULAR HGB CONC 34 g/dL (31-37); MEAN CORPUSCULAR VOLUME 87 fL (79-100); MONO % 12 % (0-9); NEUT % 59 % (31-73); PLATELET COUNT 172 x10^3/uL (140-400); RED BLOOD COUNT 3.31 x10^6/uL (3.50-5.40); RED CELL DISTRIBUTION WIDTH 14.8 % (11.5-14.5); WHITE BLOOD COUNT 6.2 x10^3/uL (4.0-11.0)
[2016-08-06] MEDS: HEPARIN PF for SUB-Q USE 5,000 UNIT/0.5 ML VIAL. SQ SCH ×3 (06:02→21:24)
[2016-08-06 07:00] VITALS: BP 169/92
[2016-08-06] MEDS: INSULIN ASPART 300 UNITS/3 ML INSULN.PEN SQ SCH ×6 (07:30→17:55)
[2016-08-06] MEDS: amLODIPine BESYLATE 10 MG TABLET PO SCH (08:39)
[2016-08-06] MEDS: LEVOTHYROXINE 100 MCG TABLET PO SCH (08:39)
[2016-08-06] MEDS: PANTOPRAZOLE 40 MG TABLET.DR. PO SCH ×2 (08:39→17:50)
[2016-08-06] MEDS: CLOPIDOGREL BISULFATE 75 MG TABLET PO SCH (08:39)
[2016-08-06] MEDS: CHOLECALCIFEROL (VITAMIN D3) 1,000 UNIT TABLET PO SCH (08:39)
[2016-08-06] MEDS: LISINOPRIL 20 MG TABLET PO SCH ×2 (08:39→21:18)
[2016-08-06] MEDS: FUROSEMIDE 40 MG/4 ML VIAL. IVP SCH ×2 (08:40→17:51)
[2016-08-06] MEDS: CARVEDILOL 6.25 MG TABLET. PO SCH ×2 (08:40→17:50)
--- NOTE | 2016-08-06 09:41 | PDOC ---
Infectious Disease Note Subjective Subjective feeling better ROS ROS GEN: Denies fevers, chills, sweats HEENT: Denies blurred vision, sore throat CV: Denies chest pain RESP: Denies shortness of air, cough GI: Denies n/v/d NEURO: Denies confusion, dizziness MSK: Denies weakness, joint pain/swelling Vital Sign Vital Signs Vital Signs Date Time Temp Pulse Resp B/P (MAP) Pulse Ox O2 Delivery O2 Flow Rate FiO2 08/06/16 08:40 74 169/92 08/06/16 07:00 97.9 18 94 Room Air 97.9 Physical Exam PHYSICAL EXAM GENERAL: NAD, Alert HEENT: PERRL, OC/OP NECK: Supple, no JVD, no LN LUNGS: Clear HEART: S1S2, no gallop, no murmur ABD: Soft, NT, no organomegaly, no rebound EXT: No edema, no cyanosis HEALTH PHYSICS TECHNICIAN: Alert, oriented x 3, no focal neurologic deficit SKIN: No rash IV: ok Labs Lab Laboratory Tests Test 08/05/16 11:37 08/05/16 16:47 08/05/16 21:05 08/06/16 04:00 Glucose (Fingerstick) 202 mg/dL (70-99) 304 mg/dL (70-99) 284 mg/dL (70-99) White Blood Count 6.2 x10^3/uL (4.0-11.0) Red Blood Count 3.31 x10^6/uL (3.50-5.40) Hemoglobin 9.9 g/dL (12.0-15.5) Hematocrit 28.9 % (36.0-47.0) Mean Corpuscular Volume 87 fL (79-100) Mean Corpuscular Hemoglobin 30 pg (25-35) Mean Corpuscular Hemoglobin Concent 34 g/dL (31-37) Red Cell Distribution Width 14.8 % (11.5-14.5) Platelet Count 172 x10^3/uL (140-400) Neutrophils (%) (Auto) 59 % (31-73) Lymphocytes (%) (Auto) 24 % (24-48) Monocytes (%) (Auto) 12 % (0-9) Eosinophils (%) (Auto) 4 % (0-3) Basophils (%) (Auto) 1 % (0-3) Neutrophils # (Auto) 3.6 x10^3uL (1.8-7.7) Lymphocytes # (Auto) 1.5 x10^3/uL (1.0-4.8) Monocytes # (Auto) 0.8 x10^3/uL (0.0-1.1) Eosinophils # (Auto) 0.2 x10^3/uL (0.0-0.7) Basophils # (Auto) 0.1 x10^3/uL (0.0-0.2) Test 08/06/16 06:51 Glucose (Fingerstick) 87 mg/dL (70-99) Objective Assessment Fever, improved ESRD now on HD Diarrhea DM II HTN Plan Plan of Care check stool for C. diff Monitor temp and WBC PETRA HAMMER MD Aug 06, 2016 09:41
[2016-08-06 11:01] VITALS: BP 168/97
--- NOTE | 2016-08-06 12:41 | DS ---
DATE OF DISCHARGE: 08/06/2016 ADMISSION DIAGNOSIS: Acute renal failure. DISCHARGE DIAGNOSIS: New initiation of dialysis. CONSULTS: Dr. Tremayne Hartmann, Dr. Nury Hartmann, and Dr. Sims for dialysis catheter placement. HOSPITAL COURSE: The patient is a pleasant middle-aged female who initially presented with abdominal pain, and she was noted to be in acute renal failure. Her creatinine was 2.9. It actually went up to 3.4. We then initiated dialysis. Basically, she has done well. Over the past few days, she has been dialyzed several times. She did have some diarrhea yesterday. We were concerned she could have C. difficile, but that has resolved. We think it was medication induced. Basically, she is at her baseline. I did examine her this morning. We plan to discharge her with close outpatient followup. DISPOSITION: Home. ACTIVITY: As tolerated. DIET: Low sodium. MEDICATIONS: Please see the MRAD. TOTAL TIME ON DISCHARGE: 31 minutes. ANGEL JONES DO DR: LINDA/sunitha JOB#: [id number] / [id number]
--- NOTE | 2016-08-06 12:56 | PDOC ---
Subjective: Subjective: No n/v, abd pain, or diarrhea. Tolerating PO. Doing much better. Objective: Objective: Per RN - no n/v complaints today. Note discharge orders. Vital Signs: Vital Signs Date Time Temp Pulse Resp B/P (MAP) Pulse Ox O2 Delivery O2 Flow Rate FiO2 08/06/16 11:01 97.7 74 18 168/97 (120) 94 Room Air 97.7 Labs: Laboratory Tests Test 08/05/16 15:50 08/05/16 16:47 08/05/16 21:05 08/06/16 04:00 Clostridium difficile Toxin (PCR) Negative Glucose (Fingerstick) 304 mg/dL 284 mg/dL White Blood Count 6.2 x10^3/uL Red Blood Count 3.31 x10^6/uL Hemoglobin 9.9 g/dL Hematocrit 28.9 % Mean Corpuscular Volume 87 fL Mean Corpuscular Hemoglobin 30 pg Mean Corpuscular Hemoglobin Concent 34 g/dL Red Cell Distribution Width 14.8 % Platelet Count 172 x10^3/uL Neutrophils (%) (Auto) 59 % Lymphocytes (%) (Auto) 24 % Monocytes (%) (Auto) 12 % Eosinophils (%) (Auto) 4 % Basophils (%) (Auto) 1 % Neutrophils # (Auto) 3.6 x10^3uL Lymphocytes # (Auto) 1.5 x10^3/uL Monocytes # (Auto) 0.8 x10^3/uL Eosinophils # (Auto) 0.2 x10^3/uL Basophils # (Auto) 0.1 x10^3/uL Test 08/06/16 06:51 Glucose (Fingerstick) 87 mg/dL PE: GEN: NAD, was asleep LUNGS: clear anteriorly HEART: RRR ABD: S/ND/NT NEURO/PSYCH: A & O 3 A/P: N/v - resolved -tolerating PO, has Reglan PRN (last received 08/05), also on PPI BID -h/o gastroparesis and GERD, GES 03/2016 at [facility], EGD last year (+H. pylori) Diarrhea - resolved -C Diff neg Fever, leukocytosis - resolved -- Note discharge orders. Doing better GI-pleitez. Would continue PPI, consider Reglan PRN along w/ gastroparesis diet. VALENTIN SALAZAR Aug 06, 2016 12:56
[2016-08-06 15:08] VITALS: BP 144/99
[2016-08-06 16:34] LABS: CALCIUM 7.3 mg/dL (8.5-10.1); GFR 11.9
[2016-08-06 19:00] VITALS: BP 179/101
[2016-08-06] MEDS: ATORVASTATIN CALCIUM 40 MG TABLET. PO SCH (21:18)
[2016-08-06] MEDS: INSULIN DETEMIR 300 UNITS/3 ML INSULN.PEN. SQ SCH (21:25)
[2016-08-06 23:00] VITALS: BP 117/105
--- NOTE | 2016-08-06 23:36 | PDOC4 ---
PROCEDURE Procedure RENAL F/U : EVAN DOS : 08/05/16 S: No new issues. O : Doing OK VSS Afebrile. Neck ; Supple Lungs : Non labored. CVS : RRR Abd: Benign appearing. No new edema. A/P: ESRD HTN w CKD ANEMIA. Supportive care. HD per schedule. CPM. David Gordon M.D. DAVID GORDON MD Aug 06, 2016 23:36
--- NOTE | 2016-08-06 23:37 | PDOC4 ---
PROCEDURE Procedure RENAL F/U : EVAN DOS : 08/06/16 S: No new issues. O : Doing OK VSS Afebrile. Neck ; Supple Lungs : Non labored. CVS : RRR Abd: Benign appearing. No new edema. A/P: ESRD HTN w CKD ANEMIA. Supportive care. HD per schedule. Out pt arrangements underway. CPM. David Gordon M.D. DAVID GORDON MD Aug 06, 2016 23:37
[2016-08-07 03:00] VITALS: BP 180/102
[2016-08-07] MEDS: LEVOTHYROXINE 100 MCG TABLET PO SCH (05:35)
[2016-08-07] MEDS: HEPARIN PF for SUB-Q USE 5,000 UNIT/0.5 ML VIAL. SQ SCH (05:39)
[2016-08-07 07:00] VITALS: BP 188/114
[2016-08-07] MEDS: PANTOPRAZOLE 40 MG TABLET.DR. PO SCH (07:30)
[2016-08-07] MEDS: INSULIN ASPART 300 UNITS/3 ML INSULN.PEN SQ SCH ×4 (08:02→13:07)
[2016-08-07] MEDS: LISINOPRIL 20 MG TABLET PO SCH (08:36)
[2016-08-07] MEDS ORDERED: IV NORMAL SALINE 1000ML BAG 1,000 ML IV PRN (08:36)
[2016-08-07] MEDS: amLODIPine BESYLATE 10 MG TABLET PO SCH (08:37)
[2016-08-07] MEDS ORDERED: DIALYSIS PATIENT. MC PRN (08:45)
--- NOTE | 2016-08-07 10:57 | PDOC ---
Infectious Disease Note Subjective Subjective feeling better ROS ROS GEN: Denies fevers, chills, sweats HEENT: Denies blurred vision, sore throat CV: Denies chest pain RESP: Denies shortness of air, cough GI: Denies n/v/d NEURO: Denies confusion, dizziness MSK: Denies weakness, joint pain/swelling Vital Sign Vital Signs Vital Signs Date Time Temp Pulse Resp B/P (MAP) Pulse Ox O2 Delivery O2 Flow Rate FiO2 08/07/16 08:37 80 188/114 08/07/16 07:00 98.3 18 97 Room Air 98.3 Physical Exam PHYSICAL EXAM GENERAL: NAD, Alert HEENT: PERRL, OC/OP NECK: Supple, no JVD, no LN LUNGS: Clear HEART: S1S2, no gallop, no murmur ABD: Soft, NT, no organomegaly, no rebound EXT: No edema, no cyanosis 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
--- NOTE | 2016-08-07 12:49 | PDOC ---
Subjective: Subjective: Feeling better, no GI complaints. Objective: Vital Signs: Vital Signs Date Time Temp Pulse Resp B/P (MAP) Pulse Ox O2 Delivery O2 Flow Rate FiO2 08/07/16 08:37 80 188/114 08/07/16 07:00 98.3 18 97 Room Air 98.3 Labs: Laboratory Tests Test 08/06/16 16:29 08/06/16 21:14 08/07/16 07:39 08/07/16 12:39 Glucose (Fingerstick) 117 mg/dL 184 mg/dL 274 mg/dL 142 mg/dL PE: GEN: NAD, dialyzing LUNGS: CTAB HEART: RRR ABD: S/ND/NT NEURO/PSYCH: A & O 3 A/P: N/v - resolved -tolerating PO on PPI BID, also has Reglan PRN (not used in ~2 days) -h/o gastroparesis and GERD w/ recent GES and EGD -- DC per primary. Continue PPI, can use scheduled Reglan if needed. VALENTIN SALAZAR Aug 07, 2016 12:49
[2016-08-07] MEDS: CHOLECALCIFEROL (VITAMIN D3) 1,000 UNIT TABLET PO SCH (13:04)
[2016-08-07] MEDS: CLOPIDOGREL BISULFATE 75 MG TABLET PO SCH (13:04)
[2016-08-07 13:05] VITALS: BP 188/114
[2016-08-07] MEDS: CARVEDILOL 6.25 MG TABLET. PO SCH (13:05)
[2016-08-07] MEDS: FUROSEMIDE 40 MG/4 ML VIAL. IVP SCH (13:05)
--- NOTE | 2016-08-07 17:25 | PDOC4 ---
PROCEDURE Procedure RENAL DIALYSIS/ EVAN HD done F 180/ HCO3 /3 K Qb 450 Qd 600 UF 1-2 kg No complications. DAVID GORDON MD Aug 07, 2016 17:25
--- NOTE | 2016-08-07 23:37 | DS ---
DATE OF DISCHARGE: 08/07/2016 ADMISSION DIAGNOSIS: New renal failure. DISCHARGE DIAGNOSIS: Status post new initiation of hemodialysis. HOSPITAL COURSE: The patient is a pleasant 50-year-old female who presented with new renal failure. She was admitted. We have placed dialysis catheter. She has now been dialyzed. She is doing well. PHYSICAL EXAMINATION: She was examined this morning. HEART: Her heart tones were normal. LUNGS: Clear. ABDOMEN: Soft. EXTREMITIES: No edema. SKIN: No rashes. We plan to discharge. DISPOSITION: Home. ACTIVITY: As tolerated. DIET: Renal. MEDICATIONS: Please see the MRAD. TOTAL TIME: 32 minutes. ANGEL JONES DO DR: LINDA/sunitha JOB#: [id number] / [id number]
== END 2016-08-07 14:00 | disposition home or self-care (01) | DRG 673 ==
LOC: ER 08:54 → 5 SOUTH 10:00
PROVIDERS: ADMIT Internal Medicine; ATTEND Internal Medicine
PROC: 02H633Z Insertion of Infusion Device into Right Atrium, Percutaneous Approach (ICD-10-PCS; principal; 2016-07-26)
PROC: B244ZZZ Ultrasonography of Right Heart (ICD-10-PCS; 2016-07-26)
PROC: 0JH63XZ Insertion of Tunneled Vascular Access Device into Chest Subcutaneous Tissue and Fascia, Percutaneous Approach (ICD-10-PCS; 2016-07-26)
PROC: 5A1D60Z (ICD-10-PCS; 2016-07-28)
DX: I12.0 Hypertensive chronic kidney disease with stage 5 chronic kidney disease or end stage renal disease (principal); N18.6 End stage renal disease; E43 Unspecified severe protein-calorie malnutrition; N17.9 Acute kidney failure, unspecified; E11.22 Type 2 diabetes mellitus with diabetic chronic kidney disease; E03.9 Hypothyroidism, unspecified; D72.829 Elevated white blood cell count, unspecified; D63.1 Anemia in chronic kidney disease; E11.43 Type 2 diabetes mellitus with diabetic autonomic (poly)neuropathy; E78.5 Hyperlipidemia, unspecified; E83.42 Hypomagnesemia; E87.6 Hypokalemia; F17.200 Nicotine dependence, unspecified, uncomplicated; I16.0 Hypertensive urgency; K21.9 Gastro-esophageal reflux disease without esophagitis; E78.00 Pure hypercholesterolemia, unspecified; K31.84 Gastroparesis; G56.02 Carpal tunnel syndrome, left upper limb; Z68.21 Body mass index [BMI] 21.0-21.9, adult; Z79.4 Long term (current) use of insulin; Z82.49 Family history of ischemic heart disease and other diseases of the circulatory system; Z83.3 Family history of diabetes mellitus; Z86.73 Personal history of transient ischemic attack (TIA), and cerebral infarction without residual deficits; Z91.19 Patient's noncompliance with other medical treatment and regimen; Z99.2 Dependence on renal dialysis; Z88.5 Allergy status to narcotic agent; Z88.2 Allergy status to sulfonamides; Z88.8 Allergy status to other drugs, medicaments and biological substances
CPT/HCPCS: 36415; 36558; 71010; 74000; 76937; 77001; 80048; 80053; 80069; 80076; 80202; 81001; 82570; 82962; 83735; 83880; 84100; 84145; 84156; 85007; 85027; 85610; 86704; 86705; 86706; 87040; 87324; 87340; 87341; A4215; C1750; C1892; J0360; J0881; J1815; J1940; J2060; J2250; J2405; J2543; J2550; J2765; J3010; J3370; J3490; J7040; J7060; 99285-25

== ENCOUNTER 2016-08-10 09:47 | Inpatient (IN) | payer SELFPAY ==
[~2016-08-10] VITALS: Ht 167.6 cm; Wt 53.7 kg
[~2016-08-10 09:47] MED LIST: AMLO1TAB6 PO; CHOL10003 PO; CLON0.1T PO; CLOP75TA PO; FURO-68 PO; INSU100I13 SQ; INSU100I17 SQ; LEVO200T PO; PANT40TA3 PO; RANI150C PO
--- NOTE | 2016-08-10 10:40 | PHYS DOC ---
Past Medical History Past Medical History: High Cholesterol, Hypertension, Hypothyroid, Renal Disease, Stroke Past Surgical History: , Other Additional Past Surgical Histo: L- CARPAL TUNNEL, L SHOULDER, LOWER BACK, Dialysis catheter R)chest. Alcohol Use: None Drug Use: None Adult General Chief Complaint Chief Complaint: DIALYSIS PROBLEM HPI HPI Patient is a 50 year old female who presents to the emergency department for evaluation of end-stage renal disease. The patient states that she was recently diagnosed with end-stage renal disease and has not been able to secure outpatient treatment with dialysis. The patient is currently coming to the hospital as this is the only place she is able to get dialysis done. Patient denies any acute complaints at this time. The patient has a temporary dialysis shunt in her right anterior chest. Patient gets dialysis done on Saturday, Saturday, and Saturday. Review of Systems Review of Systems Constitutional: Denies fever or chills [] Eyes: Denies change in visual acuity, redness, or eye pain [] HENT: Denies nasal congestion or sore throat [] Respiratory: Denies cough or shortness of breath [] Cardiovascular: No additional information not addressed in HPI [] GI: Denies abdominal pain, nausea, vomiting, bloody stools or diarrhea [] : Denies dysuria or hematuria [] Musculoskeletal: Denies back pain or joint pain [] Integument: Denies rash or skin lesions [] Neurologic: Denies headache, focal weakness or sensory changes [] Endocrine: Denies polyuria or polydipsia [] Allergies Allergies Allergies Coded Allergies Type Severity Reaction Last Updated Verified Sulfa (Sulfonamide Antibiotics) Allergy Intermediate 07/25/16 Yes bupropion Allergy Intermediate 07/25/16 Yes meperidine Allergy Intermediate 07/25/16 Yes prochlorperazine Allergy Intermediate 07/29/16 Yes Physical Exam Physical Exam Constitutional: Well developed, well nourished, no acute distress, non-toxic appearance. [] HENT: Normocephalic, atraumatic, bilateral external ears normal, oropharynx moist, no oral exudates, nose normal. [] Cardiovascular:Heart rate regular rhythm, no murmur [] Lungs & Thorax: Bilateral breath sounds clear to auscultation, right subclavian dialysis catheter in place. [] Abdomen: Bowel sounds normal, soft, no tenderness, no masses, no pulsatile masses. [] Skin: Warm, dry, no erythema, no rash. [] Extremities: No tenderness, no cyanosis, no clubbing, ROM intact, no edema. [] Neurologic: Alert and oriented X 3, normal motor function, normal sensory function, no focal deficits noted. [] Current Patient Data Vital Signs Vital Signs Date Time Temp Pulse Resp B/P (MAP) Pulse Ox O2 Delivery O2 Flow Rate FiO2 08/10/16 10:01 98.2 76 20 187/91 (123) 97 Room Air 98.2 EKG EKG Interpreted by me: Heart rate 75, sinus rhythm, left axis deviation, no acute ST /T-wave abnormalities present [] Radiology/Procedures Radiology/Procedures Not performed [] Course & Med Decision Making Course & Med Decision Making Pertinent Labs and Imaging studies reviewed. (See chart for details) Patient's electrolytes were reviewed and showed no evidence of hyperkalemia. Patient's EKG does not show any concerning ectopy at this time. I was informed that the patient was to be admitted to the hospital and would receive dialysis. I spoke with Dr. Morel of nephrology who agreed to receive the patient's dialysis. I spoke Dr. Da Silva who accepted care patient in hospital. Dragon Disclaimer Dragon Disclaimer This electronic medical record was generated, in whole or in part, using a voice recognition dictation system. Departure Departure Impression: Primary Impression: ESRD (end stage renal disease) Disposition: ADMITTED INPATIENT Admitting Physician: Other Condition: STABLE Referrals: UNKNOWN PCP NAME (PCP) RYAN BRYANT MD Aug 10, 2016 10:40
--- NOTE | 2016-08-10 10:51 | ACF ---
Admission Forms Criteria RENAL FAILURE, CHRONIC Clinical Indications for Admission to Inpatient Care (Place 'X' for any and all applicable criteria): Admission is indicated for ANY ONE of the following (1)(2)(3)(4)(5): [X]I. Inpatient admission required rather than observation care (Use Renal Failure, Chronic: Observation Care Criteria as appropriate) because of ANY ONE of the following: [ ]a) Volume overload or uremic symptoms (eg, clinically significant pulmonary edema, hypertension, pericarditis, acidosis) too severe for, or not responsive (eg, for over 24 hours) to emergency department or observation care dialysis or treatment regimen (11) [ ]b) Hemodynamic instability that is severe or persistent [ ]c) Respiratory distress that is severe or persistent (11) [ ]d) Clinically significant electrolyte abnormality that requires inpatient care (eg,hyperkalemia with severe ECG findings)[B] [ ]e) Supplement O2 or respiratory therapy for over 24hrs that is performable only in acute inpatient setting [ ]f) Continuous IV infusion of anticoagulation, platelet inhibitor, vasoactive, or Antiarrhythmic medication (15), [ ]g) Pulmonary artery catheter monitoring [ ]h) Temporary pacemaker placement [ ]i) Emergent pericardiocentesis [X]j) Other condition, treatment or monitoring requiring inpatient admission [ ]II. Unexplained syncope [A] [ ]III. Recurrent seizures [ ]IV. Severe infections not treatable in outpatient setting (eg, peritonitis)(9 ) [ ]V. Cardiac arrhythmias of immediate concern [ ]. Encephalopathy [ ]VII.Bleeding abnormalities (eg, platelet dysfunction) with active (eg, gastrointestinal) bleeding Extended stay beyond goal length of stay may be needed for (3)(4)(35)(36): [ ]a) Continuing uremic complications [ ]b) Comorbidities or complications The original [employer] content created by [employer] has been revised. The portions of the content which have been revised are identified through the use of italic text or in bold, and [employer] [employer] has neither reviewed nor approved the modified material. All other unmodified content is copyright [employer]. Please see references footnoted in the original [employer] hospital[facility] Development edition 2016 Admission Criteria Met?: Yes BARTOLO CORDOVA Aug 10, 2016 10:51
--- NOTE | 2016-08-10 11:22 | EKG ---
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
--- NOTE | 2016-08-10 12:11 | SSS ---
ADMIT DATE: 08/10/2016 CHIEF COMPLAINT: ____ dialysis. HISTORY OF PRESENT ILLNESS: The patient is a pleasant middle-aged female, who we just started on dialysis for end-stage renal disease within the past few weeks. She presented today with the need for recurrent dialysis. I discussed the case with the ER physician and the showcase maker. Plan is going to admit her, dialyze her and then we hope to discharge if she is doing well. PAST MEDICAL HISTORY: Hyperlipidemia, hypertension, end-stage renal disease on dialysis, stroke, , carpal tunnel, left shoulder, ____ and dialysis catheter placement and noncompliance. ALLERGIES: SULFA, BUPROPION, MEPERIDINE AND PROCHLORPERAZINE. FAMILY HISTORY: Coronary artery disease. SOCIAL HISTORY: She does not drink, smoke or take drugs. MEDICATIONS: Reviewed, please refer to the MRAD. REVIEW OF SYSTEMS: GENERAL: No history of weight change, weakness or fevers. SKIN: No bruising, hair changes or rashes. EYES: No blurred, double or loss of vision. NOSE AND THROAT: No history of nosebleeds, hoarseness or sore throat. HEART: No history of palpitations, chest pain or shortness of breath on exertion. LUNGS: Denies cough, hemoptysis, wheezing or shortness of breath. GASTROINTESTINAL: Denies changes in appetite, nausea, vomiting, diarrhea or constipation. GENITOURINARY: No history of frequency, urgency, hesitancy or nocturia. NEUROLOGIC: Denies history of numbness, tingling, tremor or weakness. PSYCHIATRIC: No history of panic, anxiety or depression. ENDOCRINE: No history of heat or cold intolerance, polyuria or polydipsia. EXTREMITIES: Denies muscle weakness, joint pain, pain on walking or stiffness. PHYSICAL EXAMINATION: VITAL SIGNS: Temperature afebrile, pulse ____, respirations 18, blood pressure 187/91. GENERAL: She is alert, cooperative. HEART: Normal S1, S2. LUNGS: Clear. ABDOMEN: Soft. EXTREMITIES: No edema. SKIN: No rashes. PSYCHIATRIC: She is stable. VASCULAR: Good capillary refill. ENDOCRINE: No thyromegaly. LYMPHATICS: No cervical nodes. HEMATOPOIETIC: No bruising. LABORATORY DATA: Pending. Those are old labs. ASSESSMENT AND PLAN: End-stage renal disease, needing dialysis. The patient is being admitted. We will dialyze her, consult Dr. Okeefe. Recheck her labs. Continue her home meds. Hope to discharge this afternoon if she is doing well. ANGEL JONES DO DR: LINDA/sunitha JOB#: [id number] / [id number]
[2016-08-10 13:00] VITALS: BP 144/89
[2016-08-10] MEDS ORDERED: ONDANSETRON PF 4 MG/2 ML VIAL. IV PRN (13:30)
[2016-08-10] MEDS ORDERED: INSULIN ASPART 300 UNITS/3 ML INSULN.PEN SQ ONE (14:00)
[2016-08-10] MEDS ORDERED: IV NORMAL SALINE 1000ML BAG 1,000 ML IV PRN (14:02)
[2016-08-10] MEDS ORDERED: DIALYSIS PATIENT. MC PRN ×2 (14:15)
[2016-08-10] MEDS ORDERED: diphenhydrAMINE 50 MG/ML VIAL IV PRN ×2 (14:15)
[2016-08-10] MEDS ORDERED: 0.9 % SODIUM CHLORIDE 10 ML DISP.SYRIN. IV PRN ×2 (14:15)
[2016-08-10 14:36] LABS: CALCIUM 7.5 mg/dL (8.5-10.1); CREATININE 4.6 mg/dL (0.6-1.0); GFR 10.1; POTASSIUM 3.8 mmol/L (3.5-5.1)
[2016-08-10 17:23] VITALS: BP 133/86
[2016-08-10] MEDS ORDERED: INSULIN ASPART 300 UNITS/3 ML INSULN.PEN SQ SCH (17:30)
== END 2016-08-10 17:51 | disposition home or self-care (01) | DRG 682 ==
LOC: ER 09:47 → 5 NORTH 10:02
PROVIDERS: ADMIT Internal Medicine; ATTEND Internal Medicine
DX: I12.0 Hypertensive chronic kidney disease with stage 5 chronic kidney disease or end stage renal disease (principal); N18.6 End stage renal disease; E03.9 Hypothyroidism, unspecified; E78.00 Pure hypercholesterolemia, unspecified; E78.5 Hyperlipidemia, unspecified; Z82.49 Family history of ischemic heart disease and other diseases of the circulatory system; Z86.73 Personal history of transient ischemic attack (TIA), and cerebral infarction without residual deficits; Z91.19 Patient's noncompliance with other medical treatment and regimen; Z99.2 Dependence on renal dialysis; Z98.891 History of uterine scar from previous surgery; Z88.2 Allergy status to sulfonamides; Z88.8 Allergy status to other drugs, medicaments and biological substances
CPT/HCPCS: 36415; 80048; 82962; 93005; J1815; 99285-25

== ENCOUNTER 2016-08-13 06:17 | Observation (INO) | payer SELFPAY ==
[~2016-08-13] VITALS: Ht 167.6 cm; Wt 54.5 kg
--- NOTE | 2016-08-13 06:48 | PHYS DOC ---
Past Medical History Past Medical History: High Cholesterol, Hypertension, Hypothyroid, Renal Disease, Stroke Past Surgical History: , Other Additional Past Surgical Histo: L- CARPAL TUNNEL, L SHOULDER, LOWER BACK, Dialysis catheter R)chest. Alcohol Use: None Drug Use: None Adult General Chief Complaint Chief Complaint: DIALYSIS PROBLEM HPI HPI Patient is a 50 year old female presenting to the emergency department to get her dialysis. She denies any complaints including shortness of breath chest pain fevers or chills. Review of Systems Review of Systems Constitutional: Denies fever or chills [] Eyes: Denies change in visual acuity, redness, or eye pain [] HENT: Denies nasal congestion or sore throat [] Respiratory: Denies cough or shortness of breath [] Cardiovascular: No additional information not addressed in HPI [] GI: Denies abdominal pain, nausea, vomiting, bloody stools or diarrhea [] : Denies dysuria or hematuria [] Musculoskeletal: Denies back pain or joint pain [] Integument: Denies rash or skin lesions [] Neurologic: Denies headache, focal weakness or sensory changes [] Allergies Allergies Allergies Coded Allergies Type Severity Reaction Last Updated Verified Sulfa (Sulfonamide Antibiotics) Allergy Intermediate 07/25/16 Yes bupropion Allergy Intermediate 07/25/16 Yes meperidine Allergy Intermediate 07/25/16 Yes prochlorperazine Allergy Intermediate 07/29/16 Yes Physical Exam Physical Exam Constitutional: Well developed, well nourished, no acute distress, non-toxic appearance. [] HENT: Normocephalic, atraumatic, bilateral external ears normal, oropharynx moist, no oral exudates, nose normal. [] Eyes: PERRLA, EOMI, conjunctiva normal, no discharge. [] Neck: Normal range of motion, no tenderness, supple, no stridor. [] Cardiovascular:Heart rate regular rhythm, no murmur [] Lungs & Thorax: Bilateral breath sounds clear to auscultation [] Abdomen: Bowel sounds normal, soft, no tenderness, no masses, no pulsatile masses. [] Skin: Warm, dry, no erythema, no rash. [] Back: No tenderness, no CVA tenderness. [] Extremities: No tenderness, no cyanosis, no clubbing, ROM intact, no edema. [] Neurologic: Alert and oriented X 3, normal motor function, normal sensory function, no focal deficits noted. [] Psychologic: Affect normal, judgement normal, mood normal. [] EKG EKG [] Radiology/Procedures Radiology/Procedures [] Course & Med Decision Making Course & Med Decision Making Labs drawn and will be sent upstairs for dialysis. Dragon Disclaimer Dragon Disclaimer This electronic medical record was generated, in whole or in part, using a voice recognition dictation system. Departure Departure Impression: Primary Impression: ESRD (end stage renal disease) Disposition: ADMITTED INPATIENT Admitting Physician: Other (REUSCH) Condition: STABLE Referrals: UNKNOWN PCP NAME (PCP) VARUN VALADEZ DO Aug 13, 2016 06:47
[2016-08-13 07:25] LABS: GFR 9.2; POTASSIUM 4.6 mmol/L (3.5-5.1)
[2016-08-13 07:45] VITALS: BP 148/82
[2016-08-13] MEDS ORDERED: IV NORMAL SALINE 1000ML BAG 1,000 ML IV PRN (09:06)
[2016-08-13] MEDS ORDERED: diphenhydrAMINE 50 MG/ML VIAL IV PRN ×2 (09:15)
[2016-08-13] MEDS ORDERED: DIALYSIS PATIENT. MC PRN (09:15)
[2016-08-13] MEDS ORDERED: 0.9 % SODIUM CHLORIDE 10 ML DISP.SYRIN. IV PRN ×2 (09:15)
[2016-08-13] MEDS ORDERED: LABETALOL 20 MG/4 ML DISP.SYRIN. IVP PRN (09:15)
[2016-08-13 12:39] VITALS: BP 193/102
--- NOTE | 2016-08-13 15:12 | PDOC1 ---
History and Physical Date of Admission Date of Admission 08/13/16 Identification/Chief Complaint Chief Complaint HD as outpt Problems: Source Source: Chart review, Patient History of Present Illness History of Present Illness HPI HPI Patient is a 50 year old female presenting to the emergency department to get her dialysis. She was DCed last week, however, outpt HD not set up yet. She denies any complaints including shortness of breath chest pain fevers or chills. Past Medical History Cardiovascular: HTN, Hyperlipidemia CENTRAL NERVOUS SYSTEM: CVA Renal/: Chronic renal failure, Other Endocrine: Diabetes Past Surgical History Past Surgical History: Family History Family History: Diabetes, Hypertension Social History Smoke: No ALCOHOL: none Drugs: None Current Medications Current Medications Current Medications Medications (Trade) Dose Ordered Sig/Harper Start Time Stop Time Status Last Admin Dose Admin Diphenhydramine HCl (Benadryl) 25 mg 1X PRN PRN 08/13/16 09:15 08/13/16 15:06 DC Info (PHARMACY MONITORING -- do not chart) 1 each PRN DAILY PRN 08/13/16 09:15 08/13/16 15:06 DC Labetalol HCl (Normodyne) 10 mg PRN Q1HR PRN 08/13/16 09:15 08/13/16 15:06 DC 08/13/16 12:39 10 MG Sodium Chloride (Normal Saline Flush) 10 ml 1X PRN PRN 08/13/16 09:15 08/13/16 15:06 DC Allergies Allergies Allergies Coded Allergies Type Severity Reaction Last Updated Verified Sulfa (Sulfonamide Antibiotics) Allergy Intermediate 07/25/16 Yes bupropion Allergy Intermediate 07/25/16 Yes meperidine Allergy Intermediate 07/25/16 Yes prochlorperazine Allergy Intermediate 07/29/16 Yes ROS Review of System CONSTITUTIONAL: No fever or chills EYES: No recent changes SKIN: No rash or itching CARDIOVASCULAR: No chest pain, syncope, palpitations, or edema RESPIRATORY: No SOB or cough GASTROINTESTINAL: No nausea, vomiting or abdominal pain NEUROLOGICAL: No headaches or weakness ENDOCRINE: No cold or heat intolerance GENITOURINARY: No urgency or frequency of urination MUSCULOSKELETAL: No back pain or joint pain LYMPHATICS: No enlarged lymph nodes PSYCHIATRIC: No anxiety or depression Physical Exam Physical Exam GEN.: No apparent distress. Alert and oriented. HEENT: Head is normocephalic, atraumatic NECK: Supple. LUNGS: Clear to auscultation. HEART: RRR, S1, S2 present. Peripheral pulses intact ABDOMEN: Soft, nontender. Positive bowel sounds. EXTREMITIES: Without any cyanosis. NEUROLOGIC: Normal speech, normal tone PSYCHIATRIC: Normal affect, normal mood. SKIN: No ulcerations Vitals Vitals Vital Signs Date Time Temp Pulse Resp B/P (MAP) Pulse Ox O2 Delivery O2 Flow Rate FiO2 08/13/16 12:39 75 193/102 08/13/16 07:45 98.0 16 97 Room Air 98.0 Labs Labs Laboratory Tests Test 08/13/16 07:10 Sodium Level 136 mmol/L (136-145) Potassium Level 4.6 mmol/L (3.5-5.1) Chloride Level 101 mmol/L (98-107) Carbon Dioxide Level 25 mmol/L (21-32) Anion Gap 10 (6-14) Blood Urea Nitrogen 70 mg/dL (7-20) Creatinine 5.0 mg/dL (0.6-1.0) Estimated GFR (Cockcroft-Gault) 9.2 Glucose Level 430 mg/dL (70-99) Calcium Level 8.0 mg/dL (8.5-10.1) Laboratory Tests Test 08/13/16 07:10 Sodium Level 136 mmol/L (136-145) Potassium Level 4.6 mmol/L (3.5-5.1) Chloride Level 101 mmol/L (98-107) Carbon Dioxide Level 25 mmol/L (21-32) Anion Gap 10 (6-14) Blood Urea Nitrogen 70 mg/dL (7-20) Creatinine 5.0 mg/dL (0.6-1.0) Estimated GFR (Cockcroft-Gault) 9.2 Glucose Level 430 mg/dL (70-99) Calcium Level 8.0 mg/dL (8.5-10.1) VTE Prophylaxis Ordered VTE Prophylaxis Devices: Yes VTE Pharmacological Prophylaxi: No Assessment/Plan Assessment/Plan 1. ESRD on HD MWF 2. htn 3. hld 4. hypothyroidism 5. h/o CVA wo deficit. dc after HD. KARYNA NAGEL MD Aug 13, 2016 15:12
--- NOTE | 2016-08-13 15:14 | PDOC3 ---
Discharge Summary [facility] Date of Admission: Aug 13, 2016 Discharge Date: Aug 13, 2016 Admitting Diagnosis 1. ESRD on HD MWF 2. htn 3. hld 4. hypothyroidism 5. h/o CVA wo deficit. Problems: CONSULTS renal Brief Hospital Course Ms. Dai is a 50 old F, who was DCed last week for ESRD, new set up HD. however, OUTPT HD not set up yet, so she comes to ER [facility] for HD. she feels good, no N/V, fever, chills. dc after HD. Patient History: FH: HTN (hypertension) 33 FATHER 32 MOTHER FH: pancreatic cancer 32 MOTHER FHx: diabetes mellitus 33 FATHER Problems: Disposition home CONDITION AT DISCHARGE: Improved Diet regular, renal Scheduled Amlodipine/Atorvastatin (Caduet 10 Mg-40 Mg Tablet), 1 EACH PO DAILY, (Reported) Cholecalciferol (Vitamin D3) (Vitamin D3), 1 TAB PO DAILY, (Reported) Clonidine Hcl (Clonidine Hcl), 0.1 MG PO BID, (Reported) Clopidogrel Bisulfate (Clopidogrel), 1 TAB PO DAILY, (Reported) Furosemide (Lasix), 40 MG PO BID, (Reported) Insulin Aspart (Novolog Flexpen), 5 UNIT SQ TIDAC, (Reported) Insulin Glargine,Hum.rec.anlog (Lantus Solostar), 8 UNIT SQ QHS, (Reported) Levothyroxine Sodium (Synthroid), 1 TAB PO DAILY, (Reported) Pantoprazole Sodium (Protonix), 1 TAB PO DAILY, (Reported) Ranitidine Hcl (Ranitidine Hcl), 150 MG PO BID, (Reported) Follow Up HD F KARYNA NAGEL MD Aug 13, 2016 15:14
== END 2016-08-13 14:50 | disposition home or self-care (01) ==
LOC: ER 06:17 → 6 SOUTH 06:49
PROVIDERS: ADMIT Internal Medicine Hematology & Oncology; ATTEND Internal Medicine Hematology & Oncology
DX: I12.0 Hypertensive chronic kidney disease with stage 5 chronic kidney disease or end stage renal disease (principal); N18.6 End stage renal disease; E11.22 Type 2 diabetes mellitus with diabetic chronic kidney disease; E78.5 Hyperlipidemia, unspecified; E03.9 Hypothyroidism, unspecified; E78.00 Pure hypercholesterolemia, unspecified; Z99.2 Dependence on renal dialysis; Z86.73 Personal history of transient ischemic attack (TIA), and cerebral infarction without residual deficits; Z82.49 Family history of ischemic heart disease and other diseases of the circulatory system; Z83.3 Family history of diabetes mellitus; Z80.0 Family history of malignant neoplasm of digestive organs
CPT/HCPCS: 36415; 80048; 96374; 99285; G0378; J3490; G0379

== ENCOUNTER 2016-11-21 07:18 | Outpatient (CLI) | payer MEDICARE ==
[2016-11-21] VITALS (7 sets, daily range): BP systolic 138–210; BP diastolic 79–108
[~2016-11-21] VITALS: Ht 167.6 cm; Wt 50.8 kg
[2016-11-21] MEDS ORDERED: HEPARIN for IV BOLUS 10,000 UNIT/10 ML VIAL. ONE (07:54)
[2016-11-21] MEDS ORDERED: LIDOCAINE 1%/EPI 1:100,000 20 ML VIAL. ONE (07:54)
[2016-11-21 07:55] LABS: BASO # 0.1 x10^3/uL (0.0-0.2); BASO % 1 % (0-3); EOS % 5 % (0-3); HEMATOCRIT 39.1 % (36.0-47.0); HEMOGLOBIN 13.1 g/dL (12.0-15.5); LYMPH # 1.5 x10^3/uL (1.0-4.8); LYMPH % 22 % (24-48); MEAN CORPUSCULAR HEMOGLOBIN 29 pg (25-35); MEAN CORPUSCULAR HGB CONC 34 g/dL (31-37); MEAN CORPUSCULAR VOLUME 87 fL (79-100); MONO % 7 % (0-9); NEUT % 65 % (31-73); PLATELET COUNT 267 x10^3/uL (140-400); RED CELL DISTRIBUTION WIDTH 13.9 % (11.5-14.5)
[2016-11-21 08:04] LABS: PROTHROMBIN TIME PATIENT 12.6 SEC (11.7-14.0)
[2016-11-21] MEDS ORDERED: LISI-334 PO (08:38)
[2016-11-21] MEDS ORDERED: FLUO20CA16 PO (08:40)
[2016-11-21] MEDS ORDERED: MIDAZOLAM HCL/PF 2 MG/2 ML VIAL. ONE (08:48)
[2016-11-21] MEDS ORDERED: fentaNYL PF VIAL 100 MCG/2 ML VIAL ONE (08:48)
[2016-11-21] MEDS ORDERED: fentaNYL PF VIAL 100 MCG/2 ML VIAL IV ONE (09:00)
[2016-11-21] MEDS ORDERED: LIDOCAINE 1%/EPI 1:100,000 20 ML VIAL. INJ ONE (09:00)
[2016-11-21] MEDS ORDERED: MIDAZOLAM HCL/PF 2 MG/2 ML VIAL. IV ONE (09:00)
--- NOTE | 2016-11-21 09:11 | PDOC ---
MODERATE SEDATION ASSESSMENT RISKS/ALTERNATIVES Risks/Alternatives Risks and alternatives of this type of sedation and procedure discussed with: RISK/ALTERNATIVES: Patient H & P ON CHART H & P H & P on chart and reviewed for co-morbid conditions and appropriate labs. H&P ON CHART: Yes STATUS PREG STATUS ASSESSED: Yes MEDS/ALLERGIES REVIEWED Meds/Allergies Reviewed Medications and Allergies including time and route of recently administered narcotics and sedatives. MEDS/ALLERGIES REVIEWED: Yes ASA RATING ASA RATING: II AIRWAY ASSESSMENT Airway Assessment Airway patency, oral function limitations, presence of caps, crowns, dentures, partials, and ability to extend neck assessed. AIRWAY ASSESSMENT: Yes MALLAMPATI SCORE MALLAMPATI SCORE: II PRE-SEDATION ASSESSMENT PRE-SEDATION ASSESSMENT: Yes LUIS DIAZ MD Nov 21, 2016 09:11
--- NOTE | 2016-11-21 09:11 | PDOC ---
BRIEF OPERATIVE NOTE Pre-Op Diagnosis Malfunctioning Tunnelled HD Catheter Post-Op Diagnosis same Procedure Performed Catheter exchange Surgeon Isidro Anesthesia Type: Conscious Sedation Findings New 23cm Palindrome with excellent manual flows Complications No immediate LUIS DIAZ MD Nov 21, 2016 09:11
--- NOTE | 2016-11-21 09:12 | PDOC1 ---
History and Physical Date of Procedure Date of Admission History of Present Illness Reason for Visit Malfunctioning Tunnelled HD Catheter Past Medical History Past Medical History see nursing pre-op assessment Current Medications Current Medications Current Medications Heparin Sodium (Porcine) (Heparin Sodium) 10,000 unit STK-MED ONCE .ROUTE ; Start 11/21/16 at 07:54; Stop 11/21/16 at 07:55; Status DC Lidocaine/ Epinephrine (Xylocaine 1%-Epi 1:100,000) 20 ml STK-MED ONCE .ROUTE ; Start 11/21/16 at 07:54; Stop 11/21/16 at 07:55; Status DC Heparin Sodium/ Sodium Chloride 500 ml @ As Directed STK-MED ONCE .ROUTE ; Start 11/21/16 at 07:55; Stop 11/21/16 at 07:56; Status DC Cefazolin Sodium 50 ml @ As Directed STK-MED ONCE IV ; Start 11/21/16 at 08:47; Stop 11/21/16 at 08:48; Status DC Fentanyl Citrate (Fentanyl 2ml Vial) 100 mcg STK-MED ONCE .ROUTE ; Start at 08:48; Stop 11/21/16 at 08:49; Status DC Midazolam HCl (Versed) 2 mg STK-MED ONCE .ROUTE ; Start 11/21/16 at 08:48; Stop 11/21/16 at 08:49; Status DC Heparin Sodium/ Sodium Chloride 1,000 unit 1X ONCE IART ; Start 11/21/16 at 09: 00; Stop 11/21/16 at 09:05; Status DC Midazolam HCl (Versed) 2 mg 1X ONCE IV ; Start 11/21/16 at 09:00; Stop at 09:05; Status DC Fentanyl Citrate (Fentanyl 2ml Vial) 100 mcg 1X ONCE IV ; Start 11/21/16 at 09: 00; Stop 11/21/16 at 09:05; Status DC Heparin Sodium (Porcine) (Heparin Sodium) 2,600 unit 1X ONCE INT CAT ; Start at 09:00; Stop 11/21/16 at 09:05; Status DC Lidocaine/ Epinephrine (Xylocaine 1%-Epi 1:100,000) 20 ml 1X ONCE INJ ; Start 11/21/16 at 09:00; Stop 11/21/16 at 09:05; Status DC Active Scripts Active Reported Prozac (Fluoxetine Hcl) 20 Mg Capsule 1 Cap PO [id number] Lisinopril 20 Mg Tablet 1 Tab PO BID Synthroid (Levothyroxine Sodium) 200 Mcg Tablet 1 Tab PO DAILY Novolog Flexpen (Insulin Aspart) 100 Unit/1 Ml Insuln.pen 5 Unit SQ TIDAC Lantus Solostar (Insulin Glargine,Hum.rec.anlog) 100 Unit/1 Ml Insuln.pen 8 Unit SQ QHS Clonidine Hcl 0.1 Mg Tablet 0.1 Mg PO BID Lasix (Furosemide) 40 Mg Tablet 40 Mg PO BID Caduet 10 Mg-40 Mg Tablet (Amlodipine/Atorvastatin) 1 Each Tablet 1 Each PO DAILY Protonix (Pantoprazole Sodium) 40 Mg Tablet.dr 1 Tab PO DAILY Clopidogrel (Clopidogrel Bisulfate) 75 Mg Tablet 1 Tab PO DAILY Ranitidine Hcl 150 Mg Capsule 150 Mg PO BID Vitamin D3 (Cholecalciferol (Vitamin D3)) 1,000 Unit Tablet 1 Tab PO DAILY Allergies Allergies: Coded Allergies: Sulfa (Sulfonamide Antibiotics) (Verified Allergy, Intermediate, 07/25/16) bupropion (Verified Allergy, Intermediate, 07/25/16) meperidine (Verified Allergy, Intermediate, 07/25/16) prochlorperazine (Verified Allergy, Intermediate, 07/29/16) Physical Exam Vital Signs Vital Signs Date Time Temp Pulse Resp B/P (MAP) Pulse Ox O2 Delivery O2 Flow Rate FiO2 11/21/16 08:25 97.9 77 14 192/105 (134) Room Air 97.9 Assessment Assessment Malfunctioning Tunnelled HD Catheter Problems: Plan Plan Exchange LUIS DIAZ MD Nov 21, 2016 09:12
--- NOTE | 2016-11-21 10:20 | RAD ---
Procedure: Tunneled hemodialysis catheter exchange using fluoroscopy Clinical Indication: 50-year-old with malfunctioning tunneled hemodialysis catheter Sedation: Conscious sedation was administered for 22 minutes. The patient was monitored by a qualified independent observer throughout the time of sedation. Please refer to the medical record for exact doses of medications utilized to achieve moderate sedation. Antibiotics: Antibiotic was administered intravenously within 1 hour of the procedure start time. Exposure: Kerma-Area Product: 2 Gycm2 Contrast: None Sterility: All elements of maximal sterile barrier technique including the use of a cap, mask, sterile gown, sterile gloves, large sterile sheet, appropriate hand hygiene, and 2% chlorhexidine for cutaneous antisepsis (or acceptable alternative antiseptic per current guidelines) were followed for this procedure. Consent: The procedure was explained in its entirety to the patient or the patients designated patient representative by a member of the treatment team, including a discussion of the risks, benefits and commonly accepted alternatives to the procedure, as well as the expected consequences of no therapy whatsoever. Discussion of the risks included, but was not limited to, those that are most frequent and those that are rare but possibly severe or life-threatening, as well as the possibility of unforeseen complications. Technique and Findings: Following informed consent, the patient was prepped and draped in usual sterile fashion. 1% lidocaine was used to achieve local anesthesia over the existing right IJ tunneled hemodialysis catheter after preliminary fluoroscopic spot view was obtained. Blunt dissection techniques were then used to free the cuff. The catheter was then removed over a Glidewire, and a new 23 cm palindrome hemodialysis catheter was advanced over the wire under fluoroscopic guidance and positioned with the distal tip in the mid right atrium. Manual flow rates were assessed and found to be excellent. This catheter was flushed, packed with heparin, capped, and sutured to the skin. Complications: No immediate Impression: 1. Tunneled hemodialysis catheter exchange under fluoroscopy as described
== END 2016-11-21 10:50 | disposition home or self-care (01) ==
LOC: INTRAD 07:18
PROVIDERS: ATTEND Internal Medicine Nephrology
DX: T82.49XA Other complication of vascular dialysis catheter, initial encounter (principal); Y84.8 Other medical procedures as the cause of abnormal reaction of the patient, or of later complication, without mention of misadventure at the time of the procedure; E78.00 Pure hypercholesterolemia, unspecified; I10 Essential (primary) hypertension; M19.91 Primary osteoarthritis, unspecified site; E11.9 Type 2 diabetes mellitus without complications; E03.9 Hypothyroidism, unspecified; F32.9 Major depressive disorder, single episode, unspecified; Z87.891 Personal history of nicotine dependence; Z86.69 Personal history of other diseases of the nervous system and sense organs; Z87.39 Personal history of other diseases of the musculoskeletal system and connective tissue; Z86.39 Personal history of other endocrine, nutritional and metabolic disease; Z86.73 Personal history of transient ischemic attack (TIA), and cerebral infarction without residual deficits; Z88.2 Allergy status to sulfonamides; Z88.8 Allergy status to other drugs, medicaments and biological substances
CPT/HCPCS: 36415; 36581; 77001; 85025; 85610; 99152; 99153; C1750; C1769; J1644; J2250; J3010; J3490

== ENCOUNTER 2016-12-10 08:01 | Day surgery (SDC) | payer MEDICARE ==
[~2016-12-10] VITALS: Ht 165.1 cm; Wt 109.3 kg
[~2016-12-10 08:01] MED LIST changes: +BUPIVACAINE-EPI 0.5%-1:200000 50 ML VIAL. ONE; +FLUO20CA16 PO; +HEPARIN SODIUM 5,000 UNIT in IV NORMAL SALINE 500ML BAG 500 ML IRR ONE; +HYDROmorphone 2 MG/ML VIAL IV PRN; +IV RINGERS,LACTATED 1000ML 1,000 ML IV SCH; +LIDOCAINE 1% PF 2 ML VIAL. ID PRN; +LISI-334 PO; +MORPHINE SULFATE 2 MG/ML DISP.SYRIN. IV PRN; +NEOMY/BACITR/POLYMYXIN OINT PACKET. TP ONE; +ONDANSETRON PF 4 MG/2 ML VIAL. IV PRN; +fentaNYL PF VIAL 100 MCG/2 ML VIAL IV PRN
[2016-12-10 09:14] LABS: CALCIUM 8.8 mg/dL (8.5-10.1); CREATININE 3.6 mg/dL (0.6-1.0); GFR 13.3
[2016-12-10] MEDS ORDERED: fentaNYL PF VIAL 100 MCG/2 ML VIAL ONE (10:00)
[2016-12-10] MEDS ORDERED: PROPOFOL 20 ML IV ONE (10:00)
[2016-12-10] MEDS ORDERED: DEXAMETHASONE SOD PHOS 20 MG/5 ML VIAL. ONE (10:00)
[2016-12-10] MEDS ORDERED: ONDANSETRON PF 4 MG/2 ML VIAL. ONE (10:00)
[2016-12-10] MEDS ORDERED: SEVOFLURANE 61 TO 120 MINUTES. IH ONE (10:27)
[2016-12-10] MEDS ORDERED: NEOSTIGMINE METHYLSULFATE 5 MG/5 ML SYRINGE. ONE (10:34)
[2016-12-10] MEDS ORDERED: GLYCOPYRROLATE 1 MG/5 ML VIAL. ONE (10:34)
--- NOTE | 2016-12-10 10:52 | DISCH ---
DISCHARGE INSTRUCTIONS Condition on Discharge Condition on Discharge: Stable Activity After Discharge Activity Instructions for Disc: Activity as tolerated, Avoid exertion Lifting Instructions after Dis: No heavy lifting Diet after Discharge Diet after Discharge: Renal Dialysis Wound Incision Care Wound/Incision Care: Ice to area for comfort, Keep wound/cast CDI Other wound/incision instructi: no shower til Saturday Follow-Up Follow up with: Aditya in two weeks SUNDEEP SANDRA MD Dec 10, 2016 10:52
[2016-12-10] MEDS ORDERED: INSULIN ASPART 100 UNIT/ML 10ML VIAL. SQ ONE (11:00)
--- NOTE | 2016-12-10 11:07 | PDOC ---
BRIEF OPERATIVE NOTE Date: Dec 10, 2016 Pre-Op Diagnosis ESRD Post-Op Diagnosis same, abdominal adhesions Procedure Performed l/s placement PD catheter SAMRA Surgeon Aditya Anesthesia Type: General Blood Loss 5cc IV Fluid 700cc Specimens Obtained none Findings omental adhesions in the low midline Complications none OPerative Note Wk # [id number] SUNDEEP SANDRA MD Dec 10, 2016 11:07
--- NOTE | 2016-12-10 11:22 | OP ---
DATE OF SURGERY: 12/10/2016 PREOPERATIVE DIAGNOSIS: End-stage renal disease on hemodialysis, requesting peritoneal dialysis catheter placement. POSTOPERATIVE DIAGNOSIS: End-stage renal disease on hemodialysis, requesting peritoneal dialysis catheter placement with omental adhesions. PROCEDURE: 1. Laparoscopic placement of peritoneal dialysis catheter. 2. Lysis of adhesions. SURGEON: Sundeep Sandra MD ANESTHESIA: General endotracheal. ESTIMATED BLOOD LOSS: 5 mL. INTRAVENOUS FLUIDS: 700 mL. INDICATIONS: The patient is a 51-year-old end-stage renal patient on hemodialysis, requesting PD catheter. OPERATIVE REPORT: The patient brought to the operating suite, given a general endotracheal anesthetic and the abdomen prepped and draped in the usual sterile fashion. The template for placement of the catheter was used to outline incisions. A midline epigastric incision was infiltrated with local anesthetic, incised and a 5 mm Visiport used to gain access into the abdominal cavity, taking care to avoid injury to abdominal contents. Pneumoperitoneum was established. Camera inserted and a strand of omental adhesions were in place in the low midline of the abdomen. A small amount of fluid is present in the pelvis. The insertion site was infiltrated with local anesthetic, sharply incised and a 5 mm port passed through it. This allowed use of a Harmonic scalpel to take down the omental adhesions, taking care to avoid injury to the adjacent bowel. Once accomplished, the port was removed and the needle was passed into the abdominal cavity under direct vision. Dilators were passed through the sheath, catheter threaded through the sheath and the sheath removed after seating the Dacron cuff just outside the peritoneum. The remaining catheter was tunneled subcutaneously at the access site. Abdomen decompressed. The catheter was flushed with approximately 500 mL of normal saline, which were readily accepted and drained a similar amount. The catheter was "packed" with heparinized saline. Skin incisions closed with subcutaneous 3-0 Vicryl suture and the skin incisions with subcuticular 4-0 Monocryl. A single 5-0 nylon mattress stitch was placed at the access site. Sterile dressings applied. The patient awakened from her anesthetic and taken to the recovery room in satisfactory condition. SUNDEEP SANDRA MD DR: ANGEL/sunitha JOB#: [id number] / [id number]
[2016-12-10] MEDS ORDERED: HYDR-971 PO (11:30)
[2016-12-10] MEDS ORDERED: DOCU50CA9 PO (11:30)
[2016-12-10] MEDS ORDERED: HYDROcodone/APAP 5/325MG 1 TAB TABLET PO ONE (11:30)
[2016-12-10 12:00] VITALS: BP 152/82
== END 2016-12-10 12:40 | disposition home or self-care (01) ==
LOC: SURG 08:01
PROVIDERS: ATTEND Surgery
DX: I12.0 Hypertensive chronic kidney disease with stage 5 chronic kidney disease or end stage renal disease (principal); E11.22 Type 2 diabetes mellitus with diabetic chronic kidney disease; N18.6 End stage renal disease; E78.00 Pure hypercholesterolemia, unspecified; K21.9 Gastro-esophageal reflux disease without esophagitis; E03.9 Hypothyroidism, unspecified; F32.9 Major depressive disorder, single episode, unspecified; Z86.69 Personal history of other diseases of the nervous system and sense organs; Z86.73 Personal history of transient ischemic attack (TIA), and cerebral infarction without residual deficits; Z87.39 Personal history of other diseases of the musculoskeletal system and connective tissue; Z86.39 Personal history of other endocrine, nutritional and metabolic disease; Z87.891 Personal history of nicotine dependence; Z99.2 Dependence on renal dialysis; Z83.3 Family history of diabetes mellitus; Z82.49 Family history of ischemic heart disease and other diseases of the circulatory system; Z88.2 Allergy status to sulfonamides; Z88.8 Allergy status to other drugs, medicaments and biological substances; Z88.6 Allergy status to analgesic agent; Z91.041 Radiographic dye allergy status
CPT/HCPCS: 36415; 49324; 80048; 82962; C1752; C1769; J0690; J1100; J1644; J2405; J2704; J2710; J3010; J3490; J7030; J7040; J1815

== ENCOUNTER 2017-01-16 15:18 | Inpatient (IN) | payer MEDICARE, BC ==
[~2017-01-16] VITALS: Ht 167.6 cm; Wt 59.4 kg
[~2017-01-16 15:18] MED LIST changes: -BUPIVACAINE-EPI 0.5%-1:200000 50 ML VIAL. ONE; +DOCU50CA9 PO; -HEPARIN SODIUM 5,000 UNIT in IV NORMAL SALINE 500ML BAG 500 ML IRR ONE; +HYDR-971 PO; -HYDROmorphone 2 MG/ML VIAL IV PRN; -IV RINGERS,LACTATED 1000ML 1,000 ML IV SCH; -LIDOCAINE 1% PF 2 ML VIAL. ID PRN; -MORPHINE SULFATE 2 MG/ML DISP.SYRIN. IV PRN; -NEOMY/BACITR/POLYMYXIN OINT PACKET. TP ONE; -ONDANSETRON PF 4 MG/2 ML VIAL. IV PRN; -fentaNYL PF VIAL 100 MCG/2 ML VIAL IV PRN
[2017-01-16] MEDS ORDERED: ONDANSETRON PF 4 MG/2 ML VIAL. IV ONE (15:45)
[2017-01-16] MEDS ORDERED: LABETALOL 20 MG/4 ML DISP.SYRIN. IVP ONE (15:45)
--- NOTE | 2017-01-16 15:46 | PHYS DOC ---
Past Medical History Past Medical History: High Cholesterol, Hypertension, Hypothyroid, Renal Disease, Stroke Past Surgical History: , Other Additional Past Surgical Histo: L- CARPAL TUNNEL, L SHOULDER, LOWER BACK, Dialysis catheter removed, perito Alcohol Use: None Drug Use: None Adult General Chief Complaint Chief Complaint: MULTIPLE COMPLAINTS HPI HPI Patient is a 51 year old F who presents with intractable nausea and vomiting. Patient has peritoneal dialysis nightly with a history of gastroparesis. Patient states she woke up this morning with severe nausea and vomiting and was unable to keep her morning medication down. Patient's blood pressure was 230/ 120 and the room and the patient is writhing in the bed just missed her nausea has no specific complaints of pain. Patient states she is dry heaving. Patient denies any chest pain or shortness of breath. Patient denies any abdominal pain. Patient denies any fevers. Patient is on the complaints. Review of Systems Review of Systems GEN: Denies fevers, chills, sweats HEENT: Denies blurred vision, sore throat CV: Denies chest pain RESP: Denies shortness of air, cough GI: Nausea and vomiting NEURO: Denies confusion, dizziness MSK: Denies weakness, joint pain/swelling All other systems were reviewed and found to be within normal limits, except as documented in this note. Current Medications Current Medications Current Medications Medications (Trade) Dose Ordered Sig/Harper Start Time Stop Time Status Last Admin Dose Admin Acetaminophen (Tylenol) 650 mg PRN Q4HRS PRN 01/16/17 17:15 01/17/17 17:14 Fentanyl Citrate (Fentanyl 2ml Vial) 50 mcg PRN Q1HR PRN 01/16/17 17:15 01/17/17 17:14 Insulin Human Regular (NovoLIN R VIAL) 6 unit 1X ONCE 01/16/17 17:15 01/16/17 17:16 DC Labetalol HCl (Normodyne) 20 mg 1X ONCE 01/16/17 15:45 01/16/17 15:49 DC 01/16/17 15:56 20 MG Ondansetron HCl (Zofran) 4 mg PRN Q8HRS PRN 01/16/17 17:15 01/17/17 17:14 Promethazine HCl (Phenergan Im) 25 mg 1X ONCE 01/16/17 16:45 01/16/17 16:46 DC 01/16/17 16:44 25 MG Sodium Chloride 1,000 ml @ 1,000 mls/hr 1X ONCE 01/16/17 17:00 01/16/17 17:59 01/16/17 17:07 1,000 MLS/HR Allergies Allergies Allergies Coded Allergies Type Severity Reaction Last Updated Verified Iodinated Contrast- Oral and IV Dye Allergy Intermediate 12/10/16 Yes Sulfa (Sulfonamide Antibiotics) Allergy Intermediate SOB/HIVES 12/10/16 Yes bupropion Allergy Intermediate HIVES/RASH ALL OVER 12/10/16 Yes meperidine Allergy Intermediate tolerates FENTANYL ( VERY ANGRY ATTITUDE) 12/10 Yes metformin Allergy Intermediate 12/10/16 Yes prochlorperazine Allergy Intermediate HALLUCINATIONS 12/10/16 Yes Physical Exam Physical Exam GEN.: Moderate distress. Alert and oriented. HEENT: Head is normocephalic, atraumatic NECK: Supple. LUNGS: CTAB. HEART: Tachycardia, S1, S2 present. Peripheral pulses intact ABDOMEN: Soft, nontender however patient had increased nausea with palpation of the abdomen, no abdominal distention, no rebound tenderness. Positive bowel sounds. EXTREMITIES: Without any cyanosis. NEUROLOGIC: Normal speech, normal tone PSYCHIATRIC: Normal affect, normal mood. SKIN: No ulcerations Current Patient Data Vital Signs Vital Signs Date Time Temp Pulse Resp B/P (MAP) Pulse Ox O2 Delivery O2 Flow Rate FiO2 01/16/17 17:00 84 18 219/99 (139) 99 Room Air 01/16/17 15:31 97.8 97.8 Lab Values Laboratory Tests Test 01/16/17 15:47 White Blood Count 8.1 x10^3/uL (4.0-11.0) Red Blood Count 4.31 x10^6/uL (3.50-5.40) Hemoglobin 12.9 g/dL (12.0-15.5) Hematocrit 36.2 % (36.0-47.0) Mean Corpuscular Volume 84 fL (79-100) Mean Corpuscular Hemoglobin 30 pg (25-35) Mean Corpuscular Hemoglobin Concent 36 g/dL (31-37) Red Cell Distribution Width 13.4 % (11.5-14.5) Platelet Count 327 x10^3/uL (140-400) Neutrophils (%) (Auto) 82 % (31-73) H Lymphocytes (%) (Auto) 14 % (24-48) L Monocytes (%) (Auto) 3 % (0-9) Eosinophils (%) (Auto) 1 % (0-3) Basophils (%) (Auto) 1 % (0-3) Neutrophils # (Auto) 6.6 x10^3uL (1.8-7.7) Lymphocytes # (Auto) 1.1 x10^3/uL (1.0-4.8) Monocytes # (Auto) 0.3 x10^3/uL (0.0-1.1) Eosinophils # (Auto) 0.1 x10^3/uL (0.0-0.7) Basophils # (Auto) 0.1 x10^3/uL (0.0-0.2) Sodium Level 131 mmol/L (136-145) L Potassium Level 3.4 mmol/L (3.5-5.1) L Chloride Level 91 mmol/L (98-107) L Carbon Dioxide Level 25 mmol/L (21-32) Anion Gap 15 (6-14) H Blood Urea Nitrogen 46 mg/dL (7-20) H Creatinine 3.6 mg/dL (0.6-1.0) H Estimated GFR (Cockcroft-Gault) 13.3 BUN/Creatinine Ratio 13 (6-20) Glucose Level 558 mg/dL (70-99) *H Calcium Level 9.2 mg/dL (8.5-10.1) Total Bilirubin 0.5 mg/dL (0.2-1.0) Aspartate Amino Transferase (AST) 67 U/L (15-37) H Alanine Aminotransferase (ALT) 129 U/L (14-59) H Alkaline Phosphatase 162 U/L (46-116) H Total Protein 6.5 g/dL (6.4-8.2) Albumin 2.4 g/dL (3.4-5.0) L Albumin/Globulin Ratio 0.6 (1.0-1.7) L Laboratory Tests 01/16/17 15:47 Laboratory Tests 01/16/17 15:47 EKG EKG [] Radiology/Procedures Radiology/Procedures CT scan abdomen pelvis: IMPRESSION: 1. Extensive anasarca. 2. A small volume of ascites and minimal pneumoperitoneum is most likely secondary to the presence of a peritoneal dialysis catheter. 3. Small pericardial effusion.[] Course & Med Decision Making Course & Med Decision Making Pertinent Labs and Imaging studies reviewed. (See chart for details) ED course: Patient was seen and examined emergency room abdominal workup was ordered On reexamination patient still having significant nausea and vomiting therefore 25 mg of Phenergan ordered IM Updated patient on lab results and elevated glucose and plan to admit. 1710: Discussed CC/HP/PMH with Dr. Rodríguez and recommends admit [] [] Dragon Disclaimer Dragon Disclaimer This electronic medical record was generated, in whole or in part, using a voice recognition dictation system. Departure Departure Impression: Primary Impression: Hyperglycemia Additional Impressions: Hypertension Intractable nausea and vomiting Disposition: ADMITTED INPATIENT Admitting Physician: Suni Rodríguez Condition: STABLE Referrals: SATHYA ARCHIBALD (PCP) Problem Qualifiers DAVON LIVINGSTON DO Jan 16, 2017 15:46
[2017-01-16 16:01] LABS: BASO # 0.1 x10^3/uL (0.0-0.2); BASO % 1 % (0-3); EOS % 1 % (0-3); HEMATOCRIT 36.2 % (36.0-47.0); HEMOGLOBIN 12.9 g/dL (12.0-15.5); LYMPH # 1.1 x10^3/uL (1.0-4.8); LYMPH % 14 % (24-48); MEAN CORPUSCULAR HEMOGLOBIN 30 pg (25-35); MEAN CORPUSCULAR HGB CONC 36 g/dL (31-37); MEAN CORPUSCULAR VOLUME 84 fL (79-100); MONO % 3 % (0-9); NEUT % 82 % (31-73); PLATELET COUNT 327 x10^3/uL (140-400); RED BLOOD COUNT 4.31 x10^6/uL (3.50-5.40); RED CELL DISTRIBUTION WIDTH 13.4 % (11.5-14.5); WHITE BLOOD COUNT 8.1 x10^3/uL (4.0-11.0)
[2017-01-16 16:42] LABS: ALBUMIN 2.4 g/dL (3.4-5.0); ALBUMIN/GLOBULIN RATIO 0.6 (1.0-1.7); CALCIUM 9.2 mg/dL (8.5-10.1); CREATININE 3.6 mg/dL (0.6-1.0); GFR 13.3; POTASSIUM 3.4 mmol/L (3.5-5.1); TOTAL BILIRUBIN 0.5 mg/dL (0.2-1.0); TOTAL PROTEIN 6.5 g/dL (6.4-8.2)
--- NOTE | 2017-01-16 16:43 | RAD ---
CT of the abdomen and pelvis without contrast, 01/16/2017: History: Nausea Noncontrast scans were obtained as requested. This limits evaluation of intra-abdominal structures. There is extensive generalized subcutaneous and mesenteric edema compatible with anasarca. A tube extending into the deep pelvis most likely represents a peritoneal dialysis catheter. There is a small amount of associated free fluid in the abdomen and pelvis. There are also bubbles of free air in the abdomen, presumably related to the peritoneal dialysis. There is a small pericardial effusion. The lung bases are clear. The unopacified liver shows no abnormality. The gallbladder is unremarkable. The pancreas cannot be from unopacified bowel. The spleen is of normal size. The unopacified kidneys show no evidence of obstruction. Aortic calcific plaquing is present without evidence of aneurysm. The bowel loops are not dilated. The nondistended stomach is unremarkable. Moderate degenerative disc disease is present at L5-S1. IMPRESSION: 1. Extensive anasarca. 2. A small volume of ascites and minimal pneumoperitoneum is most likely secondary to the presence of a peritoneal dialysis catheter. 3. Small pericardial effusion. PQRS Compliance Statement: One or more of the following individualized dose reduction techniques were utilized for this examination: 1. Automated exposure control 2. Adjustment of the mA and/or kV according to patient size 3. Use of iterative reconstruction technique
[2017-01-16] MEDS ORDERED: PROMETHAZINE IM 25 MG/ML VIAL IM ONE (16:45)
[2017-01-16] MEDS ORDERED: IV NORMAL SALINE 1000ML BAG 1,000 ML IV ONE ×2 (17:00→17:45)
[2017-01-16] MEDS ORDERED: ACETAMINOPHEN 325 MG TABLET. PO PRN ×2 (17:15→17:30)
[2017-01-16] MEDS ORDERED: fentaNYL PF VIAL 100 MCG/2 ML VIAL IV PRN (17:15)
[2017-01-16] MEDS ORDERED: INSULIN REGULAR 100 UNIT/ML 10ML VIAL. IV ONE ×2 (17:15→23:00)
[2017-01-16] MEDS ORDERED: ONDANSETRON PF 4 MG/2 ML VIAL. IV PRN (17:15)
[2017-01-16] MEDS ORDERED: METOCLOPRAMIDE HCL 10 MG/2 ML VIAL. IV PRN (17:30)
[2017-01-16] MEDS ORDERED: DOCUSATE SODIUM 100 MG CAPSULE. PO PRN (17:30)
[2017-01-16] MEDS ORDERED: HYDROcodone/APAP 5/325MG 1 TAB TABLET PO PRN (17:30)
[2017-01-16] MEDS ORDERED: MORPHINE SULFATE 2 MG/ML DISP.SYRIN. IV PRN (17:30)
[2017-01-16] MEDS ORDERED: traMADol 50 MG TABLET PO PRN (17:30)
[2017-01-16] MEDS ORDERED: BISACODYL 10 MG SUPP.RECT. PR PRN (17:45)
[2017-01-16] MEDS ORDERED: LACTULOSE 20 GM/30 ML SOLUTION. PO PRN (17:45)
[2017-01-16] MEDS ORDERED: MAGNESIUM HYDROXIDE 2,400 MG/30 ML ORAL.SUSP. PO PRN (17:45)
[2017-01-16] MEDS ORDERED: METOCLOPRAMIDE HCL 10 MG/2 ML VIAL. IV SCH ×2 (17:45→18:00)
--- NOTE | 2017-01-16 17:45 | PDOC1 ---
History and Physical Date of Admission Date of Admission 01/16/17 Identification/Chief Complaint Chief Complaint N/V Problems: Source Source: Chart review, Patient History of Present Illness History of Present Illness HPI HPI Patient is a 51 year old F who presents with intractable nausea and vomiting since today. Pt was here in 08/2016, started to set up HD, recently changed to PD daily for 6weeks so far. Pt is taking reglan as needed for gastroparesis, not every day. She started to feel nausea last night, not ate her dinner. She started to have severe nausea today, vomiting not much basically with some mucus. cannot hold anything down. with mild epigastric abd pain. In ER, was found glucose 500, BP 230/120. She also has constipation, took some stool softer and last BM was yesterday, but still wanna have BM now. + chills, no fever, no sob, chest pain, or cough. takes lantus 12u qhs, aspart 10u tid. ABD CT not significant except 1. Extensive anasarca. 2. A small volume of ascites and minimal pneumoperitoneum is most likely secondary to the presence of a peritoneal dialysis catheter. 3. Small pericardial effusion. Past Medical History Cardiovascular: HTN, Hyperlipidemia CENTRAL NERVOUS SYSTEM: CVA Renal/: Chronic renal failure, Other Endocrine: Diabetes Past Surgical History Past Surgical History: Family History Family History: Diabetes, Hypertension Social History Smoke: No ALCOHOL: none Drugs: None Current Problem List Problem List Problems Medical Problems: (1) Hyperglycemia Status: Acute (2) Hypertension Status: Acute (3) Intractable nausea and vomiting Status: Acute Current Medications Current Medications Current Medications Medications (Trade) Dose Ordered Sig/Harper Start Time Stop Time Status Last Admin Dose Admin Acetaminophen (Tylenol) 650 mg PRN Q4HRS PRN 01/16/17 17:15 01/17/17 17:14 Fentanyl Citrate (Fentanyl 2ml Vial) 50 mcg PRN Q1HR PRN 01/16/17 17:15 01/17/17 17:14 Insulin Human Regular (NovoLIN R VIAL) 6 unit 1X ONCE 01/16/17 17:15 01/16/17 17:16 DC Labetalol HCl (Normodyne) 20 mg 1X ONCE 01/16/17 15:45 01/16/17 15:49 DC 01/16/17 15:56 20 MG Ondansetron HCl (Zofran) 4 mg PRN Q8HRS PRN 01/16/17 17:15 01/17/17 17:14 Promethazine HCl (Phenergan Im) 25 mg 1X ONCE 01/16/17 16:45 01/16/17 16:46 DC 01/16/17 16:44 25 MG Sodium Chloride 1,000 ml @ 1,000 mls/hr 1X ONCE 01/16/17 17:00 01/16/17 17:59 01/16/17 17:07 1,000 MLS/HR Allergies Allergies Allergies Coded Allergies Type Severity Reaction Last Updated Verified Iodinated Contrast- Oral and IV Dye Allergy Intermediate 12/10/16 Yes Sulfa (Sulfonamide Antibiotics) Allergy Intermediate SOB/HIVES 12/10/16 Yes bupropion Allergy Intermediate HIVES/RASH ALL OVER 12/10/16 Yes meperidine Allergy Intermediate tolerates FENTANYL ( VERY ANGRY ATTITUDE) 12/10 Yes metformin Allergy Intermediate 12/10/16 Yes prochlorperazine Allergy Intermediate HALLUCINATIONS 12/10/16 Yes ROS Review of System CONSTITUTIONAL: No fever or chills EYES: No recent changes SKIN: No rash or itching CARDIOVASCULAR: No chest pain, syncope, palpitations, or edema RESPIRATORY: No SOB or cough GASTROINTESTINAL: No nausea, vomiting or abdominal pain NEUROLOGICAL: No headaches or weakness ENDOCRINE: No cold or heat intolerance GENITOURINARY: No urgency or frequency of urination MUSCULOSKELETAL: No back pain or joint pain LYMPHATICS: No enlarged lymph nodes PSYCHIATRIC: No anxiety or depression Physical Exam Physical Exam GEN.: very uncomfortable with nausea. Alert and oriented. HEENT: Head is normocephalic, atraumatic NECK: Supple. LUNGS: Clear to auscultation. HEART: RRR, S1, S2 present. Peripheral pulses intact ABDOMEN: Sof, decreased bowel sounds. epigastric moderate tenderness. no guarding or rebound. left ABD has a PD cath. EXTREMITIES: Without any cyanosis. bl leg 1 + edema NEUROLOGIC: Normal speech, normal tone PSYCHIATRIC: Normal affect, normal mood. SKIN: No ulcerations Vitals Vitals Vital Signs Date Time Temp Pulse Resp B/P (MAP) Pulse Ox O2 Delivery O2 Flow Rate FiO2 01/16/17 17:00 84 18 219/99 (139) 99 Room Air 01/16/17 15:31 97.8 97.8 Labs Labs Laboratory Tests Test 01/16/17 15:47 White Blood Count 8.1 x10^3/uL (4.0-11.0) Red Blood Count 4.31 x10^6/uL (3.50-5.40) Hemoglobin 12.9 g/dL (12.0-15.5) Hematocrit 36.2 % (36.0-47.0) Mean Corpuscular Volume 84 fL (79-100) Mean Corpuscular Hemoglobin 30 pg (25-35) Mean Corpuscular Hemoglobin Concent 36 g/dL (31-37) Red Cell Distribution Width 13.4 % (11.5-14.5) Platelet Count 327 x10^3/uL (140-400) Neutrophils (%) (Auto) 82 % (31-73) Lymphocytes (%) (Auto) 14 % (24-48) Monocytes (%) (Auto) 3 % (0-9) Eosinophils (%) (Auto) 1 % (0-3) Basophils (%) (Auto) 1 % (0-3) Neutrophils # (Auto) 6.6 x10^3uL (1.8-7.7) Lymphocytes # (Auto) 1.1 x10^3/uL (1.0-4.8) Monocytes # (Auto) 0.3 x10^3/uL (0.0-1.1) Eosinophils # (Auto) 0.1 x10^3/uL (0.0-0.7) Basophils # (Auto) 0.1 x10^3/uL (0.0-0.2) Sodium Level 131 mmol/L (136-145) Potassium Level 3.4 mmol/L (3.5-5.1) Chloride Level 91 mmol/L (98-107) Carbon Dioxide Level 25 mmol/L (21-32) Anion Gap 15 (6-14) Blood Urea Nitrogen 46 mg/dL (7-20) Creatinine 3.6 mg/dL (0.6-1.0) Estimated GFR (Cockcroft-Gault) 13.3 BUN/Creatinine Ratio 13 (6-20) Glucose Level 558 mg/dL (70-99) Calcium Level 9.2 mg/dL (8.5-10.1) Total Bilirubin 0.5 mg/dL (0.2-1.0) Aspartate Amino Transf (AST/SGOT) 67 U/L (15-37) Alanine Aminotransferase (ALT/SGPT) 129 U/L (14-59) Alkaline Phosphatase 162 U/L (46-116) Total Protein 6.5 g/dL (6.4-8.2) Albumin 2.4 g/dL (3.4-5.0) Albumin/Globulin Ratio 0.6 (1.0-1.7) Laboratory Tests Test 01/16/17 15:47 White Blood Count 8.1 x10^3/uL (4.0-11.0) Red Blood Count 4.31 x10^6/uL (3.50-5.40) Hemoglobin 12.9 g/dL (12.0-15.5) Hematocrit 36.2 % (36.0-47.0) Mean Corpuscular Volume 84 fL (79-100) Mean Corpuscular Hemoglobin 30 pg (25-35) Mean Corpuscular Hemoglobin Concent 36 g/dL (31-37) Red Cell Distribution Width 13.4 % (11.5-14.5) Platelet Count 327 x10^3/uL (140-400) Neutrophils (%) (Auto) 82 % (31-73) Lymphocytes (%) (Auto) 14 % (24-48) Monocytes (%) (Auto) 3 % (0-9) Eosinophils (%) (Auto) 1 % (0-3) Basophils (%) (Auto) 1 % (0-3) Neutrophils # (Auto) 6.6 x10^3uL (1.8-7.7) Lymphocytes # (Auto) 1.1 x10^3/uL (1.0-4.8) Monocytes # (Auto) 0.3 x10^3/uL (0.0-1.1) Eosinophils # (Auto) 0.1 x10^3/uL (0.0-0.7) Basophils # (Auto) 0.1 x10^3/uL (0.0-0.2) Sodium Level 131 mmol/L (136-145) Potassium Level 3.4 mmol/L (3.5-5.1) Chloride Level 91 mmol/L (98-107) Carbon Dioxide Level 25 mmol/L (21-32) Anion Gap 15 (6-14) Blood Urea Nitrogen 46 mg/dL (7-20) Creatinine 3.6 mg/dL (0.6-1.0) Estimated GFR (Cockcroft-Gault) 13.3 BUN/Creatinine Ratio 13 (6-20) Glucose Level 558 mg/dL (70-99) Calcium Level 9.2 mg/dL (8.5-10.1) Total Bilirubin 0.5 mg/dL (0.2-1.0) Aspartate Amino Transf (AST/SGOT) 67 U/L (15-37) Alanine Aminotransferase (ALT/SGPT) 129 U/L (14-59) Alkaline Phosphatase 162 U/L (46-116) Total Protein 6.5 g/dL (6.4-8.2) Albumin 2.4 g/dL (3.4-5.0) Albumin/Globulin Ratio 0.6 (1.0-1.7) VTE Prophylaxis Ordered VTE Prophylaxis Devices: Yes VTE Pharmacological Prophylaxi: Yes Assessment/Plan Assessment/Plan intractable N/V with gastroparesis DM2 on insulin ESRD on PD daily HTN URGENCY HLD HYPOthyroidism constipation mild malnutrition with ESRD hypokalemia plan: gi, renal consult need cont PD from either today or tmr add levemir 10u qhs, aspart 5u tid, SSI npo for now, gentle IVF advance diet if N/V better reglan 5mg iv tid replete K, check mag, brit dvt, gi ppx pain control prn PTOT stool softner KARYNA NAGEL MD Jan 16, 2017 17:45
[2017-01-16] MEDS ORDERED: POTASSIUM CHLORIDE 20MEQ 50 ML IV ONE (18:00)
[2017-01-16] MEDS: METOCLOPRAMIDE HCL 10 MG/2 ML VIAL. IV SCH ×2 (18:00→20:21)
[2017-01-16 18:05] LABS: PHOSPHORUS 4.1 mg/dL (2.6-4.7)
[2017-01-16] MEDS: hydrALAZINE 20 MG/ML VIAL. IVP PRN (18:34)
[2017-01-16 19:00] VITALS: BP 204/102
[2017-01-16] MEDS ORDERED: POTASSIUM CHLORIDE IV ONE (19:00)
[2017-01-16] MEDS ORDERED: DEXTROSE 5% IV ONE (19:00)
[2017-01-16] MEDS ORDERED: INSULIN REGULAR 100 UNIT/ML 10ML VIAL. IV STA (20:07)
[2017-01-16] MEDS ORDERED: LABETALOL 20 MG/4 ML DISP.SYRIN. IVP STA (20:07)
[2017-01-16] MEDS: cloNIDine HCL 0.1 MG TABLET PO SCH (20:28)
[2017-01-16] MEDS: LISINOPRIL 20 MG TABLET PO SCH (20:28)
[2017-01-16] MEDS: SENNOSIDES/DOCUSATE 8.6/50MG TABLET. PO SCH (20:33)
[2017-01-16] MEDS: ATORVASTATIN CALCIUM 40 MG TABLET. PO SCH (20:33)
[2017-01-16] MEDS: DOCUSATE SODIUM 100 MG CAPSULE. PO SCH (20:33)
[2017-01-16] MEDS: HEPARIN PF for SUB-Q USE 5,000 UNIT/0.5 ML VIAL. SQ SCH (20:48)
[2017-01-16] MEDS ORDERED: DOCUSATE SODIUM 100 MG CAPSULE. PO SCH (21:00)
[2017-01-16] MEDS ORDERED: INSULIN DETEMIR 300 UNITS/3 ML INSULN.PEN. SQ SCH (21:00)
[2017-01-16] MEDS ORDERED: DEXTROSE 50% 25 GM / 50ML DISP.SYRIN. IV PRN (22:30)
[2017-01-16] MEDS ORDERED: hydrALAZINE 20 MG/ML VIAL. IVP ONE (22:45)
[2017-01-16 23:00] VITALS: BP 203/105
[2017-01-17] MEDS ORDERED: INSULIN ASPART 300 UNITS/3 ML INSULN.PEN SQ ONE (01:45)
[2017-01-17] MEDS: ONDANSETRON PF 4 MG/2 ML VIAL. IV PRN ×2 (02:00→09:43)
[2017-01-17 03:00] VITALS: BP 169/93
[2017-01-17] MEDS: HEPARIN PF for SUB-Q USE 5,000 UNIT/0.5 ML VIAL. SQ SCH ×3 (05:03→21:52)
[2017-01-17] MEDS: LEVOTHYROXINE 100 MCG TABLET PO SCH (05:04)
[2017-01-17 05:24] LABS: BASO % 0 % (0-3); EOS % 0 % (0-3); HEMATOCRIT 30.4 % (36.0-47.0); HEMOGLOBIN 10.9 g/dL (12.0-15.5); LYMPH % 10 % (24-48); MEAN CORPUSCULAR HEMOGLOBIN 30 pg (25-35); MEAN CORPUSCULAR HGB CONC 36 g/dL (31-37); MEAN CORPUSCULAR VOLUME 84 fL (79-100); MONO % 3 % (0-9); NEUT % 87 % (31-73); PLATELET COUNT 291 x10^3/uL (140-400); RED BLOOD COUNT 3.63 x10^6/uL (3.50-5.40); RED CELL DISTRIBUTION WIDTH 13.5 % (11.5-14.5)
[2017-01-17 05:53] LABS: CALCIUM 8.9 mg/dL (8.5-10.1); CREATININE 3.6 mg/dL (0.6-1.0); GFR 13.3
[2017-01-17 05:59] LABS: POTASSIUM 2.7 mmol/L (3.5-5.1)
[2017-01-17] MEDS ORDERED: POTASSIUM CL 40MEQ IN 0.9%NACL 1,000 ML IV ONE (06:30)
[2017-01-17 07:00] VITALS: BP 195/100
[2017-01-17] MEDS: INSULIN ASPART 300 UNITS/3 ML INSULN.PEN SQ SCH ×6 (08:54→17:25)
[2017-01-17] MEDS: PANTOPRAZOLE IV PUSH 40 MG VIAL. IVP SCH (08:56)
[2017-01-17] MEDS ORDERED: PANTOPRAZOLE 40 MG TABLET.DR. PO SCH (09:00)
[2017-01-17] MEDS: FLUoxetine HCL 20 MG CAPSULE PO SCH (09:03)
[2017-01-17] MEDS: cloNIDine HCL 0.1 MG TABLET PO SCH ×2 (09:04→21:42)
[2017-01-17] MEDS: amLODIPine BESYLATE 10 MG TABLET PO SCH (09:20)
[2017-01-17] MEDS: SENNOSIDES/DOCUSATE 8.6/50MG TABLET. PO SCH ×2 (09:21→21:42)
[2017-01-17] MEDS: CHOLECALCIFEROL (VITAMIN D3) 1,000 UNIT TABLET PO SCH (09:21)
[2017-01-17] MEDS: METOCLOPRAMIDE HCL 10 MG/2 ML VIAL. IV SCH ×4 (09:22→21:43)
[2017-01-17] MEDS: DOCUSATE SODIUM 100 MG CAPSULE. PO SCH (09:28)
[2017-01-17] MEDS: FUROSEMIDE 40 MG TABLET. PO SCH ×2 (09:29→14:57)
[2017-01-17] MEDS: CLOPIDOGREL BISULFATE 75 MG TABLET PO SCH (09:29)
[2017-01-17] MEDS: LISINOPRIL 20 MG TABLET PO SCH ×2 (09:30→21:42)
--- NOTE | 2017-01-17 10:08 | PDOC2 ---
GI CONSULT Reason For Consult: N/v HPI: HPI: 51 y/o female who we saw in 08/2016. Additional GI workup at [facility] in 2016 includes EGD and colonoscopy (<grade 1 reflux, +H. pylori on biopsies, diverticulosis) and GES (remarkably prolonged emptying). Currently takes Protonix Q a.m. 30 min before breakfast + Reglan 5mg tabs PRN for intermittent n /v (takes w/ meals until nausea resolves). N/v worse yesterday. Blood sugars have been "going up" at home. No PCP. No increase in reflux symptoms, no abd pain, no diarrhea or constipation (last BM yesterday). No hematemesis, hematochezia, melena. No dysphagia. Fluctuating weight w/ swelling of upper and lower extremities. No NSAID use. Admitting glucose was 558, K+ 2.7 this morning. Attempting a few sips of clears. Has IV PPI QD + Reglan 5mg IV BID. C/o only being able to see shadows sometimes. PMH: PMH: ESRD on PD, IDDM, CVA on Plavix, HTN, HLD, hypothyroidism, GERD, gastroparesis, , left CTR, left shoulder surgery, back surgery, PD cath placement, SAMRA FH: Family History: No pertinent hx Social History: Smoke: No ALCOHOL: none Drugs: None ROS: GEN: Denies fevers, chills, sweats HEENT: +decreased vision CV: Denies chest pain RESP: Denies shortness of air, cough GI: Per HPI : Denies hematuria, dysuria ENDO: +fluctuating weight NEURO: Denies confusion, dizziness MSK: Denies weakness, joint pain/swelling SKIN: Denies jaundice, pruritus Vitals: Vitals: Vital Signs Date Time Temp Pulse Resp B/P (MAP) Pulse Ox O2 Delivery O2 Flow Rate FiO2 01/17/17 09:30 88 195/100 01/17/17 07:00 98.1 20 97 Nasal Cannula 2.0 98.1 Labs: Labs: Laboratory Tests Test 01/16/17 15:47 01/16/17 19:47 01/16/17 22:18 01/17/17 01:20 White Blood Count 8.1 x10^3/uL (4.0-11.0) Red Blood Count 4.31 x10^6/uL (3.50-5.40) Hemoglobin 12.9 g/dL (12.0-15.5) Hematocrit 36.2 % (36.0-47.0) Mean Corpuscular Volume 84 fL (79-100) Mean Corpuscular Hemoglobin 30 pg (25-35) Mean Corpuscular Hemoglobin Concent 36 g/dL (31-37) Red Cell Distribution Width 13.4 % (11.5-14.5) Platelet Count 327 x10^3/uL (140-400) Neutrophils (%) (Auto) 82 % (31-73) Lymphocytes (%) (Auto) 14 % (24-48) Monocytes (%) (Auto) 3 % (0-9) Eosinophils (%) (Auto) 1 % (0-3) Basophils (%) (Auto) 1 % (0-3) Neutrophils # (Auto) 6.6 x10^3uL (1.8-7.7) Lymphocytes # (Auto) 1.1 x10^3/uL (1.0-4.8) Monocytes # (Auto) 0.3 x10^3/uL (0.0-1.1) Eosinophils # (Auto) 0.1 x10^3/uL (0.0-0.7) Basophils # (Auto) 0.1 x10^3/uL (0.0-0.2) Sodium Level 131 mmol/L (136-145) Potassium Level 3.4 mmol/L (3.5-5.1) Chloride Level 91 mmol/L (98-107) Carbon Dioxide Level 25 mmol/L (21-32) Anion Gap 15 (6-14) Blood Urea Nitrogen 46 mg/dL (7-20) Creatinine 3.6 mg/dL (0.6-1.0) Estimated GFR (Cockcroft-Gault) 13.3 BUN/Creatinine Ratio 13 (6-20) Glucose Level 558 mg/dL (70-99) Calcium Level 9.2 mg/dL (8.5-10.1) Phosphorus Level 4.1 mg/dL (2.6-4.7) Magnesium Level 2.0 mg/dL (1.8-2.4) Total Bilirubin 0.5 mg/dL (0.2-1.0) Aspartate Amino Transf (AST/SGOT) 67 U/L (15-37) Alanine Aminotransferase (ALT/SGPT) 129 U/L (14-59) Alkaline Phosphatase 162 U/L (46-116) Total Protein 6.5 g/dL (6.4-8.2) Albumin 2.4 g/dL (3.4-5.0) Albumin/Globulin Ratio 0.6 (1.0-1.7) Glucose (Fingerstick) 592 mg/dL (70-99) 490 mg/dL (70-99) 328 mg/dL (70-99) Test 01/17/17 04:35 01/17/17 07:26 White Blood Count 10.0 x10^3/uL (4.0-11.0) Red Blood Count 3.63 x10^6/uL (3.50-5.40) Hemoglobin 10.9 g/dL (12.0-15.5) Hematocrit 30.4 % (36.0-47.0) Mean Corpuscular Volume 84 fL (79-100) Mean Corpuscular Hemoglobin 30 pg (25-35) Mean Corpuscular Hemoglobin Concent 36 g/dL (31-37) Red Cell Distribution Width 13.5 % (11.5-14.5) Platelet Count 291 x10^3/uL (140-400) Neutrophils (%) (Auto) 87 % (31-73) Lymphocytes (%) (Auto) 10 % (24-48) Monocytes (%) (Auto) 3 % (0-9) Eosinophils (%) (Auto) 0 % (0-3) Basophils (%) (Auto) 0 % (0-3) Neutrophils # (Auto) 8.7 x10^3uL (1.8-7.7) Lymphocytes # (Auto) 1.0 x10^3/uL (1.0-4.8) Monocytes # (Auto) 0.3 x10^3/uL (0.0-1.1) Eosinophils # (Auto) 0.0 x10^3/uL (0.0-0.7) Basophils # (Auto) 0.0 x10^3/uL (0.0-0.2) Sodium Level 138 mmol/L (136-145) Potassium Level 2.7 mmol/L (3.5-5.1) Chloride Level 100 mmol/L (98-107) Carbon Dioxide Level 26 mmol/L (21-32) Anion Gap 12 (6-14) Blood Urea Nitrogen 47 mg/dL (7-20) Creatinine 3.6 mg/dL (0.6-1.0) Estimated GFR (Cockcroft-Gault) 13.3 Glucose Level 253 mg/dL (70-99) Calcium Level 8.9 mg/dL (8.5-10.1) Glucose (Fingerstick) 220 mg/dL (70-99) Allergies: Coded Allergies: Iodinated Contrast- Oral and IV Dye (Verified Allergy, Intermediate, ) Sulfa (Sulfonamide Antibiotics) (Verified Allergy, Intermediate, SOB/HIVES , 12/10/16) bupropion (Verified Allergy, Intermediate, HIVES/RASH ALL OVER, 12/10/16) meperidine (Verified Allergy, Intermediate, tolerates FENTANYL ( VERY ANGRY ATTITUDE), 12/10/16) metformin (Verified Allergy, Intermediate, 12/10/16) prochlorperazine (Verified Allergy, Intermediate, HALLUCINATIONS, 12/10/16) Medications: Current Medications Medications (Trade) Dose Ordered Sig/Harper Route PRN Reason Start Time Stop Time Status Last Admin Dose Admin Ondansetron HCl (Zofran) 4 mg 1X ONCE IV 01/16/17 15:45 01/16/17 15:49 DC 01/16/17 15:55 Labetalol HCl (Normodyne) 20 mg 1X ONCE IVP 01/16/17 15:45 01/16/17 15:49 DC 01/16/17 15:56 Promethazine HCl (Phenergan Im) 25 mg 1X ONCE IM 01/16/17 16:45 01/16/17 16:46 DC 01/16/17 16:44 Sodium Chloride 1,000 ml @ 1,000 mls/hr 1X ONCE IV 01/16/17 17:00 01/16/17 17:59 DC 01/16/17 17:07 Ondansetron HCl (Zofran) 4 mg PRN Q8HRS PRN IV NAUSEA/VOMITING 01/16/17 17:15 01/17/17 17:14 01/16/17 18:40 Insulin Human Regular (NovoLIN R VIAL) 6 unit 1X ONCE IV 01/16/17 17:15 01/16/17 17:16 DC 01/16/17 17:45 Vitamin D (Vitamin D3) 1,000 unit DAILY PO 01/17/17 09:00 01/17/17 09:21 Clonidine HCl (Catapres) 0.1 mg BID PO 01/16/17 21:00 01/17/17 09:04 Clopidogrel Bisulfate (Plavix) 75 mg DAILY PO 01/17/17 09:00 01/17/17 09:29 Fluoxetine HCl (PROzac) 20 mg DAILYWBKFT PO 01/17/17 08:00 01/17/17 09:03 Furosemide (Lasix) 40 mg BID92 PO 01/17/17 09:00 01/17/17 09:29 Lisinopril (Prinivil) 20 mg BID PO 01/16/17 21:00 01/17/17 09:30 Amlodipine Besylate (Norvasc) 10 mg DAILY PO 01/17/17 09:00 01/17/17 09:20 Docusate Sodium (Colace) 100 mg DAILY PO 01/16/17 21:00 01/17/17 09:28 Insulin Detemir (Levemir) 10 units QHS SQ 01/16/17 21:00 01/16/17 20:33 Ondansetron HCl (Zofran) 4 mg PRN Q6HRS PRN IV NAUSEA/VOMITING 01/16/17 17:30 01/17/17 09:43 Hydralazine HCl (Apresoline Inj) 10 mg PRN Q4HRS PRN IVP ELEVATED BP, SEE COMMENTS 01/16/17 17:30 01/16/17 18:34 Pantoprazole Sodium (Protonix Vial) 40 mg DAILYAC IVP 01/17/17 07:30 01/17/17 08:56 Sodium Chloride 1,000 ml @ 75 mls/hr 1X ONCE IV 01/16/17 17:45 01/17/17 07:04 DC 01/16/17 20:47 Senna/Docusate Sodium (Senna Plus) 1 tab BID PO 01/16/17 21:00 01/17/17 09:21 Metoclopramide HCl (Reglan Vial) 5 mg BID IV 01/16/17 18:00 01/17/17 09:22 Potassium Chloride 20 meq/ Dextrose 260 ml @ 130 mls/hr 1X ONCE IV 01/16/17 19:00 01/16/17 20:59 DC 01/16/17 18:41 Labetalol HCl (Normodyne) 20 mg 1X STAT IVP 01/16/17 20:07 01/16/17 20:10 DC 01/16/17 20:21 Insulin Human Regular (NovoLIN R VIAL) 10 unit 1X STAT IV 01/16/17 20:07 01/16/17 20:10 DC 01/16/17 20:32 Insulin Aspart (NovoLOG) 0-9 UNITS TIDWMEALHC SQ 01/17/17 08:00 01/17/17 09:37 Insulin Human Regular (NovoLIN R VIAL) 10 unit 1X ONCE IV 01/16/17 23:00 01/16/17 23:01 DC 01/16/17 23:12 Hydralazine HCl (Apresoline Inj) 10 mg 1X ONCE IVP 01/16/17 22:45 01/16/17 22:46 DC 01/16/17 23:08 Insulin Aspart (NovoLOG) 0-9 UNITS 1X ONCE SQ 01/17/17 01:45 01/17/17 01:46 DC 01/17/17 02:04 Potassium Chloride/Sodium Chloride 1,000 ml @ 75 mls/hr 1X ONCE IV 01/17/17 06:30 01/17/17 19:49 01/17/17 06:37 Imaging: Imaging: CT A/P w/o contrast IMPRESSION: 1. Extensive anasarca. 2. A small volume of ascites and minimal pneumoperitoneum is most likely secondary to the presence of a peritoneal dialysis catheter. 3. Small pericardial effusion. PE: GEN: NAD HEENT: Atraumatic LUNGS: CTAB HEART: RRR ABD: NABS, S/ND/NT, PD cath LLQ EXTREMITY: some UE edema SKIN: No rashes, no jaundice NEURO/PSYCH: A & O 3 A/P: A/P: N/v -intermittent, worse yesterday Gastroparesis, GERD -previous EGD and GES @ [facility] -takes PPI QD, Reglan pills PRN Uncontrolled DM ESRD on PD CRC screen -colonoscopy last year @ [facility] -- Continue IV Reglan, adjust dosing (scheduled, before meals). Wean to PO when eating/drinking better. Continue PPI - IV for now. Needs PCP, better DM control. VALENTIN SALAZAR Jan 17, 2017 10:08
[2017-01-17] MEDS ORDERED: POTASSIUM CHLORIDE 20 MEQ TABLET.ER. PO ONE (11:00)
[2017-01-17 11:07] VITALS: BP 190/93
--- NOTE | 2017-01-17 11:44 | PDOC2 ---
CONSULT Date of Consult Date of Consult DATE: 01/17/17 TIME: 11:39 Reason for Consult Reason for Consult: LOW K, ESRD Referring Physician Referring Physician: ROBE Identification/Chief Complaint Chief Complaint N/V Problems: Source Source: Chart review, Patient History of Present Illness Reason for Visit: THIS IS A 51 YR OLD WITH SEVERAL DAY HX OF N/V. NOT EATING. SHE IS ADMITTED WITH DEHYDRATION AND HYPOKALEMIA. SHE HAS ESRD AND HAS BEEN ON HD. SHE WAS SWITCHED TO PD ABOUT 6 WEEKS. AGO. PD HAS BEEN GOING WELL. SHE HAS NOT ABD PAIN OR REBOUND TENDERNESS. NO PERIPHERAL LEUCOCYTOSIS NOTED. LABS ARE C/W ESRD STATUS. ESRD IS DUE TO DM II AND HTN Past Medical History Cardiovascular: HTN, Hyperlipidemia CENTRAL NERVOUS SYSTEM: CVA Renal/: Chronic renal failure, Other Endocrine: Diabetes Past Surgical History Past Surgical History PD CATHETER PLACEMENT Past Surgical History: Family History Family History: Diabetes, Hypertension Social History No ALCOHOL: none Drugs: None Current Problem List Problem List Problems Medical Problems: (1) Hyperglycemia Status: Acute (2) Hypertension Status: Acute (3) Intractable nausea and vomiting Status: Acute Current Medications Current Medications Current Medications Ondansetron HCl (Zofran) 4 mg 1X ONCE IV Last administered on 01/16/17 15:55 ; Start 01/16/17 at 15:45; Stop 01/16/17 at 15:49; Status DC Labetalol HCl (Normodyne) 20 mg 1X ONCE IVP Last administered on 01/16/17 15 :56; Start 01/16/17 at 15:45; Stop 01/16/17 at 15:49; Status DC Promethazine HCl (Phenergan Im) 25 mg 1X ONCE IM Last administered on 16:44; Start 01/16/17 at 16:45; Stop 01/16/17 at 16:46; Status DC Sodium Chloride 1,000 ml @ 1,000 mls/hr 1X ONCE IV Last administered on 01/16 17:07; Start 01/16/17 at 17:00; Stop 01/16/17 at 17:59; Status DC Ondansetron HCl (Zofran) 4 mg PRN Q8HRS PRN IV NAUSEA/VOMITING Last administered on 01/16/17 18:40; Start 01/16/17 at 17:15; Stop 01/17/17 at 17 :14 Fentanyl Citrate (Fentanyl 2ml Vial) 50 mcg PRN Q1HR PRN IV PAIN; Start at 17:15; Stop 01/17/17 at 17:14 Acetaminophen (Tylenol) 650 mg PRN Q4HRS PRN PO FEVER; Start 01/16/17 at 17:15 ; Stop 01/17/17 at 17:14 Insulin Human Regular (NovoLIN R VIAL) 6 unit 1X ONCE IV Last administered on 01/16/17 17:45; Start 01/16/17 at 17:15; Stop 01/16/17 at 17:16; Status DC Vitamin D (Vitamin D3) 1,000 unit DAILY PO Last administered on 01/17/17 09: 21; Start 01/17/17 at 09:00 Clonidine HCl (Catapres) 0.1 mg BID PO Last administered on 01/17/17 09:04; Start 01/16/17 at 21:00 Clopidogrel Bisulfate (Plavix) 75 mg DAILY PO Last administered on 01/17/17 09:29; Start 01/17/17 at 09:00 Fluoxetine HCl (PROzac) 20 mg DAILYWBKFT PO Last administered on 01/17/17 09: 03; Start 01/17/17 at 08:00 Furosemide (Lasix) 40 mg BID92 PO Last administered on 01/17/17 09:29; Start 01/17/17 at 09:00 Acetaminophen/ Hydrocodone Bitart (Lortab 5/325) 1 tab PRN Q6HRS PRN PO PAIN; Start 01/16/17 at 17:30 Insulin Aspart (NovoLOG) 5 units TIDAC SQ ; Start 01/17/17 at 07:30 Lisinopril (Prinivil) 20 mg BID PO Last administered on 01/17/17 09:30; Start 01/16/17 at 21:00 Pantoprazole Sodium (Protonix) 40 mg DAILY PO ; Start 01/17/17 at 09:00; Stop 01/17/17 at 09:00; Status DC Amlodipine Besylate (Norvasc) 10 mg DAILY PO Last administered on 01/17/17 09 :20; Start 01/17/17 at 09:00 Docusate Sodium (Colace) 100 mg DAILY PO Last administered on 01/17/17 09:28 ; Start 01/16/17 at 21:00 Insulin Detemir (Levemir) 10 units QHS SQ Last administered on 01/16/17 20:33 ; Start 01/16/17 at 21:00 Levothyroxine Sodium (Synthroid) 200 mcg DAILY07 PO ; Start 01/17/17 at 07:00 Metoclopramide HCl (Reglan Vial) 5 mg PRN Q6HRS PRN IV NAUSEA/VOMITING; Start 01/16/17 at 17:30; Stop 01/16/17 at 17:44; Status DC Acetaminophen (Tylenol) 650 mg PRN Q6HRS PRN PO FEVER; Start 01/16/17 at 17:30 Ondansetron HCl (Zofran) 4 mg PRN Q6HRS PRN IV NAUSEA/VOMITING Last administered on 01/17/17 09:43; Start 01/16/17 at 17:30 Morphine Sulfate 2 mg PRN Q2HR PRN IV PAIN; Start 01/16/17 at 17:30 Tramadol HCl (Ultram) 50 mg PRN Q6HRS PRN PO PAIN; Start 01/16/17 at 17:30 Hydralazine HCl (Apresoline Inj) 10 mg PRN Q4HRS PRN IVP ELEVATED BP, SEE COMMENTS Last administered on 01/16/17 18:34; Start 01/16/17 at 17:30 Docusate Sodium (Colace) 100 mg PRN DAILY PRN PO CONSTIPATION; Start 01/16/17 at 17:30 Heparin Sodium (Porcine) (Heparin Sq) 5,000 unit Q8HRS SQ ; Start 01/16/17 at 22:00 Metoclopramide HCl (Reglan Vial) 5 mg TIDAC IV ; Start 01/16/17 at 17:45; Stop 01/16/17 at 17:53; Status DC Pantoprazole Sodium (Protonix Vial) 40 mg DAILYAC IVP Last administered on 08:56; Start 01/17/17 at 07:30 Sodium Chloride 1,000 ml @ 75 mls/hr 1X ONCE IV Last administered on 20:47; Start 01/16/17 at 17:45; Stop 01/17/17 at 07:04; Status DC Senna/Docusate Sodium (Senna Plus) 1 tab BID PO Last administered on 09:21; Start 01/16/17 at 21:00 Docusate Sodium (Colace) 100 mg BID PO ; Start 01/16/17 at 21:00; Status UNV Magnesium Hydroxide (Milk Of Magnesia) 2,400 mg PRN Q12HR PRN PO CONSTIPATION; Start 01/16/17 at 17:45 Lactulose 20 gm PRN Q12HR PRN PO CONSTIPATION; Start 01/16/17 at 17:45 Bisacodyl (Dulcolax Supp) 10 mg PRN DAILY PRN [place] CONSTIPATION; Start 01/16/17 at 17:45 Potassium Chloride 50 ml @ 50 mls/hr 1X ONCE IV ; Start 01/16/17 at 18:00; Stop 01/16/17 at 18:59; Status UNV Metoclopramide HCl (Reglan Vial) 5 mg QID IV ; Start 01/16/17 at 18:00; Stop 01/16/17 at 18:00; Status DC Metoclopramide HCl (Reglan Vial) 5 mg BID IV Last administered on 01/17/17 09 :22; Start 01/16/17 at 18:00; Stop 01/17/17 at 10:09; Status DC Atorvastatin Calcium (Lipitor) 40 mg QHS PO ; Start 01/16/17 at 21:00 Potassium Chloride 20 meq/ Dextrose 260 ml @ 130 mls/hr 1X ONCE IV Last administered on 01/16/17 18:41; Start 01/16/17 at 19:00; Stop 01/16/17 at 20 :59; Status DC Labetalol HCl (Normodyne) 20 mg 1X STAT IVP Last administered on 01/16/17 20 :21; Start 01/16/17 at 20:07; Stop 01/16/17 at 20:10; Status DC Insulin Human Regular (NovoLIN R VIAL) 10 unit 1X STAT IV Last administered on 01/16/17 20:32; Start 01/16/17 at 20:07; Stop 01/16/17 at 20:10; Status DC Insulin Aspart (NovoLOG) 0-9 UNITS TIDWMEALHC SQ Last administered on 09:37; Start 01/17/17 at 08:00 Dextrose (Dextrose 50%-Water Syringe) 12.5 gm PRN Q15MIN PRN IV SEE COMMENTS; Start 01/16/17 at 22:30 Insulin Human Regular (NovoLIN R VIAL) 10 unit 1X ONCE IV Last administered on 01/16/17 23:12; Start 01/16/17 at 23:00; Stop 01/16/17 at 23:01; Status DC Hydralazine HCl (Apresoline Inj) 10 mg 1X ONCE IVP Last administered on 23:08; Start 01/16/17 at 22:45; Stop 01/16/17 at 22:46; Status DC Insulin Aspart (NovoLOG) 0-9 UNITS 1X ONCE SQ Last administered on 01/17/17 02:04; Start 01/17/17 at 01:45; Stop 01/17/17 at 01:46; Status DC Potassium Chloride/Sodium Chloride 1,000 ml @ 75 mls/hr 1X ONCE IV Last administered on 01/17/17 06:37; Start 01/17/17 at 06:30; Stop 01/17/17 at 19 :49 Metoclopramide HCl (Reglan Vial) 5 mg QIDACHS IV ; Start 01/17/17 at 11:30 Potassium Chloride (Klor-Con) 40 meq 1X ONCE PO Last administered on 10:50; Start 01/17/17 at 11:00; Stop 01/17/17 at 11:01; Status DC Active Scripts Active Reported Stool Softener (Docusate Sodium) 50 Mg Capsule 50 Mg PO BID [place] 5-325 Tablet (Acetaminophen/Hydrocodone Bitart) 1 Each Tablet 1 Tab PO Q4- 6HRS LAST DOSE GIVEN: DATE: 12/10/16 TIME: so next dose at as needed for pain Prozac (Fluoxetine Hcl) 20 Mg Capsule 1 Cap PO DAILYWBKFT Lisinopril 20 Mg Tablet 1 Tab PO BID Synthroid (Levothyroxine Sodium) 200 Mcg Tablet 1 Tab PO DAILY Novolog Flexpen (Insulin Aspart) 100 Unit/1 Ml Insuln.pen 5 Unit SQ TIDAC Lantus Solostar (Insulin Glargine,Hum.rec.anlog) 100 Unit/1 Ml Insuln.pen 10 Unit SQ QHS Clonidine Hcl 0.1 Mg Tablet 0.1 Mg PO BID Lasix (Furosemide) 40 Mg Tablet 40 Mg PO BID [place] 10 Mg-40 Mg Tablet (Amlodipine/Atorvastatin) 1 Each Tablet 1 Each PO DAILY Protonix (Pantoprazole Sodium) 40 Mg Tablet.dr 1 Tab PO DAILY Clopidogrel (Clopidogrel Bisulfate) 75 Mg Tablet 1 Tab PO DAILY Vitamin D3 (Cholecalciferol (Vitamin D3)) 1,000 Unit Tablet 1 Tab PO DAILY Allergies Allergies: Coded Allergies: Iodinated Contrast- Oral and IV Dye (Verified Allergy, Intermediate, ) Sulfa (Sulfonamide Antibiotics) (Verified Allergy, Intermediate, SOB/HIVES , 12/10/16) bupropion (Verified Allergy, Intermediate, HIVES/RASH ALL OVER, 12/10/16) meperidine (Verified Allergy, Intermediate, tolerates FENTANYL ( VERY ANGRY ATTITUDE), 12/10/16) metformin (Verified Allergy, Intermediate, 12/10/16) prochlorperazine (Verified Allergy, Intermediate, HALLUCINATIONS, 12/10/16) ROS General: YES: Fatigue, Malaise, Appetite PSYCHOLOGICAL ROS: YES: Anxiety, Depression Eyes: Yes Decreased vision HEENT: YES: Heacaches, Nasal congestion ALLERGY AND IMMUNOLOGY: YES: Seasonal Allergies Respiratory: YES: Cough Gastrointestinal: Yes Nausea, Yes Constipation Genitourinary: YES Other (OLIGURIA) Musculoskeletal: Yes Muscular Weakness Neurological: Yes Weakness Skin: Yes Dry Skin Physical Exam General: Alert, Oriented X3, Cooperative, No acute distress HEENT: Atraumatic, PERRLA Lungs: Clear to auscultation Heart: Regular rate, Normal S1, Normal S2 Abdomen: Normal bowel sounds, No tenderness Extremities: No clubbing Skin: No breakdown, No significant lesion Neuro: Normal speech, Cranial nerves 3-12 NL Psych/Mental Status: Mental status NL MUSCULOSKELETAL: No deformity, No swelling, Other (DIFFUSE ATROPHY) Vitals VITALS Vital Signs Date Time Temp Pulse Resp B/P (MAP) Pulse Ox O2 Delivery O2 Flow Rate FiO2 01/17/17 11:07 98.3 89 20 190/93 (125) 97 Nasal Cannula 2.0 98.3 Labs Labs Laboratory Tests Test 01/16/17 15:47 01/16/17 19:47 01/16/17 22:18 01/17/17 01:20 White Blood Count 8.1 x10^3/uL (4.0-11.0) Red Blood Count 4.31 x10^6/uL (3.50-5.40) Hemoglobin 12.9 g/dL (12.0-15.5) Hematocrit 36.2 % (36.0-47.0) Mean Corpuscular Volume 84 fL (79-100) Mean Corpuscular Hemoglobin 30 pg (25-35) Mean Corpuscular Hemoglobin Concent 36 g/dL (31-37) Red Cell Distribution Width 13.4 % (11.5-14.5) Platelet Count 327 x10^3/uL (140-400) Neutrophils (%) (Auto) 82 % (31-73) Lymphocytes (%) (Auto) 14 % (24-48) Monocytes (%) (Auto) 3 % (0-9) Eosinophils (%) (Auto) 1 % (0-3) Basophils (%) (Auto) 1 % (0-3) Neutrophils # (Auto) 6.6 x10^3uL (1.8-7.7) Lymphocytes # (Auto) 1.1 x10^3/uL (1.0-4.8) Monocytes # (Auto) 0.3 x10^3/uL (0.0-1.1) Eosinophils # (Auto) 0.1 x10^3/uL (0.0-0.7) Basophils # (Auto) 0.1 x10^3/uL (0.0-0.2) Sodium Level 131 mmol/L (136-145) Potassium Level 3.4 mmol/L (3.5-5.1) Chloride Level 91 mmol/L (98-107) Carbon Dioxide Level 25 mmol/L (21-32) Anion Gap 15 (6-14) Blood Urea Nitrogen 46 mg/dL (7-20) Creatinine 3.6 mg/dL (0.6-1.0) Estimated GFR (Cockcroft-Gault) 13.3 BUN/Creatinine Ratio 13 (6-20) Glucose Level 558 mg/dL (70-99) Calcium Level 9.2 mg/dL (8.5-10.1) Phosphorus Level 4.1 mg/dL (2.6-4.7) Magnesium Level 2.0 mg/dL (1.8-2.4) Total Bilirubin 0.5 mg/dL (0.2-1.0) Aspartate Amino Transf (AST/SGOT) 67 U/L (15-37) Alanine Aminotransferase (ALT/SGPT) 129 U/L (14-59) Alkaline Phosphatase 162 U/L (46-116) Total Protein 6.5 g/dL (6.4-8.2) Albumin 2.4 g/dL (3.4-5.0) Albumin/Globulin Ratio 0.6 (1.0-1.7) Glucose (Fingerstick) 592 mg/dL (70-99) 490 mg/dL (70-99) 328 mg/dL (70-99) Test 01/17/17 04:35 01/17/17 07:26 01/17/17 10:56 White Blood Count 10.0 x10^3/uL (4.0-11.0) Red Blood Count 3.63 x10^6/uL (3.50-5.40) Hemoglobin 10.9 g/dL (12.0-15.5) Hematocrit 30.4 % (36.0-47.0) Mean Corpuscular Volume 84 fL (79-100) Mean Corpuscular Hemoglobin 30 pg (25-35) Mean Corpuscular Hemoglobin Concent 36 g/dL (31-37) Red Cell Distribution Width 13.5 % (11.5-14.5) Platelet Count 291 x10^3/uL (140-400) Neutrophils (%) (Auto) 87 % (31-73) Lymphocytes (%) (Auto) 10 % (24-48) Monocytes (%) (Auto) 3 % (0-9) Eosinophils (%) (Auto) 0 % (0-3) Basophils (%) (Auto) 0 % (0-3) Neutrophils # (Auto) 8.7 x10^3uL (1.8-7.7) Lymphocytes # (Auto) 1.0 x10^3/uL (1.0-4.8) Monocytes # (Auto) 0.3 x10^3/uL (0.0-1.1) Eosinophils # (Auto) 0.0 x10^3/uL (0.0-0.7) Basophils # (Auto) 0.0 x10^3/uL (0.0-0.2) Sodium Level 138 mmol/L (136-145) Potassium Level 2.7 mmol/L (3.5-5.1) Chloride Level 100 mmol/L (98-107) Carbon Dioxide Level 26 mmol/L (21-32) Anion Gap 12 (6-14) Blood Urea Nitrogen 47 mg/dL (7-20) Creatinine 3.6 mg/dL (0.6-1.0) Estimated GFR (Cockcroft-Gault) 13.3 Glucose Level 253 mg/dL (70-99) Calcium Level 8.9 mg/dL (8.5-10.1) Glucose (Fingerstick) 220 mg/dL (70-99) 290 mg/dL (70-99) Laboratory Tests Test 01/16/17 15:47 01/16/17 19:47 01/16/17 22:18 01/17/17 01:20 White Blood Count 8.1 x10^3/uL (4.0-11.0) Red Blood Count 4.31 x10^6/uL (3.50-5.40) Hemoglobin 12.9 g/dL (12.0-15.5) Hematocrit 36.2 % (36.0-47.0) Mean Corpuscular Volume 84 fL (79-100) Mean Corpuscular Hemoglobin 30 pg (25-35) Mean Corpuscular Hemoglobin Concent 36 g/dL (31-37) Red Cell Distribution Width 13.4 % (11.5-14.5) Platelet Count 327 x10^3/uL (140-400) Neutrophils (%) (Auto) 82 % (31-73) Lymphocytes (%) (Auto) 14 % (24-48) Monocytes (%) (Auto) 3 % (0-9) Eosinophils (%) (Auto) 1 % (0-3) Basophils (%) (Auto) 1 % (0-3) Neutrophils # (Auto) 6.6 x10^3uL (1.8-7.7) Lymphocytes # (Auto) 1.1 x10^3/uL (1.0-4.8) Monocytes # (Auto) 0.3 x10^3/uL (0.0-1.1) Eosinophils # (Auto) 0.1 x10^3/uL (0.0-0.7) Basophils # (Auto) 0.1 x10^3/uL (0.0-0.2) Sodium Level 131 mmol/L (136-145) Potassium Level 3.4 mmol/L (3.5-5.1) Chloride Level 91 mmol/L (98-107) Carbon Dioxide Level 25 mmol/L (21-32) Anion Gap 15 (6-14) Blood Urea Nitrogen 46 mg/dL (7-20) Creatinine 3.6 mg/dL (0.6-1.0) Estimated GFR (Cockcroft-Gault) 13.3 BUN/Creatinine Ratio 13 (6-20) Glucose Level 558 mg/dL (70-99) Calcium Level 9.2 mg/dL (8.5-10.1) Phosphorus Level 4.1 mg/dL (2.6-4.7) Magnesium Level 2.0 mg/dL (1.8-2.4) Total Bilirubin 0.5 mg/dL (0.2-1.0) Aspartate Amino Transf (AST/SGOT) 67 U/L (15-37) Alanine Aminotransferase (ALT/SGPT) 129 U/L (14-59) Alkaline Phosphatase 162 U/L (46-116) Total Protein 6.5 g/dL (6.4-8.2) Albumin 2.4 g/dL (3.4-5.0) Albumin/Globulin Ratio 0.6 (1.0-1.7) Glucose (Fingerstick) 592 mg/dL (70-99) 490 mg/dL (70-99) 328 mg/dL (70-99) Test 01/17/17 04:35 01/17/17 07:26 01/17/17 10:56 White Blood Count 10.0 x10^3/uL (4.0-11.0) Red Blood Count 3.63 x10^6/uL (3.50-5.40) Hemoglobin 10.9 g/dL (12.0-15.5) Hematocrit 30.4 % (36.0-47.0) Mean Corpuscular Volume 84 fL (79-100) Mean Corpuscular Hemoglobin 30 pg (25-35) Mean Corpuscular Hemoglobin Concent 36 g/dL (31-37) Red Cell Distribution Width 13.5 % (11.5-14.5) Platelet Count 291 x10^3/uL (140-400) Neutrophils (%) (Auto) 87 % (31-73) Lymphocytes (%) (Auto) 10 % (24-48) Monocytes (%) (Auto) 3 % (0-9) Eosinophils (%) (Auto) 0 % (0-3) Basophils (%) (Auto) 0 % (0-3) Neutrophils # (Auto) 8.7 x10^3uL (1.8-7.7) Lymphocytes # (Auto) 1.0 x10^3/uL (1.0-4.8) Monocytes # (Auto) 0.3 x10^3/uL (0.0-1.1) Eosinophils # (Auto) 0.0 x10^3/uL (0.0-0.7) Basophils # (Auto) 0.0 x10^3/uL (0.0-0.2) Sodium Level 138 mmol/L (136-145) Potassium Level 2.7 mmol/L (3.5-5.1) Chloride Level 100 mmol/L (98-107) Carbon Dioxide Level 26 mmol/L (21-32) Anion Gap 12 (6-14) Blood Urea Nitrogen 47 mg/dL (7-20) Creatinine 3.6 mg/dL (0.6-1.0) Estimated GFR (Cockcroft-Gault) 13.3 Glucose Level 253 mg/dL (70-99) Calcium Level 8.9 mg/dL (8.5-10.1) Glucose (Fingerstick) 220 mg/dL (70-99) 290 mg/dL (70-99) Assessment/Plan Assessment/Plan IMP N/V DEHYDRATION GASTROPARESIS DM II HTN ANEMIA ESRD DECONDITIONING PROTEIN CALORIE MALNUTRITION PLAN REPLACE K ENC PO PPN FOR NOW GI PR[employer]INET[employer] AGENTS [facility] HOLD OFF ON STARTING PD FOR NOW WILL RESUME WITH CAPD TOMORROW TIM MCGRATH MD Jan 17, 2017 11:44
[2017-01-17] MEDS: AMINO AC 3%/ELECTROLYTE/GLYCER 1,000 ML IV SCH (12:29)
[2017-01-17 15:00] VITALS: BP 145/68
[2017-01-17] MEDS ORDERED: DEXTROSE 50% 25 GM / 50ML DISP.SYRIN. IV PRN (16:00)
--- NOTE | 2017-01-17 16:00 | PDOC ---
PROGRESS NOTES Chief Complaint Chief Complaint intractable N/V with gastroparesis DM2 on insulin ESRD on PD daily HTN URGENCY HLD HYPOthyroidism constipation mild malnutrition with ESRD hypokalemia plan: gi, renal consulted need cont PD from either today or tmr increase levemir 15u qhs, aspart 7u tid, SSI clear liquid diet, PPN as per renal advance diet if N/V better reglan 5mg iv qid replete K, check mag, brit dvt, gi ppx pain control prn PTOT stool softner History of Present Illness History of Present Illness ROS: NO fever, chills, sob or chest pain cont N/V, hyperglycemia Vitals Vitals Vital Signs Date Time Temp Pulse Resp B/P (MAP) Pulse Ox O2 Delivery O2 Flow Rate FiO2 01/17/17 15:00 98.1 83 20 145/68 (93) 96 Nasal Cannula 2.0 98.1 Physical Exam General: Alert, Oriented X3, Cooperative, No acute distress Heart: Regular rate, Normal S1, Normal S2 Lungs: Clear Abdomen: Normal bowel sounds, No tenderness Extremities: No clubbing Skin: No breakdown, No significant lesion Labs LABS Laboratory Tests Test 01/16/17 19:47 01/16/17 22:18 01/17/17 01:20 01/17/17 04:35 Glucose (Fingerstick) 592 mg/dL (70-99) 490 mg/dL (70-99) 328 mg/dL (70-99) White Blood Count 10.0 x10^3/uL (4.0-11.0) Red Blood Count 3.63 x10^6/uL (3.50-5.40) Hemoglobin 10.9 g/dL (12.0-15.5) Hematocrit 30.4 % (36.0-47.0) Mean Corpuscular Volume 84 fL (79-100) Mean Corpuscular Hemoglobin 30 pg (25-35) Mean Corpuscular Hemoglobin Concent 36 g/dL (31-37) Red Cell Distribution Width 13.5 % (11.5-14.5) Platelet Count 291 x10^3/uL (140-400) Neutrophils (%) (Auto) 87 % (31-73) Lymphocytes (%) (Auto) 10 % (24-48) Monocytes (%) (Auto) 3 % (0-9) Eosinophils (%) (Auto) 0 % (0-3) Basophils (%) (Auto) 0 % (0-3) Neutrophils # (Auto) 8.7 x10^3uL (1.8-7.7) Lymphocytes # (Auto) 1.0 x10^3/uL (1.0-4.8) Monocytes # (Auto) 0.3 x10^3/uL (0.0-1.1) Eosinophils # (Auto) 0.0 x10^3/uL (0.0-0.7) Basophils # (Auto) 0.0 x10^3/uL (0.0-0.2) Sodium Level 138 mmol/L (136-145) Potassium Level 2.7 mmol/L (3.5-5.1) Chloride Level 100 mmol/L (98-107) Carbon Dioxide Level 26 mmol/L (21-32) Anion Gap 12 (6-14) Blood Urea Nitrogen 47 mg/dL (7-20) Creatinine 3.6 mg/dL (0.6-1.0) Estimated GFR (Cockcroft-Gault) 13.3 Glucose Level 253 mg/dL (70-99) Calcium Level 8.9 mg/dL (8.5-10.1) Test 01/17/17 07:26 01/17/17 10:56 Glucose (Fingerstick) 220 mg/dL (70-99) 290 mg/dL (70-99) Assessment and Plan Assessmemt and Plan Problems Medical Problems: (1) Hyperglycemia Status: Acute (2) Hypertension Status: Acute (3) Intractable nausea and vomiting Status: Acute Problems: Comment Review of Relevant I have reviewed the following items ruiz (where applicable) has been applied. Labs Laboratory Tests Test 01/16/17 15:47 01/16/17 19:47 01/16/17 22:18 01/17/17 01:20 White Blood Count 8.1 x10^3/uL (4.0-11.0) Red Blood Count 4.31 x10^6/uL (3.50-5.40) Hemoglobin 12.9 g/dL (12.0-15.5) Hematocrit 36.2 % (36.0-47.0) Mean Corpuscular Volume 84 fL (79-100) Mean Corpuscular Hemoglobin 30 pg (25-35) Mean Corpuscular Hemoglobin Concent 36 g/dL (31-37) Red Cell Distribution Width 13.4 % (11.5-14.5) Platelet Count 327 x10^3/uL (140-400) Neutrophils (%) (Auto) 82 % (31-73) Lymphocytes (%) (Auto) 14 % (24-48) Monocytes (%) (Auto) 3 % (0-9) Eosinophils (%) (Auto) 1 % (0-3) Basophils (%) (Auto) 1 % (0-3) Neutrophils # (Auto) 6.6 x10^3uL (1.8-7.7) Lymphocytes # (Auto) 1.1 x10^3/uL (1.0-4.8) Monocytes # (Auto) 0.3 x10^3/uL (0.0-1.1) Eosinophils # (Auto) 0.1 x10^3/uL (0.0-0.7) Basophils # (Auto) 0.1 x10^3/uL (0.0-0.2) Sodium Level 131 mmol/L (136-145) Potassium Level 3.4 mmol/L (3.5-5.1) Chloride Level 91 mmol/L (98-107) Carbon Dioxide Level 25 mmol/L (21-32) Anion Gap 15 (6-14) Blood Urea Nitrogen 46 mg/dL (7-20) Creatinine 3.6 mg/dL (0.6-1.0) Estimated GFR (Cockcroft-Gault) 13.3 BUN/Creatinine Ratio 13 (6-20) Glucose Level 558 mg/dL (70-99) Calcium Level 9.2 mg/dL (8.5-10.1) Phosphorus Level 4.1 mg/dL (2.6-4.7) Magnesium Level 2.0 mg/dL (1.8-2.4) Total Bilirubin 0.5 mg/dL (0.2-1.0) Aspartate Amino Transf (AST/SGOT) 67 U/L (15-37) Alanine Aminotransferase (ALT/SGPT) 129 U/L (14-59) Alkaline Phosphatase 162 U/L (46-116) Total Protein 6.5 g/dL (6.4-8.2) Albumin 2.4 g/dL (3.4-5.0) Albumin/Globulin Ratio 0.6 (1.0-1.7) Glucose (Fingerstick) 592 mg/dL (70-99) 490 mg/dL (70-99) 328 mg/dL (70-99) Test 01/17/17 04:35 01/17/17 07:26 01/17/17 10:56 White Blood Count 10.0 x10^3/uL (4.0-11.0) Red Blood Count 3.63 x10^6/uL (3.50-5.40) Hemoglobin 10.9 g/dL (12.0-15.5) Hematocrit 30.4 % (36.0-47.0) Mean Corpuscular Volume 84 fL (79-100) Mean Corpuscular Hemoglobin 30 pg (25-35) Mean Corpuscular Hemoglobin Concent 36 g/dL (31-37) Red Cell Distribution Width 13.5 % (11.5-14.5) Platelet Count 291 x10^3/uL (140-400) Neutrophils (%) (Auto) 87 % (31-73) Lymphocytes (%) (Auto) 10 % (24-48) Monocytes (%) (Auto) 3 % (0-9) Eosinophils (%) (Auto) 0 % (0-3) Basophils (%) (Auto) 0 % (0-3) Neutrophils # (Auto) 8.7 x10^3uL (1.8-7.7) Lymphocytes # (Auto) 1.0 x10^3/uL (1.0-4.8) Monocytes # (Auto) 0.3 x10^3/uL (0.0-1.1) Eosinophils # (Auto) 0.0 x10^3/uL (0.0-0.7) Basophils # (Auto) 0.0 x10^3/uL (0.0-0.2) Sodium Level 138 mmol/L (136-145) Potassium Level 2.7 mmol/L (3.5-5.1) Chloride Level 100 mmol/L (98-107) Carbon Dioxide Level 26 mmol/L (21-32) Anion Gap 12 (6-14) Blood Urea Nitrogen 47 mg/dL (7-20) Creatinine 3.6 mg/dL (0.6-1.0) Estimated GFR (Cockcroft-Gault) 13.3 Glucose Level 253 mg/dL (70-99) Calcium Level 8.9 mg/dL (8.5-10.1) Glucose (Fingerstick) 220 mg/dL (70-99) 290 mg/dL (70-99) Laboratory Tests Test 01/16/17 19:47 01/16/17 22:18 01/17/17 01:20 01/17/17 04:35 Glucose (Fingerstick) 592 mg/dL (70-99) 490 mg/dL (70-99) 328 mg/dL (70-99) White Blood Count 10.0 x10^3/uL (4.0-11.0) Red Blood Count 3.63 x10^6/uL (3.50-5.40) Hemoglobin 10.9 g/dL (12.0-15.5) Hematocrit 30.4 % (36.0-47.0) Mean Corpuscular Volume 84 fL (79-100) Mean Corpuscular Hemoglobin 30 pg (25-35) Mean Corpuscular Hemoglobin Concent 36 g/dL (31-37) Red Cell Distribution Width 13.5 % (11.5-14.5) Platelet Count 291 x10^3/uL (140-400) Neutrophils (%) (Auto) 87 % (31-73) Lymphocytes (%) (Auto) 10 % (24-48) Monocytes (%) (Auto) 3 % (0-9) Eosinophils (%) (Auto) 0 % (0-3) Basophils (%) (Auto) 0 % (0-3) Neutrophils # (Auto) 8.7 x10^3uL (1.8-7.7) Lymphocytes # (Auto) 1.0 x10^3/uL (1.0-4.8) Monocytes # (Auto) 0.3 x10^3/uL (0.0-1.1) Eosinophils # (Auto) 0.0 x10^3/uL (0.0-0.7) Basophils # (Auto) 0.0 x10^3/uL (0.0-0.2) Sodium Level 138 mmol/L (136-145) Potassium Level 2.7 mmol/L (3.5-5.1) Chloride Level 100 mmol/L (98-107) Carbon Dioxide Level 26 mmol/L (21-32) Anion Gap 12 (6-14) Blood Urea Nitrogen 47 mg/dL (7-20) Creatinine 3.6 mg/dL (0.6-1.0) Estimated GFR (Cockcroft-Gault) 13.3 Glucose Level 253 mg/dL (70-99) Calcium Level 8.9 mg/dL (8.5-10.1) Test 01/17/17 07:26 01/17/17 10:56 Glucose (Fingerstick) 220 mg/dL (70-99) 290 mg/dL (70-99) Medications Current Medications Ondansetron HCl (Zofran) 4 mg 1X ONCE IV Last administered on 01/16/17 15:55 ; Start 01/16/17 at 15:45; Stop 01/16/17 at 15:49; Status DC Labetalol HCl (Normodyne) 20 mg 1X ONCE IVP Last administered on 01/16/17 15 :56; Start 01/16/17 at 15:45; Stop 01/16/17 at 15:49; Status DC Promethazine HCl (Phenergan Im) 25 mg 1X ONCE IM Last administered on 16:44; Start 01/16/17 at 16:45; Stop 01/16/17 at 16:46; Status DC Sodium Chloride 1,000 ml @ 1,000 mls/hr 1X ONCE IV Last administered on 01/16 17:07; Start 01/16/17 at 17:00; Stop 01/17/17 at 11:46; Status DC Ondansetron HCl (Zofran) 4 mg PRN Q8HRS PRN IV NAUSEA/VOMITING Last administered on 01/16/17 18:40; Start 01/16/17 at 17:15; Stop 01/17/17 at 13 :26; Status DC Fentanyl Citrate (Fentanyl 2ml Vial) 50 mcg PRN Q1HR PRN IV PAIN; Start at 17:15; Stop 01/17/17 at 17:14 Acetaminophen (Tylenol) 650 mg PRN Q4HRS PRN PO FEVER; Start 01/16/17 at 17:15 ; Stop 01/17/17 at 17:14 Insulin Human Regular (NovoLIN R VIAL) 6 unit 1X ONCE IV Last administered on 01/16/17 17:45; Start 01/16/17 at 17:15; Stop 01/16/17 at 17:16; Status DC Vitamin D (Vitamin D3) 1,000 unit DAILY PO Last administered on 01/17/17 09: 21; Start 01/17/17 at 09:00 Clonidine HCl (Catapres) 0.1 mg BID PO Last administered on 01/17/17 09:04; Start 01/16/17 at 21:00 Clopidogrel Bisulfate (Plavix) 75 mg DAILY PO Last administered on 01/17/17 09:29; Start 01/17/17 at 09:00 Fluoxetine HCl (PROzac) 20 mg DAILYWBKFT PO Last administered on 01/17/17 09: 03; Start 01/17/17 at 08:00 Furosemide (Lasix) 40 mg BID92 PO Last administered on 01/17/17 14:57; Start 01/17/17 at 09:00 Acetaminophen/ Hydrocodone Bitart (Lortab 5/325) 1 tab PRN Q6HRS PRN PO PAIN; Start 01/16/17 at 17:30 Insulin Aspart (NovoLOG) 5 units TIDAC SQ Last administered on 01/17/17 12:42 ; Start 01/17/17 at 07:30 Lisinopril (Prinivil) 20 mg BID PO Last administered on 01/17/17 09:30; Start 01/16/17 at 21:00 Pantoprazole Sodium (Protonix) 40 mg DAILY PO ; Start 01/17/17 at 09:00; Stop 01/17/17 at 09:00; Status DC Amlodipine Besylate (Norvasc) 10 mg DAILY PO Last administered on 01/17/17 09 :20; Start 01/17/17 at 09:00 Docusate Sodium (Colace) 100 mg DAILY PO Last administered on 01/17/17 09:28 ; Start 01/16/17 at 21:00 Insulin Detemir (Levemir) 10 units QHS SQ Last administered on 01/16/17 20:33 ; Start 01/16/17 at 21:00 Levothyroxine Sodium (Synthroid) 200 mcg DAILY07 PO ; Start 01/17/17 at 07:00 Metoclopramide HCl (Reglan Vial) 5 mg PRN Q6HRS PRN IV NAUSEA/VOMITING; Start 01/16/17 at 17:30; Stop 01/16/17 at 17:44; Status DC Acetaminophen (Tylenol) 650 mg PRN Q6HRS PRN PO FEVER; Start 01/16/17 at 17:30 Ondansetron HCl (Zofran) 4 mg PRN Q6HRS PRN IV NAUSEA/VOMITING Last administered on 01/17/17 09:43; Start 01/16/17 at 17:30 Morphine Sulfate 2 mg PRN Q2HR PRN IV PAIN; Start 01/16/17 at 17:30 Tramadol HCl (Ultram) 50 mg PRN Q6HRS PRN PO PAIN; Start 01/16/17 at 17:30 Hydralazine HCl (Apresoline Inj) 10 mg PRN Q4HRS PRN IVP ELEVATED BP, SEE COMMENTS Last administered on 01/16/17 18:34; Start 01/16/17 at 17:30 Docusate Sodium (Colace) 100 mg PRN DAILY PRN PO CONSTIPATION; Start 01/16/17 at 17:30 Heparin Sodium (Porcine) (Heparin Sq) 5,000 unit Q8HRS SQ Last administered on 01/17/17 14:59; Start 01/16/17 at 22:00 Metoclopramide HCl (Reglan Vial) 5 mg TIDAC IV ; Start 01/16/17 at 17:45; Stop 01/16/17 at 17:53; Status DC Pantoprazole Sodium (Protonix Vial) 40 mg DAILYAC IVP Last administered on 08:56; Start 01/17/17 at 07:30 Sodium Chloride 1,000 ml @ 75 mls/hr 1X ONCE IV Last administered on 20:47; Start 01/16/17 at 17:45; Stop 01/17/17 at 11:46; Status DC Senna/Docusate Sodium (Senna Plus) 1 tab BID PO Last administered on 09:21; Start 01/16/17 at 21:00 Docusate Sodium (Colace) 100 mg BID PO ; Start 01/16/17 at 21:00; Status UNV Magnesium Hydroxide (Milk Of Magnesia) 2,400 mg PRN Q12HR PRN PO CONSTIPATION; Start 01/16/17 at 17:45 Lactulose 20 gm PRN Q12HR PRN PO CONSTIPATION; Start 01/16/17 at 17:45 Bisacodyl (Dulcolax Supp) [address] CONSTIPATION; Start 01/16/17 at 17:45 Potassium Chloride 50 ml @ 50 mls/hr 1X ONCE IV ; Start 01/16/17 at 18:00; Stop 01/16/17 at 18:59; Status UNV Metoclopramide HCl (Reglan Vial) 5 mg QID IV ; Start 01/16/17 at 18:00; Stop 01/16/17 at 18:00; Status DC Metoclopramide HCl (Reglan Vial) 5 mg BID IV Last administered on 01/17/17 09 :22; Start 01/16/17 at 18:00; Stop 01/17/17 at 10:09; Status DC Atorvastatin Calcium (Lipitor) 40 mg QHS PO ; Start 01/16/17 at 21:00 Potassium Chloride 20 meq/ Dextrose 260 ml @ 130 mls/hr 1X ONCE IV Last administered on 01/16/17 18:41; Start 01/16/17 at 19:00; Stop 01/16/17 at 20 :59; Status DC Labetalol HCl (Normodyne) 20 mg 1X STAT IVP Last administered on 01/16/17 20 :21; Start 01/16/17 at 20:07; Stop 01/16/17 at 20:10; Status DC Insulin Human Regular (NovoLIN R VIAL) 10 unit 1X STAT IV Last administered on 01/16/17 20:32; Start 01/16/17 at 20:07; Stop 01/16/17 at 20:10; Status DC Insulin Aspart (NovoLOG) 0-9 UNITS [id number] SQ Last administered on 12:41; Start 01/17/17 at 08:00 Dextrose (Dextrose 50%-Water Syringe) 12.5 gm PRN Q15MIN PRN IV SEE COMMENTS; Start 01/16/17 at 22:30 Insulin Human Regular (NovoLIN R VIAL) 10 unit 1X ONCE IV Last administered on 01/16/17 23:12; Start 01/16/17 at 23:00; Stop 01/16/17 at 23:01; Status DC Hydralazine HCl (Apresoline Inj) 10 mg 1X ONCE IVP Last administered on 23:08; Start 01/16/17 at 22:45; Stop 01/16/17 at 22:46; Status DC Insulin Aspart (NovoLOG) 0-9 UNITS 1X ONCE SQ Last administered on 01/17/17 02:04; Start 01/17/17 at 01:45; Stop 01/17/17 at 01:46; Status DC Potassium Chloride/Sodium Chloride 1,000 ml @ 75 mls/hr 1X ONCE IV Last administered on 01/17/17 06:37; Start 01/17/17 at 06:30; Stop 01/17/17 at 19 :49 Metoclopramide HCl (Reglan Vial) 5 mg QIDACHS IV Last administered on 12:26; Start 01/17/17 at 11:30 Potassium Chloride (Klor-Con) 40 meq 1X ONCE PO Last administered on 10:50; Start 01/17/17 at 11:00; Stop 01/17/17 at 11:01; Status DC Amino Acids/ Glycerin/ Electrolytes 1,000 ml @ 80 mls/hr [id number] IV Last administered on 01/17/17 12:29; Start 01/17/17 at 11:45 Darbepoetin Antonio (Aranesp) 60 mcg [id number] SQ ; Start 01/24/17 at 21:00 Active Scripts Active Reported Stool Softener (Docusate Sodium) 50 Mg Capsule 50 Mg PO BID [place] 5-325 Tablet (Acetaminophen/Hydrocodone Bitart) 1 Each Tablet 1 Tab PO Q4- 6HRS LAST DOSE GIVEN: DATE: 12/10/16 TIME: so next dose at as needed for pain Prozac (Fluoxetine Hcl) 20 Mg Capsule 1 Cap PO DAILYWBKFT Lisinopril 20 Mg Tablet 1 Tab PO BID Synthroid (Levothyroxine Sodium) 200 Mcg Tablet 1 Tab PO DAILY Novolog Flexpen (Insulin Aspart) 100 Unit/1 Ml Insuln.pen 5 Unit SQ TIDAC Lantus Solostar (Insulin Glargine,Hum.rec.anlog) 100 Unit/1 Ml Insuln.pen 10 Unit SQ QHS Clonidine Hcl 0.1 Mg Tablet 0.1 Mg PO BID Lasix (Furosemide) 40 Mg Tablet 40 Mg PO BID [place] 10 Mg-40 Mg Tablet (Amlodipine/Atorvastatin) 1 Each Tablet 1 Each PO DAILY Protonix (Pantoprazole Sodium) 40 Mg Tablet.dr 1 Tab PO DAILY Clopidogrel (Clopidogrel Bisulfate) 75 Mg Tablet 1 Tab PO DAILY Vitamin D3 (Cholecalciferol (Vitamin D3)) 1,000 Unit Tablet 1 Tab PO DAILY Vitals/I & O Vital Sign - Last 24 Hours 01/16/17 01/16/17 01/16/17 01/16/17 16:00 16:30 17:00 17:30 Pulse 86 82 84 94 Resp 20 20 18 18 B/P (MAP) 188/87 (120) 179/82 (114) 219/99 (139) 221/109 (146) Pulse Ox 100 100 99 99 O2 Delivery Room Air Room Air Room Air Room Air 01/16/17 01/16/17 01/16/17 01/16/17 18:00 18:34 19:00 20:00 Temp 97.7 97.7 Pulse 92 88 91 Resp 18 20 B/P (MAP) 209/98 (135) 221/112 204/102 (136) Pulse Ox 99 97 O2 Delivery Room Air Room Air Room Air 01/16/17 01/16/17 01/16/17 01/16/17 20:00 20:00 20:21 20:28 Pulse 91 91 B/P (MAP) 204/102 204/102 O2 Delivery Room Air Room Air 01/16/17 01/16/17 01/16/17 01/17/17 20:28 23:00 23:08 03:00 Temp 97.7 97.7 97.7 97.7 Pulse 91 91 83 88 Resp 20 20 B/P (MAP) 204/102 203/105 (137) 203/105 169/93 (118) Pulse Ox 98 96 O2 Delivery Nasal Cannula Nasal Cannula O2 Flow Rate 2.0 2.0 01/17/17 01/17/17 01/17/17 01/17/17 07:00 08:00 09:04 09:20 Temp 98.1 98.1 Pulse 88 88 88 Resp 20 B/P (MAP) 195/100 (131) 195/100 195/100 Pulse Ox 97 O2 Delivery Nasal Cannula Room Air O2 Flow Rate 2.0 01/17/17 01/17/17 01/17/17 09:30 11:07 15:00 Temp 98.3 98.1 98.3 98.1 Pulse 88 89 83 Resp 20 20 B/P (MAP) 195/100 190/93 (125) 145/68 (93) Pulse Ox 97 96 O2 Delivery Nasal Cannula Nasal Cannula O2 Flow Rate 2.0 2.0 Intake and Output 01/16/17 01/16/17 01/17/17 15:00 23:00 07:00 Intake Total 0 ml Balance 0 ml KARYNA NAGEL MD Jan 17, 2017 16:00
[2017-01-17] MEDS ORDERED: INSULIN ASPART 300 UNITS/3 ML INSULN.PEN SQ SCH (16:30)
[2017-01-17 19:00] VITALS: BP 156/78
[2017-01-17] MEDS ORDERED: INSULIN DETEMIR 300 UNITS/3 ML INSULN.PEN. SQ SCH (21:00)
[2017-01-17] MEDS: ATORVASTATIN CALCIUM 40 MG TABLET. PO SCH (21:42)
[2017-01-17 23:00] VITALS: BP 136/70
[2017-01-18] VITALS (7 sets, daily range): BP systolic 132–183; BP diastolic 71–90
[2017-01-18] MEDS: AMINO AC 3%/ELECTROLYTE/GLYCER 1,000 ML IV SCH ×2 (00:44→11:17)
[2017-01-18] MEDS: METOCLOPRAMIDE HCL 10 MG/2 ML VIAL. IV SCH ×2 (05:35→11:16)
[2017-01-18] MEDS: PANTOPRAZOLE IV PUSH 40 MG VIAL. IVP SCH (05:35)
[2017-01-18] MEDS: LEVOTHYROXINE 100 MCG TABLET PO SCH (05:35)
[2017-01-18] MEDS: HEPARIN PF for SUB-Q USE 5,000 UNIT/0.5 ML VIAL. SQ SCH ×3 (05:43→21:54)
[2017-01-18 06:37] LABS: CALCIUM 8.1 mg/dL (8.5-10.1); CREATININE 3.9 mg/dL (0.6-1.0); GFR 12.2; MAGNESIUM 2.1 mg/dL (1.8-2.4); PHOSPHORUS 4.5 mg/dL (2.6-4.7)
[2017-01-18] MEDS: INSULIN ASPART 300 UNITS/3 ML INSULN.PEN SQ SCH ×6 (07:30→17:06)
[2017-01-18] MEDS: cloNIDine HCL 0.1 MG TABLET PO SCH ×2 (09:11→20:38)
[2017-01-18] MEDS: FLUoxetine HCL 20 MG CAPSULE PO SCH (09:11)
[2017-01-18] MEDS: amLODIPine BESYLATE 10 MG TABLET PO SCH (09:12)
[2017-01-18] MEDS: DOCUSATE SODIUM 100 MG CAPSULE. PO SCH (09:12)
[2017-01-18] MEDS: FUROSEMIDE 40 MG TABLET. PO SCH ×2 (09:12→14:48)
[2017-01-18] MEDS: LISINOPRIL 20 MG TABLET PO SCH ×2 (09:13→20:39)
[2017-01-18] MEDS: CLOPIDOGREL BISULFATE 75 MG TABLET PO SCH (09:13)
[2017-01-18] MEDS: SENNOSIDES/DOCUSATE 8.6/50MG TABLET. PO SCH ×2 (09:14→20:39)
[2017-01-18] MEDS: CHOLECALCIFEROL (VITAMIN D3) 1,000 UNIT TABLET PO SCH (09:14)
--- NOTE | 2017-01-18 10:45 | PDOC ---
Subjective: Subjective: Better today, ate reg breakfast w/o n/v. Objective: Vital Signs: Vital Signs Date Time Temp Pulse Resp B/P (MAP) Pulse Ox O2 Delivery O2 Flow Rate FiO2 01/18/17 09:13 88 181/92 01/18/17 07:33 Room Air 01/18/17 07:00 96.9 18 98 96.9 01/17/17 15:00 2.0 Labs: Laboratory Tests Test 01/17/17 10:56 01/17/17 16:18 01/17/17 21:06 01/18/17 07:38 Glucose (Fingerstick) 290 mg/dL (70-99) 270 mg/dL (70-99) 245 mg/dL (70-99) 67 mg/dL (70-99) Test 01/18/17 08:22 Glucose (Fingerstick) 88 mg/dL (70-99) PE: GEN: NAD LUNGS: CTAB HEART: RRR ABD: NABS, S/ND/NT NEURO/PSYCH: A & O 3 A/P: Gastroparesis -n/v improved -h/o GERD and uncontrolled DM, also ESRD -- Improved. ?change to PO Reglan susp VALENTIN SALAZAR Jan 18, 2017 10:45
--- NOTE | 2017-01-18 11:52 | PDOC ---
Renal-Progress Notes Subjective Notes Notes BETTER History of Present Illness Hx of present illness STABLE Vitals Vitals Vital Signs Date Time Temp Pulse Resp B/P (MAP) Pulse Ox O2 Delivery O2 Flow Rate FiO2 01/18/17 09:13 88 181/92 01/18/17 07:33 Room Air 01/18/17 07:00 96.9 18 98 96.9 01/17/17 15:00 2.0 Weight Weight [ ] I.O. Intake and Output Intake and Output 01/18/17 07:00 Intake Total 830 ml Balance 830 ml Intake Oral 830 ml # Voids 2 Labs Labs Laboratory Tests Test 01/17/17 16:18 01/17/17 21:06 01/18/17 05:20 01/18/17 07:38 Glucose (Fingerstick) 270 mg/dL (70-99) 245 mg/dL (70-99) 67 mg/dL (70-99) Sodium Level 140 mmol/L (136-145) Potassium Level 4.0 mmol/L (3.5-5.1) Chloride Level 104 mmol/L (98-107) Carbon Dioxide Level 29 mmol/L (21-32) Anion Gap 7 (6-14) Blood Urea Nitrogen 54 mg/dL (7-20) Creatinine 3.9 mg/dL (0.6-1.0) Estimated GFR (Cockcroft-Gault) 12.2 Glucose Level 76 mg/dL (70-99) Calcium Level 8.1 mg/dL (8.5-10.1) Phosphorus Level 4.5 mg/dL (2.6-4.7) Magnesium Level 2.1 mg/dL (1.8-2.4) Test 01/18/17 08:22 Glucose (Fingerstick) 88 mg/dL (70-99) Review of Systems Constitutional: yes: malaise, weakness, alert, oriented Ears/Nose/Throat: Yes: no symptom reported Pulmonary: Yes no symptom reported Gastrointestional: Yes: nausea Genitourinary: Yes: no symptom reported Musculoskeletal: Yes: muscle stiffness Skin: Yes no symptom reported Psychiatric/Neurological: Yes: no symptom reported Endocrine: Yes: no symptom reported Hematologic/Lymphatic: Yes: no symptom reported Physical Exam General Appearance: no apparent distress Skin: warm, dry Respiratory: bilateral CTA Heart: S1S2, RRR Abdomen: soft, bowel sounds present, rectal tube Genitourinary: bladder flat Extremities: pulses present, no edema, atrophy Neurology: alert, oriented Assessment Assessment IMP N/V-BETTER GASTROPARESIS DM II HTN ANEMIA ESRD DEHYDRATION PLAN CONT PPN ENC PO RESUME CAPD USE ALL 1.5% DIANEAL LOW VOLUME FILL FOR NOW OK TO D/C TOMORROW OR LATER TODAY IF DOING WELL TIM MCGRATH MD Jan 18, 2017 11:52
[2017-01-18] MEDS: PERITONEAL LOW CA IP SCH ×2 (15:09→21:32)
[2017-01-18] MEDS: DEX IP SCH ×2 (15:09→21:32)
--- NOTE | 2017-01-18 15:59 | PDOC ---
PROGRESS NOTES Chief Complaint Chief Complaint intractable N/V with gastroparesis DM2 on insulin ESRD on PD daily HTN URGENCY HLD HYPOthyroidism constipation mild malnutrition with ESRD hypokalemia plan: gi, renal consulted need cont PD from today decrease levemir 10u qhs, aspart 5u tid, SSI advance diet to renal dc PPN advance diet if N/V better reglan 5mg change to po qid as per GI replete K, check mag, brit dvt, gi ppx pain control prn PTOT stool softner dc tmr History of Present Illness History of Present Illness ROS: NO fever, chills, sob or chest pain N/V, better hyperglycemia better Vitals Vitals Vital Signs Date Time Temp Pulse Resp B/P (MAP) Pulse Ox O2 Delivery O2 Flow Rate FiO2 01/18/17 11:00 97.5 82 18 173/90 (117) 97 Room Air 97.5 01/17/17 15:00 2.0 Physical Exam General: Alert, Oriented X3, Cooperative, No acute distress Heart: Regular rate, Normal S1, Normal S2 Lungs: Clear Abdomen: Normal bowel sounds, No tenderness Extremities: No clubbing Skin: No breakdown, No significant lesion Labs LABS Laboratory Tests Test 01/17/17 16:18 01/17/17 21:06 01/18/17 05:20 01/18/17 07:38 Glucose (Fingerstick) 270 mg/dL (70-99) 245 mg/dL (70-99) 67 mg/dL (70-99) Sodium Level 140 mmol/L (136-145) Potassium Level 4.0 mmol/L (3.5-5.1) Chloride Level 104 mmol/L (98-107) Carbon Dioxide Level 29 mmol/L (21-32) Anion Gap 7 (6-14) Blood Urea Nitrogen 54 mg/dL (7-20) Creatinine 3.9 mg/dL (0.6-1.0) Estimated GFR (Cockcroft-Gault) 12.2 Glucose Level 76 mg/dL (70-99) Calcium Level 8.1 mg/dL (8.5-10.1) Phosphorus Level 4.5 mg/dL (2.6-4.7) Magnesium Level 2.1 mg/dL (1.8-2.4) Test 01/18/17 08:22 01/18/17 11:09 01/18/17 15:29 Glucose (Fingerstick) 88 mg/dL (70-99) 246 mg/dL (70-99) 220 mg/dL (70-99) Assessment and Plan Assessmemt and Plan Problems Medical Problems: (1) Hyperglycemia Status: Acute (2) Hypertension Status: Acute (3) Intractable nausea and vomiting Status: Acute Problems: Comment Review of Relevant I have reviewed the following items ruiz (where applicable) has been applied. Labs Laboratory Tests Test 01/16/17 19:47 01/16/17 22:18 01/17/17 01:20 01/17/17 04:35 Glucose (Fingerstick) 592 mg/dL (70-99) 490 mg/dL (70-99) 328 mg/dL (70-99) White Blood Count 10.0 x10^3/uL (4.0-11.0) Red Blood Count 3.63 x10^6/uL (3.50-5.40) Hemoglobin 10.9 g/dL (12.0-15.5) Hematocrit 30.4 % (36.0-47.0) Mean Corpuscular Volume 84 fL (79-100) Mean Corpuscular Hemoglobin 30 pg (25-35) Mean Corpuscular Hemoglobin Concent 36 g/dL (31-37) Red Cell Distribution Width 13.5 % (11.5-14.5) Platelet Count 291 x10^3/uL (140-400) Neutrophils (%) (Auto) 87 % (31-73) Lymphocytes (%) (Auto) 10 % (24-48) Monocytes (%) (Auto) 3 % (0-9) Eosinophils (%) (Auto) 0 % (0-3) Basophils (%) (Auto) 0 % (0-3) Neutrophils # (Auto) 8.7 x10^3uL (1.8-7.7) Lymphocytes # (Auto) 1.0 x10^3/uL (1.0-4.8) Monocytes # (Auto) 0.3 x10^3/uL (0.0-1.1) Eosinophils # (Auto) 0.0 x10^3/uL (0.0-0.7) Basophils # (Auto) 0.0 x10^3/uL (0.0-0.2) Sodium Level 138 mmol/L (136-145) Potassium Level 2.7 mmol/L (3.5-5.1) Chloride Level 100 mmol/L (98-107) Carbon Dioxide Level 26 mmol/L (21-32) Anion Gap 12 (6-14) Blood Urea Nitrogen 47 mg/dL (7-20) Creatinine 3.6 mg/dL (0.6-1.0) Estimated GFR (Cockcroft-Gault) 13.3 Glucose Level 253 mg/dL (70-99) Calcium Level 8.9 mg/dL (8.5-10.1) Test 01/17/17 07:26 01/17/17 10:56 01/17/17 16:18 01/17/17 21:06 Glucose (Fingerstick) 220 mg/dL (70-99) 290 mg/dL (70-99) 270 mg/dL (70-99) 245 mg/dL (70-99) Test 01/18/17 05:20 01/18/17 07:38 01/18/17 08:22 01/18/17 11:09 Sodium Level 140 mmol/L (136-145) Potassium Level 4.0 mmol/L (3.5-5.1) Chloride Level 104 mmol/L (98-107) Carbon Dioxide Level 29 mmol/L (21-32) Anion Gap 7 (6-14) Blood Urea Nitrogen 54 mg/dL (7-20) Creatinine 3.9 mg/dL (0.6-1.0) Estimated GFR (Cockcroft-Gault) 12.2 Glucose Level 76 mg/dL (70-99) Calcium Level 8.1 mg/dL (8.5-10.1) Phosphorus Level 4.5 mg/dL (2.6-4.7) Magnesium Level 2.1 mg/dL (1.8-2.4) Glucose (Fingerstick) 67 mg/dL (70-99) 88 mg/dL (70-99) 246 mg/dL (70-99) Test 01/18/17 15:29 Glucose (Fingerstick) 220 mg/dL (70-99) Laboratory Tests Test 01/17/17 16:18 01/17/17 21:06 01/18/17 05:20 01/18/17 07:38 Glucose (Fingerstick) 270 mg/dL (70-99) 245 mg/dL (70-99) 67 mg/dL (70-99) Sodium Level 140 mmol/L (136-145) Potassium Level 4.0 mmol/L (3.5-5.1) Chloride Level 104 mmol/L (98-107) Carbon Dioxide Level 29 mmol/L (21-32) Anion Gap 7 (6-14) Blood Urea Nitrogen 54 mg/dL (7-20) Creatinine 3.9 mg/dL (0.6-1.0) Estimated GFR (Cockcroft-Gault) 12.2 Glucose Level 76 mg/dL (70-99) Calcium Level 8.1 mg/dL (8.5-10.1) Phosphorus Level 4.5 mg/dL (2.6-4.7) Magnesium Level 2.1 mg/dL (1.8-2.4) Test 01/18/17 08:22 01/18/17 11:09 01/18/17 15:29 Glucose (Fingerstick) 88 mg/dL (70-99) 246 mg/dL (70-99) 220 mg/dL (70-99) Medications Current Medications Ondansetron HCl (Zofran) 4 mg 1X ONCE IV Last administered on 01/16/17 15:55 ; Start 01/16/17 at 15:45; Stop 01/16/17 at 15:49; Status DC Labetalol HCl (Normodyne) 20 mg 1X ONCE IVP Last administered on 01/16/17 15 :56; Start 01/16/17 at 15:45; Stop 01/16/17 at 15:49; Status DC Promethazine HCl (Phenergan Im) 25 mg 1X ONCE IM Last administered on 16:44; Start 01/16/17 at 16:45; Stop 01/16/17 at 16:46; Status DC Sodium Chloride 1,000 ml @ 1,000 mls/hr 1X ONCE IV Last administered on 01/16 17:07; Start 01/16/17 at 17:00; Stop 01/17/17 at 11:46; Status DC Ondansetron HCl (Zofran) 4 mg PRN Q8HRS PRN IV NAUSEA/VOMITING Last administered on 01/16/17 18:40; Start 01/16/17 at 17:15; Stop 01/17/17 at 13 :26; Status DC Fentanyl Citrate (Fentanyl 2ml Vial) 50 mcg PRN Q1HR PRN IV PAIN; Start at 17:15; Stop 01/17/17 at 17:14; Status DC Acetaminophen (Tylenol) 650 mg PRN Q4HRS PRN PO FEVER; Start 01/16/17 at 17:15 ; Stop 01/17/17 at 17:14; Status DC Insulin Human Regular (NovoLIN R VIAL) 6 unit 1X ONCE IV Last administered on 01/16/17 17:45; Start 01/16/17 at 17:15; Stop 01/16/17 at 17:16; Status DC Vitamin D (Vitamin D3) 1,000 unit DAILY PO Last administered on 01/18/17 09: 14; Start 01/17/17 at 09:00 Clonidine HCl (Catapres) 0.1 mg BID PO Last administered on 01/18/17 09:11; Start 01/16/17 at 21:00 Clopidogrel Bisulfate (Plavix) 75 mg DAILY PO Last administered on 01/18/17 09:13; Start 01/17/17 at 09:00 Fluoxetine HCl (PROzac) 20 mg DAILYWBKFT PO Last administered on 01/18/17 09: 11; Start 01/17/17 at 08:00 Furosemide (Lasix) 40 mg BID92 PO Last administered on 01/18/17 14:48; Start 01/17/17 at 09:00 Acetaminophen/ Hydrocodone Bitart (Lortab 5/325) 1 tab PRN Q6HRS PRN PO PAIN; Start 01/16/17 at 17:30 Insulin Aspart (NovoLOG) 5 units TIDAC SQ Last administered on 01/17/17 12:42 ; Start 01/17/17 at 07:30; Stop 01/17/17 at 16:00; Status DC Lisinopril (Prinivil) 20 mg BID PO Last administered on 01/18/17 09:13; Start 01/16/17 at 21:00 Pantoprazole Sodium (Protonix) 40 mg DAILY PO ; Start 01/17/17 at 09:00; Stop 01/17/17 at 09:00; Status DC Amlodipine Besylate (Norvasc) 10 mg DAILY PO Last administered on 01/18/17 09 :12; Start 01/17/17 at 09:00 Docusate Sodium (Colace) 100 mg DAILY PO Last administered on 01/18/17 09:12 ; Start 01/16/17 at 21:00 Insulin Detemir (Levemir) 10 units QHS SQ Last administered on 01/16/17 20:33 ; Start 01/16/17 at 21:00; Stop 01/17/17 at 15:58; Status DC Levothyroxine Sodium (Synthroid) 200 mcg DAILY07 PO Last administered on 05:35; Start 01/17/17 at 07:00 Metoclopramide HCl (Reglan Vial) 5 mg PRN Q6HRS PRN IV NAUSEA/VOMITING; Start 01/16/17 at 17:30; Stop 01/16/17 at 17:44; Status DC Acetaminophen (Tylenol) 650 mg PRN Q6HRS PRN PO FEVER; Start 01/16/17 at 17:30 Ondansetron HCl (Zofran) 4 mg PRN Q6HRS PRN IV NAUSEA/VOMITING Last administered on 01/17/17 09:43; Start 01/16/17 at 17:30 Morphine Sulfate 2 mg PRN Q2HR PRN IV PAIN; Start 01/16/17 at 17:30 Tramadol HCl (Ultram) 50 mg PRN Q6HRS PRN PO PAIN; Start 01/16/17 at 17:30 Hydralazine HCl (Apresoline Inj) 10 mg PRN Q4HRS PRN IVP ELEVATED BP, SEE COMMENTS Last administered on 01/16/17 18:34; Start 01/16/17 at 17:30 Docusate Sodium (Colace) 100 mg PRN DAILY PRN PO CONSTIPATION; Start 01/16/17 at 17:30 Heparin Sodium (Porcine) (Heparin Sq) 5,000 unit Q8HRS SQ Last administered on 01/18/17 14:52; Start 01/16/17 at 22:00 Metoclopramide HCl (Reglan Vial) 5 mg TIDAC IV ; Start 01/16/17 at 17:45; Stop 01/16/17 at 17:53; Status DC Pantoprazole Sodium (Protonix Vial) 40 mg DAILYAC IVP Last administered on 05:35; Start 01/17/17 at 07:30; Stop 01/18/17 at 10:46; Status DC Sodium Chloride 1,000 ml @ 75 mls/hr 1X ONCE IV Last administered on 20:47; Start 01/16/17 at 17:45; Stop 01/17/17 at 11:46; Status DC Senna/Docusate Sodium (Senna Plus) 1 tab BID PO Last administered on 09:14; Start 01/16/17 at 21:00 Docusate Sodium (Colace) 100 mg BID PO ; Start 01/16/17 at 21:00; Status UNV Magnesium Hydroxide (Milk Of Magnesia) 2,400 mg PRN Q12HR PRN PO CONSTIPATION; Start 01/16/17 at 17:45 Lactulose 20 gm PRN Q12HR PRN PO CONSTIPATION; Start 01/16/17 at 17:45 Bisacodyl (Dulcolax Supp) 10 mg PRN DAILY PRN [place] CONSTIPATION; Start 01/16/17 at 17:45 Potassium Chloride 50 ml @ 50 mls/hr 1X ONCE IV ; Start 01/16/17 at 18:00; Stop 01/16/17 at 18:59; Status UNV Metoclopramide HCl (Reglan Vial) 5 mg QID IV ; Start 01/16/17 at 18:00; Stop 01/16/17 at 18:00; Status DC Metoclopramide HCl (Reglan Vial) 5 mg BID IV Last administered on 01/17/17 09 :22; Start 01/16/17 at 18:00; Stop 01/17/17 at 10:09; Status DC Atorvastatin Calcium (Lipitor) 40 mg QHS PO Last administered on 01/17/17 21: 42; Start 01/16/17 at 21:00 Potassium Chloride 20 meq/ Dextrose 260 ml @ 130 mls/hr 1X ONCE IV Last administered on 01/16/17 18:41; Start 01/16/17 at 19:00; Stop 01/16/17 at 20 :59; Status DC Labetalol HCl (Normodyne) 20 mg 1X STAT IVP Last administered on 01/16/17 20 :21; Start 01/16/17 at 20:07; Stop 01/16/17 at 20:10; Status DC Insulin Human Regular (NovoLIN R VIAL) 10 unit 1X STAT IV Last administered on 01/16/17 20:32; Start 01/16/17 at 20:07; Stop 01/16/17 at 20:10; Status DC Insulin Aspart (NovoLOG) 0-9 UNITS TIDWMEALHC SQ Last administered on 12:41; Start 01/17/17 at 08:00; Stop 01/17/17 at 16:00; Status DC Dextrose (Dextrose 50%-Water Syringe) 12.5 gm PRN Q15MIN PRN IV SEE COMMENTS; Start 01/16/17 at 22:30; Stop 01/17/17 at 16:02; Status DC Insulin Human Regular (NovoLIN R VIAL) 10 unit 1X ONCE IV Last administered on 01/16/17 23:12; Start 01/16/17 at 23:00; Stop 01/16/17 at 23:01; Status DC Hydralazine HCl (Apresoline Inj) 10 mg 1X ONCE IVP Last administered on 23:08; Start 01/16/17 at 22:45; Stop 01/16/17 at 22:46; Status DC Insulin Aspart (NovoLOG) 0-9 UNITS 1X ONCE SQ Last administered on 01/17/17 02:04; Start 01/17/17 at 01:45; Stop 01/17/17 at 01:46; Status DC Potassium Chloride/Sodium Chloride 1,000 ml @ 75 mls/hr 1X ONCE IV Last administered on 01/17/17 06:37; Start 01/17/17 at 06:30; Stop 01/17/17 at 19 :49; Status DC Metoclopramide HCl (Reglan Vial) 5 mg QIDACHS IV Last administered on 11:16; Start 01/17/17 at 11:30; Stop 01/18/17 at 14:39; Status DC Potassium Chloride (Klor-Con) 40 meq 1X ONCE PO Last administered on 10:50; Start 01/17/17 at 11:00; Stop 01/17/17 at 11:01; Status DC Amino Acids/ Glycerin/ Electrolytes 1,000 ml @ 80 mls/hr [id number] IV Last administered on 01/18/17 11:17; Start 01/17/17 at 11:45 Darbepoetin Antonio (Aranesp) 60 mcg [id number] SQ ; Start 01/24/17 at 21:00 Insulin Detemir (Levemir) 15 units QHS SQ Last administered on 01/17/17 21:54 ; Start 01/17/17 at 21:00; Stop 01/18/17 at 10:17; Status DC Insulin Aspart (NovoLOG) 5 units TIDAC SQ ; Start 01/17/17 at 16:30; Stop at 16:30; Status DC Insulin Aspart (NovoLOG) 0-9 UNITS TIDWMEALS SQ Last administered on 12:26; Start 01/17/17 at 17:00 Dextrose (Dextrose 50%-Water Syringe) 12.5 gm PRN Q15MIN PRN IV SEE COMMENTS; Start 01/17/17 at 16:00 Insulin Aspart (NovoLOG) 7 units TIDAC SQ Last administered on 01/17/17 17:23 ; Start 01/17/17 at 16:30; Stop 01/18/17 at 10:17; Status DC Insulin Aspart (NovoLOG) 5 units TIDAC SQ Last administered on 01/18/17 12:27 ; Start 01/18/17 at 11:30 Insulin Detemir (Levemir) 10 units QHS SQ ; Start 01/18/17 at 21:00 Pantoprazole Sodium (Protonix) 40 mg DAILYAC PO ; Start 01/19/17 at 07:30 Metoclopramide HCl (Reglan) 5 mg QIDACHS PO ; Start 01/18/17 at 16:30 Peritoneal Dialysis Solution 1,500 ml @ 500 mls/hr BID@0300,0900 IP ; Start at 03:00 Peritoneal Dialysis Solution 1,500 ml @ 500 mls/hr BID@1500,2100 IP Last administered on 01/18/17 15:09; Start 01/18/17 at 15:30 Active Scripts Active Reported Stool Softener (Docusate Sodium) 50 Mg Capsule 50 Mg PO BID Commack 5-325 Tablet (Acetaminophen/Hydrocodone Bitart) 1 Each Tablet 1 Tab PO Q4- 6HRS LAST DOSE GIVEN: DATE: 12/10/16 TIME: so next dose at as needed for pain Prozac (Fluoxetine Hcl) 20 Mg Capsule 1 Cap PO DAILYWBKFT Lisinopril 20 Mg Tablet 1 Tab PO BID Synthroid (Levothyroxine Sodium) 200 Mcg Tablet 1 Tab PO DAILY Novolog Flexpen (Insulin Aspart) 100 Unit/1 Ml Insuln.pen 5 Unit SQ TIDAC Lantus Solostar (Insulin Glargine,Hum.rec.anlog) 100 Unit/1 Ml Insuln.pen 10 Unit SQ QHS Clonidine Hcl 0.1 Mg Tablet 0.1 Mg PO BID Lasix (Furosemide) 40 Mg Tablet 40 Mg PO BID [place] 10 Mg-40 Mg Tablet (Amlodipine/Atorvastatin) 1 Each Tablet 1 Each PO DAILY Protonix (Pantoprazole Sodium) 40 Mg Tablet.dr 1 Tab PO DAILY Clopidogrel (Clopidogrel Bisulfate) 75 Mg Tablet 1 Tab PO DAILY Vitamin D3 (Cholecalciferol (Vitamin D3)) 1,000 Unit Tablet 1 Tab PO DAILY Vitals/I & O Vital Sign - Last 24 Hours 01/17/17 01/17/17 01/17/17 01/17/17 19:00 20:00 21:42 21:42 Temp 98.4 98.4 Pulse 71 71 71 Resp 17 B/P (MAP) 156/78 (104) 156/78 156/78 Pulse Ox 95 O2 Delivery Room Air Room Air 01/17/17 01/18/17 01/18/17 01/18/17 23:00 03:00 07:00 07:33 Temp 98.1 97.8 96.9 98.1 97.8 96.9 Pulse 67 65 69 Resp 18 18 18 B/P (MAP) 136/70 (92) 132/71 (91) 156/78 (104) Pulse Ox 96 97 98 O2 Delivery Room Air Room Air Room Air Room Air 01/18/17 01/18/17 01/18/17 01/18/17 09:11 09:12 09:13 11:00 Temp 97.5 97.5 Pulse 88 88 88 82 Resp 18 B/P (MAP) 181/92 181/92 181/92 173/90 (117) Pulse Ox 97 O2 Delivery Room Air Intake and Output 01/17/17 01/17/17 01/18/17 14:59 22:59 06:59 Intake Total 250 ml 400 ml 180 ml Balance 250 ml 400 ml 180 ml KARYNA NAGEL MD Jan 18, 2017 15:58
[2017-01-18] MEDS: METOCLOPRAMIDE 5 MG TABLET. PO SCH ×2 (17:00→20:38)
[2017-01-18] MEDS: ATORVASTATIN CALCIUM 40 MG TABLET. PO SCH (20:38)
[2017-01-18] MEDS ORDERED: INSULIN DETEMIR 300 UNITS/3 ML INSULN.PEN. SQ SCH ×2 (21:00)
[2017-01-19] VITALS (7 sets, daily range): BP systolic 134–190; BP diastolic 82–98
[2017-01-19] MEDS: hydrALAZINE 20 MG/ML VIAL. IVP PRN (03:11)
[2017-01-19] MEDS: PERITONEAL LOW CA IP SCH ×2 (03:20→08:38)
[2017-01-19] MEDS: DEX IP SCH ×2 (03:20→08:38)
[2017-01-19] MEDS: LEVOTHYROXINE 100 MCG TABLET PO SCH (06:28)
[2017-01-19] MEDS: HEPARIN PF for SUB-Q USE 5,000 UNIT/0.5 ML VIAL. SQ SCH ×2 (06:31→13:43)
[2017-01-19] MEDS ORDERED: PANTOPRAZOLE 40 MG TABLET.DR. PO SCH (07:30)
[2017-01-19] MEDS: INSULIN ASPART 300 UNITS/3 ML INSULN.PEN SQ SCH ×4 (07:30→12:16)
[2017-01-19] MEDS: FUROSEMIDE 40 MG TABLET. PO SCH ×2 (08:36→13:43)
[2017-01-19] MEDS: amLODIPine BESYLATE 10 MG TABLET PO SCH (08:36)
[2017-01-19] MEDS: DOCUSATE SODIUM 100 MG CAPSULE. PO SCH (08:37)
[2017-01-19] MEDS: cloNIDine HCL 0.1 MG TABLET PO SCH (08:37)
[2017-01-19] MEDS: CHOLECALCIFEROL (VITAMIN D3) 1,000 UNIT TABLET PO SCH (08:37)
[2017-01-19] MEDS: METOCLOPRAMIDE 5 MG TABLET. PO SCH ×2 (08:38→11:39)
[2017-01-19] MEDS: FLUoxetine HCL 20 MG CAPSULE PO SCH (08:38)
[2017-01-19] MEDS: SENNOSIDES/DOCUSATE 8.6/50MG TABLET. PO SCH (08:38)
--- NOTE | 2017-01-19 09:59 | PDOC ---
Dialysis Progress Note Dialysis Note Dialysis Note Seen on CAPD tolerating treatment Well so far Vitals as documented General Appearance: Awake: Alert Oriented x 3 Neck: No JVD or JVP Chest: CTA Tan Heart: S1 S2 Abdomen - Soft NTND Extremities - No Edema ESRD: CAPD as ordered home when OK with [facility] Vitals Vital Signs Vital Signs Date Time Temp Pulse Resp B/P (MAP) Pulse Ox O2 Delivery O2 Flow Rate FiO2 01/19/17 08:55 98.4 85 18 169/96 (120) 97 Room Air 98.4 Labs Last Labs Laboratory Tests Test 01/17/17 10:56 01/17/17 16:18 01/17/17 21:06 01/18/17 05:20 Glucose (Fingerstick) 290 mg/dL (70-99) 270 mg/dL (70-99) 245 mg/dL (70-99) Sodium Level 140 mmol/L (136-145) Potassium Level 4.0 mmol/L (3.5-5.1) Chloride Level 104 mmol/L (98-107) Carbon Dioxide Level 29 mmol/L (21-32) Anion Gap 7 (6-14) Blood Urea Nitrogen 54 mg/dL (7-20) Creatinine 3.9 mg/dL (0.6-1.0) Estimated GFR (Cockcroft-Gault) 12.2 Glucose Level 76 mg/dL (70-99) Calcium Level 8.1 mg/dL (8.5-10.1) Phosphorus Level 4.5 mg/dL (2.6-4.7) Magnesium Level 2.1 mg/dL (1.8-2.4) Test 01/18/17 07:38 01/18/17 08:22 01/18/17 11:09 01/18/17 15:29 Glucose (Fingerstick) 67 mg/dL (70-99) 88 mg/dL (70-99) 246 mg/dL (70-99) 220 mg/dL (70-99) Test 01/18/17 19:24 01/18/17 20:01 01/18/17 21:35 01/19/17 07:45 Glucose (Fingerstick) 43 mg/dL (70-99) 115 mg/dL (70-99) 127 mg/dL (70-99) 263 mg/dL (70-99) Laboratory Tests Test 01/18/17 11:09 01/18/17 15:29 01/18/17 19:24 01/18/17 20:01 Glucose (Fingerstick) 246 mg/dL (70-99) 220 mg/dL (70-99) 43 mg/dL (70-99) 115 mg/dL (70-99) Test 01/18/17 21:35 01/19/17 07:45 Glucose (Fingerstick) 127 mg/dL (70-99) 263 mg/dL (70-99) Assessment Assessment Problems Medical Problems: (1) Hyperglycemia Status: Acute (2) Hypertension Status: Acute (3) Intractable nausea and vomiting Status: Acute Problems: Plan Plan of Care Problems Medical Problems: (1) Hyperglycemia Status: Acute (2) Hypertension Status: Acute (3) Intractable nausea and vomiting Status: Acute SPARKLE HAMMER MD Jan 19, 2017 09:59
[2017-01-19] MEDS: CLOPIDOGREL BISULFATE 75 MG TABLET PO SCH (11:39)
[2017-01-19] MEDS: LISINOPRIL 20 MG TABLET PO SCH (11:39)
[2017-01-19] MEDS ORDERED: SENN-22 PO (13:45)
[2017-01-19] MEDS ORDERED: METO5TAB PO (13:45)
[2017-01-19] MEDS ORDERED: PANT40TA5 PO (13:45)
[2017-01-19] MEDS ORDERED: ATOR40TA59 PO (13:45)
--- NOTE | 2017-01-19 19:38 | DS ---
DATE OF DISCHARGE: 01/19/2017 CHIEF COMPLAINT: Intractable nausea, vomiting with gastroparesis. HOSPITAL COURSE: The patient is a 51-year-old woman with multiple medical problems including end-stage renal disease on dialysis, diabetes mellitus and resultant gastroparesis who presented to the Emergency Room with intractable nausea and vomiting. She was kept n.p.o. initially, was seen by GI Service and was started on Reglan with good resolution of her symptoms. Her insulin was poorly controlled and Levemir dosing as well as Humalog dosing were adjusted. This required several days as she was initially n.p.o. At the time of discharge, her values were fair, but not optimal. She will follow up with primary care physician for further adjustment. For her end-stage renal disease, peritoneal dialysis was continued. She experienced an obstruction of her PD catheter, which could be resolved in hospital and treatment was continued. She was eager to return to home on 01/19/2017. DISCHARGE DIAGNOSES: Gastroparesis, poorly controlled diabetes mellitus, end-stage renal disease on peritoneal dialysis and hypertensive urgency. DISCHARGE DISPOSITION: To home. DISCHARGE CONDITION: Improved. DISCHARGE MEDICATIONS: Please refer to MAR. DISCHARGE INSTRUCTIONS: The patient will follow up with primary care physician. BRIAN MOFFETT MD DR: HUA/nts JOB#: [id number] / [id number] Camilla White
[2017-01-24] MEDS ORDERED: DARBEPOETIN ALFA 60 MCG/0.3 ML DISP.SYRIN. SQ SCH (21:00)
== END 2017-01-19 15:00 | disposition home or self-care (01) | DRG 73 ==
LOC: ER 15:18 → 5 NORTH 17:06
PROVIDERS: ADMIT Internal Medicine; ATTEND Internal Medicine
PROC: 3E1M39Z Irrigation of Peritoneal Cavity using Dialysate, Percutaneous Approach (ICD-10-PCS; principal; 2017-01-18)
PROC: 3E1M39Z Irrigation of Peritoneal Cavity using Dialysate, Percutaneous Approach (ICD-10-PCS; 2017-01-19)
DX: E11.43 Type 2 diabetes mellitus with diabetic autonomic (poly)neuropathy (principal); N18.6 End stage renal disease; E11.22 Type 2 diabetes mellitus with diabetic chronic kidney disease; I31.3 Pericardial effusion (noninflammatory); E44.1 Mild protein-calorie malnutrition; E11.65 Type 2 diabetes mellitus with hyperglycemia; I12.0 Hypertensive chronic kidney disease with stage 5 chronic kidney disease or end stage renal disease; K31.84 Gastroparesis; D64.9 Anemia, unspecified; R60.1 Generalized edema; E03.9 Hypothyroidism, unspecified; Z88.8 Allergy status to other drugs, medicaments and biological substances; Z88.0 Allergy status to penicillin; Z79.4 Long term (current) use of insulin; E87.6 Hypokalemia; E86.0 Dehydration; K21.9 Gastro-esophageal reflux disease without esophagitis; Z82.49 Family history of ischemic heart disease and other diseases of the circulatory system; Z86.73 Personal history of transient ischemic attack (TIA), and cerebral infarction without residual deficits; Z83.3 Family history of diabetes mellitus; Z99.2 Dependence on renal dialysis; K59.00 Constipation, unspecified; I16.0 Hypertensive urgency; E78.5 Hyperlipidemia, unspecified; Z68.21 Body mass index [BMI] 21.0-21.9, adult; Z98.891 History of uterine scar from previous surgery
CPT/HCPCS: 36415; 74176; 80048; 80053; 82962; 83735; 84100; 85025; 96361; 96372; 96374; 96375; C9113; J0360; J1815; J2405; J2550; J2765; J3480; J3490; J7030; J7042; J8597; 99285-25